=== PATIENT | male | born 1960 | race Caucasian/White ===

== ENCOUNTER 2023-02-07 11:31 | Observation (INO) | payer OTHER, SELFPAY ==
[2023-02-07] VITALS (19 sets, daily range): BP systolic 107–146; BP diastolic 61–86; PULSE 57–94; RESP 10–18; TEMP 36.3–36.6; O2SAT 65–97; BMI 31.6
--- NOTE | ~2023-02-07 | CT_ITS ---
EXAMINATION: CTA BRAIN/CAROTID DATE: 02/07/2023 15:11 INDICATION: Dizziness. Headache. TECHNIQUE: Computed tomographic angiography (CTA) of the head and neck was performed with 100 mL Omni paque-350 intravenous contrast. Multiplanar reconstructions and maximum intensity projection 3D-recon structions of the carotid arteries and of the intracranial arteries were created by the technologist on a separate workstation. Precontrast CT of the head was also obtained. Automated exposure control and iterative reconstruction technique were employed.The dose-length product was 1779.88 mGy-cm. COMPARISON: None. FINDINGS: Carotid arteries: Aortic arch is normal in caliber with no dissection. There is no evident atherosclerotic plaque with 0% stenosis of the right and left carotid bulbs relative to normal distal artery lumen diameter (NASC ET criteria). Cervical soft tissues and visualized superior mediastinum are normal. Mild dependent at electasis in the visualized bilateral upper lung zones. Moderate cervical spondylosis. Head: No acute intracranial hemorrhage, acute infarction or abnormal extra axial fluid collection. Ventricl es are normal and symmetric. No mass/mass effect. Mucosal thickening the bilateral ethmoid and maxill glynn sinuses. The orbits and mastoid air cells are normal. Intracranial arteries There is no hemodynamically significant stenosis in the vertebral, basilar and internal carotid arter ies. Left vertebral artery is dominant. There are no aneurysms identified. Both A1 and P1 segments a re patent. Cerebral arterial arborization appears symmetric. No abnormally enhancing brain lesions. IMPRESSION: 1. No acute intracranial process. 2. No atherosclerotic plaque with 0% stenosis of the right and left carotid bulbs relative to normal distal artery lumen diameter (NASCET criteria). 3. No aneurysm or hemodynamically significant stenosis in the cerebral arteries. Reviewed, dictated and finalized at location L. IMPRESSION: 1. No acute intracranial process. 2. No atherosclerotic plaque with 0% stenosis of the right and left carotid bul bs relative to normal distal artery lumen diameter (NASCET criteria). 3. No aneurysm or hemodynamically significant stenosis in the cerebral arteries .
--- NOTE | 2023-02-07 11:49 | ECG_ITS ---
Measurements Intervals [place] Rate: 66 P: 39 [place]: 181 QRS: -50 QRSD: 115 T: -26 QT: 399 QTc: 420 Interpretive Statements SINUS RHYTHM LEFT ANTERIOR FASCICULAR BLOCK LEFT VENTRICULAR HYPERTROPHY AND ST-T CHANGE CANNOT RULE OUT SEPTAL INFARCT, AGE INDETERMINATE BASELINE ARTIFACT- I, II, AVR, V1 ABNORMAL ECG NO PREVIOUS ECG AVAILABLE FOR COMPARISON Electronically Signed On 02-07-2023 11:59:23 CDT by Guille Mathur D.O.
[2023-02-07 12:07] LABS: Basophils Percent Auto 0.4 % (0.2-1.2); Eosinophils Absolute Auto 0.1 K/mm3 (0-0.3); Eosinophils Percent Auto 1.6 % (0-4.4); Hematocrit 50.3 % (42.0-52.0); Hemoglobin 16.4 g/dL (14.0-18.0); Immature Granulocyte Absolute 0.01 K/mm3 (0.00-0.031); Immature Granulocyte Percent A 0.1 % (0-0.5); Lymphocytes Absolute Auto 1.64 K/mm3 (0.9-3.2); Lymphocytes Percent Auto 21.8 % (18.3-44.2); Mean Corpuscular HGB Conc 32.6 g/dl (32-36); Mean Corpuscular Hemoglobin 26.2 pg (26-34); Mean Corpuscular Volume 80.2 fl (80-100); Mean Platelet Volume 10.7 fl (7.4-10.4); Monocytes Absolute Auto 0.5 K/mm3 (0.1-0.6); Monocytes Percent Auto 7.1 % (2.6-8.5); Neutrophils Absolute Auto 5.2 K/mm3 (1.3-6.7); Platelet Count Result 227 k/mm3 (150-375); Red Blood Count 6.27 M/mm3 (4.6-6.20); Red Cell Distribution Width 14.2 % (11.5-14.5); White Blood Count 7.5 K/mm3 (4.5-10.0)
[2023-02-07 12:17] LABS: Alanine Aminotransferase 28 U/L (6-50); Albumin Level 4.4 g/dL (3.5-5.1); Alkaline Phosphatase 74 U/L (38-126); Anion Gap 5 mmol/L (8-16); Aspartate Amino Transferase 25 U/L (17-59); Bilirubin,Total 0.8 mg/dL (0.2-1.3); Blood Urea Nitrogen 23 mg/dL (9-20); Calcium 9.1 mg/dL (8.4-10.2); Carbon Dioxide 25 mmol/L (22-30); Chloride 104 mmol/L (98-107); Estimated CRCL calculation 87 ml/min; Estimated Glomerular Filt Rate > 60; Glucose 174 mg/dL (65-110); Potassium 4.2 mmol/L (3.4-5.0); Sodium 134 mmol/L (137-145)
[2023-02-07] MEDS: SODIUM CHLORIDE 0.9% IV 1,000 ML 999 ML IV CONT (12:35)
[2023-02-07] MEDS: KETOROLAC 30 MG/ML VIAL (*BKC) IV PUSH (12:35)
--- NOTE | 2023-02-07 13:55 | ED.HA ---
HPI - Headache General Chief Complaint: Headache Stated Complaint: headache Time Seen by Provider: 02/07/23 12:03 History of Present Illness HPI Narrative: Patient is a 62-year-old male who presents ER with headache. Throbbing and frontal. Ongoing since this morning. [place] lightheaded at work and dizzy. Reports 3 days ago he had some similar symptoms that also caused him to have right-sided weakness and tremors. He was admitted to the hospital and ultimately, [facility]. He underwent a CT scan and MRI and was told that he may have had a mini stroke. They would like him also to be evaluated for seizure and he is supposed to get an EEG. He had no shaking or weakness today. Reports he has had some balance issues for several years since having a TIA, but denies that it was diagnosed as a stroke. Has tried no pain medication for his headache. No trauma. Related Data Allergies Allergy/AdvReac Type Severity Reaction Status Date / Time No Known Allergies Allergy Verified 02/07/23 11:51 Review of Systems Review of Systems: All systems reviewed & are unremarkable except as noted in HPI and below Constitutional: Constitutional: Denies chills, Denies fatigue and Denies fever(s) Eyes: Eyes: Denies change in vision and Denies photophobia ENT: Denies nasal congestion and Denies sore throat Cardiovascular: Cardiovascular: Denies chest pain, Denies rapid heart rate and Denies radiating jaw, neck or arm pain Respiratory: Respiratory: Denies cough and Denies dyspnea Gastrointestinal: Gastrointestinal: Denies abdominal pain, Denies nausea and Denies vomiting Neurologic: Reports headache(s), Denies focal weakness and Denies numbness PMFSH Past Medical History Medical History (Updated 02/07/23 @ 15:37 by Andrew Tamayo MD) Diabetes Hyperlipidemia Hypertension TIA (transient ischemic attack) Exam Narrative: GENERAL: Well-appearing, well-nourished, and in no acute distress. HEAD: Normocephalic, atraumatic. ENT: Mucous membranes moist. CHEST: Clear to auscultation. No respiratory distress. HEART: Regular rate and rhythm. Normal peripheral pulses. ABDOMEN: Soft, nontender, nondistended. EXTREMITIES: Normal range of motion. No edema. SKIN: Warm, dry, no rash. NEURO: Alert and oriented x3. Clear speech. No facial droop. Normal extremity strength. PSYCH: Normal mood and affect. Course Course Emergency Course: Patient's previous symptoms could be related to seizure or migraine or other CVA. Similarly today patient to be having migraine or strokelike symptoms. Discussed case with neurology who recommended medical observation. Toradol did improve the headache but he still has dizziness. We will try some meclizine as well. No focal deficit on exam. We will also place order for EEG. Vital Signs Vital signs: Vital Signs Temperature 97.4 F L 02/07/23 11:39 Pulse Rate 62 02/07/23 11:39 Respiratory Rate 16 02/07/23 11:39 Blood Pressure 115/66 02/07/23 11:39 Pulse Oximetry 96 02/07/23 11:39 Oxygen Delivery Room Air 02/07/23 11:39 Temperature 97.4 F L 02/07/23 11:39 Pulse Rate 68 02/07/23 14:50 Respiratory Rate 16 02/07/23 14:50 Blood Pressure 110/84 02/07/23 14:50 Pulse Oximetry 96 02/07/23 14:50 Oxygen Delivery Room Air 02/07/23 11:39 MDM - Headache Lab Data 02/07/23 11:54 02/07/23 11:54 Labs: Lab Results 02/07/23 02/07/23 Range/Units 11:54 11:54 WBC 7.5 (4.5-10.0) K/mm3 RBC 6.27 H (4.6-6.20) M/mm3 Hgb 16.4 (14.0-18.0) g/dL Hct 50.3 (42.0-52.0) % MCV 80.2 (80-100) fl MCH 26.2 (26-34) pg MCHC 32.6 (32-36) g/dl RDW 14.2 (11.5-14.5) % Plt Count 227 (150-375) k/mm3 MPV 10.7 H (7.4-10.4) fl Immature Gran % (Auto) 0.1 (0-0.5) % Neut % (Auto) 69.0 (45.5-73.1) % Lymph % (Auto) 21.8 (18.3-44.2) % [place] % (Auto) 7.1 (2.6-8.5) % Eos % (Auto) 1.6 (0-4.4) % Baso % (Auto) 0.4
[2023-02-07] MEDS: MECLIZINE HCL 25 MG TABLET PO (14:50)
--- NOTE | 2023-02-07 15:42 | PM.IMHP ---
H&P: HPI History of Present Illness Date/Time: 02/07/23 15:42 Chief Complaint: Headache Narrative: This is a 62-year-old male patient who came to ER with a headache. The patient felt lightheaded and dizzy he also felt like he was having some right-sided weakness and tremors. The patient was recently admitted to [facility]. The patient stated he underwent a CT scan and MRI and was told that he had a mini-stroke. The patient would like to be evaluated for seizures and stated he supposed to have an EEG and the near future. The patient has some balance issues for several days since having a TIA. The patient felt lightheaded at work and dizzy today. When I evaluated the patient he was awake and talking without difficulty and had no focal weakness. Consent was obtained for us to obtain records from [facility]. Sodium 134. Blood glucose 174. Head neck CTA was read as the followingNo acute intracranial process. 2. No atherosclerotic plaque with 0% stenosis of the right and left carotid bulbs relative to normal distal artery lumen diameter (NASCET criteria). 3. No aneurysm or hemodynamically significant stenosis in the cerebral arteries. The patient was given Toradol, IV fluids and Antivert in the emergency room. Neurology has been consulted. The patient is being admitted to observation status on the date of service of 02/07/2023. Review of Systems Review of Systems: All systems reviewed & are unremarkable except as noted in HPI and below Constitutional: Constitutional: Reports as per HPI and Reports no additional constitutional complaints Eyes: Eyes: Reports as per HPI and Reports no additional eye complaints ENT: Reports system reviewed and no additional complaints, except as documented and Reports Normal hearing present Cardiovascular: Cardiovascular: Reports no additional cardiovascular complaints Respiratory: Respiratory: Reports no additional respiratory complaints and Reports no additional respiratory complaints Gastrointestinal: Gastrointestinal: Reports as per HPI and Reports no additional gastrointestinal complaints Musculoskeletal: Musculoskeletal: Reports no additional musculoskeletal complaints Integumentary/Breasts: Skin/Breast: Reports system reviewed and no additional complaints, except as docu and Reports as per HPI Neurologic: Reports system reviewed and no additional complaints, except as documented, Reports as per HPI and Reports Normal hearing present Psychiatric: Psychiatric: Reports no additional psychiatric complaints and Reports as per HPI Endocrine: Endocrine: Reports no additional endocrine complaints Hematologic/Lymphatic: Hematologic/Lymphatic: Reports no additional hematologic/lymphatic complaints Allergic/Immunologic: Allergic/Immunologic: Reports no additional allergic/immunologic complaints [facility] Past Medical History Medical History (Updated 02/07/23 @ 19:50 by Shikha Rodriguez NP) Diabetes Hyperlipidemia Hypertension TIA (transient ischemic attack) Surgical History Surgical History (Updated 02/07/23 @ 15:44 by Shikha Rodriguez NP) H/O arthroscopic knee surgery History of tonsillectomy and adenoidectomy S/P ORIF (open reduction internal fixation) fracture right ankle Family History Family History (Updated 02/07/23 @ 15:45 by Shikha Rodriguez NP) Father Diabetes mellitus Cancer Social History Social History (Updated 02/07/23 @ 19:47 by Shikha Rodriguez NP) Social History: He is and lives with his . They have 2 children. He works for [employer]. Code status full code Smoking status: Never smoker Alcohol intake: never Substance use: never Lack of Transportation: No Lack of Food: Never True Current Housing: I Do Not Have Housing Concerned About Future Housing: Decline to Answer Difficulty Paying Gas/Electric Bills: Decline to Answer Difficulty Paying for Meds: Decline to Answer Currently Unemployed:
--- NOTE | 2023-02-07 18:17 | ADMGEN ---
This patient, Juwan Appiah, was admitted to Medical Room 341-01. Patient/family oriented to hospital policies and general routines including ID bracelet, bed and alarms, visiting hours, pain management, procedures, bathroom and other care routines, personal items, smoking policy, room service/diet, and visiting hours. Information on how to activate the Rapid Response Team has been discussed. Patient/Family are encouraged to report perceived risks to care and to ask questions if they do not understand what they are told or what they should do.
[2023-02-07 20:43] LABS: Glucose Point of Care 217 mg/dl (65-105)
[2023-02-07] MEDS: PANTOPRAZOLE 40 MG TABLET PO (21:46)
[2023-02-07] MEDS: SIMVASTATIN 20 MG TABLET 40 MG PO (21:46)
[2023-02-08] VITALS (12 sets, daily range): BP systolic 104–129; BP diastolic 54–85; PULSE 55–78; RESP 18; TEMP 36.1–36.7; O2SAT 95–96
[2023-02-08 05:47] LABS: Basophils Absolute Auto 0.1 K/mm3 (0.0-0.1); Basophils Percent Auto 0.8 % (0.2-1.2); Eosinophils Absolute Auto 0.3 K/mm3 (0-0.3); Eosinophils Percent Auto 4.3 % (0-4.4); Hematocrit 47.9 % (42.0-52.0); Hemoglobin 15.3 g/dL (14.0-18.0); Immature Granulocyte Absolute 0.01 K/mm3 (0.00-0.031); Immature Granulocyte Percent A 0.2 % (0-0.5); Lymphocytes Absolute Auto 1.92 K/mm3 (0.9-3.2); Lymphocytes Percent Auto 32.1 % (18.3-44.2); Mean Corpuscular HGB Conc 31.9 g/dl (32-36); Mean Corpuscular Volume 81.5 fl (80-100); Mean Platelet Volume 10.8 fl (7.4-10.4); Monocytes Absolute Auto 0.5 K/mm3 (0.1-0.6); Neutrophils Absolute Auto 3.2 K/mm3 (1.3-6.7); Neutrophils Percent Auto 53.6 % (45.5-73.1); Platelet Count Result 191 k/mm3 (150-375); Red Blood Count 5.88 M/mm3 (4.6-6.20); Red Cell Distribution Width 14.3 % (11.5-14.5)
--- NOTE | 2023-02-08 06:03 | PC.NURSE ---
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
[2023-02-08 06:11] LABS: Alanine Aminotransferase 24 U/L (6-50); Albumin Level 3.7 g/dL (3.5-5.1); Alkaline Phosphatase 66 U/L (38-126); Anion Gap 3 mmol/L (8-16); Aspartate Amino Transferase 26 U/L (17-59); Bilirubin,Total 0.8 mg/dL (0.2-1.3); Blood Urea Nitrogen 24 mg/dL (9-20); Calcium 8.3 mg/dL (8.4-10.2); Carbon Dioxide 27 mmol/L (22-30); Chloride 108 mmol/L (98-107); Estimated CRCL calculation 97 ml/min; Estimated Glomerular Filt Rate > 60; Glucose 127 mg/dL (65-110); Magnesium 2.1 mg/dL (1.6-2.3); Potassium 3.9 mmol/L (3.4-5.0); Sodium 138 mmol/L (137-145)
[2023-02-08] MEDS: EMPAGLIFLOZIN 25 MG TABLET PO (08:30)
[2023-02-08] MEDS: PANTOPRAZOLE 40 MG TABLET PO ×2 (08:30→21:14)
[2023-02-08] MEDS: ASPIRIN 81 MG CHEWABLE TABLET PO (08:30)
[2023-02-08] MEDS: lisinopriL 5 MG TABLET PO (08:30)
[2023-02-08 08:35] LABS: Glucose Point of Care 108 mg/dl (65-105)
--- NOTE | 2023-02-08 09:19 | PM.IMPN ---
Progress Note: A&P Assessment and Plan (1) Stroke-like symptom: Code(s): R29.90 - Unspecified symptoms and signs involving the nervous system Status: Acute Assessment and Plan: Complaints of dizziness and weakness. Patient recently seen at [facility]. Consent form obtained to get records from [facility]. The patient stated that he had TIAs. CT head and neck no acute intracranial process, 0% stenosis b/l internal carotids, no aneurysm. neurology has been consulted and appreciate recommendations orthostatic blood pressures continue with aspirin. the patient has no focal weakness. the patient stated that he already had an echo on an MRI at [facility] we are awaiting records from [facility]. EEG results no electrographic seizures identified nor are there any epileptiform discharges (2) Hypertension: Code(s): I10 - Essential (primary) hypertension Status: Acute Assessment and Plan: Continue with lisinopril (3) Hyperlipidemia: Code(s): E78.5 - Hyperlipidemia, unspecified Status: Acute Assessment and Plan: Continue simvastatin (4) Diabetes: Code(s): E11.9 - Type 2 diabetes mellitus without complications Status: Acute Assessment and Plan: Accu-Cheks AC and HS with sliding scale insulin. Check A1c. Hypoglycemic protocol continue with Jardiance Trulicity is non formulary. Subjective Date/time seen: 02/08/23 09:19 Interval history: Patient presented to ED with dizziness and weakness. Patient recently presented with TIA to [facility]. Patient stated that upon arrival he had a headache that is now gotten better. He describes the dizziness as feeling off and disequilibrium on his feet. Patient stated that after he was discharged from [facility] that he developed shaking, weakness and numbness to the right side and he was worried for seizure. EEG being performed today. Review of Systems Review of Systems: All systems reviewed & are unremarkable except as noted in HPI and below Exam Narrative: GENERAL: Comfortable, no acute distress HENMT: moist mucous membranes EYES: EOM intact b/l NECK: no lymphadenopathy RESPIRATORY: clear to auscultation CARDIO: RRR GI: soft, nontender, bowel sounds present SKIN: no rashes EXTREMITIES: no edema, redness or tenderness NEURO: Strength 5/5 throughout, no facial droop Objective Data Vital Signs Vital Signs: Vital Signs - 24 hr 02/07/23 11:39 02/07/23 12:38 02/07/23 13:35 Temperature 97.4 F L Pulse Rate 62 94 60 Respiratory Rate 16 14 15 Blood Pressure 115/66 108/80 118/78 Pulse Oximetry 96 65 L 95 Oxygen Delivery Room Air 02/07/23 14:50 02/07/23 15:40 02/07/23 12:00 Temperature Pulse Rate 68 60 72 Respiratory Rate 16 14 10 L Blood Pressure 110/84 130/80 107/78 Pulse Oximetry 96 95 Oxygen Delivery 02/07/23 12:30 02/07/23 13:00 02/07/23 13:30 Temperature Pulse Rate 68 70 61 Respiratory Rate 10 L 15 15 Blood Pressure 107/79 125/79 118/77 Pulse Oximetry 94 92 Oxygen Delivery 02/07/23 14:01 02/07/23 14:31 02/07/23 15:41 Temperature Pulse Rate 61 57 L 59 L Respiratory Rate 16 14 17 Blood Pressure 115/77 109/83 129/80 Pulse Oximetry 92 92 95 Oxygen Delivery 02/07/23 15:45 02/07/23 16:00 02/07/23 16:30 Temperature Pulse Rate 60 59 L 59 L Respiratory Rate 11 L 15 14 Blood Pressure 135/82 126/83 Pulse Oximetry 95 96 96 Oxygen Delivery 02/07/23 18:02 02/07/23 19:00 02/07/23 20:00 Temperature 97.9 F Pulse Rate 60 67 66 Respiratory Rate 16 16 Blood Pressure 146/86 H 144/71 H Pulse Oximetry 96 97 Oxygen Delivery 02/07/23 22:27 02/07/23 20:00 02/08/23 00:00 Temperature 97.3 F L Pulse Rate 63 55 L Respiratory Rate 18 Blood Pressure 123/61 Pulse Oximetry 96 Oxygen Delivery Room Air 02/08/23 04:00 02/08/23 06:00 02/08/23
[2023-02-08 09:43] LABS: Cholesterol 129 mg/dL (0-200); HDL Direct 39 mg/dL; Triglycerides 113 mg/dL (<150)
[2023-02-08 09:54] LABS: LDL Cholesterol Direct 68 mg/dL
--- NOTE | 2023-02-08 10:48 | WPDNEURCNPN ---
Assessment and Plan Assessment and plan (1) Headache: Code(s): R51.9 - Headache, unspecified Status: Acute (2) Dizziness: Code(s): R42 - Dizziness and giddiness Status: Acute (3) Stroke-like symptom: Code(s): R29.90 - Unspecified symptoms and signs involving the nervous system Status: Acute (4) Hypertension: Code(s): I10 - Essential (primary) hypertension Status: Acute (5) Hyperlipidemia: Code(s): E78.5 - Hyperlipidemia, unspecified Status: Acute (6) Diabetes: Code(s): E11.9 - Type 2 diabetes mellitus without complications Status: Acute Plan Juwan Appiah is a 62 year old male with a history of diabetes melitis, hyperlipidemia, hypertension, and TIA presenting due to concerns for headache, lightheadedness, dizziness. His headache is gone and he feels back to baseline. CTA brain/carotid is normal. He had an episode not long ago for shaking/weakness/numbness in the right side that prompted stroke work-up which was reportedly unrevealing. Patient was supposed to have a routine EEG which was not done yet. - Routine EEG Consult date: 02/08/23 Reason for consult: Dizziness HPI: Juwan Appiah is a 62 year old male with a history of diabetes melitis, hyperlipidemia, hypertension, and TIA presenting due to concerns for headache, lightheadedness, dizziness. Patient was recently admitted to [facility] for right upper extremity, numbness, weakness, and shaking. He had a CT head and MRI at that time, but results are not available for review. He was supposed to get an EEG as outpatient due to concerns for seizures but has not been done yet. He was told that he had a TIA. Since then, he has continued to have balance issues and headache. On the day of presentation he felt lightheaded as well. In the ED his blood pressure was in the 110s-120s. His CT head and CTA brain/carotid were normal. Labs were unrevealing as well. He was given a dose of Toradol, meclizine, and IV fluids while in the ED. He was subsequently admitted. His current medications include aspirin 81mg daily and simvastatin 40mg daily. Patient feels that his headache is gone. He had a four hour episode of right sided tremulousness, which is what prompted his admission at [facility] and need for EEG. During the episode patient was fully aware and able to communicate. He felt some numbness and weakness on the right side. During the shaking, he was watching TV. became concerned and had him taken for evaluation at [facility], which is what prompted the stroke work-up. Patient reports that all his testing that was done at the hospital came back clear . He has not had any additional similar episodes of right sided shaking/weakness/numbness since then. He is currently on light duty at his job. Review of Systems Constitutional: Constitutional: Reports no additional constitutional complaints Eyes: Eyes: Reports no additional eye complaints ENT: Reports system reviewed and no additional complaints, except as documented Cardiovascular: Cardiovascular: Reports no additional cardiovascular complaints Respiratory: Respiratory: Reports no additional respiratory complaints Gastrointestinal: Gastrointestinal: Reports no additional gastrointestinal complaints Genitourinary: Genitourinary: Reports no additional male genitourinary complaints Musculoskeletal: Musculoskeletal: Reports no additional musculoskeletal complaints Integumentary/Breasts: Skin/Breast: Reports system reviewed and no additional complaints, except as docu Neurologic: Reports as per HPI Psychiatric: Psychiatric: Reports no additional psychiatric complaints PMFSH Past Medical History Medical History Diabetes Hyperlipidemia Hypertension TIA (transient ischemic attack) Surgical History Surgical History H/O arthrosco
[2023-02-08 10:50] LABS: Folic Acid 10.4 ng/mL (2.76->20)
[2023-02-08 11:29] LABS: Lactic Acid Reflex 0.8 mmol/L (0.7-2.0)
[2023-02-08 12:32] LABS: Glucose Point of Care 218 mg/dl (65-105)
[2023-02-08] MEDS: INSULIN ASPART (*BKC) 100 UNITS/ML SUB-Q (12:38)
--- NOTE | 2023-02-08 13:49 | WPDNEUROLOGY ---
Neurology EEG Report General Information Date of Study: 02/08/23 TEST Routine EEG DIAGNOSIS Right sided tremor CONDITION OF RECORDING Awake, drowsy, asleep EEG NUMBER [id number] CLINICAL HISTORY Patient had an episode of uncontrollable shaking of his right side that lasted around four hours. He had no loss of consciousness at the time. He did have associated right sided weakness and numbness. He has not had any additional episodes since then. EEG DESCRIPTION During the awake state with eyes closed the background consists of 8-9 Hz posterior dominant rhythm which attenuates appropriately with eye opening. The recording is continuous. There is a well developed anterior-posterior gradient. No significant asymmetries of background activities are noted. With drowsiness there is waxing and waning of the dominant rhythm with eventual replacement by a mixture of beta, alpha, and theta activity. As the patient enters stage II sleep, symmetrical spindles. There are no epileptiform discharges or seizures during this recording. Hyperventilation and photic stimulation were not performed. IMPRESSION This is a normal routine EEG recorded in awake and asleep states. There are no electrographic seizures identified, nor are there any epileptiform discharges. Please note that a normal EEG cannot exclude a seizure disorder. Clinical correlation is recommended.
[2023-02-08 17:15] LABS: Glucose Point of Care 169 mg/dl (65-105)
[2023-02-08 21:07] LABS: Hemoglobin A1C 7.8 % (<5.7)
[2023-02-08] MEDS: SIMVASTATIN 20 MG TABLET 40 MG PO (21:15)
[2023-02-09] VITALS (10 sets, daily range): BP systolic 98–117; BP diastolic 55–73; PULSE 61–70; RESP 18–20; TEMP 35.6–36.5; O2SAT 95–98
[2023-02-09 00:37] LABS: Glucose Point of Care 173 mg/dl (65-105)
[2023-02-09 06:06] LABS: Basophils Percent Auto 0.4 % (0.2-1.2); Eosinophils Absolute Auto 0.2 K/mm3 (0-0.3); Eosinophils Percent Auto 2.5 % (0-4.4); Hematocrit 49.1 % (42.0-52.0); Hemoglobin 15.7 g/dL (14.0-18.0); Immature Granulocyte Absolute 0.02 K/mm3 (0.00-0.031); Immature Granulocyte Percent A 0.3 % (0-0.5); Lymphocytes Absolute Auto 1.71 K/mm3 (0.9-3.2); Lymphocytes Percent Auto 24.2 % (18.3-44.2); Mean Corpuscular Hemoglobin 26.5 pg (26-34); Mean Corpuscular Volume 82.8 fl (80-100); Monocytes Absolute Auto 0.7 K/mm3 (0.1-0.6); Monocytes Percent Auto 9.5 % (2.6-8.5); Neutrophils Absolute Auto 4.5 K/mm3 (1.3-6.7); Neutrophils Percent Auto 63.1 % (45.5-73.1); Platelet Count Result 216 k/mm3 (150-375); Red Blood Count 5.93 M/mm3 (4.6-6.20); Red Cell Distribution Width 14.2 % (11.5-14.5); White Blood Count 7.1 K/mm3 (4.5-10.0)
[2023-02-09 06:20] LABS: Alanine Aminotransferase 22 U/L (6-50); Albumin Level 3.9 g/dL (3.5-5.1); Alkaline Phosphatase 67 U/L (38-126); Anion Gap 3 mmol/L (8-16); Aspartate Amino Transferase 19 U/L (17-59); Blood Urea Nitrogen 16 mg/dL (9-20); Calcium 8.5 mg/dL (8.4-10.2); Carbon Dioxide 26 mmol/L (22-30); Chloride 111 mmol/L (98-107); Estimated CRCL calculation 87 ml/min; Estimated Glomerular Filt Rate > 60; Glucose 129 mg/dL (65-110); Magnesium 2.1 mg/dL (1.6-2.3); Sodium 140 mmol/L (137-145)
[2023-02-09 08:47] LABS: Glucose Point of Care 145 mg/dl (65-105)
[2023-02-09] MEDS: PANTOPRAZOLE 40 MG TABLET PO (09:13)
[2023-02-09] MEDS: ASPIRIN 81 MG CHEWABLE TABLET PO (09:13)
[2023-02-09] MEDS: EMPAGLIFLOZIN 25 MG TABLET PO (09:13)
[2023-02-09] MEDS: lisinopriL 5 MG TABLET PO (09:13)
[2023-02-09 12:21] LABS: Glucose Point of Care 199 mg/dl (65-105)
--- NOTE | 2023-02-09 13:48 | PM.DS ---
DS: Admitting Diagnosis Discharge Date 02/09/23 Admitting Diagnosis shaking, numbness, weakness in the right arm DS: Discharge Diagnosis Discharge Diagnosis (1) Stroke-like symptom: Code(s): R29.90 - Unspecified symptoms and signs involving the nervous system Status: Acute Assessment and Plan: Complaints of dizziness and weakness. Patient recently seen at [facility]. Consent form obtained to get records from [facility]. The patient stated that he had TIAs. CT head and neck no acute intracranial process, 0% stenosis b/l internal carotids, no aneurysm. neurology has been consulted and appreciate recommendations orthostatic blood pressures continue with aspirin. the patient has no focal weakness. the patient stated that he already had an echo on an MRI at [facility] we are awaiting records from [facility]. EEG results no electrographic seizures identified nor are there any epileptiform discharges (2) Hypertension: Code(s): I10 - Essential (primary) hypertension Status: Acute Assessment and Plan: Continue with lisinopril (3) Hyperlipidemia: Code(s): E78.5 - Hyperlipidemia, unspecified Status: Acute Assessment and Plan: Continue simvastatin (4) Diabetes: Code(s): E11.9 - Type 2 diabetes mellitus without complications Status: Acute Assessment and Plan: Accu-Cheks AC and HS with sliding scale insulin. Check A1c. Hypoglycemic protocol continue with Jardiance Trulicity is non formulary. DS: Summary Hospital Course Reason for hospitalization: 02/09/23 Hospital Course: This is a 62-year-old male who presented to the ED on 02/07/2023 with chief complaint right-sided weakness and tremor. Patient recently admitted to [facility] where he received CT and MRI and was told he had a TIA. Patient presented to [place] because he wished to be evaluated for seizures and that he was supposed to have an EEG soon. Patient had reported balance issues since having TIA. Patient reported right upper extremity numbness, weakness and shaking. During this episode patient was fully aware unable to communicate. Reportedly during the shaking patient's had noticed it and she became concerned patient was watching TV during this time and went to the hospital due to 's concerns. Patient shaking, weakness and numbness have not reoccurred since hospital admission. Neurology consulted. Orthostatics were negative, patient did not have any focal weakness or facial droop. CT of the head and neck with no acute intracranial process, 0% stenosis in bilateral internal carotids and no aneurysm. EEG performed and did not identify any electrographic seizures nor any epileptiform discharges. I discussed this case with Neurology and they have cleared patient for discharge. Continue home medications at discharge. Time Spent with Patient Time attestation: Total time spent providing and/or coordinating discharge services: Exam Narrative: GENERAL: Comfortable, no acute distress HENMT: moist mucous membranes EYES: EOM intact b/l NECK: no lymphadenopathy RESPIRATORY: clear to auscultation CARDIO: RRR GI: soft, nontender, bowel sounds present SKIN: no rashes EXTREMITIES: no edema, redness or tenderness NEURO: strength 5/5, no facial droop DS: Data Data Completed and Pending Labs on day of discharge: Labs from last 24 hours 02/09/23 02/09/23 02/09/23 11:53 07:59 05:19 WBC RBC Hgb Hct MCV MCH MCHC RDW Plt Count MPV Immature Gran % (Auto) Neut % (Auto) Lymph % (Auto) [place] % (Auto) Eos % (Auto) Baso % (Auto) Lymph # (Auto) [place] # (Auto) Eos # (Auto) Baso # (Auto) Abs Immat Gran (auto) Absolute Neuts (auto) Absolute Nucleated RBC Nucleated RBC % Sodium 140 Potassium 4.0 Chloride 111 H
== END 2023-02-09 14:28 | disposition home or self-care (01) ==
LOC: ANHED 15:37 → ANH3MED 02-08 09:38
PROVIDERS: Emergency Medicine; Internal Medicine Critical Care Medicine; Nurse Practitioner; Admitting Provider Internal Medicine; Emergency Provider Emergency Medicine; Visit Provider Internal Medicine
DX: R29.90 Unspecified symptoms and signs involving the nervous system (principal); I10 Essential (primary) hypertension; E78.5 Hyperlipidemia, unspecified; E11.9 Type 2 diabetes mellitus without complications; R51.9 Headache, unspecified; R42 Dizziness and giddiness; R94.31 Abnormal electrocardiogram [ECG] [EKG]; Z86.73 Personal history of transient ischemic attack (TIA), and cerebral infarction without residual deficits; Z79.82 Long term (current) use of aspirin; Z79.85 Long-term (current) use of injectable non-insulin antidiabetic drugs; Z79.84 Long term (current) use of oral hypoglycemic drugs; Z79.899 Other long term (current) drug therapy
CPT/HCPCS: 36415; 70496; 70498; 80053; 80061; 82607; 82746; 82948; 83036; 83605; 83735; 84443; 85025; 93005; 95816; 96361; 96374; 99285; A9270; G0378; G0379; J1815; J1885; J7030; Q9967

== ENCOUNTER 2023-07-31 12:01 | Emergency (ER) | payer OTHER, SELFPAY ==
[2023-07-31 12:08] VITALS: BP 95/58; PULSE 72; RESP 20; TEMP 36.3; O2SAT 93
--- NOTE | 2023-07-31 12:29 | ED.DENTAL ---
HPI - Dental/Oral General Chief complaint: Dental/Oral Stated complaint: jaw swollen Time Seen by Provider: 07/31/23 12:10 Source: patient Mode of arrival: ambulatory Limitations: no limitations History of Present Illness HPI Narrative: Juwan is a 63-year-old male patient presenting to the clinic today with complaints of possible dental infection. He reports that he is having pain to the left upper and lower jaw that is radiating to his head. States he has an appointment with the dentist and has discontinued taking his Plavix. However when I asked him how long he has been office Plavix he says x1 week. States that he ran out of his prescription. He was taking Plavix for TIAs. Related Data Home Medications Medication Instructions Recorded Confirmed aspirin 81 mg chewable tablet 81 mg PO DAILY 02/07/23 07/31/23 dulaglutide 0.75 mg/0.5 mL 0.75 mg subcut WEEKLY 02/07/23 07/31/23 subcutaneous pen injector (Trulicity) empagliflozin 25 mg tablet 25 mg PO DAILY 02/07/23 07/31/23 (Jardiance) lisinopril 5 mg tablet 5 mg PO DAILY 02/07/23 02/07/23 pantoprazole 40 mg tablet,delayed 40 mg PO BID 02/07/23 02/07/23 release simvastatin 40 mg tablet 40 mg PO HS 02/07/23 07/31/23 Allergies Allergy/AdvReac Type Severity Reaction Status Date / Time No Known Allergies Allergy Verified 02/07/23 11:51 Review of Systems Review of Systems: Pertinent positives per HPI. Patient denies any fever, chills, rash, visual changes, dizziness, cough, runny nose, sore throat, shortness of breath, chest pain, palpitations, nausea, vomiting, diarrhea, constipation, abdominal pain, or any urinary issues. [facility] Past Medical History Medical History Diabetes Hyperlipidemia Hypertension TIA (transient ischemic attack) Surgical History Surgical History H/O arthroscopic knee surgery History of tonsillectomy and adenoidectomy S/P ORIF (open reduction internal fixation) fracture right ankle Family History Family History Father Diabetes mellitus Cancer Social History Social History Social History: He is and lives with his . They have 2 children. He works for [employer]. Code status full code Smoking status: Never smoker Alcohol intake: never Substance use: never Lack of Transportation: No Lack of Food: Never True Current Housing: I Do Not Have Housing Concerned About Future Housing: Decline to Answer Difficulty Paying Gas/Electric Bills: Decline to Answer Difficulty Paying for Meds: Decline to Answer Currently Unemployed: Decline to Answer Education: Decline to Answer Difficulty w/ Childcare or Family Care: Decline to Answer Spiritual care concerns: No Comments At the time of my signature, I reviewed and agree with the nursing past medical, surgical, social, and family history. There is no relevant family history pertinent to the patient complaint. Exam Narrative: General: Well-developed, well nourished, in no apparent distress Head: Normocephalic, atraumatic Eyes: Pupils equally round and reactive to light bilaterally, EOM intact, sclera and conjunctive clear, no discharge, lids normal Ears: TMs intact and clear, ear canals clear, no drainage, grossly hearing normal. Nose: Nares patent, no discharge, no inflammation, no sinus tenderness. Mouth: Oropharynx without lesions or masses, poor dentition, MMM. Multiple tooth infection to the left upper and lower posterior teeth Neck: Supple, trachea midline, no enlargement of anterior or posterior cervical nodes, no thyroid masses or goiter palpable. Cardio: Regular rate and rhythm, s1 and s2 normal, no murmur appreciated. Resp: Clear to auscultation bilaterally anteriorly and posteriorly, no r
== END 2023-07-31 12:36 | disposition home or self-care (01) ==
PROVIDERS: Emergency Provider Nurse Practitioner Family; PCP Internal Medicine
DX: K04.7 Periapical abscess without sinus (principal); Z79.82 Long term (current) use of aspirin; I10 Essential (primary) hypertension; E78.5 Hyperlipidemia, unspecified; E11.8 Type 2 diabetes mellitus with unspecified complications; Z86.73 Personal history of transient ischemic attack (TIA), and cerebral infarction without residual deficits; Z79.02 Long term (current) use of antithrombotics/antiplatelets
CPT/HCPCS: 99213; G0463

== ENCOUNTER 2023-10-07 17:24 | Emergency (ER) | payer OTHER, SELFPAY ==
[2023-10-07 17:37] VITALS: BP 145/80; PULSE 103; RESP 16; TEMP 36.8; O2SAT 96
--- NOTE | 2023-10-07 17:47 | ED.URI ---
HPI - URI/Sore Throat General Chief Complaint: Upper Respiratory Infection Stated Complaint: Sore Throat/Cough Time Seen by Provider: 10/07/23 18:02 Source: patient and RN notes reviewed Mode of arrival: ambulatory Limitations: no limitations History of Present Illness HPI Narrative: 63-year-old male presents with concern for cough and sore throat for 2 weeks. He reports his has strep throat currently. He denies fever, body aches, chills, sweats. MD elicited complaint: cough and sore throat Related Data Home Medications Medication Instructions Recorded Confirmed aspirin 81 mg chewable tablet 81 mg PO DAILY 02/07/23 07/31/23 dulaglutide 0.75 mg/0.5 mL 0.75 mg subcut WEEKLY 02/07/23 07/31/23 subcutaneous pen injector (Trulicity) empagliflozin 25 mg tablet 25 mg PO DAILY 02/07/23 07/31/23 (Jardiance) simvastatin 40 mg tablet 40 mg PO HS 02/07/23 07/31/23 clopidogrel 75 mg tablet 75 mg PO DAILY 07/31/23 07/31/23 gabapentin 300 mg capsule 300 mg PO BID 07/31/23 07/31/23 omeprazole 20 mg capsule,delayed 200 mg PO DAILY 07/31/23 07/31/23 release tizanidine 4 mg tablet mg 10/07/23 Allergies Allergy/AdvReac Type Severity Reaction Status Date / Time No Known Allergies Allergy Verified 02/07/23 11:51 Review of Systems Review of Systems: CONSTITUTIONAL: Denies malaise, chills, sweats, or fever. EYES: Denies visual changes, redness, or discharge. ENT: Denies rhinorrhea, congestion, sinus pain, otalgia. Reports sore throat. CARDIOVASCULAR: Denies chest pain, palpitations, or edema. RESPIRATORY: Reports cough. Denies dyspnea. GASTROINTESTINAL: Denies abdominal pain, nausea, vomiting, diarrhea SKIN: Denies rash or itching. MUSCULOSKELETAL: Denies myalgia. NEUROLOGIC: Reports headache. All systems reviewed & are unremarkable except as noted in HPI and below PMFSH Past Medical History Medical History Diabetes Hyperlipidemia Hypertension TIA (transient ischemic attack) Surgical History Surgical History H/O arthroscopic knee surgery History of tonsillectomy and adenoidectomy S/P ORIF (open reduction internal fixation) fracture right ankle Family History Family History Father Diabetes mellitus Cancer Social History Social History Social History: He is and lives with his . They have 2 children. He works for [employer]. Code status full code Smoking status: Never smoker Alcohol intake: never Substance use: never Lack of Transportation: No Lack of Food: Never True Current Housing: I Do Not Have Housing Concerned About Future Housing: Decline to Answer Difficulty Paying Gas/Electric Bills: Decline to Answer Difficulty Paying for Meds: Decline to Answer Currently Unemployed: Decline to Answer Education: Decline to Answer Difficulty w/ Childcare or Family Care: Decline to Answer Spiritual care concerns: No Comments At time of signature, agree with nursing past medical, surgical, social and family history. There is no relevant family history pertinent to the presenting complaint Exam Narrative: GENERAL: Well-appearing, well-nourished, and in no acute distress. HEAD: Normocephalic EYES: PERRLA, conjunctivae clear ENT: Nares clear. Mucous membranes moist. TM pearly cruz with sharp light reflex bilaterally; no tragal tenderness. Oropharynx not erythematous without lesions. Tonsils not enlarged and without exudate, no drooling, no hoarseness, no trismus, uvula midline. NECK: Supple. No lymphadenopathy CHEST: Clear to auscultation, breath sounds equal. No wheezing, rhonchi, rales, or stridor. No respiratory distress, speaks in full sentences. HEART: Regular rate and rhythm. No murmur heard. SKIN: Warm, dry, no rash. NEUR
== END 2023-10-07 18:27 | disposition home or self-care (01) ==
PROVIDERS: Emergency Provider Nurse Practitioner; PCP Internal Medicine
DX: J02.0 Streptococcal pharyngitis (principal); R05.9 Cough, unspecified; E11.9 Type 2 diabetes mellitus without complications; E78.5 Hyperlipidemia, unspecified; I10 Essential (primary) hypertension; Z86.73 Personal history of transient ischemic attack (TIA), and cerebral infarction without residual deficits; Z79.82 Long term (current) use of aspirin
CPT/HCPCS: 87880; 99213; G0463

== ENCOUNTER 2023-11-22 11:10 | Emergency (ER) | payer OTHER, SELFPAY ==
[2023-11-22 11:18] VITALS: BP 141/91; PULSE 73; RESP 16; TEMP 36.9; O2SAT 97
--- NOTE | 2023-11-22 12:00 | ED.DENTAL ---
HPI - Dental/Oral General Chief complaint: Dental/Oral Stated complaint: tooth pain Time Seen by Provider: 11/22/23 12:00 Mode of arrival: ambulatory Limitations: no limitations History of Present Illness HPI Narrative: 63-year-old male presents with concern for right lower toothache. He reports he has had a toothache for 3 weeks, denies any injury or trauma to the tooth. Reports he had similar problems in other teeth that he since had pulled. Reports he is trying to get a dentist appointment. Reports he has tried Tylenol and ibuprofen without relief. MD Complaint: tooth pain Related Data Home Medications Medication Instructions Recorded Confirmed aspirin 81 mg chewable tablet 81 mg PO DAILY 02/07/23 11/22/23 dulaglutide 0.75 mg/0.5 mL 0.75 mg subcut WEEKLY 02/07/23 11/22/23 subcutaneous pen injector (Trulicity) empagliflozin 25 mg tablet 25 mg PO DAILY 02/07/23 11/22/23 (Jardiance) simvastatin 40 mg tablet 40 mg PO HS 02/07/23 11/22/23 clopidogrel 75 mg tablet 75 mg PO DAILY 07/31/23 11/22/23 gabapentin 300 mg capsule 300 mg PO BID 07/31/23 11/22/23 omeprazole 20 mg capsule,delayed 200 mg PO DAILY 07/31/23 11/22/23 release tizanidine 4 mg tablet 4 mg PO BID 10/07/23 11/22/23 Allergies Allergy/AdvReac Type Severity Reaction Status Date / Time No Known Allergies Allergy Verified 11/22/23 11:24 Review of Systems Review of Systems: CONSTITUTIONAL: Denies malaise, chills, sweats, or fever. EYES: Denies visual changes ENT: Denies rhinorrhea, congestion, sinus pain, otalgia or sore throat. Reports right lower dental pain CARDIOVASCULAR: Denies chest pain, palpitations RESPIRATORY: Denies cough or dyspnea. SKIN: Denies rash or itching. MUSCULOSKELETAL: Denies myalgia. NEUROLOGIC: Denies numbness, weakness, or headache. All systems reviewed & are unremarkable except as noted in HPI and below PMFSH Past Medical History Medical History Diabetes Hyperlipidemia Hypertension TIA (transient ischemic attack) Surgical History Surgical History H/O arthroscopic knee surgery History of tonsillectomy and adenoidectomy S/P ORIF (open reduction internal fixation) fracture right ankle Family History Family History Father Diabetes mellitus Cancer Social History Social History Social History: He is and lives with his . They have 2 children. He works for [employer]. Code status full code Smoking status: Never smoker Alcohol intake: never Substance use: never Lack of Transportation: No Lack of Food: Never True Current Housing: I Do Not Have Housing Concerned About Future Housing: Decline to Answer Difficulty Paying Gas/Electric Bills: Decline to Answer Difficulty Paying for Meds: Decline to Answer Currently Unemployed: Decline to Answer Education: Decline to Answer Difficulty w/ Childcare or Family Care: Decline to Answer Spiritual care concerns: No Comments At time of signature, agree with nursing past medical, surgical, social and family history. There is no relevant family history pertinent to the presenting complaint Exam Narrative: GENERAL: Well-appearing, well-nourished, and in no acute distress. HEAD: Normocephalic, atraumatic. EYES: PERRLA, sclera clear ENT: Nares clear, turbinates pink, no rhinorrhea or epistaxis. Mucous membranes moist. TM pearly cruz with sharp light reflex bilaterally; no tragal tenderness. Oropharynx without erythema or lesions. Tonsils not enlarged and without exudate. Missing teeth, broken teeth, caries noted, no jaw swelling noted, no visible abscess noted NECK: Supple. No lymphadenopathy. CHEST: No respiratory distress. Speaks in full sentences. HEART: Regular rate and rhythm. SKIN:
== END 2023-11-22 12:10 | disposition home or self-care (01) ==
PROVIDERS: Emergency Provider Nurse Practitioner; PCP Internal Medicine
DX: K08.89 Other specified disorders of teeth and supporting structures (principal); E11.9 Type 2 diabetes mellitus without complications; E78.5 Hyperlipidemia, unspecified; I10 Essential (primary) hypertension; Z86.73 Personal history of transient ischemic attack (TIA), and cerebral infarction without residual deficits; Z79.82 Long term (current) use of aspirin
CPT/HCPCS: 99213; G0463

== ENCOUNTER 2025-03-31 12:18 | Emergency (ER) | payer OTHER, SELFPAY ==
--- NOTE | ~2025-03-31 | XR_ITS ---
PA, oblique, and lateral views of the left index finger CLINICAL HISTORY: Laceration FINDINGS: Probable transverse nondisplaced fracture the distal phalanx of the index finger. There is focal overlying soft tissue laceration. Remaining osseous structures and joint spaces are intact. IMPRESSION: Suspected transverse nondisplaced fracture of the distal phalanx of the index finger. Reviewed, dictated and finalized at location . IMPRESSION: Suspected transverse nondisplaced fracture of the distal phalanx of the index f angela.
--- NOTE | 2025-03-31 12:22 | ED.WOUNDLAC ---
HPI - Wound/Laceration General Chief Complaint: Extremity Injury, Upper Stated Complaint: left finger cut Time Seen by Provider: 03/31/25 12:25 Source: patient and RN notes reviewed Mode of arrival: ambulatory Limitations: no limitations History of Present Illness HPI narrative: 65-year-old male presents [facility] complaining of left index finger injury. Patient was using a hedgetrimmer when he reached his finger near the blade while it was running and lacerated his distal and of his left index finger. Patient reports having multiple lacerations to the end of his left index finger. Patient denies any numbness or tingling reports he is able to move his finger without issue. Patient reports having a history of diabetes and neuropathy. Bleeding is controlled prior to arrival. Patient is unsure of his tetanus status. The injury occurred approximately 1 hour ago. Related Data Home Medications ?Medication ?Instructions ?Recorded ?Confirmed ?Last Taken ?Type aspirin 81 mg chewable tablet 81 mg PO DAILY 02/07/23 03/31/25 Unknown History dulaglutide 0.75 mg/0.5 mL 0.75 mg subcut WEEKLY 02/07/23 03/31/25 02/03/23 History subcutaneous pen injector (Trulicity) empagliflozin 25 mg tablet 25 mg PO DAILY 02/07/23 03/31/25 Unknown History (Jardiance) simvastatin 40 mg tablet 40 mg PO HS 02/07/23 03/31/25 Unknown History gabapentin 300 mg capsule 300 mg PO BID 07/31/23 03/31/25 Unknown History omeprazole 20 mg capsule,delayed 200 mg PO DAILY 07/31/23 03/31/25 Unknown History release tizanidine 4 mg tablet 4 mg PO BID 10/07/23 03/31/25 Unknown History Allergies Allergy/AdvReac Type Severity Reaction Status Date / Time No Known Allergies Allergy Verified 03/31/25 12:31 Review of Systems Review of Systems: CONSTITUTIONAL: Denies fever, chills, or sweats. EYES: Denies visual changes, redness, or discharge. ENT: Denies rhinorrhea, congestion, sore throat, or otalgia. CARDIOVASCULAR: Denies chest pain, palpitations, or edema. RESPIRATORY: Denies cough or dyspnea. GASTROINTESTINAL: Denies abdominal pain, nausea, vomiting, or diarrhea. GENITOURINARY: Denies dysuria or hematuria. SKIN: Denies rash or itching. MUSCULOSKELETAL: Denies back pain, joint pain, or myalgia. Positive for laceration. NEUROLOGIC: Denies headache, numbness, or weakness. PSYCHIATRIC: Denies anxiety or depression. All other systems reviewed are negative, except as documented in HPI. [facility] Past Medical History Medical History TIA (transient ischemic attack) Hyperlipidemia Hypertension Diabetes Surgical History Surgical History History of tonsillectomy and adenoidectomy H/O arthroscopic knee surgery S/P ORIF (open reduction internal fixation) fracture right ankle Family History Family History Father Diabetes mellitus Cancer Social History Social History Social History: He is and lives with his . They have 2 children. He works for [employer]. Code status full code Smoking status: Never smoker Alcohol intake: never Substance use: never Lack of Transportation: No Lack of Food: Never True Current Housing: I Do Not Have Housing Concerned About Future Housing: Decline to Answer Difficulty Paying Gas/Electric Bills: Decline to Answer Difficulty Paying for Meds: Decline to Answer Currently Unemployed: Decline to Answer Education: Decline to Answer Difficulty w/ Childcare or Family Care: Decline to Answer Spiritual care concerns: No Comments At the time of my signature, I reviewed and agree with the nursing past medical, surgical, social, and family history. There is no relevant family history pertinent to the patient complaint. Exam Narrative: GENERAL: This is a well-nourished, well-developed adult, in no apparent distress. They are non ill-appearing, nontoxic appearing. HEAD: normocephalic, atraumatic. EYES: Sclera clear/white. Conjunctiva normal. Vision is grossly intact. Extraocular movements intact EARS: External ears normal, Hearing grossly intact. NOSE: External nose alberto THROAT: Mucous membranes moist NECK: Normal range of motion CARDIOVASCULAR: Regular rate and rhythm RESPIRATORY: Respiratory rate normal, respiratory effort nonlabored, no respiratory distress SKIN: warm, Dry, intact with no suspicious lesions or rash, good texture and turgor. See extremities for laceration description. NEURO: awake, alert, and oriented to person, place and time. There were no obvious focal neurologic abnormalities. EXTREMITIES: Left index finger: There are 3 lacerations present to the distal palmar surface of the index finger. Lacerations are distal to the DIP. Lacerations 1 measures approximately 1 cm, laceration to linear and angled measuring approximately 2 cm, laceration 3 measuring approximately 1 cm. Each laceration is proximal to each other. No swelling or discharge. Hemostasis achieved with direct pressure. Patient is able to fully flex and extend his left index finger against resistance at the PIP, PIP, MCP. Patient can make a fist, stop sign, thumbs up, okay sign. Normals pronation and supination. Normal flexion extension of the wrist. Neurovascular status intact distal to the injury. Normal sensation. Capillary refill less than 2 seconds. Ulnar and radial nerve distribution is intact. BACK: Nontender without deformity. No CVA tenderness. Course Course Emergency Course: Portions of this record may have been created with voice recognition software Level of Care: Express Care Visit Vital Signs Vital signs: Vital Signs Temperature 98 F 03/31/25 12:25 Pulse Rate 88 03/31/25 12:25 Respiratory Rate 20 03/31/25 12:25 Blood Pressure 112/82 03/31/25 12:25 Pulse Oximetry 96 03/31/25 12:25 Oxygen Delivery Room Air 03/31/25 12:25 Temperature 98 F 03/31/25 12:25 Pulse Rate 88 03/31/25 12:25 Respiratory Rate 20 03/31/25 12:25 Blood Pressure 112/82 03/31/25 12:25 Pulse Oximetry 96 03/31/25 12:25 Oxygen Delivery Room Air 03/31/25 12:25 Reviewed Procedures Laceration Laceration 1: Date: 03/31/25 Time: 13:30 Site: hand Side (If applicable): left (Distal Index finger) Size (cm): 1 Description: linear Local Anesthetic: lidocaine 1% (Digital block) Amount of anesthesia used (mL): 6 Pre-repair: wound explored, irrigated and irrigated extensively ====== Skin Level ====== Skin layer closed with: nylon Size (cm): 4-0 Number of sutures: 3 Technique: simple, interrupted ====== Subcutaneous Layer ====== ====== Muscle Layer ====== ====== Tendon Layer ====== Dressing: Antibiotic ointment, nonadherent Telfa, gauze and Coban, model finger splint Laceration 2: Date: 03/31/25 Time: 13:30 Site: hand Side (If applicable): left (distal index finger) Size (cm): 2 Description: linear and irregular Depth: simple, single layer Local Anesthetic: lidocaine 1% (digital block) Amount of anesthesia used (mL): 6 Pre-repair: wound explored and irrigated extensively ====== Skin Level ====== Skin layer closed with: nylon Size (cm): 5-0 Number of sutures: 7 Technique: simple, interrupted ====== Subcutaneous Layer ====== ====== Muscle Layer ====== ====== Tendon Layer ====== Dressing: Antibiotic ointment, nonadherent Telfa, gauze and Coban, metal finger splint Laceration 3: Date: 03/31/25 Time: 13:30 Site: hand Side (If applicable): left (Distal index finger) Size (cm): 1 Description: linear Depth: simple, single layer Local Anesthetic: lidocaine 1% (Digital block) Amount of anesthesia used (mL): 6 Pre-repair: wound explored and irrigated extensively ====== Skin Level ====== Skin layer closed with: nylon Size (cm): 5-0 Number of sutures: 2 Technique: simple, interrupted ====== Subcutaneous Layer ====== ====== Muscle Layer ====== ====== Tendon Layer ====== Dressing: Antibiotic ointment, nonadherent Telfa, gauze and Coban, metal finger splint Orthopedic Splinting/Casting Injury #1: Splinting/Casting Date: 03/31/25 Splinting/Casting Time: 14:10 Side: left Upper Extremity Injury Location: finger (Left index finger) Splint: prefabricated Pre-Formed: metal foam finger splint Pre-Procedure Neuro Vascular Exam: normal Post-Procedure Neuro Vascular Exam: normal Additional Comments: Patient tolerated procedure well MDM - Wound/Laceration MDM Narrative Medical decision making narrative: X-ray showed possible transverse nondisplaced fracture distal phalanx of the left index finger. Fracture is not appear to be an open fracture. Tetanus was updated. Patient was prescribed cephalexin prophylactically for infection prevention. A follow-up appointment has been scheduled with Dr. Rios on Saturday April 05, 2025 at 1:45 p.m for further evaluation and management of his injury. 12 sutures were placed to the patient's distal left index finger laceration. Three separate lacerations were present with 1 being in angled and linear. Laceration was complex due to them being in close proximity of each other. Patient tolerated procedure well. Neurovascular status is intact distal to injury. Ulnar and radial nerve distribution intact to the left hand. Antibiotic ointment applied wounds and covered with a dressing by nursing staff. Mental finger splint applied to patient's left index finger by nursing staff. Discussed physical exam findings. Advised supportive measures and signs/symptoms to go to the ER. Pt is appropriate for outpt treatment and f/u. Differential Diagnosis Differential diagnosis: Likely laceration, abrasion and avulsion of skin Imaging Data Radiologist's impression: ITS Impressions Finger X-Ray 03/31/25 12:56 IMPRESSION: Suspected transverse nondisplaced fracture of the distal phalanx of the index finger. Critical Care Time Critical Care Time Critical Care Time: No Discharge Plan Discharge Clinical Impression: Laceration of finger of left hand Qualifiers: Encounter type: initial encounter Finger: index finger Damage to nail status: without damage Foreign body presence: without foreign body Qualified Code(s): S61.211A - Laceration without foreign body of left index finger without damage to nail, initial encounter Fracture of distal phalanx of index finger Qualifiers: Encounter type: initial encounter Fracture type: closed Fracture alignment: nondisplaced Laterality: left Qualified Code(s): S62.661A - Nondisplaced fracture of distal phalanx of left index finger, initial encounter for closed fracture Laceration of finger, index Qualifiers: Encounter type: initial encounter Damage to nail status: without damage Foreign body presence: without foreign body Laterality: left Qualified Code(s): S61.211A - Laceration without foreign body of left index finger without damage to nail, initial encounter Patient Disposition: Home Condition: Stable Instructions: Antibiotic Form, Finger Fracture (ED), Finger Laceration (ED) Additional Instructions: The take the antibiotics as directed. Please keep the wound covered and change the dressing daily and apply antibiotic ointment to the the wounds with each dressing change. You have an appointment with Dr. Rios on Saturday April 05, 2025 at 1:45 p.m. Your sutures will remain in place until you follow up with the hand specialist. If this appointment does not work please call and reschedule. Your tetanus shot was updated today. Your x-ray did show a transverse nondisplaced fracture the distal index finger. Please wear the metal splint at all times, you may take it off to shower. Please wash the wound daily with mild soap and water, do not soak or scrub the wound, do not put any peroxide on it. Avoid dirty water such as lakes, [place], washing dishes, swimming pools, hot tubs, tub soaks until you have been cleared by the hand specialist. If you develops any numbness or tingling, uncontrolled bleeding, increased redness or swelling to the wound, abnormal discharge, fevers or any other concerns please go to the ER immediately. Patient Language: Ukrainian Prescriptions: New cephalexin 500 mg capsule 500 mg PO Q6H 7 Days Qty: 28 0RF No Action gabapentin 300 mg capsule 300 mg PO BID omeprazole 20 mg capsule,delayed release(DR/EC) 200 mg PO DAILY tizanidine 4 mg tablet 4 mg PO BID amoxicillin-pot clavulanate 875-125 mg tablet 1 tablet PO Q12H 10 Days Qty: 20 0RF simvastatin 40 mg tablet 40 mg PO HS aspirin 81 mg tablet,chewable 81 mg PO DAILY Jardiance 25 mg tablet 25 mg PO DAILY Trulicity 0.75 mg/0.5 mL pen injector 0.75 mg SUBCUT WEEKLY Rx Instructions: pt takes this on sundays Follow-up/Referrals: Héctor Rios MD [Physician] - (Finger lacerations from hedgetrimmers, nondisplaced transverse fracture of distal phalanx) Time of Disposition: 14:19
[2025-03-31 12:25] VITALS: BP 112/82; PULSE 88; RESP 20; TEMP 36.6; O2SAT 96
--- OUTSIDE RECORDS SUMMARY | 2025-03-31 12:30 | XMS_ITS | Clinical Summary ---
Author Organization [facility] Address [address] [place] [address] Phone Care Team Providers Care Slaughterer Religious Ritual Name Role Phone Carmen Lowry MD Primary Care Provider [phone] Silvia Richardson DPM Unavailable [phone] Kaushal Bermudez MD Unavailable Fermin Zabala MD Unavailable [phone] Dayron Sharp MD Unavailable [phone] Roby Verdugo HONEY LIQUEFIER, NO EXPERIENCE Unavailable [phone] Allergies No known active allergies Medications simvastatin (ZOCOR) 40 MG Tablet Take 40 mg by mouth daily. 6 Active aspirin 81 MG Chewable Tablet Take 81 mg by mouth. 1 Active gabapentin (NEURONTIN) 300 MG CapsuleIndicati ons:Neuropathic Pain Take 300 mg by mouth every morning. Indications: Neuropathic Pain Active lisinopril (PRINIVIL, ZESTRIL) 5 MG Tablet Take 1 Tablet by mouth daily. 30 Tablet 2 Active pantoprazole (PROTONIX) 40 MG Tablet Delayed Response Take 1 Tablet by mouth 2 times daily. 60 Tablet 2 Active omeprazole (PriLOSEC) 20 MG CAPSULE DELAYED RELEASE Take 20 mg by mouth daily. 3 Active cyclobenzaprine (FLEXERIL) 5 MG Tablet Take 5 mg by mouth once. Active meclizine (ANTIVERT) 25 MG Tablet Take 1 Tablet by mouth 3 times daily as needed for Dizziness. 15 Tablet 3 Active albuterol 108 (90 Base) MCG/ACT Aerosol Solution INHALE 2 PUFFS BY MOUTH THREE TIMES DAILY NEEDED 3 Active clopidogrel (PLAVIX) 75 MG Tablet Take 75 mg by mouth daily. 3 Active empagliflozin (JARDIANCE) 25 MG Tablet Take 1 Tablet by mouth every evening. 90 Tablet 1 4 Active glimepiride (AMARYL) 4 MG Tablet TAKE 1 TABLET BY MOUTH ONCE DAILY IN THE MORNING 90 Tablet 1 4 Active Insulin Pen Needle (Pen Granger) 32G X 4 MM MiscIndications :Type 2 diabetes mellitus with diabetic polyneuropathy, with long-term current use of insulin ([facility]) One a day 100 Each 3 4 Active Lantus SoloStar 100 UNIT/ML Solution Pen-injectorInd ications:Type 2 diabetes mellitus with diabetic polyneuropathy, with long-term current use of insulin ([facility]) 48 Units by Subcutaneous route every morning. 45 mL 1 5 Active Dulaglutide (Trulicity) 3 MG/0.5ML Solution Auto-injector 3 mg by Subcutaneous route once a week. 2 mL 3 5 Active Glucose Blood (OneTouch Verio) Strip Test blood glucose 1x daily. 100 Each 5 Active Lancets (OneTouch Delica Plus [id number]) Misc 1 Lancet by Does not apply route daily. 100 Each 3 5 Active Active Problems Problem Noted Date Diagnosed Date Class 1 obesity due to exces s calories with serious comorbidity and body mass index (BMI) of 33.0 to 33.9 in adult 10/31/2023 Medication dose changed 10/31/2023 Neuropathy 02/05/2023 Primary hypertension 02/26/2022 Overview (02/05/2023): Last Assessment & Plan: Controlled with medication - low salt diet - continue Lisinopril per PCP Type 2 diabetes mellitus wit h diabetic polyneuropathy, with long-term current use of insulin 07/25/2021 Overview (02/05/2023): Last Assessment & Plan: Diagnosed around 2017 Was on insulin from 2017- 2021 Control : above target since he was off diet and Glimepiride. A1c 7.8% on 11/30/22 A1c 5.8% on 08/31/22 A1c 6.0% on 05/29/22 A1c 6.7% on 02/26/22 A1c 8.5% on 12/05/21 Kidney: normal GFR 98 on 11/30/22 Plan: Patient to get back on diet plan. Continue Trulicity 1.5 mg /week. Continue same dose jardiance Ophthalmology exam on regular basis. Hypercholesterolemia 02/02/2021 Resolved Problems Problem Noted Date Diagnosed Date Resolved Date Acute focal neurological deficit 02/05/2023 02/06/2023 Encounters Date Type Department Care Team Description 03/29/2025 2:00 PM CDT Office Visit [facility] [address] [place] [address] Roby Verdugo APRN, NO EXPERIENCE Urinary frequency (Primary Dx); Encounter for prostate cancer screening Discharge Disposition: Discharged to home or Selfcare 03/29/2025 Travel 02/18/2025 Refill [facility] [place] [address] [place] [address] Kaushal Bermudez MD Medication Refill 02/09/2025 Telephone [facility] [place] [address] [place] [address] Kaushal Bermudez MD 02/05/2025 Refill [facility] [place] [address] [place] [address] Kaushal Bermudez MD Medication Refill 01/04/2025 3:08 PM MAINTENANCE GROUNDMAN - 01/04/2025 10:42 PM MAINTENANCE GROUNDMAN Emergency [facility] [address] [place] [address] Geneva Owens APRN, NO EXPERIENCE Acute cholecystitis Discharge Disposition: Short Term Hospital for [facility]pt [facility] 01/04/2025 Travel from Last 3 Months Immunizations Immunization Administration Dates Next Due Influenza Vaccine, Quadrivalent, PF 08/26/2020,0 07/30/2016 Influenza, Injectable, Quadrivalent 03/2023,11/05/2022,09/15/2021,08/31,11/22/2015 Influenza, Seasonal, Injecta ble, Undefined 09/11/2024 Pneumococcal PCV, Unspecifie d Formulation 07/30/2016 Pneumococcal Vaccine Adult - 23 Valent 6,11/22/2015 Pneumococcal conjugate PCV20 , polysaccharide [id number] conjugate, adjuvant, PF 02/06/2023 TDAP Vaccine 11/25/2014 Td (Adult) 11/25/2014 Family History Medical History Relation Name Comments Cancer Father Hypertension Father Cancer Maternal Grandmother Relation Name Status Comments Father Alive Maternal Grandmother Mother Alive Social History Tobacco Use Types Packs/Day Years Used Date Smoking Tobacco: Former Cigarettes Smokeless Tobacco: Never Tobacco Cessation:Counseling Given: Not Answered Comments:Quit at age 18 - 1 month Alcohol Use Standard Drinks/Week Comments No 0 (1 standard drink = 0.6 oz pur e alcohol) PHQ-2 Answer Date Recorded Total Score - Questions 1-9 0 06/2022 Sexually Active Control Partners Comments Yes Sex and Gender Information Value Date Recorded Sex Assigned at Not on file Legal Sex Male 12:05 AM CDT Gender Identity Not on file Sexual Orientation Not on file Last Filed Vital Signs Vital Sign Reading Time Taken Comments Blood Pressure 111/73 03/29/2025 1:47 PM CDT Pulse 96 03/29/2025 1:47 PM CDT Temperature 36.9 C (98.5 F) 01/04/2025 1:22 PM MAINTENANCE GROUNDMAN Respiratory Rate 16 03/29/2025 1:47 PM CDT Oxygen Saturation 96% 03/29/2025 1:47 PM CDT Inhaled Oxygen Concentration - - Weight 108.9 kg (240 lb) 03/29/2025 1:47 PM CDT Height 177.8 cm (5' 10 ) 03/29/2025 1:47 PM CDT Body Mass Index 34.44 03/29/2025 1:47 PM CDT Plan of Treatment Upcoming Encounters Date Type Department Care Team (Late st Contact Info) Description 07/13/2025 11:00 AM CDT Office Visit [facility] [address] [place] [address] Roby Verdugo APRN, NO EXPERIENCE [address] [place] [address] Health Maintenance Due Date Last Done Comments Diabetes: Eye Exam 1961 Diabetes: Foot Exam 1960 Hepatitis C Virus (HCV) Screening 1961 Cologuard 2011 Zoster Immunization (1 of 2) 2011 PSA Discussion 2016 Respiratory Syncytial Virus (RSV) Immunization (Adult) (1 - Risk 60-74 years 1-dose series) 2021 Immunochemical Fecal Occult Blood 02/19/2023 02/19/2022 SARS-COV-2 Immunization ( season) 2024 05/02/2021 Td Immunization Every 10 Years (Adults With 1 Tdap) 11/25/2024 11/25/2014, 11/25/2014 Diabetes: Hemoglobin A1c 07/08/2025 025, 10/07/2024, 06/12/2024, Additional history exists Diabetes: Nephropathy Screening 01/04/2026 01/04/2025, 09/09/2023, 05/14/2023, Additional history exists Colonoscopy 04/30/2029 04/30/2022, 02/04/2018 Colorectal Cancer Screening 04/30/2029 04/30/2022, 02/04/2018 DTaP/Tdap/Td Immunization Discontinued 11/25/2014, 11/2014 Pneumococcal Immunization (50+ years) Completed 02/06/2023, 07/30/2016, 07/30/2016, Additional history exists Pneumococcal Immunization Combined Discontinued 02/06/2023, 07/30/2016, 07/30/2016, Additional history exists Influenza Immunization Completed , 08/29/2023, 11/05/2022, Additional history exists Hepatitis B Immunization Aged Out No longer eligible based on patient's age to complete this topic Human Papillomavirus (HPV) Immunization Aged Out No longer eligible based on patient's age to complete this topic Meningococcal Immunization (ACWY) Aged Out No longer eligible based on patient's age to complete this topic Rotavirus Immunization Aged Out No lo nger eligible based on patient's age to complete this topic Procedures Procedure Name Priority Date/Time Associated Diagnosis Comments POCT UA AUTOMATED W/O MICRO Routine 03/29/2025 1:52 PM CDT Urinary frequency CT ABDOMEN PELVIS W/ CONTRAST Stat with Interpretation 01/04/2025 5:52 PM MAINTENANCE GROUNDMAN RSV,SARS-COV-2,INF LUENZA A&B BY PCR STAT 01/04/2025 3:54 PM MAINTENANCE GROUNDMAN GOLD TOP TUBE STAT 01/04/2025 1:31 PM MAINTENANCE GROUNDMAN BLUE TOP TUBE STAT 01/04/2025 1:31 PM MAINTENANCE GROUNDMAN EXTRA TUBES STAT 01/04/2025 1:31 PM MAINTENANCE GROUNDMAN URINALYSIS REFLEX IF INDICATED BY ABNORMAL RESULTS STAT 01/04/2025 1:31 PM MAINTENANCE GROUNDMAN CBC WITH AUTO DIFFERENTIAL STAT 01/04/2025 1:25 PM MAINTENANCE GROUNDMAN LIPASE STAT 01/04/2025 1:25 PM MAINTENANCE GROUNDMAN CMP (COMPREHENSIVE METABOLIC PANEL) STAT 01/04/2025 1:25 PM MAINTENANCE GROUNDMAN COMPLETE BLOOD COUNT (CBC) WITH DIFF STAT 01/04/2025 1:25 PM MAINTENANCE GROUNDMAN POCT GLYCOSYLATED HEMOGLOBIN Routine 10/07/2024 10:42 AM MAINTENANCE GROUNDMAN Type 2 diabetes mellitus with diabetic polyneuropathy, with long-term current use of insulin (HCC) STOOL, OCCULT BLOOD, DIAGNOSTIC, VIA GUAIAC STAT 02/19/2022 12:07 AM CDT from Last 3 Months or Most Recently Relevant to Health Maintenance Results * (ABNORMAL) POCT UA AUTOMATED W/O MICRO (03/29/2025 1:52 PM CDT) POC UA SPECIFIC GRAVITY 1.015 URINE PH 5.0 5.0 - 9.0 POC URINE LEUKOCYTES Negative Negative Chanelle/uL POC URINE NITRITE Negative Negative POC URINE PROTEIN Negative Negative mg/dL POC URINE GLUCOSE >1000 mg/dL(A) Negative, Norm mg/dL POC URINE KETONE Negative Negative mg/dL POC URINE UROBILINOGEN Norm Norm, 0.2 E.U./dL (mg/dL), 1 E.U./dL (mg/dL) POC URINE BILIRUBIN Negative Negative mg/dL POC URINE BLOOD INSTRUMENT Negative Negative Jimbo/uL POC URINE COLOR Dark Yellow POC URINE CLARITY Clear 03/29/2025 1:52 PM CDT us Roby Verdugo HONEY LIQUEFIER, NO EXPERIENCE POINT OF CARE TESTING (MANUAL) Final Result * CT ABDOMEN PELVIS W/ CONTRAST (01/04/2025 5:52 PM MAINTENANCE GROUNDMAN) Anatomical Region Laterality Modality Abdomen N/A Computed Tomogra phy 01/04/2025 6:09 PM MAINTENANCE GROUNDMAN Impressions 01/04/2025 6:12 PM MAINTENANCE GROUNDMAN IMPRESSION: No definite evidence of bowel obstruction. Distended gallbladder with gallbladder wall thickening, pericholecystic fluid, and fat stranding, which is concerning for acute cholecystitis. The necessity of further evaluation with gallbladder ultrasound or HIDA scan can be determined clinically. Mild mucosal thickening of the descending colon and sigmoid colon, which may be related to underdistention versus mild colitis of infectious or inflammatory etiology. Mild mucosal thickening of the urinary bladder, which may be related to underdistention, chronic urinary bladder outlet obstruction secondary to enlarged prostate gland, or cystitis. Clinical correlation with urinary analysis is recommended as clinically indicated. Enlarged prostate gland. Clinical correlation with physical exam findings and PSA values is recommended as clinically indicated. Scattered colonic diverticula without definite evidence of diverticulitis. Normal appendix. Narrative 01/04/2025 6:12 PM MAINTENANCE GROUNDMAN EXAM DESCRIPTION: CT ABDOMEN PELVIS W/ CONTRAST REASON FOR STUDY: Medial abdominal pain and vomiting x today. Hx of HTN, DM, and TIA TECHNIQUE: CT scan of the abdomen and pelvis performed with intravenous and without oral contrast using helical scanning technique with dynamic intravenous contrast injection. Reconstructed coronal and sagittal MPR images reviewed. All images stored on PACS. Automated exposure control was used as a dose optimization technique for this examination. CONTRAST TYPE/DOSE: 119mL of IOPAMIDOL 76 % IV SOLN injected via Intravenous COMPARISON: None FINDINGS: LOWER CHEST: The heart size is upper limits of normal. There is no definite evidence of a pericardial effusion. There is mild bibasilar subsegmental atelectasis and scarring. There is a small hiatal hernia. LIVER: The liver is grossly normal in size and contour without definite evidence of a focal hepatic lesion. The hepatic and portal veins are grossly patent. GALLBLADDER: There is a distended gallbladder with gallbladder wall thickening, pericholecystic fluid, and fat stranding, which is concerning for acute cholecystitis. BILE DUCTS: No intrahepatic or extrahepatic ductal dilatation. SPLEEN: The spleen is grossly normal in size and unremarkable. PANCREAS: There is fatty atrophy of the pancreas without definite evidence of peripancreatic inflammatory changes or peripancreatic fluid collection. ADRENALS: The bilateral adrenal glands are grossly symmetrical and unremarkable. KIDNEYS/URINARY TRACT: The bilateral kidneys enhance symmetrically. There is a 1.9 cm cyst in the upper pole of the right kidney, which does not require follow-up imaging. There are multiple additional too small to characterize hypoattenuating lesions in the bilateral kidneys, which do not require follow-up imaging. There is no definite evidence of hydronephrosis or hydroureter. There is mild mucosal thickening of the urinary bladder. The prostate gland measures 5.6 cm. GI: There is no definite evidence of a bowel obstruction. The appendix is visualized without definite evidence of pericecal or periappendiceal inflammatory changes to suggest appendicitis. There are scattered colonic diverticula without definite evidence of diverticulitis. There is mild mucosal thickening of the descending colon and sigmoid colon. There is a fat containing periumbilical hernia. There is no definite evidence of free air in the abdomen and pelvis. There is a small amount of free fluid in the right upper quadrant of the abdomen extending into the right pericolic gutter, which is likely reactive. There is no definite evidence of lymphadenopathy in the abdomen and pelvis. MUSCULOSKELETAL: There is mild osteopenia. There is a mild levoscoliotic curvature of the spine with degenerative changes. OTHER: No other abnormality. THIS IS AN ELECTRONICALLY VERIFIED FINAL REPORT 01/04/2025 6:09 PM - Electronically signed by Nakia Saunders D.O. PS: PS Report ID: [id number] Reading Location: [id number] Procedure Note Nakia Saunders DO - 01/04/2025 EXAM DESCRIPTION: CT ABDOMEN PELVIS W/ CONTRAST REASON FOR STUDY: Medial abdominal pain and vomiting x today. Hx of HTN, DM, and TIA TECHNIQUE: CT scan of the abdomen and pelvis performed with intravenous and without oral contrast using helical scanning technique with dynamic intravenous contrast injection. Reconstructed coronal and sagittal MPR images reviewed. All images stored on PACS. Automated exposure control was used as a dose optimization technique for this examination. CONTRAST TYPE/DOSE: 119mL of IOPAMIDOL 76 % IV SOLN injected via Intravenous COMPARISON: None FINDINGS: LOWER CHEST: The heart size is upper limits of normal. There is no definite evidence of a pericardial effusion. There is mild bibasilar subsegmental atelectasis and scarring. There is a small hiatal hernia. LIVER: The liver is grossly normal in size and contour without definite evidence of a focal hepatic lesion. The hepatic and portal veins are grossly patent. GALLBLADDER: There is a distended gallbladder with gallbladder wall thickening, pericholecystic fluid, and fat stranding, which is concerning for acute cholecystitis. BILE DUCTS: No intrahepatic or extrahepatic ductal dilatation. SPLEEN: The spleen is grossly normal in size and unremarkable. PANCREAS: There is fatty atrophy of the pancreas without definite evidence of peripancreatic inflammatory changes or peripancreatic fluid collection. ADRENALS: The bilateral adrenal glands are grossly symmetrical and unremarkable. KIDNEYS/URINARY TRACT: The bilateral kidneys enhance symmetrically. There is a 1.9 cm cyst in the upper pole of the right kidney, which does not require follow-up imaging. There are multiple additional too small to characterize hypoattenuating lesions in the bilateral kidneys, which do not require follow-up imaging. There is no definite evidence of hydronephrosis or hydroureter. There is mild mucosal thickening of the urinary bladder. The prostate gland measures 5.6 cm. GI: There is no definite evidence of a bowel obstruction. The appendix is visualized without definite evidence of pericecal or periappendiceal inflammatory changes to suggest appendicitis. There are scattered colonic diverticula without definite evidence of diverticulitis. There is mild mucosal thickening of the descending colon and sigmoid colon. There is a fat containing periumbilical hernia. There is no definite evidence of free air in the abdomen and pelvis. There is a small amount of free fluid in the right upper quadrant of the abdomen extending into the right pericolic gutter, which is likely reactive. There is no definite evidence of lymphadenopathy in the abdomen and pelvis. MUSCULOSKELETAL: There is mild osteopenia. There is a mild levoscoliotic curvature of the spine with degenerative changes. OTHER: No other abnormality. THIS IS AN ELECTRONICALLY VERIFIED FINAL REPORT 01/04/2025 6:09 PM - Electronically signed by Nakia Saunders D.O. PS: PS Report ID: [id number] Reading Location: [id number] IMPRESSION: No definite evidence of bowel obstruction. Distended gallbladder with gallbladder wall thickening, pericholecystic fluid, and fat stranding, which is concerning for acute cholecystitis. The necessity of further evaluation with gallbladder ultrasound or HIDA scan can be determined clinically. Mild mucosal thickening of the descending colon and sigmoid colon, which may be related to underdistention versus mild colitis of infectious or inflammatory etiology. Mild mucosal thickening of the urinary bladder, which may be related to underdistention, chronic urinary bladder outlet obstruction secondary to enlarged prostate gland, or cystitis. Clinical correlation with urinary analysis is recommended as clinically indicated. Enlarged prostate gland. Clinical correlation with physical exam findings and PSA values is recommended as clinically indicated. Scattered colonic diverticula without definite evidence of diverticulitis. Normal appendix. Geneva Owens HONEY LIQUEFIER, NO EXPERIENCE IMG CT ORDERABLES Final Result * SANDRITA-COV-2 Flu RSV - (Quad PCR) (01/04/2025 3:54 PM MAINTENANCE GROUNDMAN) FLU A Negative Negative, Error 01/04/2025 5:03 PM MAINTENANCE GROUNDMAN [facility] FLU B Negative Negative 01/04/2025 5:03 PM MAINTENANCE GROUNDMAN [facility] RESP SYNC VIRUS Negative Negative 5:03 PM MAINTENANCE GROUNDMAN [facility] SARSCOV2 NOT DETECTED (Reference Range for this test is Not Detected) 01/04/2025 5:03 PM MAINTENANCE GROUNDMAN [facility] Comment:This test was perfor med by a Reverse Capping Machine Operator PCR Method. Swab NASOPHARYNGEAL SWAB / Unknown Non-Phlebotomy Collection / Unknown 01/04/2025 3:54 PM MAINTENANCE GROUNDMAN 01/04/2025 4:21 PM MAINTENANCE GROUNDMAN us Geneva Owens APRN, NO EXPERIENCE MICROBIOLOGY - GEN ERAL ORDERABLES Final Result [facility] [address] [place] [address] * (ABNORMAL) Urinalysis w/ Reflex (01/04/2025 1:31 PM MAINTENANCE GROUNDMAN) SPECIFIC GRAVITY 1.020 1.003 - 1.030 01/04/2025 1:55 PM MAINTENANCE GROUNDMAN [facility] URINE PH 5.0 5.0 - 9.0 01/04/2025 1:55 PM MAINTENANCE GROUNDMAN [facility] WBC ESTERASE Negative Negative 01/04/2025 1:55 PM MAINTENANCE GROUNDMAN [facility] NITRITE Negative Negative 01/04/2025 1:55 PM MAINTENANCE GROUNDMAN [facility] PROTEIN, RANDOM URINE 15 mg/dL(A) Negative 01/04/2025 1:55 PM MAINTENANCE GROUNDMAN [facility] URINE GLUCOSE, QUAL 1000 mg/dL(A) Negative 01/04/2025 1:55 PM MAINTENANCE GROUNDMAN [facility] URINE KETONES Negative Negative 01/04/2025 1:55 PM MAINTENANCE GROUNDMAN [facility] UROBILINOGEN Normal Normal mg/dL 01/04/2025 1:55 PM MAINTENANCE GROUNDMAN [facility] URINE BLOOD Negative Negative jimbo/ul 01/04/2025 1:55 PM MAINTENANCE GROUNDMAN [facility] URINALYSIS COLOR Yellow 01/04/20 25 1:55 PM MAINTENANCE GROUNDMAN [facility] URINALYSIS CLARITY Clear 01/04/2025 1:55 PM MAINTENANCE GROUNDMAN [facility] Urine URINE SPECIMEN / Unknown Non-Phlebotomy Collection / Unknown 01/04/2025 1:31 PM MAINTENANCE GROUNDMAN 01/04/2025 1:50 PM MAINTENANCE GROUNDMAN us Wilver Rodrigues MD URINE ORDERABLES Final Res ult Performing Organization Address [facility] Co de Phone Number [facility] [address] [place] [address] * Gold Top Tube (01/04/2025 1:31 PM MAINTENANCE GROUNDMAN) Blood No Phlebotomy Charged / Unknown 01/04/2025 1:31 PM MAINTENANCE GROUNDMAN 01/04/2025 1:57 PM MAINTENANCE GROUNDMAN us Carmen Lowry MD CHEMISTRY ORDERABLES Final Re sult Performing Organization Address [facility] Co de Phone Number [facility] [address] [place] [address] * Blue Top Tube (01/04/2025 1:31 PM MAINTENANCE GROUNDMAN) Blood No Phlebotomy Charged / Unknown 01/04/2025 1:31 PM MAINTENANCE GROUNDMAN 01/04/2025 1:57 PM MAINTENANCE GROUNDMAN us Carmen Lowry MD HEMATOLOGY ORDERABLES Final R esult Performing Organization Address [facility] Co de Phone Number [facility] [address] [place] [address] * (ABNORMAL) CBC with Auto Differential (01/04/2025 1:25 PM MAINTENANCE GROUNDMAN) WBC 12.33(H) 4.00 - 12.00 10(3)/mcL 01/04/2025 1:48 PM MAINTENANCE GROUNDMAN [facility] RBC 6.38(H) 4.40 - 5.80 10(6)/mcL 01/04/2025 1:48 PM MAINTENANCE GROUNDMAN [facility] HEMOGLOBIN (HGB) 17.3(H) 13.0 - 16.5 g/dL 01/04/2025 1:48 PM MAINTENANCE GROUNDMAN [facility] HEMATOCRIT (HCT) 53.3(H) 38.0 - 50.0 % 01/04/2025 1:48 PM [facility] MCV 83.5 82.0 - 96.0 fL 01/04/2025 1:48 PM [facility] MCH 27.1 26.0 - 32.0 pg 01/04/2025 1:48 PM [facility] MCHC 32.5 31.0 - 36.0 g/dL 01/04/2025 1:48 PM [facility] PLATELET COUNT 214 140 - 440 10(3)/mcL 01/04/2025 1:48 PM [facility] RDW 13.9 11.8 - 15.5 % 01/04/2025 1:48 PM [facility] MPV 10.8 8.0 - 12.6 fL 01/04/2025 1:48 PM [facility] NEUTROPHILS 84.5(H) 40.0 - 68.0 % 01/04/2025 1:48 PM [facility] LYMPHOCYTES 8.9(L) 19.0 - 49.0 % 01/04/2025 1:48 PM [facility] MONOCYTES 5.8 3.0 - 13.0 % 01/04/2025 1:48 PM [facility] EOSINOPHILS 0.5 0.0 - 8.0 % 01/04/2025 1:48 PM [facility] BASOPHILS 0.3 0.0 - 1.0 % 01/04/2025 1:48 PM [facility] ABSOLUTE NEUTROPHILS 10.41(H) 1.40 - 5.30 10(3)/mcL 01/04/2025 1:48 PM [facility] ABSOLUTE LYMPHOCYTES 1.10 0.90 - 3.30 10(3)/mcL 01/04/2025 1:48 PM [facility] ABSOLUTE MONOCYTES 0.72 0.10 - 0.90 10(3)/mcL 01/04/2025 1:48 PM [facility] ABSOLUTE EOSINOPHIL 0.06 0.00 - 0.50 10(3)/mcL 01/04/2025 1:48 PM MAINTENANCE GROUNDMAN [facility] ABSOLUTE BASOPHILS 0.04 0.00 - 0.10 10(3)/mcL 01/04/2025 1:48 PM MAINTENANCE GROUNDMAN [facility] NRBC PER 100 WBC 0 01/04/20 1:48 PM MAINTENANCE GROUNDMAN [facility] Blood Venipuncture / Unknown 01/04/2025 1:25 PM MAINTENANCE GROUNDMAN 01/04/2025 1:43 PM MAINTENANCE GROUNDMAN Wilver Rodrigues MD HEMATOLOGY ORDERABLES Dania l Result [facility] [address] [place] [address] * Lipase (01/04/2025 1:25 PM MAINTENANCE GROUNDMAN) LIPASE 15 8 - 78 U/L 01/04/2025 2:11 PM MAINTENANCE GROUNDMAN [facility] Blood Venipuncture / Unknown 01/04/2025 1:25 PM MAINTENANCE GROUNDMAN 01/04/2025 1:43 PM MAINTENANCE GROUNDMAN Wilver Rodrigues MD CHEMISTRY ORDERABLES Final Result [facility] [address] [place] [address] * (ABNORMAL) CMP (01/04/2025 1:25 PM MAINTENANCE GROUNDMAN) SODIUM 141 136 - 145 mmol/L 01/04/2025 2:11 PM MAINTENANCE GROUNDMAN [facility] POTASSIUM 4.4 3.5 - 5.1 mmol/L 01/04/2025 2:11 PM MAINTENANCE GROUNDMAN [facility] CHLORIDE 110(H) 98 - 107 mmol/L 01/04/2025 2:11 PM MAINTENANCE GROUNDMAN [facility] CO2, VENOUS 23 22 - 30 mmol/L 01/04/2025 2:11 PM [facility] ANION GAP 12.4 <18.0 mmol/L 01/04/2025 2:11 PM [facility] GLUCOSE 104(H) 70 - 99 mg/dL 01/04/2025 2:11 PM [facility] BUN 21 8 - 26 mg/dL 01/04/2025 2:11 PM [facility] CREATININE, BLOOD 0.97 0.70 - 1.30 mg/dL 01/04/2025 2:11 PM [facility] BUN/CREATININE RATIO 22(H) 12 - 20 ratio 01/04/2025 2:11 PM [facility] TOTAL PROTEIN 8.1(H) 6.0 - 8.0 g/dL 01/04/2025 2:11 PM [facility] ALBUMIN 4.4 3.5 - 5.0 g/dL 01/04/2025 2:11 PM [facility] A/G RATIO 1.2 1.0 - 2.2 01/04/2025 2:11 PM [facility] CALCIUM 9.3 8.7 - 10.5 mg/dL 01/04/2025 2:11 PM [facility] T BILI 0.9 0.2 - 1.2 mg/dL 01/04/2025 2:11 PM [facility] SGOT (AST) 21 6 - 42 U/L 01/04/2025 2:11 PM [facility] SGPT (ALT) 25 6 - 55 U/L 01/04/2025 2:11 PM [facility] ALKALINE PHOSPHATASE 74 40 - 150 U/L 01/04/2025 2:11 PM [facility] GFR, ESTIMATED >60 >=60 01/04/2025 2:11 PM [facility] Comment: Creatinine Clearance is the preferred criteria for selecting drug dose adjustments in renally impaired patients. The GFR is provided as additional pertinent clinical information. GFR is reported in mL/min/1.73 sq m. Calculation based on the Chronic Kidney Disease Epidemiology Collaboration (CKD- EPI) equation refit without adjustment for race. GFR, EST. >60 >=60 025 2:11 PM MAINTENANCE GROUNDMAN [facility] GFR, EST. NONAFRICAN >60 >=60 01/04/2025 2:11 PM MAINTENANCE GROUNDMAN [facility] Blood Venipuncture / Unknown 01/04/2025 1:25 PM MAINTENANCE GROUNDMAN 01/04/2025 1:43 PM MAINTENANCE GROUNDMAN us Wilver Rodrigues MD CHEMISTRY ORDERABLES Final Result [facility] [address] [place] [address] * (ABNORMAL) POCT GLYCOSYLATED HEMOGLOBIN (10/07/2024 10:42 AM MAINTENANCE GROUNDMAN) HGB-A1C 8.7(A) 4 - 6 % Blood 10/07/2024 10:4 2 AM MAINTENANCE GROUNDMAN us Kaushal Bermudez MD POINT OF CARE TESTING (MANUAL) F inal Result * Stool, Occult Blood, Diagnostic (02/19/2022 12:07 AM CDT) OCCULT BLOOD DIAG, GI BLEED Negative Negative 02/19/2022 12:35 AM CDT [facility] Stool STOOL SPECIMEN / Unknown Non-Phlebotomy Collection / Unknown 02/19/2022 12:07 AM CDT 02/19/2022 12:31 AM CDT Ernst Chavarria MD BODY FLUIDS & STOOLS ORDERABLES Final Result [facility] [address] [place] [address] from Last 3 Months or Most Recently Relevant to Health Maintenance Insurance [id number] [place] [id number] MEDICAID [employer] Advance Directives * Full Code (Latest Code Status on File) Date Activated Date Inactivated Comments 02/05/2023 12:55 AM 02/06/2023 3:51 PM CPR-Full Tr eatment: FULL ARREST: Attempt Resuscitation/CPR wit intubation and mechanical ventilation. PRE-ARREST: Use entire range of life support measures to stabilize the patient. * Full Code Date Activated Date Inactivated Comments 07/30/2016 10:12 AM 07/31/2016 5:24 PM CPR-Full Joy tment: FULL ARREST: Attempt Resuscitation/CPR wit intubation and mechanical ventilation. PRE-ARREST: Use entire range of life support measures to stabilize the patient. Care Teams Slaughterer Religious Ritual Relationship Specialty Start Date End Date Carmen Lowry MD [address] [place] [address] PCP - General Internal Medicine 03/28/16 Silvia Richardson, DPM [address] [place] [address] Consulting Physician Podiatry 12/04/22 Kaushal Bermudez MD [address] [phone] Consulting Physician Endocrinology 10/21/23 Fermin Zabala MD [address] [place] [address] Consulting Physician Neurology 02/22/23 Dayron Sharp MD [address] [place] [address] Consulting Physician Gastroenterology 08/23/22 Roby Verdugo APRN, NO EXPERIENCE [address] [place] [address] Nurse Practitioner Advanced Practice Nurse 03/25/25
--- OUTSIDE RECORDS SUMMARY | 2025-03-31 12:30 | XMS_ITS | Encounter Summary ---
Author Organization [facility] Address [address] [place] [address] Phone Care Team Providers Care Milling General Superintendent Name Role Phone Carmen Lowry MD Primary Care Provider [phone] Silvia Richardson DPM Unavailable [phone] Kaushal Bermudez MD Unavailable Fermin Zabala MD Unavailable [phone] Dayron Sharp MD Unavailable [phone] Roby Verdugo FLIGHT DECK OFFICER, STEAMBLASTER Unavailable [phone] Encounter Details Date Type Department Care Team (Late st Contact Info) Description 09/14/2020 Transcribe Orders [facility] [address] [place] [address] Carmen Lowry MD [address] [place] [address] Social History Tobacco Use Types Packs/Day Years Used Date Smoking Tobacco: Former Alcohol Use Standard Drinks/Week Comments No 0 (1 standard drink = 0.6 oz pur e alcohol) Sex and Gender Information Value Date Recorded Sex Assigned at Not on file Legal Sex Male 12:05 AM CDT Gender Identity Not on file Sexual Orientation Not on file COVID-19 Exposure Response Date Recorded In the last month, have you been in contact with someone who was confirmed or suspected to have Coronavirus / COVID-19? No / Unsure 09/14/2020 3:38 PM CDT documented as of this encounter Plan of Treatment Upcoming Encounters Date Type Department Care Team (Late st Contact Info) Description 07/13/2025 11:00 AM CDT Office Visit [facility] [address] [place] [phone] Roby Verdugo APRN, STEAMBLASTER [address] [place] [address] documented as of this encounter Visit Diagnoses Not on filedocumented in this encounter Additional Health Concerns Infection Onset Date Last Indicated Resolved Time COVID - 19 12/05/2021 12/05/2021 12/07/2021 3:55 PM FAMILY DEVELOPMENT EXTENSION SPECIALIST COVID - 19 Confirmed 12/05/2021 12/05/2021 022 12:16 AM FAMILY DEVELOPMENT EXTENSION SPECIALIST COVID - 19 01/04/2025 01/04/2025 01/04/2025 5:03 PM FAMILY DEVELOPMENT EXTENSION SPECIALIST documented as of this encounter Care Teams Milling General Superintendent Relationship Specialty Start Date End Date Carmen Lowry MD [address] [place] [address] PCP - General Internal Medicine 03/28/16 Silvia Richardson, DPM [address] [place] [address] Consulting Physician Podiatry 12/04/22 Kaushal Bermudez MD [address] [phone] Consulting Physician Endocrinology 10/21/23 Fermin Zabala MD [address] [place] [phone] Consulting Physician Neurology 02/22/23 Dayron Sharp MD [address] [place] [address] Consulting Physician Gastroenterology 08/23/22 Roby Verdugo APRN, STEAMBLASTER [address] [place] [address] Nurse Practitioner Advanced Practice Nurse 03/25/25 documented as of this encounter
--- OUTSIDE RECORDS SUMMARY | 2025-03-31 12:31 | XMS_ITS | Clinical Summary ---
Author Organization [facility] Address [facility] [place] [address] Care Team Providers Care Rubber Press Tender Name Role Phone Unavailable Primary Care Provider Unavailabl e Social History Tobacco Use Types Packs/Day Years Used Date Smoking Tobacco: Never Assessed Sex and Gender Information Value Date Recorded Sex Assigned at Not on file Legal Sex Male 8:14 PM CDT Gender Identity Not on file Sexual Orientation Not on file Plan of Treatment Health Maintenance Due Date Last Done Comments Colorectal Cancer Screening Colonoscopy (10 Years) 1961 Annual Physical 1964 Hepatitis C 1979 DTaP, Tdap and Td Vaccines ( 1 - Tdap) 1980 Pneumococcal Vaccine: 50+ Ye ars (1 of 1 - PCV) 2011 Zoster Vaccines (1 of 2) 2011 COVID-19 Vaccine ( - 2023-2 5 season) 2024 RSV Immunization or 60+ Years (1 - 1-dose 75+ series) 2036 Meningococcal B Vaccine Aged Out No l onger eligible based on patient's age to complete this topic Meningococcal Vaccine Aged Out No rosa juliana eligible based on patient's age to complete this topic RSV Immunizations Under 20 Months Aged Out No longer eligible based on patient's age to complete this topic
--- OUTSIDE RECORDS SUMMARY | 2025-03-31 12:31 | XMS_ITS | Clinical Summary ---
Author Organization [facility] Address [address] [place] [address] Care Team Providers Care Reservoir Engineer Name Role Phone Yuly Burgess Primary Care Provider [phone] Source Comments [facility],non-owned Affiliates and Associated Physician Practices is amultiple site organization consisting of ambulatory clinics and hospital sitesin [place], [place], [place] and [place]. This disclosure is being madepursuant to the Care Everywhere program and may not contain all information available regarding this patient. Last updated 18.[facility] Allergies No known active allergies Medications * Be aware that medications may not be up to date on this document. Alwaysverify current medications with the patient. aspirin (Aspirin) 81 MG chew tablet Take 1 (one) tablet by mouth once daily Active tiZANidine (Zanaflex) 4 MG tablet Take 1 (one) tablet by mouth every 8 hours as needed for Muscle Spasms Active acetaminophen (Tylenol) 500 MG tablet Take 1 (one) tablet by mouth every 6 hours as needed for Fever or Pain Maximum allowable Acetaminophen amount = 4 Grams (4000 mg) / 24 hours. 01/14/20 25 Active HYDROcodone-acetam inophen ([place]) 5-325 MG tabletIndications: S/P cholecystectomy Take 1 (one) tablet by mouth every 6 hours as needed for Pain (severe pain) 10 tablet 01/14/20 25 Active Additional Information Patient not taking.Reported on 01/20/2025 polyethylene glycol 3350 (Miralax) 17 GM/SCOOP powder Take 17 (seventeen) g by mouth once daily as needed for Constipation 238 g 12:28 PM SPORTS EQUIPMENT SUPERVISOR 01/14/20 25 Active guaiFENesin ER 12hr (Mucinex) 600 MG tablet Take 1 (one) tablet by mouth every 12 hours as needed for Cough 20 tablet 01/14/20 25 Active neomycin-bacitraci n-polymyxin (Neosporin) 3.5-400-5000 topical ointment Apply to affected area once daily Affected area: surgical wound 28 g 01/15/20 25 Active senna-docusate (Senokot-S) 8.6-50 MG tablet Take 1 (one) tablet by mouth 2 times daily 60 tablet 01/14/20 25 Active insulin glargine (Lantus/Semglee) 100 units/ml injection Inject 48 (forty eight) Units subcutaneously at bedtime Active dulaglutide (Trulicity) 3 MG/0.5ML injection Inject 3 (three) mg subcutaneously every 7 days Active glimepiride (Amaryl) 1 MG tablet Take 1 (one) tablet by mouth daily with breakfast Active gabapentin (Neurontin) 300 MG capsule Take 1 (one) capsule by mouth 3 times daily Active empagliflozin (Jardiance) 10 MG tablet Take 1 (one) tablet by mouth once daily Active acetaminophen-code ine (Tylenol #3) 300-30 MG tablet Take 1 (one) tablet by mouth every 6 hours as needed 01/19/20 25 Active Active Problems Problem Noted Date Diagnosed Date Laparoscopic surgical procedure converted to ope n procedure 01/11/2025 Acute on chronic cholecystitis 01/11/2025 Acute cholecystitis 01/04/2025 Encounters Date Type Department Care Team Description 03/03/[address], [address] [phone] Gael Ghotra MD Question 02/11/2025 9:50 AM CDT Office Visit [address], [address] [phone] Cheyenne Martin APRN-AUGIE Postop check (Primary Dx) 02/11/2025 Orders Only [address], [address] [phone] Cheyenne Martin APRN-AUGIE 02/11/2025 Travel 02/09/[address], [address] [place] [address] Gael Ghotra MD Med Question 02/03/2025 9:00 AM CDT Office Visit [address], [address] [phone] Gael Ghotra MD Postop check (Primary Dx) 02/03/2025 Travel 01/29/2025 9:00 AM SPORTS EQUIPMENT SUPERVISOR Office Visit [address], [address] [phone] Gael Ghotra MD Postop check (Primary Dx) 01/29/2025 Travel 01/28/[address], [address] [phone] Gael Ghotra MD Question 01/20/2025 10:00 AM SPORTS EQUIPMENT SUPERVISOR Office Visit [address], [address] [phone] Gael Ghotra MD Postop check (Primary Dx) 01/20/2025 Travel 01/18/[address], [address] [phone] Gael Ghotra MD Med Question 01/11/2025 7:40 AM SPORTS EQUIPMENT SUPERVISOR Anesthesia Event [facility] - Perioperative Surgery [address] [place] [phone] Enid Garnica DO 01/11/2025 7:20 AM SPORTS EQUIPMENT SUPERVISOR - 01/11/2025 9:04 AM SPORTS EQUIPMENT SUPERVISOR Surgery [facility] - Perioperative Surgery [address] [place] [id number] Gael Ghotra MD ATTEMPTED ROBOTIC ASSISTED CHOLECYSTECTOMY, CONVERTED TO OPEN CHOLECYSTECTOMY 01/05/2025 Travel 01/04/2025 11:52 PM SPORTS EQUIPMENT SUPERVISOR - 01/14/2025 12:37 PM SPORTS EQUIPMENT SUPERVISOR Hospital Encounter [facility] 2N TELE/ONCOLOGY [address] [place] [phone] DianeGloria macario MD Nallapaneni, MD Myron Palacios Ahmed S, MD Morales, DO Carissa Harris II, Yang, MD Hospitalist Discharge Disposition: Home or Self Care from Last 3 Months Family History Medical History Relation Name Comments Cancer - Other Father BLOOD Diabetes; unknown type Father High Blood Pressure Father Relation Name Status Comments Father Social History Tobacco Use Types Packs/Day Years Used Date Smoking Tobacco: Never Smokeless Tobacco: Never Tobacco Cessation:Counseling Given: No Alcohol Use Standard Drinks/Week Comments Never 0 (1 standard drink = 0.6 oz pur e alcohol) AUDIT-C Answer Date Recorded Q1: How often do you have a drink containing alcohol? Never 01/05/2025 Q2: How many drinks containi ng alcohol do you have on a typical day when you are drinking? Patient does not drink Q3: How often do you have si x or more drinks on one occasion? Never 01/05/2025 Overall Financial Resource Strain (CARDIA) Answe r Date Recorded How hard is it for you to pa y for the very basics like food, housing, medical care, and heating? Not hard at all 01/05/2025 [facility] [place] [facility] Occup[facility] ional [facility] - Occupational Stress Questionnaire Answer Date Recorded Do you feel stress - tense, restless, nervous, or anxious, or unable to sleep at night because your mind is troubled all the time - these days? Only a little 01/05/2025 Hunger Vital Sign Answer Date Recorded Within the past 12 months, y ou worried that your food would run out before you got the money to buy more. Never true 01/05/20 25 Within the past 12 months, t he food you bought just didn't last and you didn't have money to get more. Never true 01/05/2025 PRAPARE - Transportation Answer Date Re corded In the past 12 months, has l ack of transportation kept you from medical appointments or from getting medications? No 12/26 In the past 12 months, has l ack of transportation kept you from meetings, work, or from getting things needed for daily living? No 01/05/2025 Housing Stability Vital Sign Answer Carrington e Recorded In the last 12 months, was t here a time when you were not able to pay the mortgage or rent on time? No 01/05/2025 In the past 12 months, how m any times have you moved where you were living? 1 01/05/2025 At any time in the past 12 m [facility], were you homeless or living in a long term (including now)? No 01/05/2025 Sex and Gender Information Value Date Recorded Sex Assigned at Not on file Legal Sex Male 4:48 AM SPORTS EQUIPMENT SUPERVISOR Gender Identity Not on file Sexual Orientation Not on file Last Filed Vital Signs Vital Sign Reading Time Taken Comments Blood Pressure 132/80 01/14/2025 9:54 AM SPORTS EQUIPMENT SUPERVISOR Pulse 64 01/14/2025 9:54 AM SPORTS EQUIPMENT SUPERVISOR Temperature 36.7 C (98 F) 01/14/2025 7:34 AM SPORTS EQUIPMENT SUPERVISOR Respiratory Rate 16 01/14/2025 7:34 AM SPORTS EQUIPMENT SUPERVISOR Oxygen Saturation 98% 01/14/2025 9:54 AM SPORTS EQUIPMENT SUPERVISOR Inhaled Oxygen Concentration - - Weight 96.6 kg (213 lb) 02/11/2025 9:03 AM CDT Height 177.8 cm (5' 10 ) 02/11/2025 9:03 AM CDT Body Mass Index 30.56 02/11/2025 9:03 AM CDT Plan of Treatment Health Maintenance Due Date Last Done Comments COLOGUARD (AGES 45-75) - COLON CA SCREENING 1961 COLON MONITORING 1961 COLONOSCOPY - COLON CA SCREENING 1961 CT COLONOGRAPHY - COLON CA SCREENING 1961 Colorectal Cancer Screening 1961 FIT - COLON CA SCREENING 1961 FLEX SIG - COLON CA SCREENING 1961 HIV SCREENING 1976 HEPATITIS C SCREENING 03/24/1979 DTAP/TDAP/TD VACCINES (1 - Tdap) 1980 PNEUMOCOCCAL VACCINE 50+ (1 of 2 - PCV) 1980 ZOSTER VACCINE (1 of 2) 2011 Respiratory Syncytial Virus (RSV) Vaccine Pt: or over 60 yrs (1 - Risk 60-74 years 1-dose series) 2021 COVID-19 VACCINE (2 - season) 2024 05/02/2021 DEPRESSION SCREENING 11/25/2024 SCREENING FOR DIABETES 01/14/2028 , 01/14/2025, 01/14/2025, Additional history exists LIPID TESTING 02/06/2028 02/05/2023 INFLUENZA VACCINE Completed 09/11/2024, , 11/05/2022, Additional history exists HEPATITIS B VACCINE Aged Out No longe r eligible based on patient's age to complete this topic HIB VACCINE Aged Out No longer eligi ble based on patient's age to complete this topic HPV VACCINE Aged Out No longer eligi ble based on patient's age to complete this topic MENINGOCOCCAL (Group B) VACCINE SHARED DECISION-MAKING Aged Out No longer eligible based on patient's age to complete this topic MENINGOCOCCAL GROUPS A/C/Y/W VACCINE Aged Out No longer eligible based on patient's age to complete this topic Procedures Procedure Name Priority Date/Time Associated Diagnosis Comments BASIC METABOLIC PANEL (CALCIUM TOTAL) JESUS 01/14/2025 9:12 AM SPORTS EQUIPMENT SUPERVISOR CBC W/O DIFFERENTIAL JESUS 01/14/2025 9:12 AM SPORTS EQUIPMENT SUPERVISOR GLUCOSE - POINT OF CARE Routine 01/14/2025 7:37 AM SPORTS EQUIPMENT SUPERVISOR GLUCOSE - POINT OF CARE Routine 01/14/2025 4:32 AM SPORTS EQUIPMENT SUPERVISOR GLUCOSE - POINT OF CARE Routine 01/13/2025 11:58 PM SPORTS EQUIPMENT SUPERVISOR GLUCOSE - POINT OF CARE Routine 01/13/2025 8:25 PM SPORTS EQUIPMENT SUPERVISOR GLUCOSE - POINT OF CARE Routine 01/13/2025 6:23 PM SPORTS EQUIPMENT SUPERVISOR GLUCOSE - POINT OF CARE Routine 01/13/2025 4:17 PM SPORTS EQUIPMENT SUPERVISOR GLUCOSE - POINT OF CARE Routine 01/13/2025 12:16 PM SPORTS EQUIPMENT SUPERVISOR GLUCOSE - POINT OF CARE Routine 01/13/2025 7:55 AM SPORTS EQUIPMENT SUPERVISOR HEPATIC FUNCTION PANEL Add on 01/13/2025 5:13 AM SPORTS EQUIPMENT SUPERVISOR BASIC METABOLIC PANEL (CALCIUM TOTAL) AM Draw 01/13/2025 5:13 AM SPORTS EQUIPMENT SUPERVISOR CBC W/O DIFFERENTIAL AM Draw 01/13/2025 5:13 AM SPORTS EQUIPMENT SUPERVISOR GLUCOSE - POINT OF CARE Routine 01/13/2025 5:06 AM SPORTS EQUIPMENT SUPERVISOR GLUCOSE - POINT OF CARE Routine 01/12/2025 11:11 PM SPORTS EQUIPMENT SUPERVISOR GLUCOSE - POINT OF CARE Routine 01/12/2025 8:04 PM SPORTS EQUIPMENT SUPERVISOR GLUCOSE - POINT OF CARE Routine 01/12/2025 3:33 PM SPORTS EQUIPMENT SUPERVISOR GLUCOSE - POINT OF CARE Routine 01/12/2025 11:34 AM SPORTS EQUIPMENT SUPERVISOR COMPREHENSIVE METABOLIC PANEL Routine 01/12/2025 10:22 AM SPORTS EQUIPMENT SUPERVISOR CBC W AUTO DIFFERENTIAL Routine 01/12/2025 10:22 AM SPORTS EQUIPMENT SUPERVISOR PT EVAL AND TREAT Routine 01/12/2025 8:3 7 AM SPORTS EQUIPMENT SUPERVISOR GLUCOSE - POINT OF CARE Routine 01/12/2025 7:38 AM SPORTS EQUIPMENT SUPERVISOR GLUCOSE - POINT OF CARE Routine 01/12/2025 3:20 AM SPORTS EQUIPMENT SUPERVISOR GLUCOSE - POINT OF CARE Routine 01/11/2025 11:55 PM SPORTS EQUIPMENT SUPERVISOR GLUCOSE - POINT OF CARE Routine 01/11/2025 8:14 PM SPORTS EQUIPMENT SUPERVISOR GLUCOSE - POINT OF CARE Routine 01/11/2025 4:00 PM SPORTS EQUIPMENT SUPERVISOR GLUCOSE - POINT OF CARE Routine 01/11/2025 11:32 AM SPORTS EQUIPMENT SUPERVISOR CBC W AUTO DIFFERENTIAL STAT 01/11/2025 10:18 AM SPORTS EQUIPMENT SUPERVISOR Acute cholecystitis COMPREHENSIVE METABOLIC PANEL STAT 01/11/2025 10:18 AM SPORTS EQUIPMENT SUPERVISOR PATHOLOGY TISSUE EXAM (STL) Routine 01/11/2025 9:36 AM SPORTS EQUIPMENT SUPERVISOR Diagnosis unknown TYPE + SCREEN PANEL STAT 01/11/2025 9 :23 AM SPORTS EQUIPMENT SUPERVISOR CBC W AUTO DIFFERENTIAL STAT 01/11/2025 9:23 AM SPORTS EQUIPMENT SUPERVISOR PERIPHERAL IV NOTE Routine 01/11/2025 9: 15 AM SPORTS EQUIPMENT SUPERVISOR ENDOTRACHEAL TUBE NOTE Routine 01/11/2025 8:02 AM SPORTS EQUIPMENT SUPERVISOR NM LAP,CHOLECYSTECTOMY 01/11/2025 7:34 AM SPORTS EQUIPMENT SUPERVISOR Special Needs INTUITIVE NOTIFIED (DM) GLUCOSE - POINT OF CARE Routine 01/11/2025 3:58 AM SPORTS EQUIPMENT SUPERVISOR GLUCOSE - POINT OF CARE Routine 01/10/2025 11:55 PM SPORTS EQUIPMENT SUPERVISOR GLUCOSE - POINT OF CARE Routine 01/10/2025 7:58 PM SPORTS EQUIPMENT SUPERVISOR GLUCOSE - POINT OF CARE Routine 01/10/2025 5:52 PM SPORTS EQUIPMENT SUPERVISOR GLUCOSE - POINT OF CARE Routine 01/10/2025 11:41 AM SPORTS EQUIPMENT SUPERVISOR GLUCOSE - POINT OF CARE Routine 01/10/2025 7:49 AM SPORTS EQUIPMENT SUPERVISOR GLUCOSE - POINT OF CARE Routine 01/10/2025 3:16 AM SPORTS EQUIPMENT SUPERVISOR GLUCOSE - POINT OF CARE Routine 01/09/2025 11:04 PM SPORTS EQUIPMENT SUPERVISOR GLUCOSE - POINT OF CARE Routine 01/09/2025 8:04 PM SPORTS EQUIPMENT SUPERVISOR GLUCOSE - POINT OF CARE Routine 01/09/2025 5:27 PM SPORTS EQUIPMENT SUPERVISOR GLUCOSE - POINT OF CARE Routine 01/09/2025 4:30 PM SPORTS EQUIPMENT SUPERVISOR GLUCOSE - POINT OF CARE Routine 01/09/2025 11:49 AM SPORTS EQUIPMENT SUPERVISOR GLUCOSE - POINT OF CARE Routine 01/09/2025 7:42 AM SPORTS EQUIPMENT SUPERVISOR BLOOD TYPE VERIFICATION Routine 01/09/2025 4:21 AM SPORTS EQUIPMENT SUPERVISOR COMPREHENSIVE METABOLIC PANEL AM Draw 01/09/2025 4:21 AM SPORTS EQUIPMENT SUPERVISOR CBC W/O DIFFERENTIAL AM Draw 01/09/2025 4:21 AM SPORTS EQUIPMENT SUPERVISOR GLUCOSE - POINT OF CARE Routine 01/09/2025 4:14 AM SPORTS EQUIPMENT SUPERVISOR GLUCOSE - POINT OF CARE Routine 01/08/2025 11:58 PM SPORTS EQUIPMENT SUPERVISOR GLUCOSE - POINT OF CARE Routine 01/08/2025 8:13 PM SPORTS EQUIPMENT SUPERVISOR GLUCOSE - POINT OF CARE Routine 01/08/2025 5:39 PM SPORTS EQUIPMENT SUPERVISOR GLUCOSE - POINT OF CARE Routine 01/08/2025 12:01 PM SPORTS EQUIPMENT SUPERVISOR GLUCOSE - POINT OF CARE Routine 01/08/2025 7:33 AM SPORTS EQUIPMENT SUPERVISOR COMPREHENSIVE METABOLIC PANEL AM Draw 01/08/2025 3:58 AM SPORTS EQUIPMENT SUPERVISOR CBC W/O DIFFERENTIAL AM Draw 01/08/2025 3:58 AM SPORTS EQUIPMENT SUPERVISOR HEMOGLOBIN A1C Routine 01/08/2025 3:58 AM SPORTS EQUIPMENT SUPERVISOR GLUCOSE - POINT OF CARE Routine 01/08/2025 3:53 AM SPORTS EQUIPMENT SUPERVISOR GLUCOSE - POINT OF CARE Routine 01/07/2025 11:04 PM SPORTS EQUIPMENT SUPERVISOR GLUCOSE - POINT OF CARE Routine 01/07/2025 7:37 PM SPORTS EQUIPMENT SUPERVISOR GLUCOSE - POINT OF CARE Routine 01/07/2025 4:39 PM SPORTS EQUIPMENT SUPERVISOR GLUCOSE - POINT OF CARE Routine 01/07/2025 3:56 PM SPORTS EQUIPMENT SUPERVISOR GLUCOSE - POINT OF CARE Routine 01/07/2025 11:28 AM SPORTS EQUIPMENT SUPERVISOR ECHO COMPLETE W CONTRAST Routine 01/07/2025 11:04 AM SPORTS EQUIPMENT SUPERVISOR CAD in [place] artery GLUCOSE - POINT OF CARE Routine 01/07/2025 7:37 AM SPORTS EQUIPMENT SUPERVISOR COMPREHENSIVE METABOLIC PANEL AM Draw 01/07/2025 5:36 AM SPORTS EQUIPMENT SUPERVISOR CBC W/O DIFFERENTIAL AM Draw 01/07/2025 5:36 AM SPORTS EQUIPMENT SUPERVISOR GLUCOSE - POINT OF CARE Routine 01/06/2025 11:38 PM SPORTS EQUIPMENT SUPERVISOR GLUCOSE - POINT OF CARE Routine 01/06/2025 7:57 PM SPORTS EQUIPMENT SUPERVISOR GLUCOSE - POINT OF CARE Routine 01/06/2025 5:48 PM SPORTS EQUIPMENT SUPERVISOR GLUCOSE - POINT OF CARE Routine 01/06/2025 1:27 PM SPORTS EQUIPMENT SUPERVISOR CULTURE BLOOD Timed 01/06/2025 12:01 PM SPORTS EQUIPMENT SUPERVISOR SARS-COV-2 (COVID-19) FLU A/B RSV PCR RAPID Routine 01/06/2025 12:00 PM SPORTS EQUIPMENT SUPERVISOR GLUCOSE - POINT OF CARE Routine 01/06/2025 11:32 AM SPORTS EQUIPMENT SUPERVISOR CBC W/O DIFFERENTIAL STAT 01/06/2025 10:45 AM SPORTS EQUIPMENT SUPERVISOR CULTURE BLOOD Timed 01/06/2025 10:45 AM SPORTS EQUIPMENT SUPERVISOR GLUCOSE - POINT OF CARE Routine 01/06/2025 7:54 AM SPORTS EQUIPMENT SUPERVISOR COMPREHENSIVE METABOLIC PANEL AM Draw 01/06/2025 3:44 AM SPORTS EQUIPMENT SUPERVISOR GLUCOSE - POINT OF CARE Routine 01/06/2025 12:30 AM SPORTS EQUIPMENT SUPERVISOR GLUCOSE - POINT OF CARE Routine 01/05/2025 8:22 PM SPORTS EQUIPMENT SUPERVISOR MRI ABDOMEN WO CONTRAST Routine 01/05/2025 5:57 PM SPORTS EQUIPMENT SUPERVISOR Transaminitis GLUCOSE - POINT OF CARE Routine 01/05/2025 4:38 PM SPORTS EQUIPMENT SUPERVISOR GLUCOSE - POINT OF CARE Routine 01/05/2025 12:44 PM SPORTS EQUIPMENT SUPERVISOR GLUCOSE - POINT OF CARE Routine 01/05/2025 8:31 AM SPORTS EQUIPMENT SUPERVISOR GLUCOSE - POINT OF CARE Routine 01/05/2025 6:40 AM SPORTS EQUIPMENT SUPERVISOR CBC W/O DIFFERENTIAL STAT 01/05/2025 3:21 AM SPORTS EQUIPMENT SUPERVISOR COMPREHENSIVE METABOLIC PANEL STAT 01/05/2025 3:21 AM SPORTS EQUIPMENT SUPERVISOR from Last 3 Months Results * (ABNORMAL) CBC W/O DIFFERENTIAL (01/14/2025 9:12 AM SPORTS EQUIPMENT SUPERVISOR) Only the most recent of7 resultswithin the time period is included. WBC 7.3 4.0 - 10.7 x10E9/L 01/14/2025 9:37 AM SPORTS EQUIPMENT SUPERVISOR [facility] RBC Count 5.02 4.30 - 5.80 x10E12/L 01/14/2025 9:37 AM SPORTS EQUIPMENT SUPERVISOR [facility] Hemoglobin 13.0(L) 13.3 - 17.5 g/dL 01/14/2025 9:37 AM SPORTS EQUIPMENT SUPERVISOR [facility] Hematocrit 40.8 38.7 - 51.1 % 01/14/2025 9:37 AM SPORTS EQUIPMENT SUPERVISOR [facility] MCV 81.3 80.0 - 98.0 fL 01/14/2025 9:37 AM SPORTS EQUIPMENT SUPERVISOR [facility] MCH 25.9(L) 26.7 - 33.6 pg 01/14/2025 9:37 AM SPORTS EQUIPMENT SUPERVISOR [facility] MCHC 31.9 31.7 - 36.3 g/dL 01/14/2025 9:37 AM [facility] RDW-CV 14.4 11.3 - 14.8 % 01/14/2025 9:37 AM [facility] Platelet Count 384 150 - 420 x10E9/L 01/14/2025 9:37 AM [facility] MPV 10.2 7.8 - 11.4 fL 01/14/2025 9:37 AM [facility] Blood BLOOD SPECIMEN / Unknown Venipuncture / Unknown 01/14/2025 9:12 AM SPORTS EQUIPMENT SUPERVISOR 01/14/2025 9:18 AM [facility] Mikael Ferrer MD LAB - HEMATOLOGY ORDERABLES Dania maldonado Result [facility] [address] [place] [address] * (ABNORMAL) BASIC METABOLIC PANEL (CALCIUM TOTAL) (01/14/2025 9:12 AM [facility]) Only the most recent of2 resultswithin the time period is included. Glucose 174(H) 70 - 99 mg/dL 01/14/2025 9:44 AM [facility] Sodium 140 136 - 145 mmol/L 01/14/2025 9:44 AM [facility] Potassium 4.1 3.5 - 5.1 mmol/L 01/14/2025 9:44 AM [facility] Chloride 108(H) 98 - 107 mmol/L 01/14/2025 9:44 AM [facility] CO2 25 22 - 29 mmol/L 01/14/2025 9:44 AM [facility] Calcium 8.4 8.4 - 10.4 mg/dL 01/14/2025 9:44 AM [facility] Anion Gap 7 6 - 16 mmol/L 01/14/2025 9:44 AM [facility] BUN 12 7 - 26 mg/dL 01/14/2025 9:44 AM [facility] Creatinine 0.66(L) 0.72 - 1.25 mg/dL 01/14/2025 9:44 AM [facility] eGFR by CKD-EPI >90 >=90 mL/min/1.7 3 m2 01/14/2025 9:44 AM SPORTS EQUIPMENT SUPERVISOR [facility] Blood BLOOD SPECIMEN / Unknown Venipuncture / Unknown 01/14/2025 9:12 AM SPORTS EQUIPMENT SUPERVISOR 01/14/2025 9:18 AM SPORTS EQUIPMENT SUPERVISOR Mikael Ferrer MD LAB - CHEMISTRY ORDERABLES Final Result Performing Organization Address [facility] Co de Phone Number [facility] [address] [place] [phone] * (ABNORMAL) GLUCOSE - POINT OF CARE (01/14/2025 7:37 AM SPORTS EQUIPMENT SUPERVISOR) Only the most recent of57 resultswithin the time period is included. Pathologist [facility] Glucose WB/POC 164(H) 70 - 99 mg/dL 01/14/2025 7:42 AM SPORTS EQUIPMENT SUPERVISOR [facility] Specimen Type Arterial 01/14/2025 7:42 AM SPORTS EQUIPMENT SUPERVISOR [facility] Blood BLOOD SPECIMEN / Unknown 01/14/2025 7:37 AM SPORTS EQUIPMENT SUPERVISOR 01/14/2025 7:42 AM SPORTS EQUIPMENT SUPERVISOR Mikael Ferrer MD LAB - POINT OF CARE ORDERABLES F inal Result Performing Organization Address [facility] de Phone Number [facility] [address] [place] [phone] * (ABNORMAL) HEPATIC FUNCTION PANEL (01/13/2025 5:13 AM SPORTS EQUIPMENT SUPERVISOR) Alkaline Phosphatase 176(H) 40 - 150 U/L 01/13/2025 7:14 AM SPORTS EQUIPMENT SUPERVISOR [facility] ALT 75(H) 0 - 55 U/L 01/13/2025 7:14 AM SPORTS EQUIPMENT SUPERVISOR [facility] AST 50(H) 5 - 34 U/L 01/13/2025 7:14 AM [facility] Protein Total 5.5(L) 6.4 - 8.3 gm/dL 01/13/2025 7:14 AM SPORTS EQUIPMENT SUPERVISOR [facility] Albumin 2.1(L) 3.4 - 5.0 gm/dL 01/13/2025 7:14 AM SPORTS EQUIPMENT SUPERVISOR [facility] Bilirubin Total 0.4 0.2 - 1.2 mg/dL 01/13/2025 7:14 AM [facility] Bilirubin Direct 0.246 0.10 - 0.50 mg/dL 01/13/2025 7:14 AM [facility] Blood BLOOD SPECIMEN / Unknown Venipuncture / Unknown 01/13/2025 5:13 AM SPORTS EQUIPMENT SUPERVISOR 01/13/2025 5:35 AM SPORTS EQUIPMENT SUPERVISOR Mikael Ferrer MD LAB - CHEMISTRY ORDERABLES Final Result [facility] [address] [place] [address] * (ABNORMAL) CBC W AUTO DIFFERENTIAL (01/12/2025 10:22 AM [facility]) Only the most recent of3 resultswithin the time period is included. WBC 7.2 4.0 - 10.7 x10E9/L 01/12/2025 10:34 AM [facility] RBC Count 4.94 4.30 - 5.80 x10E12/L 01/12/2025 10:34 AM [facility] Hemoglobin 12.8(L) 13.3 - 17.5 g/dL 01/12/2025 10:34 AM [facility] Hematocrit 39.5 38.7 - 51.1 % 01/12/2025 10:34 AM [facility] MCV 80.0 80.0 - 98.0 fL 01/12/2025 10:34 AM [facility] MCH 25.9(L) 26.7 - 33.6 pg 01/12/2025 10:34 AM [facility] MCHC 32.4 31.7 - 36.3 g/dL 01/12/2025 10:34 AM [facility] RDW-CV 14.1 11.3 - 14.8 % 01/12/2025 10:34 AM [facility] Platelet Count 222 150 - 420 x10E9/L 01/12/2025 10:34 AM [facility] MPV 10.6 7.8 - 11.4 fL 01/12/2025 10:34 AM [facility] Neutrophil % 81.5(H) 41.0 - 74.0 % 01/12/2025 10:34 AM [facility] Lymphocyte % 11.7(L) 17.0 - 47.0 % 01/12/2025 10:34 AM [facility] Monocyte % 6.1 3.0 - 11.0 % 01/12/2025 10:34 AM [facility] Eosinophil % 0.0 0.0 - 7.0 % 01/12/2025 10:34 AM [facility] Basophil % 0.1 0.0 - 1.6 % 01/12/2025 10:34 AM [facility] Immature Granulocytes % 0.6 0.0 - 1.0 % 01/12/2025 10:34 AM [facility] Neutrophil Absolute 5.84 1.60 - 7.50 x10E9/L 01/12/2025 10:34 AM [facility] Lymphocyte Absolute 0.84(L) 1.00 - 4.40 x10E9/L 01/12/2025 10:34 AM [facility] Monocyte Absolute 0.44 0.15 - 1.00 x10E9/L 01/12/2025 10:34 AM [facility] Eosinophil Absolute 0.00 0.00 - 0.60 x10E9/L 01/12/2025 10:34 AM [facility] Basophil Absolute 0.01 0.00 - 0.13 x10E9/L 01/12/2025 10:34 AM [facility] Blood BLOOD SPECIMEN / Unknown Venipuncture / Unknown 01/12/2025 10:22 AM [facility] 01/12/2025 10:27 AM [facility] Lorri Foley LANDSCAPE DESIGNER-BLANKET WEAVER LAB - HEMATOLOGY ORDERABL ES Final Result [facility] [address] [place] [address] * (ABNORMAL) COMPREHENSIVE METABOLIC PANEL (01/12/2025 10:22 AM [facility]) Only the most recent of7 resultswithin the time period is included. Glucose 281(H) 70 - 99 mg/dL 01/12/2025 10:50 AM [facility] Sodium 138 136 - 145 mmol/L 01/12/2025 10:50 AM [facility] Potassium 4.2 3.5 - 5.1 mmol/L 01/12/2025 10:50 AM [facility] Chloride 107 98 - 107 mmol/L 01/12/2025 10:50 AM [facility] CO2 23 22 - 29 mmol/L 01/12/2025 10:50 AM [facility] Calcium 8.3(L) 8.4 - 10.4 mg/dL 01/12/2025 10:50 AM [facility] Anion Gap 8 6 - 16 mmol/L 01/12/2025 10:50 AM [facility] BUN 16 7 - 26 mg/dL 01/12/2025 10:50 AM [facility] Creatinine 0.70(L) 0.72 - 1.25 mg/dL 01/12/2025 10:50 AM [facility] Alkaline Phosphatase 216(H) 40 - 150 U/L 01/12/2025 10:50 AM [facility] ALT 93(H) 0 - 55 U/L 01/12/2025 10:50 AM [facility] AST 87(H) 5 - 34 U/L 01/12/2025 10:50 AM [facility] Protein Total 5.8(L) 6.4 - 8.3 gm/dL 01/12/2025 10:50 AM [facility] Albumin 2.1(L) 3.4 - 5.0 gm/dL 01/12/2025 10:50 AM [facility] Bilirubin Total 0.5 0.2 - 1.2 mg/dL 01/12/2025 10:50 AM [facility] eGFR by CKD-EPI >90 >=90 mL/min/1.7 3 m2 01/12/2025 10:50 AM [facility] Blood BLOOD SPECIMEN / Unknown Venipuncture / Unknown 01/12/2025 10:22 AM [facility] 01/12/2025 10:27 AM [facility] us Lorri Foley LANDSCAPE DESIGNER-BLANKET WEAVER LAB - CHEMISTRY ORDERABLE S Final Result [facility] [address] [place] [address] * PATHOLOGY TISSUE EXAM (STL) (01/11/2025 9:36 AM SPORTS EQUIPMENT SUPERVISOR) Case Report Surgical Pathology Report Case: [id number] Authorizing Provider: Gael Ghotra MD Collected: 01/11/2025 09:36 AM Ordering Location: [address] TELE/ONCOLOGY Received: 01/11/2025 10:30 AM Pathologist: Stephani Ryder MD Specimen: Gallbladder, gallbladder 01/13/2025 1:51 PM SPORTS EQUIPMENT SUPERVISOR [facility] Final Diagnosis Gallbladder, cholecystectomy: -- Cholelithiasis with necrotizing cholecystitis 01/13/2025 1:51 PM [facility] Clinical History Acute on chronic cholecystitis. 01/13/2025 1:51 PM SPORTS EQUIPMENT SUPERVISOR [facility] Gross Description Received in formalin in a sterile container labeled Juwan Appiah, gallbladder, is an 11.8 x 7.8 cm distended, dilated gallbladder. The serosa is necrotic black-brown. Sections show a necrotic brown-green velvety mucosa. The gallbladder wall measures 0.4 cm in thickness. Within the gallbladder is brown bile and three black irregular gallstones ranging from 0.1 cm to 0.5 cm. Talent Acquisition Consultant sections are submitted in cassette A1. CH/eh 01/13/2025 1:51 PM [facility] Microscopic Description Microscopic examination substantiates the above cited diagnosis. 01/13/2025 1:51 PM [facility] Disclaimer All histochemical and/or immunohistochemical results are interpreted with controls that demonstrate appropriate staining reactions before reporting results. Note on use of immunocytochemistry reagents: This test was developed and its performance characteristic determined by [facility], Department of Laboratory Medicine. It has not been cleared or approved by the U.S. Food and Drug Administration (FDA). The FDA has determined that such clearance or approval is not necessary. The test is used for clinical purpose. It should not be regarded as investigational or for research. This laboratory is certified to perform high complexity testing. The performance characteristics of the IHC/VIJAY assays have been validated on formalin-fixed paraffin embedded tissues only. The assays have not been validated on decalcified tissues. Results should be interpreted with caution. 01/13/2025 1:51 PM [facility] Embedded Images 01/13/2025 1:51 PM SPORTS EQUIPMENT SUPERVISOR [facility] Pathology/Cytolo gy ENTIRE GALLBLADDER / Unknown 01/11/2025 9:36 AM SPORTS EQUIPMENT SUPERVISOR 01/11/2025 10:30 AM SPORTS EQUIPMENT SUPERVISOR Gael Ghotra MD LAB - PATHOLOGY/CYTOLOGY ORDERAB LES Final Result Performing Organization Address [facility] Co de Phone Number [facility] [id number] [place] [address] * TYPE + SCREEN PANEL (01/11/2025 9:23 AM SPORTS EQUIPMENT SUPERVISOR) ABO Rh A POS 01/11/2025 10:00 AM SPORTS EQUIPMENT SUPERVISOR [facility] Comment:No history; collect retype. Antibody Screen NEG 10:00 AM SPORTS EQUIPMENT SUPERVISOR [facility] Blood Bank BLOOD SPECIMEN / Unknown Venipuncture / Unknown 01/11/2025 9:23 AM SPORTS EQUIPMENT SUPERVISOR 01/11/2025 9:23 AM SPORTS EQUIPMENT SUPERVISOR Gael Ghotra MD LAB - BLOOD BANK ORDERABLES Dania l Result Performing Organization Address [facility] Co de Phone Number [facility] [address] [place] [address], [facility] [phone] * IV PLACEMENT PERFORMABLE (01/11/2025 9:15 AM SPORTS EQUIPMENT SUPERVISOR) Narrative Kathia Daily APRN-CRNA - 01/11/2025 9:15 AM SPORTS EQUIPMENT SUPERVISOR Kathia Daily APRN-CRNA 01/11/2025 9:16 AM Peripheral IV Line Placement: Patient Location: OR Insertion Time: 01/11/2025 9:05 AM Procedure: IV start ([id number]) Procedure Section: Skin Prep: alcohol. Orientation: left Location: hand Catheter Gauge: 18 Number of Attempts: 1. Procedure Tolerance: performed while patient under general anesthesia. Staff Section Anesthesia Provider: Kathia Daily APRN-CRNA, Performed the procedure Enid Garnica DO GENERAL ANESTHESIA ORDERABLES F inal Result * ETT LINE PERFORMABLE (01/11/2025 8:02 AM SPORTS EQUIPMENT SUPERVISOR) Narrative Kathia Daily APRN-CRNA - 01/11/2025 8:02 AM SPORTS EQUIPMENT SUPERVISOR Kathia Daily APRN-CRNA 01/11/2025 8:02 AM Endotracheal Tube Placement: Patient Location: OR. Intubation Event Date/Time: 01/11/2025 7:51 AM Procedure: intubation ([id number]) Procedure Section: Sedation: under general anesthesia. Indications for Airway Management: anesthesia Induction: standard IV Patient Position: supine Mask Ventilation: easy. Blade Type: Video Blade Size: 4 Laryngoscopy View: grade 1 (full cords) Intubation Adjuncts: stylet, cricoid pressure and video laryngoscope Tube: endotracheal tube Placement: oral Tube type: cuff - inflated Tube Size (MM): 8 Depth of Insertion (CM): 21 Measured From: gums Cuff Inflated With: air Number of Attempts: 1. Placement Verified By: direct visualization, bilateral breath sounds and CO2 monitor Tube secured with: adhesive tape. Dentition unchanged? Yes Difficult Airway? No. Procedure Start Time: 01/11/2025 7:51 AM. Staff Section Anesthesia Provider: Kathia Daily APRN-CRNA, Performed the procedure Enid Garnica DO GENERAL ANESTHESIA ORDERABLES F inal Result * BLOOD TYPE VERIFICATION (01/09/2025 4:21 AM SPORTS EQUIPMENT SUPERVISOR) ABO Rh A POS 01/11/2025 10:00 AM SPORTS EQUIPMENT SUPERVISOR [facility] Blood Bank BLOOD SPECIMEN / Unknown Venipuncture / Unknown 01/09/2025 4:21 AM SPORTS EQUIPMENT SUPERVISOR 01/11/2025 9:25 AM SPORTS EQUIPMENT SUPERVISOR Gael Ghotra MD LAB - BLOOD BANK ORDERABLES Dania l Result [facility] [address] [phone] * (ABNORMAL) HEMOGLOBIN A1C (01/08/2025 3:58 AM SPORTS EQUIPMENT SUPERVISOR) Hemoglobin A1c 6.9(H) <5.7 % 01/08/2025 4:35 AM SPORTS EQUIPMENT SUPERVISOR [facility] Estimated Average Glucose 151 mg/dL 01/08/2025 4:35 AM SPORTS EQUIPMENT SUPERVISOR [facility] Blood BLOOD SPECIMEN / Unknown Venipuncture / Unknown 01/08/2025 3:58 AM SPORTS EQUIPMENT SUPERVISOR 01/08/2025 4:17 AM SPORTS EQUIPMENT SUPERVISOR Narrative [facility] - 01/08/2025 4:35 AM SPORTS EQUIPMENT SUPERVISOR HbA1c Interpretation: Normal: < 5.7% Pre-diabetes: 5.7-6.4% Diabetes: Equal to or greater than 6.5% Test results diagnostic of diabetes should be repeated for confirmation. Treatment target values recommended by ADA and other clinical organizations should be used to evaluate metabolic control in patients. This test should not replace glucose testing for patients with Type 1 diabetes, pediatric patients, or women. Falsely low HbA1c results may be observed in patients with clinical conditions that shorten erythrocyte life span or decrease mean erythrocyte age such as the presence of unstable hemoglobin variants, elevated hemoglobin F level or other causes of hemolytic anemia. HbA1c may not accurately reflect glycemic control when clinical conditions that affect erythrocyte survival are present. Severe Iron deficiency anemia may yield falsely high results. Hemoglobin A1c assay should not be used to diagnose or monitor diabetes in patients with malignancy, recent blood transfusion, chronic kidney or liver disease. This method may yield falsely low results when hemoglobin (HbF) exceeds 5% in the specimen. The Patel Alinity assay for the measurement of HbA1c is a National Glycohemoglobin Standardization Program (NGSP) certified method. Willie Seaman MD LAB - CHEMISTRY HAYDEN ARREDONDO Final Result [facility] [address] [place] [address] * ECHO COMPLETE W CONTRAST (01/07/2025 11:04 AM SPORTS EQUIPMENT SUPERVISOR) LVOT diam 2.327 cm SSM CV FUJ I PACS LV biplane EF 39.506 % SSM CV FUJI PACS LV A2C EF 50.459 % SSM CV FUJ I PACS LV A4C EF 49.396 % SSM CV FUJ I PACS LV EDV A2C 154.955 ml SSM CV FU JI PACS LV EDV A4C 177.987 ml SSM CV FU JI PACS LV ESV A2C 76.766 ml SSM CV FU JI PACS LV ESV A4C 90.068 ml SSM CV FU JI PACS LVOT pk blaze 117.596 cm/s SSM CV F UJI PACS LVOT VTI 21.633 cm SSM CV FUJ I PACS AV mn grad 4.603 mmHg SSM CV FU JI PACS AV pk blaze 135.921 cm/s SSM CV FUJ I PACS AV VTI 25.036 cm SSM CV FUJ I PACS MV A pk blaze 88.09 cm/s SSM CV F UJI PACS MV E pk blaze 68.902 cm/s SSM CV F UJI PACS MV E' lateral blaze 11.299 cm/s SS M CV FUJI PACS PV pk blaze 116.652 cm/s SSM CV FUJ I PACS TAPSE 1.694 cm SSM CV FUJ I PACS Dimensionless Index 0.864 unitless SSM CV FUJI PACS Myocardial strain charge 2 unitless SSM CV FUJI PACS Anatomical Region Laterality Modality Ultrasound 01/07/2025 10:2 1 AM SPORTS EQUIPMENT SUPERVISOR Narrative 01/07/2025 2:01 PM SPORTS EQUIPMENT SUPERVISOR Summary * Left ventricular systolic function is low normal with an estimated ejection fraction of 45-50% by visual estimate. * Septal bounce consistent with underlying bundle branch block . * The left ventricular diastolic function is consistent with grade I diastolic dysfunction and normal left atrial filling pressure. * Right ventricle is normal in size with normal systolic function. * No significant valvular abnormalities. * Unable to assess pulmonary pressures due to a lack of tricuspid and pulmonic regurgitation. Patient Info Name: Juwan Appiah Age: 64 years : 1960 Gender: Male Ht: 70 in Wt: 226 lb BSA: 2.28 m2 HR: 77 bpm Exam Date: 01/07/2025 10:21 AM Patient Status: I/P Study Site: [facility] Primary Location: [facility] EStudy Info Exam Type: ECHO COMPLETE W CONTRAST Indications I25.10 - CAD in [place] artery Procedure(s) * A complete 2D, color Doppler, spectral Doppler, and M-Mode transthoracic echocardiogram with Definity was performed. Staff Referring Physician: Alli Villar Ordering Provider: Alli Villar Attending Physician: Alli Villar Industrial Radiographer: Karie Virgen Left Ventricle The left ventricle is normal in size. Left ventricular systolic function is low normal with an estimated ejection fraction of 45-50% by visual estimate. The left ventricular mass is normal. Left ventricular segmental wall motion is normal. The left ventricular diastolic function is consistent with grade I diastolic dysfunction and normal left atrial filling pressure. Septal bounce consistent with underlying bundle branch block . Right Ventricle The right ventricle is normal in size. Right ventricular systolic function is normal. Left Atrium The left atrium is normal in size. Right Atrium The right atrium is normal in size. Atrial Septum Intact interatrial septum visualized by 2D and color Doppler imaging. Aortic Valve The aortic valve is trileaflet. There is no aortic valve stenosis. There is no aortic valve regurgitation. Pulmonic Valve The pulmonic valve is normal. There is no pulmonic valve stenosis. There is no pulmonic regurgitation. Mitral Valve The mitral valve is normal. There is no mitral valve stenosis. There is no mitral valve regurgitation. Tricuspid Valve The tricuspid valve is normal. There is no tricuspid valve regurgitation. Unable to assess pulmonary pressures due to a lack of tricuspid and pulmonic regurgitation. Inferior Vena Cava The inferior vena cava is normal in size (< 2.1 cm). Pericardium/Pleural There is no pericardial effusion. Aorta The aortic root at the sinus of Valsalva is normal in size. The ascending aorta is normal in size. Measurements Left Ventricular Outflow Tract Name Value Normal LVOT 2D LVOT Diameter 2.3 cm LVOT Area 4.3 cm2 LVOT Doppler LVOT Peak Velocity 1.2 m/s LVOT Peak Gradient 6 mmHg LVOT Mean Velocity 76.81 cm/s LVOT Mean Gradient 3 mmHg LVOT VTI 21.6 cm LVOT VTI/AV VTI Ratio 0.9 LVOT Stroke Volume 92 ml LVOT Stroke Volume Index 40 ml/m2 35-58 LVOT CO 7.1 l/min LVOT CI 3.1 l/min/m2 Pulmonic Valve Name Value Normal PV Doppler PV Peak Velocity 1.2 m/s PV Peak Gradient 4 mmHg Mitral Valve Name Value Normal MV Diastolic Function MV E Peak Velocity 0.7 m/sec MV A Peak Velocity 0.9 m/sec MV E/A 0.8 MV Decel Time (PW) 291 ms MV Annular TDI MV Lateral e' Velocity 11 cm/s >=10 MV E/e' (Lateral) 6 <=8 Aorta Name Value Normal Ascending Aorta Ao Root Diameter (MM) 3.4 cm Ao Root Diam Index (MM) 1.5 cm/m2 Aortic Valve Name Value Normal AV 2D/MM AV Cusp Sep (MM) 2.3 cm AV Doppler AV Peak Velocity 1.36 m/s AV Peak Gradient 7 mmHg AV Mean Gradient 5 mmHg AV VTI 25 cm AV Area (Cont Eq VTI) 3.67 cm2 >=2.00 AV Area (Cont Eq Blaze) 3.68 cm2 AV DI (VTI) 0.86 AV DI (Blaze) 0.87 AV Regurgitation 2D LVOT Area 4.25 cm2 Ventricles Name Value Normal LV Fractional Shortening/Ejection Fraction 2D/MM LV Diastolic Volume (4C MOD) 178 ml LV EF (4C MOD) 49 % LV Diastolic Volume (2C MOD) 155 ml LV EF (2C MOD) 50 % LV Diastolic Volume (BP MOD) 162 ml 62-150 LV Diastolic Volume Index (BP MOD) 71 ml/m2 34-74 LV Systolic Volume (BP MOD) 98 ml 21-61 LV Systolic Volume Index (BP MOD) 43 ml/m2 11-31 LV EF (BP MOD) 40 % 52-72 LV Diastolic Length (4C) 8.9 cm LV Systolic Length (4C) 8.0 cm LV Stroke Volume (4C MOD) 88 ml RV Dimensions 2D/MM TAPSE 1.7 cm >=1.7 Atria Name Value Normal LA Dimensions LA Dimension (MM) 4.3 cm 3.0-4.1 Report Signatures Finalized by Nasrin Magallanes on 01/07/2025 02:01 PM Procedure Note Nasrin Magallanes MD - 01/07/2025 Summary * Left ventricular systolic function is low normal with an estimated ejection fraction of 45-50% by visual estimate. * Septal bounce consistent with underlying bundle branch block . * The left ventricular diastolic function is consistent with grade I diastolic dysfunction and normal left atrial filling pressure. * Right ventricle is normal in size with normal systolic function. * No significant valvular abnormalities. * Unable to assess pulmonary pressures due to a lack of tricuspid and pulmonic regurgitation. Patient Info Name: Juwan Appiah Age: 64 years : 1960 Gender: Male Ht: 70 in Wt: 226 lb BSA: 2.28 m2 HR: 77 bpm Exam Date: 01/07/2025 10:21 AM Patient Status: I/P Study Site: [facility] Primary Location: [facility] EStudy Info Exam Type: ECHO COMPLETE W CONTRAST Indications I25.10 - CAD in [place] artery Procedure(s) * A complete 2D, color Doppler, spectral Doppler, and M-Modetransthoracic echocardiogram with Definity was performed. Staff Referring Physician: Alli Villar Ordering Provider: Alli Villar Attending Physician: Alli Villar Industrial Radiographer: Karie Virgen Left Ventricle The left ventricle is normal in size. Left ventricular systolic functionis low normal with an estimated ejection fraction of 45-50% by visualestimate. The left ventricular mass is normal. Left ventricular segmental wallmotion is normal. The left ventricular diastolic function is consistent with gradeI diastolic dysfunction and normal left atrial filling pressure. Septalbounce consistent with underlying bundle branch block . Right Ventricle The right ventricle is normal in size. Right ventricular systolicfunction is normal. Left Atrium The left atrium is normal in size. Right Atrium The right atrium is normal in size. Atrial Septum Intact interatrial septum visualized by 2D and color Doppler imaging. Aortic Valve The aortic valve is trileaflet. There is no aortic valve stenosis. Thereis no aortic valve regurgitation. Pulmonic Valve The pulmonic valve is normal. There is no pulmonic valve stenosis. Thereis no pulmonic regurgitation. Mitral Valve The mitral valve is normal. There is no mitral valve stenosis. There isno mitral valve regurgitation. Tricuspid Valve The tricuspid valve is normal. There is no tricuspid valveregurgitation. Unable to assess pulmonary pressures due to a lack of tricuspid andpulmonic regurgitation. Inferior Vena Cava The inferior vena cava is normal in size (< 2.1 cm). Pericardium/Pleural There is no pericardial effusion. Aorta The aortic root at the sinus of Valsalva is normal in size. Theascending aorta is normal in size. Measurements Left Ventricular Outflow Tract Name Value Normal LVOT 2D LVOT Diameter 2.3 cm LVOT Area 4.3 cm2 LVOT Doppler LVOT Peak Velocity 1.2 m/s LVOT Peak Gradient 6 mmHg LVOT Mean Velocity 76.81 cm/s LVOT Mean Gradient 3 mmHg LVOT VTI 21.6 cm LVOT VTI/AV VTI Ratio 0.9 LVOT Stroke Volume 92 ml LVOT Stroke Volume Index 40 ml/m2 35-58 LVOT CO 7.1 l/min LVOT CI 3.1 l/min/m2 Pulmonic Valve Name Value Normal PV Doppler PV Peak Velocity 1.2 m/s PV Peak Gradient 4 mmHg Mitral Valve Name Value Normal MV Diastolic Function MV E Peak Velocity 0.7 m/sec MV A Peak Velocity 0.9 m/sec MV E/A 0.8 MV Decel Time (PW) 291 ms MV Annular TDI MV Lateral e' Velocity 11 cm/s >=10 MV E/e' (Lateral) 6 <=8 Aorta Name Value Normal Ascending Aorta Ao Root Diameter (MM) 3.4 cm Ao Root Diam Index (MM) 1.5 cm/m2 Aortic Valve Name Value Normal AV 2D/MM AV Cusp Sep (MM) 2.3 cm AV Doppler AV Peak Velocity 1.36 m/s AV Peak Gradient 7 mmHg AV Mean Gradient 5 mmHg AV VTI 25 cm AV Area (Cont Eq VTI) 3.67 cm2 >=2.00 AV Area (Cont Eq Blaze) 3.68 cm2 AV DI (VTI) 0.86 AV DI (Blaze) 0.87 AV Regurgitation 2D LVOT Area 4.25 cm2 Ventricles Name Value Normal LV Fractional Shortening/Ejection Fraction 2D/MM LV Diastolic Volume (4C MOD) 178 ml LV EF (4C MOD) 49 % LV Diastolic Volume (2C MOD) 155 ml LV EF (2C MOD) 50 % LV Diastolic Volume (BP MOD) 162 ml 62-150 LV Diastolic Volume Index (BP MOD) 71 ml/m2 34-74 LV Systolic Volume (BP MOD) 98 ml 21-61 LV Systolic Volume Index (BP MOD) 43 ml/m2 11-31 LV EF (BP MOD) 40 % 52-72 LV Diastolic Length (4C) 8.9 cm LV Systolic Length (4C) 8.0 cm LV Stroke Volume (4C MOD) 88 ml RV Dimensions 2D/MM TAPSE 1.7 cm >=1.7 Atria Name Value Normal LA Dimensions LA Dimension (MM) 4.3 cm 3.0-4.1 Report Signatures Finalized by Nasrin Magallanes on 01/07/2025 02:01 PM Alli Villar MD ECHO CUPID Final Result * CULTURE BLOOD (01/06/2025 12:01 PM SPORTS EQUIPMENT SUPERVISOR) Only the most recent of2 resultswithin the time period is included. [facility] Culture No growth day 5 GLORIA 01/11/2025 2:00 PM SPORTS EQUIPMENT SUPERVISOR [facility] Blood PERIPHERAL BLOOD / Unknown Venipuncture / Unknown 01/06/2025 12:01 PM SPORTS EQUIPMENT SUPERVISOR 01/06/2025 12:12 PM SPORTS EQUIPMENT SUPERVISOR Willie Seaman MD LAB - MICROBIOLOGY O RDERABLES Final Result [facility] [address] [place], [place] [address], [facility] [phone] * SARS-COV-2 (COVID-19) FLU A/B RSV PCR RAPID (01/06/2025 12:00 PM SPORTS EQUIPMENT SUPERVISOR) [facility] COVID-19 PCR Not detected Not detected 01/06/20 25 12:52 PM SPORTS EQUIPMENT SUPERVISOR [facility] Influenza A PCR Not detected Not detected 01/06/2025 12:52 PM [facility] Influenza B PCR Not detected Not detected 01/06/2025 12:52 PM [facility] RSV PCR Not detected Not detected 01/06/2025 12:52 PM [facility] Microbiology SPECIMEN FROM NASOPHARYNGEAL STRUCTURE / Unknown Collection / Unknown 01/06/2025 12:00 PM SPORTS EQUIPMENT SUPERVISOR 01/06/2025 12:12 PM SPORTS EQUIPMENT SUPERVISOR Narrative [facility] - 01/06/2025 12:52 PM SPORTS EQUIPMENT SUPERVISOR This nucleic acid amplification assay has been authorized by the Food and Drug administration (FDA) under an Emergency Use Authorization (EUA). This test is only authorized for the duration of time the declaration that circumstances exist justifying the authorization of emergency use of in vitro diagnostic tests for detection of SARS-CoV-2 virus and/or diagnosis of COVID-19 infection under section 564(b)(1) of the Act, 21 U.S.C 360bbb-3 (b)(1), unless the authorization is terminated or revoked sooner. Fact Sheets for this EUA assay are available upon request. Willie Seaman MD LAB - MICROBIOLOGY O RDERABLES Final Result [facility] [address] [place] [address] * MRI MRCP (01/05/2025 5:57 PM SPORTS EQUIPMENT SUPERVISOR) Anatomical Region Laterality Modality Abdomen Magnetic Resonan ce 01/06/2025 12:4 3 PM SPORTS EQUIPMENT SUPERVISOR Impressions 01/06/2025 12:46 PM SPORTS EQUIPMENT SUPERVISOR IMPRESSION: 1. Cholelithiasis, gallbladder wall thickening, and inflammation/stranding around the gallbladder. Correlate clinically for acute cholecystitis. 2. No choledocholithiasis or biliary ductal dilatation. 3. Fatty atrophy of the pancreas. Pancreatic duct within normal limits. > Interpreting Provider: Jaylen Hahn MD on 01/06/2025 12:46 PM Narrative 01/06/2025 12:46 PM SPORTS EQUIPMENT SUPERVISOR MRI/MRCP Abdomen without Contrast INDICATION: Abdominal pain. TECHNIQUE: Multisequence, multiplanar MRI and MRCP sequences of the abdomen were obtained without contrast. 3D reconstructions were performed on an independent workstation. FINDINGS: Examination is degraded by motion. The liver and spleen are within normal limits. The stomach and duodenum are unremarkable. The gallbladder is distended with wall thickening. Stones seen in the fundus of the gallbladder. There is inflammation and fluid inferior to the gallbladder and trace perihepatic free fluid. No biliary ductal dilatation or choledocholithiasis. Fatty atrophy of the pancreas. No pancreatic ductal dilatation. The adrenal glands and imaged kidneys are unremarkable with the exception of a few small cysts in the right kidney. No acute osseous abnormality. No osseous lesion. Procedure Note Jaylen Hahn MD - 01/06/2025 MRI/MRCP Abdomen without Contrast INDICATION: Abdominal pain. TECHNIQUE: Multisequence, multiplanar MRI and MRCP sequences of theabdomen were obtained without contrast. 3D reconstructions were performed on an independent workstation. FINDINGS: Examination is degraded by motion. The liver and spleen are withinnormal limits. The stomach and duodenum are unremarkable. The gallbladder is distended with wall thickening. Stones seen in the fundus of the gallbladder. There is inflammation and fluid inferior tothe gallbladder and trace perihepatic free fluid. No biliary ductaldilatation or choledocholithiasis. Fatty atrophy of the pancreas. No pancreatic ductal dilatation. Theadrenal glands and imaged kidneys are unremarkable with the exception of a few small cysts in the right kidney. No acute osseous abnormality. No osseous lesion. IMPRESSION: 1. Cholelithiasis, gallbladder wall thickening, andinflammation/stranding around the gallbladder. Correlate clinically for acute cholecystitis. 2. No choledocholithiasis or biliary ductal dilatation. 3. Fatty atrophy of the pancreas. Pancreatic duct within normal limits. > Interpreting Provider: Jaylen Hahn MD on 01/06/2025 12:46 PM Willie Bijal Seaman MD MR ORDERABLES Dania l Result from Last 3 Months Insurance [facility] Advance Directives * Full Code (Latest Code Status on File) Date Activated Date Inactivated Comments 01/05/2025 1:29 AM 01/14/2025 1:43 PM Care Teams Reservoir Engineer Relationship Specialty Start Date End Date Yuly Burgess [address] [facility] [address] [id number] PCP - General 01/29/25
--- OUTSIDE RECORDS SUMMARY | 2025-03-31 12:31 | XMS_ITS | Encounter Summary ---
Author Organization [facility] Address [address] [place] [address] Phone Care Team Providers Care Leasing Property Manager Name Role Phone Carmen Lowry MD Primary Care Provider Silvia Richardson DPM Unavailable [phone] Kaushal Bermudez MD Unavailable Fermin Zabala MD Unavailable [phone] Dayron Sharp MD Unavailable [phone] Roby Verdugo PRODUCTION CLOTH CUTTER, VENDOR QUALITY SUPERVISOR Unavailable [phone] Encounter Details Date Type Department Care Team (Late Contact Info) Description 04/23/2024 Telephone [facility] [address] [place] [address] Carmen Lowry MD [address] [place] [address] Social History Tobacco Use Types Packs/Day Years Used Date Smoking Tobacco: Former Cigarettes Smokeless Tobacco: Never Comments:Quit at age 18 - 1 month [...] on file Sexual Orientation Not on file documented as of this encounter Plan of Treatment Upcoming Encounters Date Type Department Care Team (Late Contact Info) Description 07/13/2025 11:00 AM CDT Office Visit [facility] [address] [place] [phone] Roby Verdugo APRN, VENDOR QUALITY SUPERVISOR [address] [place] [address] documented as of this encounter Visit Diagnoses Not on filedocumented in this encounter Additional Health Concerns Infection Onset Date Last Indicated Resolved Time COVID - 19 01/04/2025 01/04/2025 01/04/2025 5:03 PM LANDMAN documented as of this encounter Care Teams Leasing Property Manager Relationship Specialty Start Date End Date Carmen Lowry MD [address] [place] [address] PCP - General Internal Medicine 03/28/16 Silvia Richardson DPM [address] [place] [address] Consulting Physician Podiatry 12/04/22 Kaushal Bermudez MD [address] [phone] Consulting Physician Endocrinology 10/21/23 Fermin Zabala MD [address] [place] [phone] Consulting Physician Neurology 02/22/23 Dayron Sharp MD [address] [place] [address] Consulting Physician Gastroenterology 08/23/22 Roby Verdugo APRN, VENDOR QUALITY SUPERVISOR [address] [place] [address] Nurse Practitioner Advanced Practice Nurse 03/25/25 documented as of this encounter
--- OUTSIDE RECORDS SUMMARY | 2025-03-31 12:31 | XMS_ITS | Encounter Summary ---
Author Organization [facility] Address [address] [place] [address] Phone Care Team Providers Care Clerk Carrier Name Role Phone Carmen Lowry MD Primary Care Provider [phone] Silvia Richardson DPM Unavailable [phone] Kaushal Bermudez MD Unavailable Fermin Zabala MD Unavailable [phone] Dayron Sharp MD Unavailable [phone] Roby Verdugo COUNSELOR AID, HAT AND CAP OPENER Unavailable [phone] Encounter Details Date Type Department Care Team (Latest Contact Info) Description 12/05/2021 Transcribe Orders [facility] Patient Access Admitting [address] [place] [address] Carmen Lowry MD [address] [place] [address] Diabetic polyneuropathy associated with type 2 diabetes mellitus (HCC) (Primary Dx) Social History Tobacco Use Types Packs/Day Years Used Date Smoking Tobacco: Former Smokeless Tobacco: Never Alcohol Use Standard Drinks/Week Comments No 0 [...] have Coronavirus / COVID-19? No / Unsure 12/05/2021 3:02 PM LEGAL BILLING COORDINATOR documented as of this encounter Plan of Treatment Upcoming Encounters Date Type Department Care Team (Late st Contact Info) Description 07/13/2025 11:00 AM CDT Office Visit [facility] [address] [place] [address] Roby Verdugo, COUNSELOR AID, HAT AND CAP OPENER [address] [place] [address] documented as of this encounter Results * LIPID PANEL (12/05/2021 3:14 PM LEGAL BILLING COORDINATOR) CHOLESTEROL 156 <=200 mg/dL 12/05/2021 4:46 PM LEGAL BILLING COORDINATOR [facility] TRIGLYCERIDES 120 <150 mg/dL 12/05/2021 4:46 PM LEGAL BILLING COORDINATOR [facility] HDL CHOLESTEROL 43.2 >40 mg/dL 4:46 PM LEGAL BILLING COORDINATOR [facility] LDL 89 5 - 130 mg/dL 12/05/2021 4:46 PM LEGAL BILLING COORDINATOR [facility] VLDL 24 5 - 55 mg/dL 12/05/2021 4:46 PM LEGAL BILLING COORDINATOR [facility] CHOL/HDL RATIO 3.6 0.0 - 4.4 12/05/2021 4:46 PM LEGAL BILLING COORDINATOR [facility] NON-HDL CHOLESTEROL 112.8 <130 mg/dL 12/05/2021 4:46 PM LEGAL BILLING COORDINATOR [facility] IS THE PATIENT REQUIRED TO BE FASTING? No 12/05/2021 4:46 PM LEGAL BILLING COORDINATOR [facility] Blood Venipuncture / Unknown 12/05/2021 3:14 PM LEGAL BILLING COORDINATOR 12/05/2021 4:10 PM LEGAL BILLING COORDINATOR us Carmen Lowry MD CHEMISTRY ORDERABLES Final Re sult [facility] [address] [place] [address] documented in this encounter Visit Diagnoses Diagnosis Diabetic polyneuropathy associated with type 2 diabetes mellitus (HCC)- Primary documented in this encounter Additional Health Concerns Infection Onset Date Last Indicated Resolved Time COVID - 19 12/05/2021 12/05/2021 12/07/2021 3:55 PM LEGAL BILLING COORDINATOR COVID - 19 Confirmed 12/05/2021 12/05/2021 022 12:16 AM LEGAL BILLING COORDINATOR COVID - 19 01/04/2025 01/04/2025 01/04/2025 5:03 PM LEGAL BILLING COORDINATOR documented as of this encounter Care Teams Clerk Carrier Relationship Specialty Start Date End Date Carmen Lowry MD [address] [place], [place] [id number] PCP - General Internal Medicine 03/28/16 Silvia Richardson DPM [address] [place] [address] Consulting Physician Podiatry 12/04/22 Kaushal Bermudez MD [address] [phone] Consulting Physician Endocrinology 10/21/23 Fermin Zabala MD [address] [place] [phone] Consulting Physician Neurology 02/22/23 Dayron Sharp MD [address] [place] [address] Consulting Physician Gastroenterology 08/23/22 Roby Verdugo APRN, HAT AND CAP OPENER [address] [place] [address] Nurse Practitioner Advanced Practice Nurse 03/25/25 documented as of this encounter
--- OUTSIDE RECORDS SUMMARY | 2025-03-31 12:31 | XMS_ITS | Data Portability ---
Author Organization [facility] José Ford Address [address] [place] [place] [address] Care Team Providers Care Shorthand Reporter Name Role Phone RAYMONDKAYODEMARQUITAJAILENE Primary Care Provider [phone] Assessment No assessment recorded. Plan of Treatment Reminders Order Date Submit Date Provider Last Modified By Organization Details Last Modified Time Details Appointments ANY 30 2024 10:30A M LEELA ZHENG-BC Not available Not available Not available Lab TSH + free T4, serum 2024 025 [facility], [address] [facility], [facility], [place], [address], 01/30/2025 09:14:48 CBC w/ auto diff 2024 025 [facility], [address] [facility], [facility], [place], [address], 01/30/2025 03:08:32 CMP, serum or plasma 2024 025 [facility], [address] [place] [address], [facility], [place], [address], 01/30/2025 08:24:13 hepatic function panel, serum 2024 025 [facility], [address] [facility], [facility], [place], [address], 01/30/2025 08:24:14 PSA, total, serum or plasma 2024 025 [facility], [address] [facility], [facility], [place], [address], 01/30/2025 09:14:49 lipid panel, serum 2024 025 [facility], [address] [place] [address], [facility], [place], [address], 12/24/2024 03:08:20 CBC w/ auto diff 2024 025 [facility], [address] [place] [address], [facility], [place], [address], 12/24/2024 03:08:23 CMP, serum or plasma 2024 025 [facility], [address] [place] [address], [facility], [place], [address], 12/24/2024 03:08:22 lipid panel, serum 2023 024 [facility], [address] [place] [address], [facility], [place], [address], 02/26/2024 03:09:07 TSH, ultra-se nsitive, serum 2023 024 [facility], [address] [place] [address], [facility], [place], [address], 02/26/2024 08:23:40 albumin/ creatini ne, mass ratio, urine 2023 024 [facility], [address] [place] [address], [facility], [place], [address], 02/26/2024 08:23:39 CMP, serum or plasma 2023 024 [facility], [address] [place] [address], [facility], [place], [address], 02/26/2024 03:09:07 CBC w/ auto diff 2023 024 [facility], [facility], [facility], [place], [address], 02/26/2024 03:09:[address] referral - elevated LFTs and inflamed pancreas 2024 025 nikita Bundy, [address] [facility], [facility] [address] [address], [place], [address], 02/08/2025 15:17:33 urologis t referral - Pt prefers to be see in [place], [place] . Thank you. 2024 025 drew Verdugo, [address] [place], [address], 03/22/2025 09:38:12 Procedures None recorded . Surgeries None recorded . Imaging None recorded . Medication Orders acetamin ophen 300 mg-codei ne 30 mg tablet 2024 025 [email or web address] [facility], [address] [place], [address], 02/09/2025 06:05:49 lisinopr il 10 mg tablet 2023 024 [facility], [address] [place], [address], 02/25/2024 12:07:14 Patient TargetsNo targets recorded. Patient Instructions Encounter Date Encounter Id Patient Instructions Last Modified By Organization Details Last Modified Time 02/25/2024 [id number] A healthy lifestyle: care instructions nsuthan Not available 02/25/2024 12:07:08 insomnia: care instructions nsuthan Not available 02/27/2024 09:38:17 f/u in 2month nsuthan Not available 12:07:26 05/08/2024 [id number] A healthy lifestyle: care instructions nsuthan Not available 05/08/2024 11:55:25 f/u in 4 month nsuthan Not available 0 05/08/2024 11:55:33 09/11/2024 [id number] f/u in 4 monht nsuthan Not available 09/11/2024 10:48:52 12/11/2024 [id number] f/u in 4month nsuthan Not available 0 12/11/2024 11:48:33 01/19/2025 [id number] A healthy lifestyle: care instructions [email or web address] Not available 02/09/2025 06:11:16 A healthy lifestyle: care instructions [email or web address] Not available 01/19/2025 14:40:19 Plan of care has been discussed with patient including expected therapeutic benefits and potential side effects of prescribed medication and treatments. Patient verbalizes understanding and is in agreement with the plan of care. Patient was instructed to keep all scheduled appointments and contact the clinic for any additional problems. [email or web address] Not available 01/19/2025 14:59:12 Reason for Referral Urologist Referral for Benig n prostatic hyperplasia Pt prefers to be see in [place], [place]. Thank you. 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 elevated LFTs and inflamed pancreas Referring Physician: Yuly Bugress [facility], Encounter Date: 01/19/2025 Results Created Date Observation Date Name Description Value Unit Range Abnormal Flag Note LastModifiedBy Organization Detail LastModifiedTime 02/25/20 24 02/25/2024 LIPID PANEL cholesterol, total 190 mg/dL 100-19 9 Not Available [facility] [address] [place], [address], 02/26/2024 03:09:06 02/25/20 24 02/25/2024 LIPID PANEL triglyceride s 78 mg/dL 0-149 Not Available [facility] [address] [place], [address], 02/26/2024 03:09:06 02/25/20 24 02/25/2024 LIPID PANEL HDL cholesterol 60 mg/dL 40-[address] [facility] [address] [place], [address], 02/26/2024 03:09:06 02/25/20 24 02/25/2024 LIPID PANEL VLDL cholesterol anthony 16 mg/dL 5-40 Not Available [facility] [address] [place], [address], 02/26/2024 03:09:06 02/25/20 24 02/25/2024 LIPID PANEL LDL chol calc (nih) 126 mg/dL 0-99 above high normal Not Available [facility] [address] [place], [address], 02/26/2024 03:09:06 02/25/20 24 02/25/2024 COMP. METAB OLIC PANEL (14) glucose 123 mg/dL 70-99 above high normal Not Available [facility] [address] [place], [address], 02/26/2024 03:09:07 02/25/20 24 02/25/2024 COMP. METAB OLIC PANEL (14) BUN 17 mg/dL 8-27 Not Available [facility] [address] [place], [address], 02/26/2024 03:09:07 02/25/20 24 02/25/2024 COMP. METAB OLIC PANEL (14) creatinine 0.77 mg/dL 0.76-1 .27 Not Available [facility] [address] [place], [address], 02/26/2024 03:09:07 02/25/20 24 02/25/2024 COMP. METAB OLIC PANEL (14) eGFR 101 >=60 Units for eGFR value s are mL/mi n/1.7 3 The eGFR Calcu latio n has not been valid ated for patie nts under the age of 18. If test resul ts are displ ayed for a patie nt under the age of 18, disre anabel that value . Not Available [facility] [address] [place], [address], 02/26/2024 03:09:07 02/25/20 24 02/25/2024 COMP. METAB OLIC PANEL (14) BUN/creatini ne ratio 22 10-24 Not Available [facility] [address] [place], [address], 02/26/2024 03:09:07 02/25/20 24 02/25/2024 COMP. METAB OLIC PANEL (14) sodium 141 mmol/ L 134-14 4 Not Available [facility] [address] [place], [address], 02/26/2024 03:09:07 02/25/20 24 02/25/2024 COMP. METAB OLIC PANEL (14) potassium 4.4 mmol/ L 3.5-5. 2 Not Available [facility] [address] [place], [address], 02/26/2024 03:09:07 02/25/20 24 02/25/2024 COMP. METAB OLIC PANEL (14) chloride 105 mmol/ L 96-106 Not Available [facility] Department [address] [place] [address], [address], 02/26/2024 03:09:07 02/25/20 24 02/25/2024 COMP. METAB OLIC PANEL (14) carbon dioxide, total 23 mmol/ L 20-29 Not Available [facility] [address] [place], [address], 02/26/2024 03:09:07 02/25/20 24 02/25/2024 COMP. METAB OLIC PANEL (14) calcium 9.7 mg/dL 8.6-10 .2 Not Available [facility] [address] [place] [address], [address], 02/26/2024 03:09:07 02/25/20 24 02/25/2024 COMP. METAB OLIC PANEL (14) protein, total 7.3 g/dL 6.0-8. 5 Not Available [facility] [address] [place] [address], [address], 02/26/2024 03:09:07 02/25/20 24 02/25/2024 COMP. METAB OLIC PANEL (14) albumin 4.5 g/dL 3.9-4. 9 Not Available [facility] [address] [place], [address], 02/26/2024 03:09:07 02/25/20 24 02/25/2024 COMP. METAB OLIC PANEL (14) globulin, total 2.8 g/dL 1.5-4. 5 Not Available [facility] [address] [place], [address], 02/26/2024 03:09:07 02/25/20 24 02/25/2024 COMP. METAB OLIC PANEL (14) A/G ratio 2.0 1.2-2. 2 Not Available [facility] [address] [place] [address], [address], 02/26/2024 03:09:07 02/25/20 24 02/25/2024 COMP. METAB OLIC PANEL (14) bilirubin, total 0.8 mg/dL 0.0-1. 2 Not Available [facility] [address] [place] [address], [address], 02/26/2024 03:09:07 02/25/20 24 02/25/2024 COMP. METAB OLIC PANEL (14) alkaline phosphatase 84 IU/L 44-[address] [facility] Department [address] [place] [address], [address], 02/26/2024 03:09:07 02/25/20 24 02/25/2024 COMP. METAB OLIC PANEL (14) AST (SGOT) 18 IU/L 0-40 Not Available [facility] Department [address] [place] [address], [address], 02/26/2024 03:09:07 02/25/20 24 02/25/2024 COMP. METAB OLIC PANEL (14) ALT (SGPT) 25 IU/L 0-44 Not Available [facility] Department [address] [place] [address], [address], 02/26/2024 03:09:07 02/25/20 24 02/25/2024 CBC WITH DIFFE RENTI AL/PL ATELE T WBC 6.3 x10e3 /uL 3.4-10 .8 Not Available [facility] [address] [place], [address], 02/26/2024 03:09:08 02/25/20 24 02/25/2024 CBC WITH DIFFE RENTI AL/PL ATELE T RBC 6.50 x10e6 /uL 4.14-5 .80 above high normal Not Available [facility] [address] [place], [address], 02/26/2024 03:09:08 02/25/20 24 02/25/2024 CBC WITH DIFFE RENTI AL/PL ATELE T hemoglobin 17.2 g/dL 13.0-1 7.7 Not Available [facility] [address] [place], [address], 02/26/2024 03:09:08 02/25/20 24 02/25/2024 CBC WITH DIFFE RENTI AL/PL ATELE T hematocrit 54.9 % 37.5-5 1.0 above high normal Not Available [facility] [address] [place], [address], 02/26/2024 03:09:08 02/25/20 24 02/25/2024 CBC WITH DIFFE RENTI AL/PL ATELE T MCV 85 fL 79-97 Not Available [facility] [address] [place], [address], 02/26/2024 03:09:08 02/25/20 24 02/25/2024 CBC WITH DIFFE RENTI AL/PL ATELE T MCH 26.5 pg 26.6-3 3.0 below low normal Not Available [facility] [address] [place], [address], 02/26/2024 03:09:08 02/25/20 24 02/25/2024 CBC WITH DIFFE RENTI AL/PL ATELE T MCHC 31.3 g/dL 31.5-3 5.7 below low normal Not Available [facility] [address] [place], [address], 02/26/2024 03:09:08 02/25/20 24 02/25/2024 CBC WITH DIFFE RENTI AL/PL ATELE T RDW 14.1 % 11.5-1 4.5 Not Available [facility] [address] [place], [address], 02/26/2024 03:09:08 02/25/20 24 02/25/2024 CBC WITH DIFFE RENTI AL/PL ATELE T platelets 239 x10e3 /uL 150-45 0 Not Available [facility] [address] [place], [address], 02/26/2024 03:09:08 02/25/20 24 02/25/2024 CBC WITH DIFFE RENTI AL/PL ATELE T neutrophils 58 % notest b. Not Available [facility] [address] [place], [address], 02/26/2024 03:09:08 02/25/20 24 02/25/2024 CBC WITH DIFFE RENTI AL/PL ATELE T lymphs 29 % notest b. Not Available [facility] [address] [place], [address], 02/26/2024 03:09:08 02/25/20 24 02/25/2024 CBC WITH DIFFE RENTI AL/PL ATELE T monocytes 8 % notest b. Not Available [facility] [address] [place], [address], 02/26/2024 03:09:08 02/25/20 24 02/25/2024 CBC WITH DIFFE RENTI AL/PL ATELE T eos 4 % notest b. Not Available [facility] [address] [place], [address], 02/26/2024 03:09:08 02/25/20 24 02/25/2024 CBC WITH DIFFE RENTI AL/PL ATELE T basos 1 % notest b. Not Available [facility] [address] [place], [address], 02/26/2024 03:09:08 02/25/20 24 02/25/2024 CBC WITH DIFFE RENTI AL/PL ATELE T neutrophils (absolute) 3.7 x10e3 /uL 1.4-7. 0 Not Available [facility] [address] [place], [address], 02/26/2024 03:09:08 02/25/20 24 02/25/2024 CBC WITH DIFFE RENTI AL/PL ATELE T lymphs (absolute) 1.8 x10e3 /uL 0.7-3. 1 Not Available [facility] [address] [place], [address], 02/26/2024 03:09:08 02/25/20 24 02/25/2024 CBC WITH DIFFE RENTI AL/PL ATELE T monocytes(ab solute) 0.5 x10e3 /uL 0.1-0. 9 Not Available [facility] [address] [place], [address], 02/26/2024 03:09:08 02/25/20 24 02/25/2024 CBC WITH DIFFE RENTI AL/PL ATELE T eos (absolute) 0.3 x10e3 /uL 0.0-0. 4 Not Available [facility] [address] [place], [address], 02/26/2024 03:09:08 02/25/20 24 02/25/2024 CBC WITH DIFFE RENTI AL/PL ATELE T baso (absolute) 0.0 x10e3 /uL 0.0-0. 2 Not Available [facility] [address] [place], [address], 02/26/2024 03:09:08 02/25/20 24 02/25/2024 CBC WITH DIFFE RENTI AL/PL ATELE T immature granulocytes 0.2 % notest b. Not Available [facility] [address] [place], [address], 02/26/2024 03:09:08 02/25/20 24 02/25/2024 CBC WITH DIFFE RENTI AL/PL ATELE T immature grans (abs) 0.0 x10e3 /uL 0.0-0. 1 Not Available [facility] [address] [place], [address], 02/26/2024 03:09:08 02/25/20 24 02/25/2024 CBC WITH DIFFE RENTI AL/PL ATELE T NRBC 0 % 0-0 Not Available [facility] [address] [place], [address], 02/26/2024 03:09:08 02/25/20 24 02/26/2024 ALBUM IN/CR EATIN INE RATIO ,URIN E creatinine, urine 81.8 mg/dL notest ab. Not Available [facility] ([facility]) [address] [place], [address], 02/26/2024 08:23:39 02/25/20 24 02/26/2024 ALBUM IN/CR EATIN INE RATIO ,URIN E albumin, urine 7.6 ug/mL notest ab. Not Available [facility] ([facility]) [address] [place], [address], 02/26/2024 08:23:39 02/25/20 24 02/26/2024 ALBUM IN/CR EATIN INE RATIO ,URIN E alb/creat ratio 9 mg/g_ creat 0-29 Shante l: 0 - 29 Moder ately incre ased: 30 - 300 Sever braden incre ased: >300 Not Available [facility] ([facility]) [address] [facility], [place], [address], 02/26/2024 08:23:39 02/25/20 24 02/26/2024 TSH TSH 2.480 uIU/m L 0.450- 4.500 Not Available [facility] ([facility]) [address] [facility], [place], [address], 02/26/2024 08:23:40 10/07/20 24 10/07/2024 Hemog lobin A1c/H emogl obin. total in Blood hemoglobin A1C/hemoglob in.total in blood 8.7 % low: 4%high : 6% abnormal HGB-A 1C 8.7 (A) 4 - 6 % Not Available Not Available 01/13/2025 11:05:07 10/07/20 24 10/07/2024 Hemog lobin A1c/H emogl obin. total in Blood interpretati on and review of laboratory results Abnorm al Not Available Not Available 11:05:07 12/23/19 25 12/23/2024 LIPID PANEL cholesterol, total 164 mg/dL 100-19 9 Not Available [facility] [address] [place], [address], 12/24/2024 03:08:20 12/23/19 25 12/23/2024 LIPID PANEL triglyceride s 97 mg/dL 0-149 Not Available [facility] [address] [place], [address], 12/24/2024 03:08:20 12/23/19 25 12/23/2024 LIPID PANEL HDL cholesterol 54 mg/dL 40-[address] [facility] [address] [place], [address], 12/24/2024 03:08:20 12/23/19 25 12/23/2024 LIPID PANEL VLDL cholesterol anthony 19 mg/dL 5-40 Not Available [facility] [address] [place] [address], [address], 12/24/2024 03:08:20 12/23/19 25 12/23/2024 LIPID PANEL LDL chol calc (nih) 104 mg/dL 0-99 above high normal Not Available [facility] [address] [place] [address], [address], 12/24/2024 03:08:20 12/23/19 25 12/23/2024 COMP. METAB OLIC PANEL (14) glucose 104 mg/dL 70-99 above high normal Not Available [facility] [address] [place] [address], [address], 12/24/2024 03:08:22 12/23/19 25 12/23/2024 COMP. METAB OLIC PANEL (14) BUN 23 mg/dL 8-27 Not Available [facility] [address] [place] [address], [address], 12/24/2024 03:08:22 12/23/19 25 12/23/2024 COMP. METAB OLIC PANEL (14) creatinine 1.04 mg/dL 0.76-1 .27 Not Available [facility] [address] [place] [address], [address], 12/24/2024 03:08:22 12/23/19 25 12/23/2024 COMP. METAB OLIC PANEL (14) eGFR 81 >=60 Units for eGFR value s are mL/mi n/1.7 3 The eGFR Calcu latio n has not been valid ated for patie nts under the age of 18. If test resul ts are displ ayed for a patie nt under the age of 18, disre anabel that value . Not Available [facility] [address] [place] [address], [address], 12/24/2024 03:08:22 12/23/19 25 12/23/2024 COMP. METAB OLIC PANEL (14) BUN/creatini ne ratio 22 10-24 Not Available [facility] [address] [place], [address], 12/24/2024 03:08:22 12/23/19 25 12/23/2024 COMP. METAB OLIC PANEL (14) sodium 143 mmol/ L 134-14 4 Not Available [facility] [address] [place], [address], 12/24/2024 03:08:22 12/23/19 25 12/23/2024 COMP. METAB OLIC PANEL (14) potassium 4.9 mmol/ L 3.5-5. 2 Not Available [facility] [address] [place], [address], 12/24/2024 03:08:22 12/23/19 25 12/23/2024 COMP. METAB OLIC PANEL (14) chloride 107 mmol/ L 96-106 above high normal Not Available [facility] [address] [place] [address], [address], 12/24/2024 03:08:22 12/23/19 25 12/23/2024 COMP. METAB OLIC PANEL (14) carbon dioxide, total 24 mmol/ L - Not Available [facility] [address] [place], [address], 12/24/2024 03:08:22 12/23/19 25 12/23/2024 COMP. METAB OLIC PANEL (14) calcium 9.8 mg/dL 8.6-10 .2 Not Available [facility] [address] [place], [address], 12/24/2024 03:08:22 12/23/19 25 12/23/2024 COMP. METAB OLIC PANEL (14) protein, total 6.9 g/dL 6.0-8. 5 Not Available [facility] [address] [place], [address], 12/24/2024 03:08:22 12/23/19 25 12/23/2024 COMP. METAB OLIC PANEL (14) albumin 4.3 g/dL 3.9-4. 9 Not Available [facility] [address] [place] [address], [address], 12/24/2024 03:08:22 12/23/19 25 12/23/2024 COMP. METAB OLIC PANEL (14) globulin, total 2.6 g/dL 1.5-4. 5 Not Available [facility] [address] [place] [address], [address], 12/24/2024 03:08:22 12/23/19 25 12/23/2024 COMP. METAB OLIC PANEL (14) A/G ratio 2.0 1.2-2. 2 Not Available [facility] [address] [place] [address], [address], 12/24/2024 03:08:22 12/23/19 25 12/23/2024 COMP. METAB OLIC PANEL (14) bilirubin, total 0.6 mg/dL 0.0-1. 2 Not Available [facility] [address] [place] [address], [address], 12/24/2024 03:08:22 12/23/19 25 12/23/2024 COMP. METAB OLIC PANEL (14) alkaline phosphatase 80 IU/L 44-[address] [facility] Department [address] [place] [address], [address], 12/24/2024 03:08:22 12/23/19 25 12/23/2024 COMP. METAB OLIC PANEL (14) AST (SGOT) 12 IU/L 0-40 Not Available [facility] Department [address] [place] [address], [address], 12/24/2024 03:08:22 12/23/19 25 12/23/2024 COMP. METAB OLIC PANEL (14) ALT (SGPT) 21 IU/L 0-44 Not Available [facility] Department [address] [place] [address], [place], [address], 12/24/2024 03:08:22 12/23/1912/23/2024 CBC WITH DIFFE RENTI AL/PL ATELE T WBC 5.4 x10e3 /uL 3.4-10 .8 Not Available [facility] [address] [place], [address], 12/24/2024 03:08:23 12/23/1912/23/2024 CBC WITH DIFFE RENTI AL/PL ATELE T RBC 6.15 x10e6 /uL 4.14-5 .80 above high normal Not Available [facility] [address] [place], [address], 12/24/2024 03:08:23 12/23/19 25 12/23/2024 CBC WITH DIFFE RENTI AL/PL ATELE T hemoglobin 16.2 g/dL 13.0-1 7.7 Not Available [facility] [address] [place], [address], 12/24/2024 03:08:23 12/23/1912/23/2024 CBC WITH DIFFE RENTI AL/PL ATELE T hematocrit 53.4 % 37.5-5 1.0 above high normal Not Available [facility] [address] [place], [address], 12/24/2024 03:08:23 12/23/1912/23/2024 CBC WITH DIFFE RENTI AL/PL ATELE T MCV 87 fL 79-97 Not Available [facility] [address] [place], [address], 12/24/2024 03:08:23 12/23/1912/23/2024 CBC WITH DIFFE RENTI AL/PL ATELE T MCH 26.3 pg 26.6-3 3.0 below low normal Not Available [facility] [address] [place], [address], 12/24/2024 03:08:23 12/23/19 25 12/23/2024 CBC WITH DIFFE RENTI AL/PL ATELE T MCHC 30.3 g/dL 31.5-3 5.7 below low normal Not Available [facility] [address] [place], [address], 12/24/2024 03:08:23 12/23/19 25 12/23/2024 CBC WITH DIFFE RENTI AL/PL ATELE T RDW 14.6 % 11.5-1 4.5 above high normal Not Available [facility] [address] [place], [address], 12/24/2024 03:08:23 12/23/19 25 12/23/2024 CBC WITH DIFFE RENTI AL/PL ATELE T platelets 234 x10e3 /uL 150-45 0 Not Available [facility] [address] [place], [address], 12/24/2024 03:08:23 12/23/19 25 12/23/2024 CBC WITH DIFFE RENTI AL/PL ATELE T neutrophils 59 % notest b. Not Available [facility] [address] [place], [address], 12/24/2024 03:08:23 12/23/19 25 12/23/2024 CBC WITH DIFFE RENTI AL/PL ATELE T lymphs 29 % notest b. Not Available [facility] [address] [place], [address], 12/24/2024 03:08:23 12/23/19 25 12/23/2024 CBC WITH DIFFE RENTI AL/PL ATELE T monocytes 8 % notest b. Not Available [facility] [address] [place], [address], 12/24/2024 03:08:23 12/23/19 25 12/23/2024 CBC WITH DIFFE RENTI AL/PL ATELE T eos 4 % notest b. Not Available [facility] [address] [place], [address], 12/24/2024 03:08:23 12/23/19 25 12/23/2024 CBC WITH DIFFE RENTI AL/PL ATELE T basos 1 % notest b. Not Available [facility] [address] [place], [address], 12/24/2024 03:08:23 12/23/1912/23/2024 CBC WITH DIFFE RENTI AL/PL ATELE T neutrophils (absolute) 3.2 x10e3 /uL 1.4-7. 0 Not Available [facility] [address] [place] [address], [address], 12/24/2024 03:08:23 12/23/19 25 12/23/2024 CBC WITH DIFFE RENTI AL/PL ATELE T lymphs (absolute) 1.6 x10e3 /uL 0.7-3. 1 Not Available [facility] [address] [place] [address], [address], 12/24/2024 03:08:23 12/23/19 25 12/23/2024 CBC WITH DIFFE RENTI AL/PL ATELE T monocytes(ab solute) 0.5 x10e3 /uL 0.1-0. 9 Not Available [facility] [address] [place] [address], [address], 12/24/2024 03:08:23 12/23/19 25 12/23/2024 CBC WITH DIFFE RENTI AL/PL ATELE T eos (absolute) 0.2 x10e3 /uL 0.0-0. 4 Not Available [facility] [address] [place] [address], [address], 12/24/2024 03:08:23 12/23/19 25 12/23/2024 CBC WITH DIFFE RENTI AL/PL ATELE T baso (absolute) 0.0 x10e3 /uL 0.0-0. 2 Not Available [facility] Department [address] [place], [id number], 12/24/2024 03:08:23 12/23/19 25 12/23/2024 CBC WITH DIFFE RENTI AL/PL ATELE T immature granulocytes 0.4 % notest b. Not Available [facility] Department [address] [place], [id number], 12/24/2024 03:08:23 12/23/19 25 12/23/2024 CBC WITH DIFFE RENTI AL/PL ATELE T immature grans (abs) 0.0 x10e3 /uL 0.0-0. 1 Not Available [facility] Department [address] [place], [id number], 12/24/2024 03:08:23 12/23/19 25 12/23/2024 CBC WITH DIFFE RENTI AL/PL ATELE T NRBC 0 % 0-0 Not Available [facility] [address] [place], [place], [id number], 12/24/2024 03:08:23 01/04/20 25 01/04/2025 Influ libertad virus A and B and SARS- CoV-2 (COVI D-19) and Respi rator y syncy tial virus RNA panel - Respi rator y syste m speci men by MADDIE with probe detec tion influenza virus A RNA [presence] in upper respiratory specimen by MADDIE with probe detection Negati ve text: negati ve, error FLU A Negat mackenzie Negat mackenzie, Error 01/04 5:03 PM COLOR PASTE M[employer]ER [email or web address] LAB Not Available Not Available 01/13/2025 11:05:07 01/04/20 25 01/04/2025 Influ libertad virus A and B and SARS- CoV-2 (COVI D-19) and Respi rator y syncy tial virus RNA panel - Respi rator y syste m speci men by MADDIE with probe detec tion influenza virus B RNA [presence] in upper respiratory specimen by MADDIE with probe detection Negati ve text: negati ve FLU B Negat mackenzie Negat mackenzie 01/04 5:03 PM COL[employer] PASTE M[employer] [facility] [employer] LAB Not Available Not Available 01/13/2025 11:05:07 01/04/20 25 01/04/2025 Influ libertad virus A and B and SARS- CoV-2 (COVI D-19) and Respi rator y syncy tial virus RNA panel - Respi rator y syste m speci men by MADDIE with probe detec tion respiratory syncytial virus RNA [presence] in respiratory system specimen by MADDIE with probe detection Negati ve text: negati ve RESP SYNC VIRUS Negat mackenzie Negat mackenzie 01/04 5:03 PM [employer] PA[employer] [facility] [employer] LAB Not Available Not Available 01/13/2025 11:05:07 01/04/20 25 01/04/2025 Influ libertad virus A and B and SARS- CoV-2 (COVI D-19) and Respi rator y syncy tial virus RNA panel - Respi rator y syste m speci men by MADDIE with probe detec tion sars-cov-2 (covid-19) N gene [presence] in specimen by MADDIE with probe detection NOT DETECT ED text: (refer ence range for this test IS not detect ed) SARSC OV2 NOT DETEC DAYNA (Refe rence Range for this test is Not Detec dayna) 01/04 5:03 PM [employer] PA[employer] [facility] [employer] LAB Not Available Not Available 01/13/2025 11:05:07 01/04/20 25 01/04/2025 Influ libertad virus A and B and SARS- CoV-2 (COVI D-19) and Respi rator y syncy tial virus RNA panel - Respi rator y syste m speci men by MADDIE with probe detec tion interpretati on and review of laboratory results Normal Not Available Not Available 12/26 11:05:07 01/04/20 25 01/04/2025 CBC W Auto Diffe renti al panel - Blood leukocytes [#/volume] in blood by automated count 12.33 text: 4.00 - 12.00 10(3)/ mcL high WBC 12.33 (H) 4.00 - 12.00 10(3) /mcL 01/04 1:48 PM [employer] PA[employer] [facility] Not Available Not Available 01/13/2025 11:05:07 01/04/20 25 01/04/2025 CBC W Auto Diffe renti al panel - Blood erythrocytes [#/volume] in blood by automated count 6.38 text: 4.40 - 5.80 10(6)/ mcL high RBC 6.38 (H) 4.40 - 5.80 10(6) /mcL 01/04 1:48 PM [employer] [facility] Not Available Not Available 01/13/2025 11:05:07 01/04/2001/04/2025 CBC W Auto Diffe renti al panel - Blood hemoglobin [mass/volume ] in blood 17.3 g/dL low: 13g/dL high: 16.5g/ dL high HEMOG LOBIN (HGB) 17.3 (H) 13.0 - 16.5 g/dL 01/04 1:48 PM [employer] [facility] Not Available Not Available 01/13/2025 11:05:07 01/04/2001/04/2025 CBC W Auto Diffe renti al panel - Blood hematocrit [volume fraction] of blood by automated count 53.3 % low: 38%hig h: 50% high HEMAT OCRIT (HCT) 53.3 (H) 38.0 - 50.0 % 01/04 1:48 PM [employer] [facility] Not Available Not Available 01/13/2025 11:05:07 01/04/2001/04/2025 CBC W Auto Diffe renti al panel - Blood MCV [entitic volume] by automated count 83.5 fL low: 82fLhi gh: 96fL MCV 83.5 82.0 - 96.0 fL 01/04 1:48 PM [facility] [facility] Not Available Not Available 01/13/2025 11:05:07 01/04/20 25 01/04/2025 CBC W Auto Diffe renti al panel - Blood MCH [entitic mass] by automated count 27.1 pg low: 26pghi gh: 32pg MCH 27.1 26.0 - 32.0 pg 01/04 1:48 PM [employer] Not Available Not Available 01/13/2025 11:05:07 01/04/20 25 01/04/2025 CBC W Auto Diffe renti al panel - Blood MCHC [mass/volume ] by automated count 32.5 g/dL low: 31g/dL high: 36g/dL MCHC 32.5 31.0 - 36.0 g/dL 01/04 1:48 PM [employer] [facility] Not Available Not Available 01/13/2025 11:05:07 01/04/2001/04/2025 CBC W Auto Diffe renti al panel - Blood platelets [#/volume] in blood 214 text: 140 - 440 10(3)/ mcL PLATE LET COUNT 214 140 - 440 10(3) /mcL 01/04 1:48 PM [employer] [facility] LAB Not Available Not Available 01/13/2025 11:05:07 01/04/2001/04/2025 CBC W Auto Diffe renti al panel - Blood erythrocyte distribution width [ratio] by automated count 13.9 % low: 11.8%h igh: 15.5% RDW 13.9 11.8 - 15.5 % 01/04 1:48 PM [employer] [facility] Not Available Not Available 01/13/2025 11:05:07 01/04/20 25 01/04/2025 CBC W Auto Diffe renti al panel - Blood platelet mean volume [entitic volume] in blood by automated count 10.8 fL low: 8fLhig h: 12.6fL MPV 10.8 8.0 - 12.6 fL 01/04 1:48 PM [employer] [facility] Not Available Not Available 01/13/2025 11:05:07 01/04/20 25 01/04/2025 CBC W Auto Diffe renti al panel - Blood neutrophils/ 100 leukocytes in blood by automated count 84.5 % low: 40%hig h: 68% high NEUTR OPHIL S 84.5 (H) 40.0 - 68.0 % 01/04 1:48 PM [employer] PASTE [employer] [facility] LAB Not Available Not Available 01/13/2025 11:05:07 01/04/2001/04/2025 CBC W Auto Diffe renti al panel - Blood lymphocytes/ 100 leukocytes in blood by automated count 8.9 % low: 19%hig h: 49% low LYMPH OCYTE S 8.9 (L) 19.0 - 49.0 % 01/04 1:48 PM [employer] PA[employer] [facility] [employer] R LAB Not Available Not Available 01/13/2025 11:05:07 01/04/2001/04/2025 CBC W Auto Diffe renti al panel - Blood monocytes/10 0 leukocytes in blood by automated count 5.8 % low: 3%high : 13% MONOC YTES 5.8 3.0 - 13.0 % 01/04 1:48 PM [employer] PA[employer] [facility] [employer] [facility] R LAB Not Available Not Available 01/13/2025 11:05:07 01/04/2001/04/2025 CBC W Auto Diffe renti al panel - Blood eosinophils/ 100 leukocytes in blood by automated count 0.5 % low: 0%high : 8% EOSIN OPHIL S 0.5 0.0 - 8.0 % 01/04 1:48 PM [employer] [facility] H [facility] R LAB Not Available Not Available 01/13/2025 11:05:07 01/04/20 25 01/04/2025 CBC W Auto Diffe renti al panel - Blood basophils/10 0 leukocytes in blood by automated count 0.3 % low: 0%high : 1% BASOP HILS 0.3 0.0 - 1.0 % 01/04 1:48 PM [employer] PA[employer] [facility] LAB Not Available Not Available 01/13/2025 11:05:07 01/04/20 25 01/04/2025 CBC W Auto Diffe renti al panel - Blood neutrophils [#/volume] in blood by automated count 10.41 text: 1.40 - 5.30 10(3)/ mcL high [place] NEUTR OPHIL S 10.41 (H) 1.40 - 5.30 10(3) /mcL 01/04 1:48 PM [employer] PASTE M[employer] [facility] LAB Not Available Not Available 01/13/2025 11:05:07 01/04/20 25 01/04/2025 CBC W Auto Diffe renti al panel - Blood lymphocytes [#/volume] in blood by automated count 1.1 text: 0.90 - 3.30 10(3)/ mcL [place]OL [place] LYMPH OCYTE S 1.10 0.90 - 3.30 10(3) /mcL 01/04 1:48 PM [employer] PA[employer] [facility] LAB Not Available Not Available 01/13/2025 11:05:07 01/04/20 25 01/04/2025 CBC W Auto Diffe renti al panel - Blood monocytes [#/volume] in blood by automated count 0.72 text: 0.10 - 0.90 10(3)/ mcL [place] MONOC YTES 0.72 0.10 - 0.90 10(3) /mcL 01/04 1:48 PM [employer] PA[employer] [facility] LAB Not Available Not Available 01/13/2025 11:05:07 01/04/20 25 01/04/2025 CBC W Auto Diffe renti al panel - Blood eosinophils [#/volume] in blood by automated count 0.06 text: 0.00 - 0.50 10(3)/ mcL [place] EOSIN OPHIL 0.06 0.00 - 0.50 10(3) /mcL 01/04 1:48 PM [employer] [facility] LAB Not Available Not Available 01/13/2025 11:05:07 01/04/20 25 01/04/2025 CBC W Auto Diffe renti al panel - Blood basophils [#/volume] in blood by automated count 0.04 text: 0.00 - 0.10 10(3)/ mcL ABSOL [place] BASOP HILS 0.04 0.00 - 0.10 10(3) /mcL 01/04 1:48 PM [facility] [employer] [facility] Not Available Not Available 01/13/2025 11:05:07 01/04/20 25 01/04/2025 CBC W Auto Diffe renti al panel - Blood nucleated erythrocytes /100 leukocytes [ratio] in blood 0 NRBC PER 100 WBC 0 01/04 1:48 PM [employer] [facility] Not Available Not Available 01/13/2025 11:05:07 01/04/20 25 01/04/2025 CBC W Auto Diffe renti al panel - Blood interpretati on and review of laboratory results Abnorm al Not Available Not Available 11:05:07 01/04/20 25 01/04/2025 Lipas e [Enzy matic activ ity/v olume ] in Serum or Plasm a lipase [enzymatic activity/vol ume] in serum or plasma 15 U/L low: 8U/Lhi gh: 78U/L LIPAS E 15 8 - 78 U/L 01/04 2:11 PM [employer] PA[employer] [facility] Not Available Not Available 01/13/2025 11:05:07 01/04/20 25 01/04/2025 Lipas e [Enzy matic activ ity/v olume ] in Serum or Plasm a interpretati on and review of laboratory results Normal Not Available Not Available 12/26 11:05:07 01/04/20 25 01/04/2025 Compr ehens mackenzie metab olic 2000 panel - Serum or Plasm a sodium [moles/volum e] in serum or plasma 141 mmol/ L low: 136mmo l/Lhig h: 145mmo l/L SODIU M 141 136 - 145 mmol/ L 01/04 2:11 PM [employer] [facility] Not Available Not Available 01/13/2025 11:05:06 01/04/20 25 01/04/2025 Compr ehens mackenzie metab olic 1999 panel - Serum or Plasm a potassium [moles/volum e] in serum or plasma 4.4 mmol/ L low: 3.5mmo l/Lhig h: 5.1mmo l/L POTAS SIUM 4.4 3.5 - 5.1 mmol/ L 01/04 2:11 PM [employer] PA[employer] [facility] Not Available Not Available 01/13/2025 11:05:06 01/04/20 25 01/04/2025 Compr ehens mackenzie metab olic 1999 panel - Serum or Plasm a chloride [moles/volum e] in serum or plasma 110 mmol/ L low: 98mmol /Lhigh : 107mmo l/L high [place] 110 (H) 98 - 107 mmol/ L 01/04 2:11 PM [employer] [facility] Not Available Not Available 01/13/2025 11:05:06 01/04/20 25 01/04/2025 Compr ehens mackenzie metab olic 1999 panel - Serum or Plasm a carbon dioxide, total [moles/volum e] in serum or plasma 23 mmol/ L low: 22mmol /Lhigh : 30mmol /L CO2, VENOU S 23 22 - 30 mmol/ L 01/04 2:11 PM [employer] [facility] Not Available Not Available 01/13/2025 11:05:06 01/04/20 25 01/04/2025 Compr ehens mackenzie metab olic 1999 panel - Serum or Plasm a anion gap in serum or plasma 12.4 mmol/ L high: 18mmol /L ANION GAP 12.4 <18.0 mmol/ L 01/04 2:11 PM [employer] [facility] Not Available Not Available 01/13/2025 11:05:06 01/04/20 25 01/04/2025 Compr ehens mackenzie metab olic 1999 panel - Serum or Plasm a glucose [mass/volume ] in serum or plasma 104 mg/dL low: 70mg/d Lhigh: 99mg/d L high GLUCO SE 104 (H) 70 - 99 mg/dL 01/04 2:11 PM [facility] ClaroE R LAB Not Available Not Available 01/13/2025 11:05:06 01/04/20 25 01/04/2025 Compr ehens mackenzie metab olic 1999 panel - Serum or Plasm a urea nitrogen [mass/volume ] in serum or plasma 21 mg/dL low: 8mg/dL high: 26mg/d L BUN 21 8 - 26 mg/dL 01/04 2:11 PM [facility] Claro[facility] R LAB Not Available Not Available 01/13/2025 11:05:06 01/04/20 25 01/04/2025 Compr ehens mackenzie metab olic 1999 panel - Serum or Plasm a creatinine [mass/volume ] in serum or plasma 0.97 mg/dL low: 0.7mg/ dLhigh : 1.3mg/ dL CREAT ININE , BLOOD 0.97 0.70 - 1.30 mg/dL 01/04 2:11 PM [facility] Claro[facility] R LAB Not Available Not Available 01/13/2025 11:05:06 01/04/20 25 01/04/2025 Compr ehens mackenzie metab olic 2000 panel - Serum or Plasm a urea nitrogen/cre atinine [mass ratio] in serum or plasma 22 text: 12 - 20 ratio high BUN/C REATI NINE RATIO 22 (H) 12 - 20 ratio 01/04 2:11 PM [facility] Claro[facility] R LAB Not Available Not Available 01/13/2025 11:05:06 01/04/20 25 01/04/2025 Compr ehens mackenzie metab olic 2000 panel - Serum or Plasm a protein [mass/volume ] in serum or plasma 8.1 g/dL low: 6g/dLh igh: 8g/dL high TOTAL PROTE IN 8.1 (H) 6.0 - 8.0 g/dL 01/04 2:11 PM [facility] Not Available Not Available 01/13/2025 11:05:06 01/04/20 25 01/04/2025 Compr ehens mackenzie metab olic 2000 panel - Serum or Plasm a albumin [mass/volume ] in serum or plasma 4.4 g/dL low: 3.5g/d Lhigh: 5g/dL ALBUM IN 4.4 3.5 - 5.0 g/dL 01/04 2:11 PM [employer] PA[employer] [facility] R LAB Not Available Not Available 01/13/2025 11:05:06 01/04/20 25 01/04/2025 Compr ehens mackenzie metab olic 2000 panel - Serum or Plasm a albumin/glob ulin [mass ratio] in serum or plasma 1.2 low: 1high: 2.2 A/G RATIO 1.2 1.0 - 2.2 01/04 2:11 PM [employer] PASTE M[employer] [facility] [employer] R LAB Not Available Not Available 01/13/2025 11:05:06 01/04/2001/04/2025 Compr [employer] mackenzie metab olic 2000 panel - Serum or Plasm a calcium [mass/volume ] in serum or plasma 9.3 mg/dL low: 8.7mg/ dLhigh : 10.5mg /dL CALCI UM 9.3 8.7 - 10.5 mg/dL 01/04 2:11 PM [facility] [employer] R LAB Not Available Not Available 01/13/2025 11:05:06 01/04/2001/04/2025 Compr [employer] mackenzie metab olic 2000 panel - Serum or Plasm a bilirubin.to margaret [mass/volume ] in serum or plasma 0.9 mg/dL low: 0.2mg/ dLhigh : 1.2mg/ dL T BILI 0.9 0.2 - 1.2 mg/dL 01/04 2:11 PM [employer] PA[employer] [facility] LAB Not Available Not Available 01/13/2025 11:05:06 01/04/2001/04/2025 Compr ehens mackenzie metab olic 2000 panel - Serum or Plasm a aspartate aminotransfe rase [enzymatic activity/vol ume] in serum or plasma 21 U/L low: 6U/Lhi gh: 42U/L SGOT (AST) 21 6 - 42 U/L 01/04 2:11 PM [facility] Not Available Not Available 01/13/2025 11:05:06 01/04/20 25 01/04/2025 Compr [employer] mackenzie metab olic 1999 panel - Serum or Plasm a alanine aminotransfe rase [enzymatic activity/vol ume] in serum or plasma 25 U/L low: 6U/Lhi gh: 55U/L SGPT (ALT) 25 6 - 55 U/L 01/04 2:[address] [facility] R LAB Not Available Not Available 01/13/2025 11:05:06 01/04/20 25 01/04/2025 Compr ehens mackenzie metab olic 1999 panel - Serum or Plasm a alkaline phosphatase [enzymatic activity/vol ume] in serum or plasma 74 U/L low: 40U/Lh igh: 150U/L ALKAL INE PHOSP HATAS E 74 40 - 150 U/L 01/04 2:[address] [facility] [employer] R LAB Not Available Not Available 01/13/2025 11:05:06 01/04/2001/04/2025 Compr ehens mackenzie metab olic 1999 panel - Serum or Plasm a glomerular filtration rate/1.73 sq M.predicted among non-blacks [volume rate/area] in serum, plasma or blood by creatinine-b ased formula (MDRD) low: 60 GFR, ESTIM ATED >60 >=60 01/04 2:11 PM [facility] Claro[facility] R LAB Not Available Not Available 01/13/2025 11:05:06 01/04/20 25 01/04/2025 Compr [employer] mackenzie metab olic 1999 panel - Serum or Plasm a glomerular filtration rate/1.73 sq M.predicted among blacks [volume rate/area] in serum, plasma or blood by creatinine-b ased formula (MDRD) low: 60 GFR, EST. AFRIC AN >60 >=60 01/04 2:11 PM [facility] LAB Not Available Not Available 01/13/2025 11:05:06 01/04/20 25 01/04/2025 Compr ehens mackenzie metab olic 1999 panel - Serum or Plasm a glomerular filtration rate/1.73 sq M.predicted among non-blacks [volume rate/area] in serum, plasma or blood by creatinine-b ased formula (MDRD) low: 60 GFR, EST. NONAF RICAN >60 >=60 01/04 2:11 PM COLOR PASTE MIXER [facility] Not Available Not Available 01/13/2025 11:05:06 01/04/2001/04/2025 Compr ehens mackenzie metab olic 1999 panel - Serum or Plasm a interpretati on and review of laboratory results Abnorm al Not Available Not Available 11:05:06 01/05/20 25 01/06/2025 Gluco se [Mass /volu me] in Arter ial blood glucose [mass/volume ] in capillary blood by glucometer 70 mg/dL low: 70mg/d Lhigh: 99mg/d L Gluco se WB/PO C 70 70 - 99 mg/dL 01/06 12:26 AM COLOR PASTE MIXER [facility] Not Available Not Available 01/13/2025 11:05:17 01/05/20 25 01/06/2025 Gluco se [Mass /volu me] in Arter ial blood specimen source identified Cap Finger stick Speci men Type Cap Finge rstic k 01/06 12:26 AM [employer] PASTE MIXER [facility] Not Available Not Available 01/13/2025 11:05:17 01/05/20 25 01/05/2025 Gluco se [Mass /volu me] in Arter ial blood glucose [mass/volume ] in capillary blood by glucometer 167 mg/dL low: 70mg/d Lhigh: 99mg/d L high Gluco se WB/PO C 167 (H) 70 - 99 mg/dL 01/05 4:39 PM [employer] PA[employer] M[employer] [facility] Not Available Not Available 01/13/2025 11:05:17 01/05/20 25 01/05/2025 Gluco se [Mass /volu me] in Arter ial blood specimen source identified Cap Finger stick Speci men Type Cap Finge rstic k 01/05 4:39 PM [employer] PA[employer] M[employer] [facility] Not Available Not Available 01/13/2025 11:05:17 01/05/20 25 01/05/2025 Gluco se [Mass /volu me] in Arter ial blood interpretati on and review of laboratory results Abnorm al Not Available Not Available 11:05:17 01/05/20 25 01/05/2025 Gluco se [Mass /volu me] in Arter ial blood glucose [mass/volume ] in capillary blood by glucometer 136 mg/dL low: 70mg/d Lhigh: 99mg/d L high Gluco se WB/PO C 136 (H) 70 - 99 mg/dL 01/05 12:53 PM [employer] PA[employer] M[employer] [facility] Not Available Not Available 01/13/2025 11:05:17 01/05/20 25 01/05/2025 Gluco se [Mass /volu me] in Arter ial blood specimen source identified Cap Finger stick Speci men Type Jeronimo Infante rstic k 01/05 12:53 PM [employer] PA[employer] M[employer] [facility] Not Available Not Available 01/13/2025 11:05:17 01/05/20 25 01/05/2025 Gluco se [Mass /volu me] in Arter ial blood interpretati on and review of laboratory results Abnorm al Not Available Not Available 11:05:17 01/05/20 25 01/05/2025 Gluco se [Mass /volu me] in Arter ial blood glucose [mass/volume ] in capillary blood by glucometer 76 mg/dL low: 70mg/d Lhigh: 99mg/d L Gluco se WB/PO C 76 70 - 99 mg/dL 01/05 8:44 AM [employer] PASTE M[employer]ER [facility] Not Available Not Available 01/13/2025 11:05:17 01/05/20 25 01/05/2025 Gluco se [Mass /volu me] in Arter ial blood specimen source identified Cap Finger stick Speci men Type Cap Arelis rstic k 01/05 8:44 AM [employer] PA[employer] [facility] Not Available Not Available 01/13/2025 11:05:17 01/05/20 25 01/05/2025 Gluco se [Mass /volu me] in Arter ial blood glucose [mass/volume ] in capillary blood by glucometer 77 mg/dL low: 70mg/d Lhigh: 99mg/d L Gluco se WB/PO C 77 70 - 99 mg/dL 01/05 6:41 AM COL[employer] PASTE MIXER [employer] AT[facility] Not Available Not Available 01/13/2025 11:05:17 01/05/2001/05/2025 Gluco se [Mass /volu me] in Arter ial blood specimen source identified Cap Finger stick Speci men Type Cap Finge rstic k 01/05 6:41 AM COL[employer] PASTE MIXER [employer] AT[facility] Not Available Not Available 01/13/2025 11:05:17 01/05/2001/05/2025 CBC panel - Blood by Autom ated count leukocytes [#/volume] in blood by automated count 10.6 text: 4.0 - 10.7 x10e9/ L WBC 10.6 4.0 - 10.7 x10E9 /L 01/05 3:29 AM COL[employer] PASTE M[employer] AT[facility] Not Available Not Available 01/13/2025 11:05:17 01/05/2001/05/2025 CBC panel - Blood by Autom ated count erythrocytes [#/volume] in blood by automated count 5.7 text: 4.30 - 5.80 x10e12 /L RBC Count 5.70 4.30 - 5.80 x10E1 2/L 01/05 3:29 AM [employer] PASTE M[employer] [facility] Not Available Not Available 01/13/2025 11:05:17 01/05/2001/05/2025 CBC panel - Blood by Autom ated count hemoglobin [mass/volume ] in blood 15.3 g/dL low: 13.3g/ dLhigh : 17.5g/ dL Hemog lobin 15.3 13.3 - 17.5 g/dL 01/05 3:29 AM [employer] PA[employer] M[employer] AT[facility] Not Available Not Available 01/13/2025 11:05:17 01/05/2001/05/2025 CBC panel - Blood by Autom ated count hematocrit [volume fraction] of blood by automated count 47.1 % low: 38.7%h igh: 51.1% Hemat ocrit 47.1 38.7 - 51.1 % 02/11 /2025 3:29 AM [employer] PA[employer] [facility] Not Available Not Available 01/13/2025 11:05:17 01/05/2001/05/2025 CBC panel - Blood by Autom ated count MCV [entitic volume] by automated count 82.6 fL low: 80fLhi gh: 98fL MCV 82.6 80.0 - 98.0 fL 01/05 3:29 AM [employer] [facility] Not Available Not Available 01/13/2025 11:05:17 01/05/2001/05/2025 CBC panel - Blood by Autom ated count MCH [entitic mass] by automated count 26.8 pg low: 26.7pg high: 33.6pg MCH 26.8 26.7 - 33.6 pg 01/05 3:29 AM [employer] Not Available Not Available 01/13/2025 11:05:17 01/05/2001/05/2025 CBC panel - Blood by Autom ated count MCHC [mass/volume ] by automated count 32.5 g/dL low: 31.7g/ dLhigh : 36.3g/ dL MCHC 32.5 31.7 - 36.3 g/dL 01/05 3:29 AM [employer] [facility] Not Available Not Available 01/13/2025 11:05:17 01/05/2001/05/2025 CBC panel - Blood by Autom ated count erythrocyte distribution width [ratio] by automated count 14.3 % low: 11.3%h igh: 14.8% RDW-C V 14.3 11.3 - 14.8 % 01/05 3:29 AM [employer] [facility] Not Available Not Available 01/13/2025 11:05:17 01/05/2001/05/2025 CBC panel - Blood by Autom ated count platelets [#/volume] in blood by automated count 165 text: 150 - 420 x10e9/ L Plate let Count 165 150 - 420 x10E9 /L 01/05 3:29 AM [employer] [facility] Not Available Not Available 01/13/2025 11:05:17 01/05/2001/05/2025 CBC panel - Blood by Autom ated count platelet mean volume [entitic volume] in blood by automated count 10.2 fL low: 7.8fLh igh: 11.4fL MPV 10.2 7.8 - 11.4 fL 01/05 3:29 AM [employer] [facility] Not Available Not Available 01/13/2025 11:05:17 01/05/2001/05/2025 CBC panel - Blood by Autom ated count interpretati on and review of laboratory results Normal Not Available Not Available 12/26 11:05:17 01/05/20 25 01/05/2025 Compr ehens mackenzie metab olic 2000 panel - Serum or Plasm a glucose [mass/volume ] in serum or plasma 84 mg/dL low: 70mg/d Lhigh: 99mg/d L Gluco se 84 70 - 99 mg/dL 01/05 3:45 AM [employer] [facility] Not Available Not Available 01/13/2025 11:05:17 01/05/2001/05/2025 Compr ehens mackenzie metab olic 1999 panel - Serum or Plasm a sodium [moles/volum e] in serum or plasma 137 mmol/ L low: 136mmo l/Lhig h: 145mmo l/L Sodiu m 137 136 - 145 mmol/ L 01/05 3:45 AM [employer] [facility] Not Available Not Available 01/13/2025 11:05:17 01/05/20 25 01/05/2025 Compr ehens mackenzie metab olic 1999 panel - Serum or Plasm a potassium [moles/volum e] in serum or plasma 3.9 mmol/ L low: 3.5mmo l/Lhig h: 5.1mmo l/L Potas sium 3.9 3.5 - 5.1 mmol/ L 01/05 3:45 AM [employer] [facility] Not Available Not Available 01/13/2025 11:05:17 01/05/20 25 01/05/2025 Compr ehens mackenzie metab olic 2000 panel - Serum or Plasm a chloride [moles/volum e] in serum or plasma 112 mmol/ L low: 98mmol /Lhigh : 107mmo l/L high Chlor [place] 112 (H) 98 - 107 mmol/ L 01/05 3:45 AM [employer] [facility] Not Available Not Available 01/13/2025 11:05:17 01/05/2001/05/2025 Compr ehens mackenzie metab olic 1999 panel - Serum or Plasm a carbon dioxide, total [moles/volum e] in serum or plasma 18 mmol/ L low: 22mmol /Lhigh : 29mmol /L low CO2 18 (L) 22 - 29 mmol/ L 01/05 3:45 AM [employer] [facility] Not Available Not Available 01/13/2025 11:05:17 01/05/20 25 01/05/2025 Compr ehens mackenzie metab olic 1999 panel - Serum or Plasm a calcium [mass/volume ] in serum or plasma 8 mg/dL low: 8.4mg/ dLhigh : 10.4mg /dL low Calci um 8.0 (L) 8.4 - 10.4 mg/dL 01/05 3:45 AM [employer] [facility] Not Available Not Available 01/13/2025 11:05:17 01/05/2001/05/2025 Compr [employer] mackenzie metab olic 1999 panel - Serum or Plasm a anion gap in blood 7 mmol/ L low: 6mmol/ Lhigh: 16mmol /L Anion Gap 7 6 - 16 mmol/ L 01/05 3:45 AM [employer] [facility] Not Available Not Available 01/13/2025 11:05:17 01/05/2001/05/2025 Compr ehens mackenzie [employer] olic 1999 panel - Serum or Plasm a urea nitrogen [mass/volume ] in serum or plasma 18 mg/dL low: 7mg/dL high: 26mg/d L BUN 18 7 - 26 mg/dL 01/05 3:45 AM [employer] [facility] Not Available Not Available 01/13/2025 11:05:17 01/05/20 25 01/05/2025 Compr ehens mackenzie [employer] olic 2000 panel - Serum or Plasm a creatinine [mass/volume ] in serum or plasma 0.99 mg/dL low: 0.72mg /dLhig h: 1.25mg /dL Creat inine 0.99 0.72 - 1.25 mg/dL 01/05 3:45 AM [employer] [facility] Not Available Not Available 01/13/2025 11:05:17 01/05/2001/05/2025 Compr ehens mackenzie metab olic 1999 panel - Serum or Plasm a alkaline phosphatase [enzymatic activity/vol ume] in serum or plasma 108 U/L low: 40U/Lh igh: 150U/L Alkal ine Phosp hatas e 108 40 - 150 U/L 01/05 3:45 AM [employer] [facility] Not Available Not Available 01/13/2025 11:05:17 01/05/20 25 01/05/2025 Compr [employer] mackenzie metab olic 1999 panel - Serum or Plasm a alanine aminotransfe rase [enzymatic activity/vol ume] in serum or plasma 162 U/L low: 0U/Lhi gh: 55U/L high ALT 162 (H) 0 - 55 U/L 01/05 3:45 AM [employer] [facility] Not Available Not Available 01/13/2025 11:05:17 01/05/20 25 01/05/2025 Compr [employer] mackenzie metab olic 1999 panel - Serum or Plasm a aspartate aminotransfe rase [enzymatic activity/vol ume] in serum or plasma 235 U/L low: 5U/Lhi gh: 34U/L high AST 235 (H) 5 - 34 U/L 01/05 3:45 AM [employer] [facility] Not Available Not Available 01/13/2025 11:05:17 01/05/20 25 01/05/2025 Compr [employer] mackenzie metab olic 1999 panel - Serum or Plasm a protein [mass/volume ] in serum or plasma 5.8 text: 6.4 - 8.3 gm/dL low Prote in Total 5.8 (L) 6.4 - 8.3 gm/dL 01/05 3:45 AM [employer] [facility] Not Available Not Available 01/13/2025 11:05:17 01/05/20 25 01/05/2025 Compr ehens mackenzie metab olic 1999 panel - Serum or Plasm a albumin [mass/volume ] in serum or plasma 2.9 text: 3.4 - 5.0 gm/dL low Album in 2.9 (L) 3.4 - 5.0 gm/dL 01/05 3:45 AM [employer] [facility] Not Available Not Available 01/13/2025 11:05:17 01/05/2001/05/2025 Compr ehens mackenzie metab olic 2000 panel - Serum or Plasm a bilirubin.to margaret [mass/volume ] in serum or plasma 2.1 mg/dL low: 0.2mg/ dLhigh : 1.2mg/ dL high Bilir ubin Total 2.1 (H) 0.2 - 1.2 mg/dL 01/05 3:45 AM [employer] [facility] Not Available Not Available 01/13/2025 11:05:17 01/05/2001/05/2025 Compr [employer] mackenzie [employer] olic 2000 panel - Serum or Plasm a glomerular filtration rate/1.73 sq M.predicted [volume rate/area] in serum, plasma or blood by creatinine-b ased formula (CKD-epi 2020) 86 text: >=90 mL/min /1.73 m2 low eGFR by CKD-E PI 86 (L) >=90 mL/mi n/1.7 3 m2 01/05 3:45 AM [employer] [facility] AT[facility] Not Available Not Available 01/13/2025 11:05:17 01/05/2001/05/2025 Compr [employer] mackenzie [employer] 2000 panel - Serum or Plasm a interpretati on and review of laboratory results Abnorm al Not Available Not Available 11:05:17 01/06/2001/06/2025 Gluco se [Mass /volu me] in Arter ial blood glucose [mass/volume ] in capillary blood by glucometer 218 mg/dL low: 70mg/d Lhigh: 99mg/d L high Gluco se WB/PO C 218 (H) 70 - 99 mg/dL 01/06 8:36 PM [employer] [facility] Not Available Not Available 01/13/2025 11:05:18 01/06/2001/06/2025 Gluco se [Mass /volu me] in Arter ial blood specimen source identified Cap Finger stick Speci men Type Cap Finge rstic k 01/06 8:36 PM [employer] [facility] Not Available Not Available 01/13/2025 11:05:18 01/06/20 25 01/06/2025 Gluco se [Mass /volu me] in Arter ial blood interpretati on and review of laboratory results Abnorm al Not Available Not Available 11:05:18 01/06/20 25 01/06/2025 Gluco se [Mass /volu me] in Arter ial blood glucose [mass/volume ] in capillary blood by glucometer 195 mg/dL low: 70mg/d Lhigh: 99mg/d L high Gluco se WB/PO C 195 (H) 70 - 99 mg/dL 01/06 5:56 PM [employer] [facility] Not Available Not Available 01/13/2025 11:05:18 01/06/20 25 01/06/2025 Gluco se [Mass /volu me] in Arter ial blood specimen source identified Arteri al Speci men Type Arter ial 01/06 5:56 PM [employer] [facility] Not Available Not Available 01/13/2025 11:05:18 01/06/20 25 01/06/2025 Gluco se [Mass /volu me] in Arter ial blood interpretati on and review of laboratory results Abnorm al Not Available Not Available 11:05:18 01/06/20 25 01/06/2025 Gluco se [Mass /volu me] in Arter ial blood glucose [mass/volume ] in capillary blood by glucometer 233 mg/dL low: 70mg/d Lhigh: 99mg/d L high Gluco se WB/PO C 233 (H) 70 - 99 mg/dL 01/06 1:30 PM [employer] [facility] Not Available Not Available 01/13/2025 11:05:18 01/06/20 25 01/06/2025 Gluco se [Mass /volu me] in Arter ial blood specimen source identified Cap Finger stick Speci men Type Cap Finge rstic k 01/06 1:30 PM [employer] [facility] Not Available Not Available 01/13/2025 11:05:18 01/06/20 25 01/06/2025 Gluco se [Mass /volu me] in Arter ial blood interpretati on and review of laboratory results Abnorm al Not Available Not Available 11:05:18 01/06/20 25 01/11/2025 Bacte kin ident ified in Blood by Cultu re microorganis m identified in specimen by culture No growth day 5 Cultu re No growt h day 5 GLORIA 01/11 2:00 PM [employer] [facility] Not Available Not Available 01/13/2025 11:05:02 01/06/2001/11/2025 Bacte kin ident ified in Blood by Cultu re interpretati on and review of laboratory results Normal Not Available Not Available 12/26 11:05:02 01/06/2001/06/2025 Influ libertad virus A and B and SARS- CoV-2 (COVI D-19) and Respi rator y syncy tial virus RNA panel - Respi rator y syste m speci men by MADDIE with probe detec tion sars-cov-2 (covid-19) RNA [presence] in respiratory system specimen by MADDIE with probe detection Not detect ed text: not detect ed COVID -19 PCR Not detec dayna Not detec dayna 01/06 12:52 PM [employer] [facility] Not Available Not Available 01/13/2025 11:05:03 01/06/20 25 01/06/2025 Influ libertad virus A and B and SARS- CoV-2 (COVI D-19) and Respi rator y syncy tial virus RNA panel - Respi rator y syste m speci men by MADDIE with probe detec tion influenza virus A RNA [presence] in specimen by MADDIE with probe detection Not detect ed text: not detect ed Influ libertad A PCR Not detec dayna Not detec dayna 01/06 12:52 PM [employer] [facility] Not Available Not Available 01/13/2025 11:05:03 01/06/20 25 01/06/2025 Influ libertad virus A and B and SARS- CoV-2 (COVI D-19) and Respi rator y syncy tial virus RNA panel - Respi rator y syste m speci men by MADDIE with probe detec tion influenza virus B RNA [presence] in specimen by MADDIE with probe detection Not detect ed text: not detect ed Influ libertad B PCR Not detec dayna Not detec dayna 01/06 12:52 PM [employer] [facility] Not Available Not Available 01/13/2025 11:05:03 01/06/20 25 01/06/2025 Influ libertad virus A and B and SARS- CoV-2 (COVI D-19) and Respi rator y syncy tial virus RNA panel - Respi rator y syste m speci men by MADDIE with probe detec tion respiratory syncytial virus RNA [identifier] in specimen by MADDIE with probe detection Not detect ed text: not detect ed RSV PCR Not detec dayna Not detec dayna 01/06 12:52 PM [employer] [facility] Not Available Not Available 01/13/2025 11:05:03 01/06/2001/06/2025 Influ libertad virus A and B and SARS- CoV-2 (COVI D-19) and Respi rator y syncy tial virus RNA panel - Respi rator y syste m speci men by MADDIE with probe detec tion Unknown Analyte This nuclei c acid amplif icatio n assay has been author ized by the Food and Drug admini strati on (FDA) under an Emerge ncy Use Author teddy hoff (EUA). This test is only author ized [facility] time the declar ation that circum stance s exist justif greg the author teddy hoff of emerge ncy use of in vitro diagno stic tests for detect ion of SARS-C oV-2 virus and/or diagno sis of COVID- 19 infect ion under sectio n 564(b) (1) of the Act, 21 U.S.C 360bbb -3 (b)(1) , unless the author teddy hoff is termin ated or revoke d sooner . Fact Sheets for this EUA assay are availa ble upon reques t. This nucle ic acid ampli ficat ion assay has been autho rized by the Food and Drug admin istra tion (FDA) under an Emerg ency Use Autho rizat ion (EUA) . This test is only autho rized for the durat ion of time the decla ratio n that circu mstan linus exist justi fying the autho rizat ion of emerg ency use of in vitro diagn ostic tests for detec tion of SARS- CoV-2 virus and/o r diagn osis of COVID -19 infec tion under secti on 564(b )(1) of the Act, 21 U.S.C 360bb b-3 (b)(1 ), unles s the autho rizat ion is termi nated or revok ed soone r. Fact Sheet s for this EUA assay are avail able upon reque st. Not Available Not Available 01/13/2025 11:05:03 01/06/2001/06/2025 Influ libertad virus A and B and SARS- CoV-2 (COVI D-19) and Respi rator y syncy tial virus RNA panel - Respi rator y syste m speci men by MADDIE with probe detec tion interpretati on and review of laboratory results Normal Not Available Not Available 12/26 11:05:03 01/06/2001/06/2025 Gluco se [Mass /volu me] in Arter ial blood glucose [mass/volume ] in capillary blood by glucometer 241 mg/dL low: 70mg/d Lhigh: 99mg/d L high Gluco se WB/PO C 241 (H) 70 - 99 mg/dL 01/06 12:12 PM [employer] [facility] Not Available Not Available 01/13/2025 11:05:18 01/06/2001/06/2025 Gluco se [Mass /volu me] in Arter ial blood specimen source identified Arteri al Speci men Type Arter ial 01/06 12:12 PM [employer] [facility] Not Available Not Available 01/13/2025 11:05:18 01/06/20 25 01/06/2025 Gluco se [Mass /volu me] in Arter ial blood interpretati on and review of laboratory results Abnorm al Not Available Not Available 11:05:18 02/12/01/06/2025 CBC panel - Blood by Autom ated count leukocytes [#/volume] in blood by automated count 12.9 text: 4.0 - 10.7 x10e9/ L high WBC 12.9 (H) 4.0 - 10.7 x10E9 /L 01/06 11:00 AM [employer] [facility] Not Available Not Available 01/13/2025 11:05:18 01/06/2001/06/2025 CBC panel - Blood by Autom ated count erythrocytes [#/volume] in blood by automated count 5.63 text: 4.30 - 5.80 x10e12 /L RBC Count 5.63 4.30 - 5.80 x10E1 2/L 01/06 11:00 AM [employer] [facility] Not Available Not Available 01/13/2025 11:05:18 01/06/2001/06/2025 CBC panel - Blood by Autom ated count hemoglobin [mass/volume ] in blood 15.1 g/dL low: 13.3g/ dLhigh : 17.5g/ dL Hemog lobin 15.1 13.3 - 17.5 g/dL 01/06 11:00 AM [employer] [facility] Not Available Not Available 01/13/2025 11:05:18 01/06/2001/06/2025 CBC panel - Blood by Autom ated count hematocrit [volume fraction] of blood by automated count 46 % low: 38.7%h igh: 51.1% Hemat ocrit 46.0 38.7 - 51.1 % 01/06 11:00 AM [employer] [facility] Not Available Not Available 01/13/2025 11:05:18 01/06/2001/06/2025 CBC panel - Blood by Autom ated count MCV [entitic volume] by automated count 81.7 fL low: 80fLhi gh: 98fL MCV 81.7 80.0 - 98.0 fL 01/06 11:00 AM [employer] [facility] Not Available Not Available 01/13/2025 11:05:18 01/06/20 25 01/06/2025 CBC panel - Blood by Autom ated count MCH [entitic mass] by automated count 26.8 pg low: 26.7pg high: 33.6pg MCH 26.8 26.7 - 33.6 pg 01/06 11:00 AM [facility] Not Available Not Available 01/13/2025 11:05:18 01/06/2001/06/2025 CBC panel - Blood by Autom ated count MCHC [mass/volume ] by automated count 32.8 g/dL low: 31.7g/ dLhigh : 36.3g/ dL MCHC 32.8 31.7 - 36.3 g/dL 01/06 11:00 AM [employer] [facility] Not Available Not Available 01/13/2025 11:05:18 01/06/2001/06/2025 CBC panel - Blood by Autom ated count erythrocyte distribution width [ratio] by automated count 14.3 % low: 11.3%h igh: 14.8% RDW-C V 14.3 11.3 - 14.8 % 01/06 11:00 AM [facility] Not Available Not Available 01/13/2025 11:05:18 01/06/2001/06/2025 CBC panel - Blood by Autom ated count platelets [#/volume] in blood by automated count 178 text: 150 - 420 x10e9/ L Plate let Count 178 150 - 420 x10E9 /L 01/06 11:00 AM [facility] Not Available Not Available 01/13/2025 11:05:18 01/06/2001/06/2025 CBC panel - Blood by Autom ated count platelet mean volume [entitic volume] in blood by automated count 10.6 fL low: 7.8fLh igh: 11.4fL MPV 10.6 7.8 - 11.4 fL 01/06 11:00 AM [facility] Not Available Not Available 01/13/2025 11:05:18 01/06/2001/06/2025 CBC panel - Blood by Autom ated count interpretati on and review of laboratory results Abnorm al Not Available Not Available 11:05:18 01/06/20 25 01/11/2025 Bacte kin ident ified in Blood by Cultu re microorganis m identified in specimen by culture No growth day 5 Cultu re No growt h day 5 GLORIA 01/11 2:00 PM [employer] [facility] Not Available Not Available 01/13/2025 11:05:18 01/06/20 25 01/11/2025 Bacte kin ident ified in Blood by Cultu re interpretati on and review of laboratory results Normal Not Available Not Available 12/26 11:05:18 01/06/20 25 01/06/2025 Gluco se [Mass /volu me] in Arter ial blood glucose [mass/volume ] in capillary blood by glucometer 170 mg/dL low: 70mg/d Lhigh: 99mg/d L high Gluco se WB/PO C 170 (H) 70 - 99 mg/dL 01/06 7:59 AM [employer] [facility] Not Available Not Available 01/13/2025 11:05:18 01/06/2001/06/2025 Gluco se [Mass /volu me] in Arter ial blood specimen source identified Arteri al Speci men Type Arter ial 01/06 7:59 AM [employer] [facility] Not Available Not Available 01/13/2025 11:05:18 01/06/2001/06/2025 Gluco se [Mass /volu me] in Arter ial blood interpretati on and review of laboratory results Abnorm al Not Available Not Available 11:05:18 01/06/20 25 01/06/2025 Compr ehens mackenzie metab olic 1999 panel - Serum or Plasm a glucose [mass/volume ] in serum or plasma 142 mg/dL low: 70mg/d Lhigh: 99mg/d L high Gluco se 142 (H) 70 - 99 mg/dL 01/06 4:40 AM [employer] [facility] Not Available Not Available 01/13/2025 11:05:17 01/06/20 25 01/06/2025 Compr ehens mackenzie metab olic 1999 panel - Serum or Plasm a sodium [moles/volum e] in serum or plasma 136 mmol/ L low: 136mmo l/Lhig h: 145mmo l/L Sodiu m 136 136 - 145 mmol/ L 01/06 4:40 AM [facility] Not Available Not Available 01/13/2025 11:05:17 01/06/2001/06/2025 Compr ehens mackenzie metab olic 1999 panel - Serum or Plasm a potassium [moles/volum e] in serum or plasma 4.1 mmol/ L low: 3.5mmo l/Lhig h: 5.1mmo l/L Potas sium 4.1 3.5 - 5.1 mmol/ L 01/06 4:40 AM [facility] AT[facility] Not Available Not Available 01/13/2025 11:05:17 01/06/2001/06/2025 Compr ehens mackenzie metab olic 1999 panel - Serum or Plasm a chloride [moles/volum e] in serum or plasma 110 mmol/ L low: 98mmol /Lhigh : 107mmo l/L high Chlor [place] 110 (H) 98 - 107 mmol/ L 01/06 4:40 AM [facility] Not Available Not Available 01/13/2025 11:05:17 01/06/20 25 01/06/2025 Compr ehens mackenzie metab olic 1999 panel - Serum or Plasm a carbon dioxide, total [moles/volum e] in serum or plasma 19 mmol/ L low: 22mmol /Lhigh : 29mmol /L low CO2 19 (L) 22 - 29 mmol/ L 01/06 4:40 AM [facility] Not Available Not Available 01/13/2025 11:05:17 01/06/2001/06/2025 Compr ehens mackenzie metab olic 1999 panel - Serum or Plasm a calcium [mass/volume ] in serum or plasma 8.4 mg/dL low: 8.4mg/ dLhigh : 10.4mg /dL Calci um 8.4 8.4 - 10.4 mg/dL 01/06 4:40 AM [facility] Not Available Not Available 01/13/2025 11:05:17 01/06/20 25 01/06/2025 Compr ehens mackenzie metab olic 2000 panel - Serum or Plasm a anion gap in blood 7 mmol/ L low: 6mmol/ Lhigh: 16mmol /L Anion Gap 7 6 - 16 mmol/ L 01/06 4:40 AM [employer] [facility] Not Available Not Available 01/13/2025 11:05:17 01/06/20 25 01/06/2025 Compr [employer] mackenzie metab olic 1999 panel - Serum or Plasm a urea nitrogen [mass/volume ] in serum or plasma 18 mg/dL low: 7mg/dL high: 26mg/d L BUN 18 7 - 26 mg/dL 01/06 4:40 AM [employer] [facility] Not Available Not Available 01/13/2025 11:05:17 01/06/20 25 01/06/2025 Compr [employer] mackenzie metab olic 1999 panel - Serum or Plasm a creatinine [mass/volume ] in serum or plasma 0.99 mg/dL low: 0.72mg /dLhig h: 1.25mg /dL Creat inine 0.99 0.72 - 1.25 mg/dL 01/06 4:40 AM [employer] [facility] Not Available Not Available 01/13/2025 11:05:17 01/06/20 25 01/06/2025 Compr [employer] mackenzie metab olic 1999 panel - Serum or Plasm a alkaline phosphatase [enzymatic activity/vol ume] in serum or plasma 152 U/L low: 40U/Lh igh: 150U/L high Alkal ine Phosp hatas e 152 (H) 40 - 150 U/L 01/06 4:40 AM [employer] [facility] Not Available Not Available 01/13/2025 11:05:17 01/06/20 25 01/06/2025 Compr [employer] mackenzie metab olic 1999 panel - Serum or Plasm a alanine aminotransfe rase [enzymatic activity/vol ume] in serum or plasma 219 U/L low: 0U/Lhi gh: 55U/L high ALT 219 (H) 0 - 55 U/L 01/06 4:40 AM [employer] [facility] Not Available Not Available 01/13/2025 11:05:17 01/06/20 25 01/06/2025 Compr [employer] mackenzie metab olic 2000 panel - Serum or Plasm a aspartate aminotransfe rase [enzymatic activity/vol ume] in serum or plasma 128 U/L low: 5U/Lhi gh: 34U/L high AST 128 (H) 5 - 34 U/L 01/06 4:40 AM [facility] Not Available Not Available 01/13/2025 11:05:17 01/06/20 25 01/06/2025 Compr [employer] 2000 panel - Serum or Plasm a protein [mass/volume ] in serum or plasma 5.9 text: 6.4 - 8.3 gm/dL low Prote in Total 5.9 (L) 6.4 - 8.3 gm/dL 01/06 4:40 AM [facility] Not Available Not Available 01/13/2025 11:05:17 01/06/2001/06/2025 Compr [employer] panel - Serum or Plasm a albumin [mass/volume ] in serum or plasma 2.6 text: 3.4 - 5.0 gm/dL low Album in 2.6 (L) 3.4 - 5.0 gm/dL 01/06 4:40 AM [facility] Not Available Not Available 01/13/2025 11:05:17 01/06/2001/06/2025 Compr [employer] panel - Serum or Plasm a bilirubin.to margaret [mass/volume ] in serum or plasma 2.7 mg/dL low: 0.2mg/ dLhigh : 1.2mg/ dL high Bilir ubin Total 2.7 (H) 0.2 - 1.2 mg/dL 01/06 4:40 AM [facility] Not Available Not Available 01/13/2025 11:05:17 01/06/2001/06/2025 Compr [employer] panel - Serum or Plasm a glomerular filtration rate/1.73 sq M.predicted [volume rate/area] in serum, plasma or blood by creatinine-b ased formula (CKD-epi 2020) 86 text: >=90 mL/min /1.73 m2 low eGFR by CKD-E PI 86 (L) >=90 mL/mi n/1.7 3 m2 01/06 4:40 AM [employer] [facility] Not Available Not Available 01/13/2025 11:05:17 01/06/20 25 01/06/2025 Compr ehens mackenzie metab olic 2000 panel - Serum or Plasm a interpretati on and review of laboratory results Abnorm al Not Available Not Available 11:05:17 01/06/20 25 01/06/2025 Gluco se [Mass /volu me] in Arter ial blood glucose [mass/volume ] in capillary blood by glucometer 150 mg/dL low: 70mg/d Lhigh: 99mg/d L high Gluco se WB/PO C 150 (H) 70 - 99 mg/dL 01/06 12:32 AM [employer] [facility] Not Available Not Available 01/13/2025 11:05:17 01/06/20 25 01/06/2025 Gluco se [Mass /volu me] in Arter ial blood specimen source identified Cap Finger stick Speci men Type Cap Arelis rstic k 01/06 12:32 AM [employer] [facility] Not Available Not Available 01/13/2025 11:05:17 01/06/20 25 01/06/2025 Gluco se [Mass /volu me] in Arter ial blood interpretati on and review of laboratory results Abnorm al Not Available Not Available 11:05:17 01/07/20 25 01/07/2025 Gluco se [Mass /volu me] in Arter ial blood glucose [mass/volume ] in capillary blood by glucometer 207 mg/dL low: 70mg/d Lhigh: 99mg/d L high Gluco se WB/PO C 207 (H) 70 - 99 mg/dL 01/07 9:56 PM [employer] [facility] Not Available Not Available 01/13/2025 11:05:19 01/07/20 25 01/07/2025 Gluco se [Mass /volu me] in Arter ial blood specimen source identified Cap Finger stick Speci men Type Cap Jine rstic k 01/07 9:56 PM [employer] [facility] Not Available Not Available 01/13/2025 11:05:19 01/07/20 25 01/07/2025 Gluco se [Mass /volu me] in Arter ial blood interpretati on and review of laboratory results Abnorm al Not Available Not Available 11:05:19 01/07/20 25 01/09/2025 Gluco se [Mass /volu me] in Arter ial blood glucose [mass/volume ] in capillary blood by glucometer 129 mg/dL low: 70mg/d Lhigh: 99mg/d L high Gluco se WB/PO C 129 (H) 70 - 99 mg/dL 01/09 11:43 AM [employer] [facility] Not Available Not Available 01/13/2025 11:05:19 01/07/20 25 01/09/2025 Gluco se [Mass /volu me] in Arter ial blood specimen source identified Cap Finger stick Speci men Type Cap Jine rstic k 01/09 11:43 AM [employer] [facility] Not Available Not Available 01/13/2025 11:05:19 01/07/20 25 01/09/2025 Gluco se [Mass /volu me] in Arter ial blood interpretati on and review of laboratory results Abnorm al Not Available Not Available 11:05:19 01/07/20 25 01/07/2025 Gluco se [Mass /volu me] in Arter ial blood glucose [mass/volume ] in capillary blood by glucometer 137 mg/dL low: 70mg/d Lhigh: 99mg/d L high Gluco se WB/PO C 137 (H) 70 - 99 mg/dL 01/07 5:09 PM [employer] [facility] Not Available Not Available 01/13/2025 11:05:19 01/07/20 25 01/07/2025 Gluco se [Mass /volu me] in Arter ial blood specimen source identified Cap Finger stick Speci men Type Cap Finge rstic k 01/07 5:09 PM [employer] [facility] Not Available Not Available 01/13/2025 11:05:19 01/07/20 25 01/07/2025 Gluco se [Mass /volu me] in Arter ial blood interpretati on and review of laboratory results Abnorm al Not Available Not Available 11:05:19 01/07/20 25 01/07/2025 Gluco se [Mass /volu me] in Arter ial blood glucose [mass/volume ] in capillary blood by glucometer 145 mg/dL low: 70mg/d Lhigh: 99mg/d L high Gluco se WB/PO C 145 (H) 70 - 99 mg/dL 01/07 11:32 AM [employer] [facility] Not Available Not Available 01/13/2025 11:05:19 01/07/20 25 01/07/2025 Gluco se [Mass /volu me] in Arter ial blood specimen source identified Cap Finger stick Speci men Type Cap Finge rstic k 01/07 11:32 AM [employer] [facility] [facility] Not Available Not Available 01/13/2025 11:05:19 01/07/20 25 01/07/2025 Gluco se [Mass /volu me] in Arter ial blood interpretati on and review of laboratory results Abnorm al Not Available Not Available 11:05:19 01/07/20 25 01/07/2025 Gluco se [Mass /volu me] in Arter ial blood glucose [mass/volume ] in capillary blood by glucometer 121 mg/dL low: 70mg/d Lhigh: 99mg/d L high Gluco se WB/PO C 121 (H) 70 - 99 mg/dL 01/07 11:02 AM [employer] [facility] Not Available Not Available 01/13/2025 11:05:19 01/07/20 25 01/07/2025 Gluco se [Mass /volu me] in Arter ial blood specimen source identified Cap Finger stick Speci men Type Cap Jine rstic k 01/07 11:02 AM [employer] [facility] Not Available Not Available 01/13/2025 11:05:19 01/07/20 25 01/07/2025 Gluco se [Mass /volu me] in Arter ial blood interpretati on and review of laboratory results Abnorm al Not Available Not Available 11:05:19 01/07/20 25 01/07/2025 Compr ehens mackenzie metab olic 2000 panel - Serum or Plasm a glucose [mass/volume ] in serum or plasma 134 mg/dL low: 70mg/d Lhigh: 99mg/d L high Gluco se 134 (H) 70 - 99 mg/dL 01/07 6:26 AM [employer] [facility] Not Available Not Available 01/13/2025 11:05:19 01/07/20 25 01/07/2025 Compr ehens mackenzie metab olic 1999 panel - Serum or Plasm a sodium [moles/volum e] in serum or plasma 138 mmol/ L low: 136mmo l/Lhig h: 145mmo l/L Sodiu m 138 136 - 145 mmol/ L 01/07 6:26 AM [employer] [facility] Not Available Not Available 01/13/2025 11:05:19 01/07/2001/07/2025 Compr ehens mackenzie metab olic 1999 panel - Serum or Plasm a potassium [moles/volum e] in serum or plasma 3.9 mmol/ L low: 3.5mmo l/Lhig h: 5.1mmo l/L Potas sium 3.9 3.5 - 5.1 mmol/ L 01/07 6:26 AM [employer] [facility] Not Available Not Available 01/13/2025 11:05:19 01/07/2001/07/2025 Compr ehens mackenzie metab olic 1999 panel - Serum or Plasm a chloride [moles/volum e] in serum or plasma 109 mmol/ L low: 98mmol /Lhigh : 107mmo l/L high Chlor dallas 109 (H) 98 - 107 mmol/ L 01/07 6:26 AM [employer] [facility] Not Available Not Available 01/13/2025 11:05:19 01/07/20 25 01/07/2025 Compr ehens mackenzie metab olic 1999 panel - Serum or Plasm a carbon dioxide, total [moles/volum e] in serum or plasma 21 mmol/ L low: 22mmol /Lhigh : 29mmol /L low CO2 21 (L) 22 - 29 mmol/ L 01/07 6:26 AM [employer] [facility] Not Available Not Available 01/13/2025 11:05:19 01/07/20 25 01/07/2025 Compr ehens mackenzie metab olic 1999 panel - Serum or Plasm a calcium [mass/volume ] in serum or plasma 8.4 mg/dL low: 8.4mg/ dLhigh : 10.4mg /dL Calci um 8.4 8.4 - 10.4 mg/dL 01/07 6:26 AM [employer] [facility] Not Available Not Available 01/13/2025 11:05:19 01/07/20 25 01/07/2025 Compr ens mackenzie metab olic 1999 panel - Serum or Plasm a anion gap in blood 8 mmol/ L low: 6mmol/ Lhigh: 16mmol /L Anion Gap 8 6 - 16 mmol/ L 01/07 6:26 AM [employer] [facility] Not Available Not Available 01/13/2025 11:05:19 01/07/20 25 01/07/2025 Compr [employer]ens mackenzie [employer] olic 1999 panel - Serum or Plasm a urea nitrogen [mass/volume ] in serum or plasma 16 mg/dL low: 7mg/dL high: 26mg/d L BUN 16 7 - 26 mg/dL 01/07 6:26 AM [employer] [facility] Not Available Not Available 01/13/2025 11:05:19 01/07/20 25 01/07/2025 Compr [employer] mackenzie [employer] olic 1999 panel - Serum or Plasm a creatinine [mass/volume ] in serum or plasma 0.99 mg/dL low: 0.72mg /dLhig h: 1.25mg /dL Creat inine 0.99 0.72 - 1.25 mg/dL 01/07 6:26 AM [employer] [facility] Not Available Not Available 01/13/2025 11:05:19 01/07/20 25 01/07/2025 Compr [employer] mackenzie [employer] olic 1999 panel - Serum or Plasm a alkaline phosphatase [enzymatic activity/vol ume] in serum or plasma 142 U/L low: 40U/Lh igh: 150U/L Alkal ine Phosp hatas e 142 40 - 150 U/L 01/07 6:26 AM [employer] [facility] [facility] Not Available Not Available 01/13/2025 11:05:19 01/07/20 25 01/07/2025 [facility] [employer] 1999 panel - Serum or Plasm a alanine aminotransfe rase [enzymatic activity/vol ume] in serum or plasma 131 U/L low: 0U/Lhi gh: 55U/L high ALT 131 (H) 0 - 55 U/L 01/07 6:26 AM [employer] [facility] Not Available Not Available 01/13/2025 11:05:19 01/07/2001/07/2025 [facility] [employer] 1999 panel - Serum or Plasm a aspartate aminotransfe rase [enzymatic activity/vol ume] in serum or plasma 45 U/L low: 5U/Lhi gh: 34U/L high AST 45 (H) 5 - 34 U/L 01/07 6:26 AM [employer] [facility] Not Available Not Available 01/13/2025 11:05:19 01/07/2001/07/2025 [facility] [employer] 1999 panel - Serum or Plasm a protein [mass/volume ] in serum or plasma 6 text: 6.4 - 8.3 gm/dL low Prote in Total 6.0 (L) 6.4 - 8.3 gm/dL 01/07 6:26 AM [employer] [facility] Not Available Not Available 01/13/2025 11:05:19 01/07/2001/07/2025 [facility] [employer] 2000 panel - Serum or Plasm a albumin [mass/volume ] in serum or plasma 2.5 text: 3.4 - 5.0 gm/dL low Album in 2.5 (L) 3.4 - 5.0 gm/dL 01/07 6:26 AM [employer] [facility] Not Available Not Available 01/13/2025 11:05:19 01/07/20 25 01/07/2025 [facility] [employer] 2000 panel - Serum or Plasm a bilirubin.to margaret [mass/volume ] in serum or plasma 1.6 mg/dL low: 0.2mg/ dLhigh : 1.2mg/ dL high Bilir ubin Total 1.6 (H) 0.2 - 1.2 mg/dL 01/07 6:26 AM [employer] [facility] Not Available Not Available 01/13/2025 11:05:19 01/07/2001/07/2025 Compr ehens mackenzie metab olic 2000 panel - Serum or Plasm a glomerular filtration rate/1.73 sq M.predicted [volume rate/area] in serum, plasma or blood by creatinine-b ased formula (CKD-epi 2020) 86 text: >=90 mL/min /1.73 m2 low eGFR by CKD-E PI 86 (L) >=90 mL/mi n/1.7 3 m2 01/07 6:26 AM [employer] [facility] Not Available Not Available 01/13/2025 11:05:01/07/2001/07/2025 Compr ehens mackenzie metab olic 2000 panel - Serum or Plasm a interpretati on and review of laboratory results Abnorm al Not Available Not Available 11:05:19 01/07/2001/07/2025 CBC panel - Blood by Autom ated count leukocytes [#/volume] in blood by automated count 9.6 text: 4.0 - 10.7 x10e9/ L WBC 9.6 4.0 - 10.7 x10E9 /L 01/07 6:06 AM [employer] [facility] Not Available Not Available 01/13/2025 11:05:01/07/2001/07/2025 CBC panel - Blood by Autom ated count erythrocytes [#/volume] in blood by automated count 5.15 text: 4.30 - 5.80 x10e12 /L RBC Count 5.15 4.30 - 5.80 x10E1 2/L 01/07 6:06 AM [employer] [facility] Not Available Not Available 01/13/2025 11:05:19 01/07/2001/07/2025 CBC panel - Blood by Autom ated count hemoglobin [mass/volume ] in blood 13.7 g/dL low: 13.3g/ dLhigh : 17.5g/ dL Hemog lobin 13.7 13.3 - 17.5 g/dL 01/07 6:06 AM [employer] [facility] Not Available Not Available 01/13/2025 11:05:19 01/07/2001/07/2025 CBC panel - Blood by Autom ated count hematocrit [volume fraction] of blood by automated count 42.5 % low: 38.7%h igh: 51.1% Hemat ocrit 42.5 38.7 - 51.1 % 01/07 6:06 AM [employer] [facility] Not Available Not Available 01/13/2025 11:05:01/07/2001/07/2025 CBC panel - Blood by Autom ated count MCV [entitic volume] by automated count 82.5 fL low: 80fLhi gh: 98fL MCV 82.5 80.0 - 98.0 fL 01/07 6:06 AM [employer] [facility] Not Available Not Available 01/13/2025 11:05:01/07/2001/07/2025 CBC panel - Blood by Autom ated count MCH [entitic mass] by automated count 26.6 pg low: 26.7pg high: 33.6pg low MCH 26.6 (L) 26.7 - 33.6 pg 01/07 6:06 AM [employer] [facility] Not Available Not Available 01/13/2025 11:05:01/07/2001/07/2025 CBC panel - Blood by Autom ated count MCHC [mass/volume ] by automated count 32.2 g/dL low: 31.7g/ dLhigh : 36.3g/ dL MCHC 32.2 31.7 - 36.3 g/dL 01/07 6:06 AM [facility] Not Available Not Available 01/13/2025 11:05:01/07/2001/07/2025 CBC panel - Blood by Autom ated count erythrocyte distribution width [ratio] by automated count 14.1 % low: 11.3%h igh: 14.8% RDW-C V 14.1 11.3 - 14.8 % 01/07 6:06 AM [employer] [facility] Not Available Not Available 01/13/2025 11:05:19 01/07/2001/07/2025 CBC panel - Blood by Autom ated count platelets [#/volume] in blood by automated count 161 text: 150 - 420 x10e9/ L Plate let Count 161 150 - 420 x10E9 /L 01/07 6:06 AM [employer] [facility] Not Available Not Available 01/13/2025 11:05:19 01/07/2001/07/2025 CBC panel - Blood by Autom ated count platelet mean volume [entitic volume] in blood by automated count 10.8 fL low: 7.8fLh igh: 11.4fL MPV 10.8 7.8 - 11.4 fL 01/07 6:06 AM [employer] [facility] Not Available Not Available 01/13/2025 11:05:19 01/07/20 25 01/07/2025 CBC panel - Blood by Autom ated count interpretati on and review of laboratory results Abnorm al Not Available Not Available 11:05:19 01/07/20 25 01/07/2025 Gluco se [Mass /volu me] in Arter ial blood glucose [mass/volume ] in capillary blood by glucometer 157 mg/dL low: 70mg/d Lhigh: 99mg/d L high Gluco se WB/PO C 157 (H) 70 - 99 mg/dL 01/06 11:47 PM [employer] [facility] Not Available Not Available 01/13/2025 11:05:18 01/07/2001/07/2025 Gluco se [Mass /volu me] in Arter ial blood specimen source identified Cap Finger stick Speci men Type Cap Finge rstic k 01/06 11:47 PM [employer] [facility] Not Available Not Available 01/13/2025 11:05:18 01/07/20 25 01/07/2025 Gluco se [Mass /volu me] in Arter ial blood interpretati on and review of laboratory results Abnorm al Not Available Not Available 11:05:18 01/08/20 25 01/09/2025 Gluco se [Mass /volu me] in Arter ial blood glucose [mass/volume ] in capillary blood by glucometer 116 mg/dL low: 70mg/d Lhigh: 99mg/d L high Gluco se WB/PO C 116 (H) 70 - 99 mg/dL 01/09 11:43 AM [employer] [facility] Not Available Not Available 01/13/2025 11:05:20 01/08/20 25 01/09/2025 Gluco se [Mass /volu me] in Arter ial blood specimen source identified Cap Finger stick Speci men Type Jeronimo montero k 01/09 11:43 AM [employer] [facility] Not Available Not Available 01/13/2025 11:05:20 01/08/20 25 01/09/2025 Gluco se [Mass /volu me] in Arter ial blood interpretati on and review of laboratory results Abnorm al Not Available Not Available 11:05:20 01/08/20 25 01/08/2025 Gluco se [Mass /volu me] in Arter ial blood glucose [mass/volume ] in capillary blood by glucometer 129 mg/dL low: 70mg/d Lhigh: 99mg/d L high Gluco se WB/PO C 129 (H) 70 - 99 mg/dL 01/08 5:39 PM [employer] [facility] Not Available Not Available 01/13/2025 11:05:20 01/08/20 25 01/08/2025 Gluco se [Mass /volu me] in Arter ial blood specimen source identified Cap Finger stick Speci men Type Jeronimo montero k 01/08 5:39 PM [employer] [facility] Not Available Not Available 01/13/2025 11:05:20 01/08/20 25 01/08/2025 Gluco se [Mass /volu me] in Arter ial blood interpretati on and review of laboratory results Abnorm al Not Available Not Available 11:05:20 01/08/20 25 01/08/2025 Gluco se [Mass /volu me] in Arter ial blood glucose [mass/volume ] in capillary blood by glucometer 139 mg/dL low: 70mg/d Lhigh: 99mg/d L high Gluco se WB/PO C 139 (H) 70 - 99 mg/dL 01/08 12:05 PM [employer] [facility] Not Available Not Available 01/13/2025 11:05:20 01/08/20 25 01/08/2025 Gluco se [Mass /volu me] in Arter ial blood specimen source identified Cap Finger stick Speci men Type Cap Jine rstic k 01/08 12:05 PM [employer] [facility] Not Available Not Available 01/13/2025 11:05:20 01/08/20 25 01/08/2025 Gluco se [Mass /volu me] in Arter ial blood interpretati on and review of laboratory results Abnorm al Not Available Not Available 11:05:20 01/08/20 25 01/08/2025 Gluco se [Mass /volu me] in Arter ial blood glucose [mass/volume ] in capillary blood by glucometer 128 mg/dL low: 70mg/d Lhigh: 99mg/d L high Gluco se WB/PO C 128 (H) 70 - 99 mg/dL 01/08 12:05 PM [employer] [facility] Not Available Not Available 01/13/2025 11:05:20 01/08/20 25 01/08/2025 Gluco se [Mass /volu me] in Arter ial blood specimen source identified Cap Finger stick Speci men Type Cap Jine rstic k 01/08 12:05 PM [employer] [facility] Not Available Not Available 01/13/2025 11:05:20 01/08/20 25 01/08/2025 Gluco se [Mass /volu me] in Arter ial blood interpretati on and review of laboratory results Abnorm al Not Available Not Available 11:05:20 01/08/20 25 01/08/2025 Compr ehens mackenzie metab olic 1999 panel - Serum or Plasm a glucose [mass/volume ] in serum or plasma 132 mg/dL low: 70mg/d Lhigh: 99mg/d L high Gluco se 132 (H) 70 - 99 mg/dL 01/08 4:36 AM [employer] [facility] Not Available Not Available 01/13/2025 11:05:20 01/08/20 25 01/08/2025 Compr ehens mackenzie metab olic 2000 panel - Serum or Plasm a sodium [moles/volum e] in serum or plasma 137 mmol/ L low: 136mmo l/Lhig h: 145mmo l/L Sodiu m 137 136 - 145 mmol/ L 01/08 4:36 AM [employer] [facility] Not Available Not Available 01/13/2025 11:05:20 01/08/2001/08/2025 Compr ehens mackenzie metab olic 1999 panel - Serum or Plasm a potassium [moles/volum e] in serum or plasma 3.8 mmol/ L low: 3.5mmo l/Lhig h: 5.1mmo l/L Potas sium 3.8 3.5 - 5.1 mmol/ L 01/08 4:36 AM [facility] Not Available Not Available 01/13/2025 11:05:20 01/08/2001/08/2025 Compr ehens mackenzie metab olic 2000 panel - Serum or Plasm a chloride [moles/volum e] in serum or plasma 109 mmol/ L low: 98mmol /Lhigh : 107mmo l/L high Chlor dallas 109 (H) 98 - 107 mmol/ L 01/08 4:36 AM [facility] Not Available Not Available 01/13/2025 11:05:20 01/08/20 25 01/08/2025 Compr ehens mackenzie metab olic 1999 panel - Serum or Plasm a carbon dioxide, total [moles/volum e] in serum or plasma 21 mmol/ L low: 22mmol /Lhigh : 29mmol /L low CO2 21 (L) 22 - 29 mmol/ L 01/08 4:36 AM [facility] Not Available Not Available 01/13/2025 11:05:20 01/08/2001/08/2025 Compr ehens mackenzie metab olic 1999 panel - Serum or Plasm a calcium [mass/volume ] in serum or plasma 8.2 mg/dL low: 8.4mg/ dLhigh : 10.4mg /dL low Calci um 8.2 (L) 8.4 - 10.4 mg/dL 01/08 4:36 AM [facility] Not Available Not Available 01/13/2025 11:05:20 01/08/20 25 01/08/2025 Compr ehens mackenzie metab olic 2000 panel - Serum or Plasm a anion gap in blood 7 mmol/ L low: 6mmol/ Lhigh: 16mmol /L Anion Gap 7 6 - 16 mmol/ L 01/08 4:36 AM [employer] [facility] Not Available Not Available 01/13/2025 11:05:20 01/08/20 25 01/08/2025 Compr [employer] mackenzie metab olic 1999 panel - Serum or Plasm a urea nitrogen [mass/volume ] in serum or plasma 15 mg/dL low: 7mg/dL high: 26mg/d L BUN 15 7 - 26 mg/dL 01/08 4:36 AM [employer] [facility] Not Available Not Available 01/13/2025 11:05:20 01/08/2001/08/2025 Compr [employer] mackenzie metab olic 1999 panel - Serum or Plasm a creatinine [mass/volume ] in serum or plasma 1.02 mg/dL low: 0.72mg /dLhig h: 1.25mg /dL Creat inine 1.02 0.72 - 1.25 mg/dL 01/08 4:36 AM [employer] [facility] Not Available Not Available 01/13/2025 11:05:20 01/08/20 25 01/08/2025 Compr [employer] mackenzie metab olic 1999 panel - Serum or Plasm a alkaline phosphatase [enzymatic activity/vol ume] in serum or plasma 235 U/L low: 40U/Lh igh: 150U/L high Alkal ine Phosp hatas e 235 (H) 40 - 150 U/L 01/08 4:36 AM [employer] [facility] Not Available Not Available 01/13/2025 11:05:20 01/08/20 25 01/08/2025 Compr [employer] mackenzie metab olic 1999 panel - Serum or Plasm a alanine aminotransfe rase [enzymatic activity/vol ume] in serum or plasma 109 U/L low: 0U/Lhi gh: 55U/L high ALT 109 (H) 0 - 55 U/L 01/08 4:36 AM [employer] [facility] Not Available Not Available 01/13/2025 11:05:20 01/08/20 25 01/08/2025 Compr [employer] mackenzie metab olic 1999 panel - Serum or Plasm a aspartate aminotransfe rase [enzymatic activity/vol ume] in serum or plasma 63 U/L low: 5U/Lhi gh: 34U/L high AST 63 (H) 5 - 34 U/L 01/08 4:36 AM [employer] [facility] Not Available Not Available 01/13/2025 11:05:20 01/08/20 25 01/08/2025 Compr [employer] panel - Serum or Plasm a protein [mass/volume ] in serum or plasma 6.3 text: 6.4 - 8.3 gm/dL low Prote in Total 6.3 (L) 6.4 - 8.3 gm/dL 01/08 4:36 AM [employer] [facility] Not Available Not Available 01/13/2025 11:05:20 01/08/2001/08/2025 [employer] panel - Serum or Plasm a albumin [mass/volume ] in serum or plasma 2.6 text: 3.4 - 5.0 gm/dL low Album in 2.6 (L) 3.4 - 5.0 gm/dL 01/08 4:36 AM [employer] [facility] Not Available Not Available 01/13/2025 11:05:20 01/08/2001/08/2025 Compr [employer] panel - Serum or Plasm a bilirubin.to margaret [mass/volume ] in serum or plasma 0.8 mg/dL low: 0.2mg/ dLhigh : 1.2mg/ dL Bilir ubin Total 0.8 0.2 - 1.2 mg/dL 01/08 4:36 AM [facility] Not Available Not Available 01/13/2025 11:05:20 01/08/20 25 01/08/2025 Compr [employer] panel - Serum or Plasm a glomerular filtration rate/1.73 sq M.predicted [volume rate/area] in serum, plasma or blood by creatinine-b ased formula (CKD-epi 2020) 83 text: >=90 mL/min /1.73 m2 low eGFR by CKD-E PI 83 (L) >=90 mL/mi n/1.7 3 m2 01/08 4:36 AM [employer] [facility] Not Available Not Available 01/13/2025 11:05:20 01/08/2001/08/2025 Compr ehens mackenzie metab olic 2000 panel - Serum or Plasm a interpretati on and review of laboratory results Abnorm al Not Available Not Available 11:05:20 01/08/20 25 01/08/2025 CBC panel - Blood by Autom ated count leukocytes [#/volume] in blood by automated count 5.4 text: 4.0 - 10.7 x10e9/ L WBC 5.4 4.0 - 10.7 x10E9 /L 01/08 4:29 AM [employer] [facility] Not Available Not Available 01/13/2025 11:05:20 01/08/2001/08/2025 CBC panel - Blood by Autom ated count erythrocytes [#/volume] in blood by automated count 5.18 text: 4.30 - 5.80 x10e12 /L RBC Count 5.18 4.30 - 5.80 x10E1 2/L 01/08 4:29 AM [employer] [facility] Not Available Not Available 01/13/2025 11:05:20 01/08/2001/08/2025 CBC panel - Blood by Autom ated count hemoglobin [mass/volume ] in blood 13.8 g/dL low: 13.3g/ dLhigh : 17.5g/ dL Hemog lobin 13.8 13.3 - 17.5 g/dL 01/08 4:29 AM [employer] [facility] Not Available Not Available 01/13/2025 11:05:20 01/08/2001/08/2025 CBC panel - Blood by Autom ated count hematocrit [volume fraction] of blood by automated count 42.5 % low: 38.7%h igh: 51.1% Hemat ocrit 42.5 38.7 - 51.1 % 01/08 4:29 AM [employer] [facility] Not Available Not Available 01/13/2025 11:05:20 01/08/20 25 01/08/2025 CBC panel - Blood by Autom ated count MCV [entitic volume] by automated count 82 fL low: 80fLhi gh: 98fL MCV 82.0 80.0 - 98.0 fL 01/08 4:29 AM [facility] Not Available Not Available 01/13/2025 11:05:20 01/08/2001/08/2025 CBC panel - Blood by Autom ated count MCH [entitic mass] by automated count 26.6 pg low: 26.7pg high: 33.6pg low MCH 26.6 (L) 26.7 - 33.6 pg 01/08 4:29 AM [employer] [facility] Not Available Not Available 01/13/2025 11:05:20 01/08/2001/08/2025 CBC panel - Blood by Autom ated count MCHC [mass/volume ] by automated count 32.5 g/dL low: 31.7g/ dLhigh : 36.3g/ dL MCHC 32.5 31.7 - 36.3 g/dL 01/08 4:29 AM [facility] Not Available Not Available 01/13/2025 11:05:20 01/08/2001/08/2025 CBC panel - Blood by Autom ated count erythrocyte distribution width [ratio] by automated count 14.1 % low: 11.3%h igh: 14.8% RDW-C V 14.1 11.3 - 14.8 % 01/08 4:29 AM [facility] Not Available Not Available 01/13/2025 11:05:20 01/08/2001/08/2025 CBC panel - Blood by Autom ated count platelets [#/volume] in blood by automated count 170 text: 150 - 420 x10e9/ L Plate let Count 170 150 - 420 x10E9 /L 01/08 4:29 AM [facility] Not Available Not Available 01/13/2025 11:05:20 01/08/2001/08/2025 CBC panel - Blood by Autom ated count platelet mean volume [entitic volume] in blood by automated count 11 fL low: 7.8fLh igh: 11.4fL MPV 11.0 7.8 - 11.4 fL 02/14 /2025 4:29 AM [employer] [facility] Not Available Not Available 01/13/2025 11:05:20 01/08/2001/08/2025 CBC panel - Blood by Autom ated count interpretati on and review of laboratory results Abnorm al Not Available Not Available 11:05:20 01/08/2001/08/2025 Hemog lobin A1c/H emogl obin. total in Blood hemoglobin A1C/hemoglob in.total in blood 6.9 % high: 5.7% high Hemog lobin A1c 6.9 (H) <5.7 % 01/08 4:35 AM [employer] [facility] Not Available Not Available 01/13/2025 11:05:02 01/08/2001/08/2025 Hemog lobin A1c/H emogl obin. total in Blood glucose mean value [mass/volume ] in blood estimated from glycated hemoglobin 151 mg/dL Estim ated [place] [facility] Gluco se 151 mg/dL 01/08 4:35 AM [employer] [facility] Not Available Not Available 01/13/2025 11:05:02 01/08/2001/08/2025 Hemog lobin A1c/H emogl obin. total in Blood Unknown Analyte HbA1c Interp retati on: Normal : < 5.7% Pre-di abetes : 5.7-6. 4% Diabet es: Equal to or greate r than 6.5% Test result s diagno stic of diabet es should be repeat ed for confir mation . Treatm ent target values recomm ended by ADA and other clinic al organi zation s should be used to evalua te metabo lic contro l in patien ts. This test should not replac e glucos e testin g for patien ts with Type 1 diabet es, pediat phong patien ts, or pregna nt women. Falsel y low HbA1c result s may be observ ed in patien ts with clinic al condit ions that shorte n erythr ocyte life span or decrea se mean erythr ocyte age such as the presen ce of unstab le hemogl obin varian ts, elevat ed hemogl obin F level or other causes of hemoly tic anemia . HbA1c may not accura tely reflec t glycem ic contro l when clinic al condit ions that affect erythr ocyte surviv al are presen t. Severe Iron defici ency anemia may yield falsel y high result s. Hemogl obin A1c assay should not be used to diagno se or monito r diabet es in patien ts with malign bautista, recent blood transf usion, chroni c kidney or liver diseas e. This method may yield falsel y low result s when hemogl obin (HbF) exceed s 5% in the specim en. The [employer] Alinit y assay for the measur ement of HbA1c is a Nation al Glycoh emoglo bin Standa rdizat ion Progra m (NGSP) certif ied method . HbA1c Inter preta tion: Shante l: < 5.7% Pre-d iabet es: 5.7-6 .4% Diabe sonja: Equal to or great er than 6.5% Test resul ts diagn ostic of diabe sonja shoul d be repea dayna for confi rmati on. Treat ment targe t value s recom gabi d by ADA and other clini anthony organ izati ons shoul d be used to evalu ate metab olic contr ol in patie nts. This test shoul d not repla ce gluco se testi ng for patie nts with Type 1 diabe sonja, pedia tric patie nts, or pregn ant women . False ly low HbA1c resul ts may be obser mariel in patie nts with clini anthony condi tions that short en eryth rocyt e life span or decre ase mean eryth rocyt e age such as the prese nce of unsta ble hemog lobin varia nts, eleva dayna hemog lobin F level or other cause s of hemol ytic anemi a. HbA1c may not accur ately refle ct glyce gloria contr ol when clini anthony condi tions that affec t eryth rocyt e survi huyen are prese nt. Sever e Iron defic iency anemi a may yield false ly high resul ts. Hemog lobin A1c assay shoul d not be used to diagn ose or monit or diabe sonja in patie nts with malig adilene , recen t blood trans fusio n, chron ic kidne y or liver disea se. This metho d may yield false ly low resul ts when hemog lobin (HbF) excee ds 5% in the speci men. The Justyn[employer] jake Harper ty assay for the measu remen t of HbA1c is a Jazmin castillo Glyco hemog lobin Stand vianey ation Progr am (NGSP ) certi fied metho d. Not Available Not Available 01/13/2025 11:05:02 01/08/20 25 01/08/2025 Hemog lobin A1c/H emogl obin. total in Blood interpretati on and review of laboratory results Abnorm al Not Available Not Available 11:05:02 01/08/20 25 01/08/2025 Gluco se [Mass /volu me] in Arter ial blood glucose [mass/volume ] in capillary blood by glucometer 135 mg/dL low: 70mg/d Lhigh: 99mg/d L high Gluco se WB/PO C 135 (H) 70 - 99 mg/dL 01/08 3:53 AM [employer] [facility] Not Available Not Available 01/13/2025 11:05:19 01/08/20 25 01/08/2025 Gluco se [Mass /volu me] in Arter ial blood specimen source identified Cap Finger stick Speci men Type Cap Finge rstic k 01/08 3:53 AM [employer] [facility] [facility] Not Available Not Available 01/13/2025 11:05:19 01/08/20 25 01/08/2025 Gluco se [Mass /volu me] in Arter ial blood interpretati on and review of laboratory results Abnorm al Not Available Not Available 11:05:19 01/08/20 25 01/08/2025 Gluco se [Mass /volu me] in Arter ial blood glucose [mass/volume ] in capillary blood by glucometer 143 mg/dL low: 70mg/d Lhigh: 99mg/d L high Gluco se WB/PO C 143 (H) 70 - 99 mg/dL 01/07 11:06 PM [facility] Not Available Not Available 01/13/2025 11:05:19 01/08/20 25 01/08/2025 Gluco se [Mass /volu me] in Arter ial blood specimen source identified Cap Finger stick Speci men Type Cap Arelis rstic k 01/07 11:06 PM [facility] [facility] Not Available Not Available 01/13/2025 11:05:19 01/08/20 25 01/08/2025 Gluco se [Mass /volu me] in Arter ial blood interpretati on and review of laboratory results Abnorm al Not Available Not Available 11:05:19 01/09/20 25 01/09/2025 Gluco se [Mass /volu me] in Arter ial blood glucose [mass/volume ] in capillary blood by glucometer 146 mg/dL low: 70mg/d Lhigh: 99mg/d L high Gluco se WB/PO C 146 (H) 70 - 99 mg/dL 01/09 8:07 PM [facility] [facility] Not Available Not Available 01/13/2025 11:05:21 01/09/20 25 01/09/2025 Gluco se [Mass /volu me] in Arter ial blood specimen source identified Cap Finger stick Speci men Type Cap Arelis rstic k 01/09 8:07 PM [facility] [facility] [facility] Not Available Not Available 01/13/2025 11:05:21 01/09/20 25 01/09/2025 Gluco se [Mass /volu me] in Arter ial blood interpretati on and review of laboratory results Abnorm al Not Available Not Available 11:05:21 01/09/20 25 01/09/2025 Gluco se [Mass /volu me] in Arter ial blood glucose [mass/volume ] in capillary blood by glucometer 160 mg/dL low: 70mg/d Lhigh: 99mg/d L high Gluco se WB/PO C 160 (H) 70 - 99 mg/dL 01/09 5:28 PM [facility] [facility] [facility] Not Available Not Available 01/13/2025 11:05:21 01/09/20 25 01/09/2025 Gluco se [Mass /volu me] in Arter ial blood specimen source identified Cap Finger stick Speci men Type Cap Jine rstic k 01/09 5:28 PM [facility] [facility] Not Available Not Available 01/13/2025 11:05:21 01/09/20 25 01/09/2025 Gluco se [Mass /volu me] in Arter ial blood interpretati on and review of laboratory results Abnorm al Not Available Not Available 11:05:21 01/09/20 25 01/09/2025 Gluco se [Mass /volu me] in Arter ial blood glucose [mass/volume ] in capillary blood by glucometer 187 mg/dL low: 70mg/d Lhigh: 99mg/d L high Gluco se WB/PO C 187 (H) 70 - 99 mg/dL 01/09 5:27 PM [facility] [facility] Not Available Not Available 01/13/2025 11:05:21 01/09/20 25 01/09/2025 Gluco se [Mass /volu me] in Arter ial blood specimen source identified Cap Finger stick Speci men Type Cap Arelis rstic k 01/09 5:27 PM [facility] [facility] [facility] Not Available Not Available 01/13/2025 11:05:21 01/09/20 25 01/09/2025 Gluco se [Mass /volu me] in Arter ial blood interpretati on and review of laboratory results Abnorm al Not Available Not Available 11:05:21 01/09/20 25 01/09/2025 Gluco se [Mass /volu me] in Arter ial blood glucose [mass/volume ] in capillary blood by glucometer 158 mg/dL low: 70mg/d Lhigh: 99mg/d L high Gluco se WB/PO C 158 (H) 70 - 99 mg/dL 01/09 12:00 PM [facility] [facility] Not Available Not Available 01/13/2025 11:05:21 01/09/20 25 01/09/2025 Gluco se [Mass /volu me] in Arter ial blood specimen source identified Cap Finger stick Speci men Type Cap Jine rstic k 01/09 12:00 PM [facility] [facility] Not Available Not Available 01/13/2025 11:05:21 01/09/20 25 01/09/2025 Gluco se [Mass /volu me] in Arter ial blood interpretati on and review of laboratory results Abnorm al Not Available Not Available 11:05:21 01/09/20 25 01/09/2025 Gluco se [Mass /volu me] in Arter ial blood glucose [mass/volume ] in capillary blood by glucometer 131 mg/dL low: 70mg/d Lhigh: 99mg/d L high Gluco se WB/PO C 131 (H) 70 - 99 mg/dL 01/09 9:10 AM [employer] [facility] [facility] Not Available Not Available 01/13/2025 11:05:21 01/09/20 25 01/09/2025 Gluco se [Mass /volu me] in Arter ial blood specimen source identified Cap Finger stick Speci men Type Cap Finge rstic k 01/09 9:10 AM [employer] [facility] Not Available Not Available 01/13/2025 11:05:21 01/09/2001/09/2025 Gluco se [Mass /volu me] in Arter ial blood interpretati on and review of laboratory results Abnorm al Not Available Not Available 11:05:21 01/09/20 25 01/09/2025 Compr ehens mackenzie metab olic 2000 panel - Serum or Plasm a glucose [mass/volume ] in serum or plasma 116 mg/dL low: 70mg/d Lhigh: 99mg/d L high Gluco se 116 (H) 70 - 99 mg/dL 01/09 5:16 AM [facility] [facility] Not Available Not Available 01/13/2025 11:05:21 01/09/20 25 01/09/2025 Compr ehens mackenzie metab olic 2000 panel - Serum or Plasm a sodium [moles/volum e] in serum or plasma 139 mmol/ L low: 136mmo l/Lhig h: 145mmo l/L Sodiu m 139 136 - 145 mmol/ L 01/09 5:16 AM [facility] [facility] [facility] Not Available Not Available 01/13/2025 11:05:21 01/09/20 25 01/09/2025 Compr ehens mackenzie metab olic 2000 panel - Serum or Plasm a potassium [moles/volum e] in serum or plasma 3.9 mmol/ L low: 3.5mmo l/Lhig h: 5.1mmo l/L Potas sium 3.9 3.5 - 5.1 mmol/ L 01/09 5:16 AM [facility] [facility] [facility] Not Available Not Available 01/13/2025 11:05:21 01/09/20 25 01/09/2025 Compr ehens mackenzie metab olic 1999 panel - Serum or Plasm a chloride [moles/volum e] in serum or plasma 109 mmol/ L low: 98mmol /Lhigh : 107mmo l/L high Chlor [place] 109 (H) 98 - 107 mmol/ L 01/09 5:16 AM [facility] [facility] [facility] Not Available Not Available 01/13/2025 11:05:21 01/09/20 25 01/09/2025 Compr ehens mackenzie metab olic 2000 panel - Serum or Plasm a carbon dioxide, total [moles/volum e] in serum or plasma 22 mmol/ L low: 22mmol /Lhigh : 29mmol /L CO2 22 22 - 29 mmol/ L 01/09 5:16 AM [facility] [facility] Not Available Not Available 01/13/2025 11:05:21 01/09/2001/09/2025 Compr ehens mackenzie metab olic 2000 panel - Serum or Plasm a calcium [mass/volume ] in serum or plasma 8.5 mg/dL low: 8.4mg/ dLhigh : 10.4mg /dL Calci um 8.5 8.4 - 10.4 mg/dL 01/09 5:16 AM [employer] [facility] Not Available Not Available 01/13/2025 11:05:21 01/09/20 25 01/09/2025 Compr ehens mackenzie metab olic 2000 panel - Serum or Plasm a anion gap in blood 8 mmol/ L low: 6mmol/ Lhigh: 16mmol /L Anion Gap 8 6 - 16 mmol/ L 01/09 5:16 AM [facility] [facility] Not Available Not Available 01/13/2025 11:05:21 01/09/20 25 01/09/2025 Compr ehens mackenzie metab olic 2000 panel - Serum or Plasm a urea nitrogen [mass/volume ] in serum or plasma 14 mg/dL low: 7mg/dL high: 26mg/d L BUN 14 7 - 26 mg/dL 01/09 5:16 AM [employer] [facility] Not Available Not Available 01/13/2025 11:05:21 01/09/20 25 01/09/2025 Compr [employer] mackenzie metab olic 1999 panel - Serum or Plasm a creatinine [mass/volume ] in serum or plasma 0.82 mg/dL low: 0.72mg /dLhig h: 1.25mg /dL Creat inine 0.82 0.72 - 1.25 mg/dL 01/09 5:16 AM [facility] [facility] Not Available Not Available 01/13/2025 11:05:21 01/09/2001/09/2025 Compr ehens mackenzie metab olic 1999 panel - Serum or Plasm a alkaline phosphatase [enzymatic activity/vol ume] in serum or plasma 238 U/L low: 40U/Lh igh: 150U/L high Alkal ine Phosp hatas e 238 (H) 40 - 150 U/L 01/09 5:16 AM [employer] [facility] Not Available Not Available 01/13/2025 11:05:21 01/09/2001/09/2025 Compr [employer] mackenzie metab olic 1999 panel - Serum or Plasm a alanine aminotransfe rase [enzymatic activity/vol ume] in serum or plasma 86 U/L low: 0U/Lhi gh: 55U/L high ALT 86 (H) 0 - 55 U/L 01/09 5:16 AM [employer] [facility] Not Available Not Available 01/13/2025 11:05:21 01/09/20 25 01/09/2025 Compr ehens mackenzie metab olic 1999 panel - Serum or Plasm a aspartate aminotransfe rase [enzymatic activity/vol ume] in serum or plasma 45 U/L low: 5U/Lhi gh: 34U/L high AST 45 (H) 5 - 34 U/L 01/09 5:16 AM [employer] [facility] Not Available Not Available 01/13/2025 11:05:21 0201/09/2025 Compr [employer] 1999 panel - Serum or Plasm a protein [mass/volume ] in serum or plasma 6.4 text: 6.4 - 8.3 gm/dL Prote in Total 6.4 6.4 - 8.3 gm/dL 01/09 5:16 AM [employer] [facility] Not Available Not Available 01/13/2025 11:05:21 01/09/2001/09/2025 Compr [employer] 2000 panel - Serum or Plasm a albumin [mass/volume ] in serum or plasma 2.5 text: 3.4 - 5.0 gm/dL low Album in 2.5 (L) 3.4 - 5.0 gm/dL 01/09 5:16 AM [employer] [facility] Not Available Not Available 01/13/2025 11:05:21 01/09/2001/09/2025 Compr [employer] 2000 panel - Serum or Plasm a bilirubin.to margaret [mass/volume ] in serum or plasma 0.6 mg/dL low: 0.2mg/ dLhigh : 1.2mg/ dL Bilir ubin Total 0.6 0.2 - 1.2 mg/dL 01/09 5:16 AM [employer] [facility] Not Available Not Available 01/13/2025 11:05:21 01/09/2001/09/2025 Compr [employer] 2000 panel - Serum or Plasm a glomerular filtration rate/1.73 sq M.predicted [volume rate/area] in serum, plasma or blood by creatinine-b ased formula (CKD-epi 2020) text: >=90 mL/min /1.73 m2 eGFR by CKD-E PI >90 >=90 mL/mi n/1.7 3 m2 01/09 5:16 AM [employer] [facility] Not Available Not Available 01/13/2025 11:05:21 01/09/2001/09/2025 Compr [employer] 2000 panel - Serum or Plasm a interpretati on and review of laboratory results Abnorm al Not Available Not Available 11:05:21 01/09/2001/09/2025 CBC panel - Blood by Autom ated count leukocytes [#/volume] in blood by automated count 5 text: 4.0 - 10.7 x10e9/ L WBC 5.0 4.0 - 10.7 x10E9 /L 01/09 4:57 AM [employer] [facility] Not Available Not Available 01/13/2025 11:05:20 01/09/2001/09/2025 CBC panel - Blood by Autom ated count erythrocytes [#/volume] in blood by automated count 5.72 text: 4.30 - 5.80 x10e12 /L RBC Count 5.72 4.30 - 5.80 x10E1 2/L 01/09 4:57 AM [employer] [facility] Not Available Not Available 01/13/2025 11:05:01/09/2001/09/2025 CBC panel - Blood by Autom ated count hemoglobin [mass/volume ] in blood 14.8 g/dL low: 13.3g/ dLhigh : 17.5g/ dL Hemog lobin 14.8 13.3 - 17.5 g/dL 01/09 4:57 AM [employer] Not Available Not Available 01/13/2025 11:05:20 01/09/2001/09/2025 CBC panel - Blood by Autom ated count hematocrit [volume fraction] of blood by automated count 47.1 % low: 38.7%h igh: 51.1% Hemat ocrit 47.1 38.7 - 51.1 % 01/09 4:57 AM [facility] Not Available Not Available 01/13/2025 11:05:20 01/09/2001/09/2025 CBC panel - Blood by Autom ated count MCV [entitic volume] by automated count 82.3 fL low: 80fLhi gh: 98fL MCV 82.3 80.0 - 98.0 fL 01/09 4:57 AM [employer] [facility] Not Available Not Available 01/13/2025 11:05:20 01/09/2001/09/2025 CBC panel - Blood by Autom ated count MCH [entitic mass] by automated count 25.9 pg low: 26.7pg high: 33.6pg low MCH 25.9 (L) 26.7 - 33.6 pg 01/09 4:57 AM [employer] [facility] Not Available Not Available 01/13/2025 11:05:20 01/09/2001/09/2025 CBC panel - Blood by Autom ated count MCHC [mass/volume ] by automated count 31.4 g/dL low: 31.7g/ dLhigh : 36.3g/ dL low MCHC 31.4 (L) 31.7 - 36.3 g/dL 01/09 4:57 AM [employer] [facility] Not Available Not Available 01/13/2025 11:05:20 01/09/2001/09/2025 CBC panel - Blood by Autom ated count erythrocyte distribution width [ratio] by automated count 14.6 % low: 11.3%h igh: 14.8% RDW-C V 14.6 11.3 - 14.8 % 01/09 4:57 AM [employer] [facility] Not Available Not Available 01/13/2025 11:05:20 01/09/2001/09/2025 CBC panel - Blood by Autom ated count platelets [#/volume] in blood by automated count 155 text: 150 - 420 x10e9/ L Plate let Count 155 150 - 420 x10E9 /L 01/09 4:57 AM [employer] [facility] Not Available Not Available 01/13/2025 11:05:20 01/09/2001/09/2025 CBC panel - Blood by Autom ated count platelet mean volume [entitic volume] in blood by automated count 10.9 fL low: 7.8fLh igh: 11.4fL MPV 10.9 7.8 - 11.4 fL 01/09 4:57 AM [employer] [facility] Not Available Not Available 01/13/2025 11:05:20 01/09/2001/09/2025 CBC panel - Blood by Autom ated count interpretati on and review of laboratory results Abnorm al Not Available Not Available 11:05:20 01/09/20 25 01/11/2025 ABO and Rh group [Type ] in Blood ABO and Rh group [type] in blood A POS ABO Rh A POS 01/11 10:00 AM [facility] [facility] Not Available Not Available 01/13/2025 11:05:03 01/09/20 25 01/09/2025 Gluco se [Mass /volu me] in Arter ial blood glucose [mass/volume ] in capillary blood by glucometer 124 mg/dL low: 70mg/d Lhigh: 99mg/d L high Gluco se WB/PO C 124 (H) 70 - 99 mg/dL 01/09 11:43 AM [employer] [facility] Not Available Not Available 01/13/2025 11:05:20 01/09/20 25 01/09/2025 Gluco se [Mass /volu me] in Arter ial blood specimen source identified Cap Finger stick Speci men Type Jeronimo denisetic k 01/09 11:43 AM [facility] [facility] Not Available Not Available 01/13/2025 11:05:20 01/09/20 25 01/09/2025 Gluco se [Mass /volu me] in Arter ial blood interpretati on and review of laboratory results Abnorm al Not Available Not Available 11:05:20 01/09/20 25 01/09/2025 Gluco se [Mass /volu me] in Arter ial blood glucose [mass/volume ] in capillary blood by glucometer 177 mg/dL low: 70mg/d Lhigh: 99mg/d L high Gluco se WB/PO C 177 (H) 70 - 99 mg/dL 01/09 11:43 AM [facility] [facility] [facility] Not Available Not Available 01/13/2025 11:05:20 01/09/20 25 01/09/2025 Gluco se [Mass /volu me] in Arter ial blood specimen source identified Cap Finger stick Speci men Type Jeronimo Infante rstic k 01/09 11:43 AM [facility] [facility] Not Available Not Available 01/13/2025 11:05:20 01/09/20 25 01/09/2025 Gluco se [Mass /volu me] in Arter ial blood interpretati on and review of laboratory results Abnorm al Not Available Not Available 11:05:20 01/10/20 25 01/11/2025 Gluco se [Mass /volu me] in Arter ial blood glucose [mass/volume ] in capillary blood by glucometer 164 mg/dL low: 70mg/d Lhigh: 99mg/d L high Gluco se WB/PO C 164 (H) 70 - 99 mg/dL 01/11 4:03 AM [facility] [facility] [facility] Not Available Not Available 01/13/2025 11:05:22 01/10/20 25 01/11/2025 Gluco se [Mass /volu me] in Arter ial blood specimen source identified Cap Finger stick Speci men Type Cap Finge rstic k 01/11 4:03 AM [facility] [facility] Not Available Not Available 01/13/2025 11:05:22 01/10/20 25 01/11/2025 Gluco se [Mass /volu me] in Arter ial blood interpretati on and review of laboratory results Abnorm al Not Available Not Available 11:05:22 01/10/20 25 01/10/2025 Gluco se [Mass /volu me] in Arter ial blood glucose [mass/volume ] in capillary blood by glucometer 172 mg/dL low: 70mg/d Lhigh: 99mg/d L high Gluco se WB/PO C 172 (H) 70 - 99 mg/dL 01/10 10:42 PM [employer] [facility] Not Available Not Available 01/13/2025 11:05:22 01/10/20 25 01/10/2025 Gluco se [Mass /volu me] in Arter ial blood specimen source identified Cap Finger stick Speci men Type Cap Finge rstic k 01/10 10:42 PM [facility] [facility] [facility] Not Available Not Available 01/13/2025 11:05:22 01/10/20 25 01/10/2025 Gluco se [Mass /volu me] in Arter ial blood interpretati on and review of laboratory results Abnorm al Not Available Not Available 11:05:22 01/10/20 25 01/10/2025 Gluco se [Mass /volu me] in Arter ial blood glucose [mass/volume ] in capillary blood by glucometer 188 mg/dL low: 70mg/d Lhigh: 99mg/d L high Gluco se WB/PO C 188 (H) 70 - 99 mg/dL 01/10 1:49 PM [employer] [facility] Not Available Not Available 01/13/2025 11:05:21 01/10/20 25 01/10/2025 Gluco se [Mass /volu me] in Arter ial blood specimen source identified Cap Finger stick Speci men Type Jeronimo Infante rstic k 01/10 1:49 PM [employer] [facility] Not Available Not Available 01/13/2025 11:05:21 01/10/2001/10/2025 Gluco se [Mass /volu me] in Arter ial blood interpretati on and review of laboratory results Abnorm al Not Available Not Available 11:05:21 01/10/20 25 01/10/2025 Gluco se [Mass /volu me] in Arter ial blood glucose [mass/volume ] in capillary blood by glucometer 125 mg/dL low: 70mg/d Lhigh: 99mg/d L high Gluco se WB/PO C 125 (H) 70 - 99 mg/dL 01/10 8:07 AM [employer] [facility] [facility] Not Available Not Available 01/13/2025 11:05:21 01/10/20 25 01/10/2025 Gluco se [Mass /volu me] in Arter ial blood specimen source identified Cap Finger stick Speci men Type Jeronimo Infante rstic k 01/10 8:07 AM [facility] [facility] Not Available Not Available 01/13/2025 11:05:21 01/10/20 25 01/10/2025 Gluco se [Mass /volu me] in Arter ial blood interpretati on and review of laboratory results Abnorm al Not Available Not Available 11:05:21 01/10/20 25 01/10/2025 Gluco se [Mass /volu me] in Arter ial blood glucose [mass/volume ] in capillary blood by glucometer 123 mg/dL low: 70mg/d Lhigh: 99mg/d L high Gluco se WB/PO C 123 (H) 70 - 99 mg/dL 01/10 10:49 AM [facility] [facility] [facility] Not Available Not Available 01/13/2025 11:05:21 01/10/20 25 01/10/2025 Gluco se [Mass /volu me] in Arter ial blood specimen source identified Cap Finger stick Speci men Type Jeronimo denisetic k 01/10 10:49 AM [facility] [facility] [facility] Not Available Not Available 01/13/2025 11:05:21 01/10/20 25 01/10/2025 Gluco se [Mass /volu me] in Arter ial blood interpretati on and review of laboratory results Abnorm al Not Available Not Available 11:05:21 01/10/20 25 01/10/2025 Gluco se [Mass /volu me] in Arter ial blood glucose [mass/volume ] in capillary blood by glucometer 155 mg/dL low: 70mg/d Lhigh: 99mg/d L high Gluco se WB/PO C 155 (H) 70 - 99 mg/dL 01/10 10:49 AM [facility] [facility] [facility] Not Available Not Available 01/13/2025 11:05:21 01/10/20 25 01/10/2025 Gluco se [Mass /volu me] in Arter ial blood specimen source identified Cap Finger stick Speci men Type Jeronimo denisetic k 01/10 10:49 AM [facility] [facility] [facility] Not Available Not Available 01/13/2025 11:05:21 01/10/20 25 01/10/2025 Gluco se [Mass /volu me] in Arter ial blood interpretati on and review of laboratory results Abnorm al Not Available Not Available 11:05:21 01/11/20 25 01/11/2025 Gluco se [Mass /volu me] in Arter ial blood glucose [mass/volume ] in capillary blood by glucometer 307 mg/dL low: 70mg/d Lhigh: 99mg/d L high Gluco se WB/PO C 307 (H) 70 - 99 mg/dL 01/11 8:36 PM [facility] [facility] Not Available Not Available 01/13/2025 11:05:23 02/17/20 25 01/11/2025 Gluco se [Mass /volu me] in Arter ial blood specimen source identified Cap Finger stick Speci men Type Cap Arelis denisetic k 01/11 8:36 PM [facility] [facility] [facility] Not Available Not Available 01/13/2025 11:05:23 01/11/20 25 01/11/2025 Gluco se [Mass /volu me] in Arter ial blood interpretati on and review of laboratory results Abnorm al Not Available Not Available 11:05:23 01/11/20 25 01/11/2025 Gluco se [Mass /volu me] in Arter ial blood glucose [mass/volume ] in capillary blood by glucometer 370 mg/dL low: 70mg/d Lhigh: 99mg/d L high Gluco se WB/PO C 370 (H) 70 - 99 mg/dL 01/11 5:39 PM [employer] [facility] Not Available Not Available 01/13/2025 11:05:22 01/11/20 25 01/11/2025 Gluco se [Mass /volu me] in Arter ial blood specimen source identified Cap Finger stick Speci men Type Cap Arelis rstic k 01/11 5:39 PM [employer] [facility] Not Available Not Available 01/13/2025 11:05:22 01/11/20 25 01/11/2025 Gluco se [Mass /volu me] in Arter ial blood interpretati on and review of laboratory results Abnorm al Not Available Not Available 11:05:22 01/11/20 25 01/11/2025 Gluco se [Mass /volu me] in Arter ial blood glucose [mass/volume ] in capillary blood by glucometer 227 mg/dL low: 70mg/d Lhigh: 99mg/d L high Gluco se WB/PO C 227 (H) 70 - 99 mg/dL 01/11 5:39 PM [facility] [facility] Not Available Not Available 01/13/2025 11:05:22 01/11/20 25 01/11/2025 Gluco se [Mass /volu me] in Arter ial blood specimen source identified Cap Finger stick Speci men Type Cap Jine rstic k 01/11 5:39 PM [facility] [facility] Not Available Not Available 01/13/2025 11:05:22 01/11/2001/11/2025 Gluco se [Mass /volu me] in Arter ial blood interpretati on and review of laboratory results Abnorm al Not Available Not Available 11:05:22 01/11/2001/11/2025 CBC W Auto Diffe renti al panel - Blood leukocytes [#/volume] in blood by automated count 7.2 text: 4.0 - 10.7 x10e9/ L WBC 7.2 4.0 - 10.7 x10E9 /L 01/11 10:42 AM [employer] [facility] Not Available Not Available 01/13/2025 11:05:22 01/11/2001/11/2025 CBC W Auto Diffe renti al panel - Blood erythrocytes [#/volume] in blood by automated count 5.49 text: 4.30 - 5.80 x10e12 /L RBC Count 5.49 4.30 - 5.80 x10E1 2/L 01/11 10:42 AM [employer] [facility] Not Available Not Available 01/13/2025 11:05:22 01/11/20 25 01/11/2025 CBC W Auto Diffe renti al panel - Blood hemoglobin [mass/volume ] in blood 14.4 g/dL low: 13.3g/ dLhigh : 17.5g/ dL Hemog lobin 14.4 13.3 - 17.5 g/dL 01/11 10:42 AM [employer] [facility] Not Available Not Available 01/13/2025 11:05:22 01/11/20 25 01/11/2025 CBC W Auto Diffe renti al panel - Blood hematocrit [volume fraction] of blood by automated count 44.4 % low: 38.7%h igh: 51.1% Hemat ocrit 44.4 38.7 - 51.1 % 01/11 10:42 AM [employer] [facility] Not Available Not Available 01/13/2025 11:05:22 01/11/20 25 01/11/2025 CBC W Auto Diffe renti al panel - Blood MCV [entitic volume] by automated count 80.9 fL low: 80fLhi gh: 98fL MCV 80.9 80.0 - 98.0 fL 01/11 10:42 AM [facility] [facility] [facility] Not Available Not Available 01/13/2025 11:05:22 01/11/20 25 01/11/2025 CBC W Auto Diffe renti al panel - Blood MCH [entitic mass] by automated count 26.2 pg low: 26.7pg high: 33.6pg low MCH 26.2 (L) 26.7 - 33.6 pg 01/11 10:42 AM [facility] [facility] Not Available Not Available 01/13/2025 11:05:22 01/11/2001/11/2025 CBC W Auto Diffe renti al panel - Blood MCHC [mass/volume ] by automated count 32.4 g/dL low: 31.7g/ dLhigh : 36.3g/ dL MCHC 32.4 31.7 - 36.3 g/dL 01/11 10:42 AM [employer] [facility] Not Available Not Available 01/13/2025 11:05:22 01/11/2001/11/2025 CBC W Auto Diffe renti al panel - Blood erythrocyte distribution width [ratio] by automated count 14.1 % low: 11.3%h igh: 14.8% RDW-C V 14.1 11.3 - 14.8 % 01/11 10:42 AM [employer] [facility] Not Available Not Available 01/13/2025 11:05:22 01/11/2001/11/2025 CBC W Auto Diffe renti al panel - Blood platelets [#/volume] in blood by automated count 166 text: 150 - 420 x10e9/ L Plate let Count 166 150 - 420 x10E9 /L 01/11 10:42 AM [employer] [facility] Not Available Not Available 01/13/2025 11:05:22 01/11/20 25 01/11/2025 CBC W Auto Diffe renti al panel - Blood platelet mean volume [entitic volume] in blood by automated count 10.6 fL low: 7.8fLh igh: 11.4fL MPV 10.6 7.8 - 11.4 fL 01/11 10:42 AM [employer] [facility] Not Available Not Available 01/13/2025 11:05:22 01/11/2001/11/2025 CBC W Auto Diffe renti al panel - Blood neutrophils/ 100 leukocytes in blood by automated count 83.7 % low: 41%hig h: 74% high Neutr ophil % 83.7 (H) 41.0 - 74.0 % 01/11 10:42 AM [employer] [facility] Not Available Not Available 01/13/2025 11:05:22 01/11/2001/11/2025 CBC W Auto Diffe renti al panel - Blood lymphocytes/ 100 leukocytes in blood by automated count 8.5 % low: 17%hig h: 47% low Lymph ocyte % 8.5 (L) 17.0 - 47.0 % 01/11 10:42 AM [employer] [facility] Not Available Not Available 01/13/2025 11:05:22 01/11/2001/11/2025 CBC W Auto Diffe renti al panel - Blood monocytes/10 0 leukocytes in blood by automated count 5.7 % low: 3%high : 11% Monoc yte % 5.7 3.0 - 11.0 % 01/11 10:42 AM [employer] [facility] Not Available Not Available 01/13/2025 11:05:22 01/11/2001/11/2025 CBC W Auto Diffe renti al panel - Blood eosinophils/ 100 leukocytes in blood by automated count 0.4 % low: 0%high : 7% Eosin ophil % 0.4 0.0 - 7.0 % 01/11 10:42 AM [employer] [facility] Not Available Not Available 01/13/2025 11:05:22 01/11/2001/11/2025 CBC W Auto Diffe renti al panel - Blood basophils/10 0 leukocytes in blood by automated count 0.3 % low: 0%high : 1.6% Basop hil % 0.3 0.0 - 1.6 % 01/11 10:42 AM [employer] [facility] Not Available Not Available 01/13/2025 11:05:22 01/11/20 25 01/11/2025 CBC W Auto Diffe renti al panel - Blood immature granulocytes /100 leukocytes in blood by automated count 1.4 % low: 0%high : 1% high Immat ure Granu locyt es % 1.4 (H) 0.0 - 1.0 % 01/11 10:42 AM [employer] [facility] Not Available Not Available 01/13/2025 11:05:22 01/11/20 25 01/11/2025 CBC W Auto Diffe renti al panel - Blood neutrophils [#/volume] in blood by automated count 5.98 text: 1.60 - 7.50 x10e9/ L Neutr ophil Absol apache 5.98 1.60 - 7.50 x10E9 /L 01/11 10:42 AM [employer] [facility] Not Available Not Available 01/13/2025 11:05:22 01/11/2001/11/2025 CBC W Auto Diffe renti al panel - Blood lymphocytes [#/volume] in blood by automated count 0.61 text: 1.00 - 4.40 x10e9/ L low Lymph ocyte Absol apache 0.61 (L) 1.00 - 4.40 x10E9 /L 01/11 10:42 AM [employer] [facility] Not Available Not Available 01/13/2025 11:05:22 01/11/2001/11/2025 CBC W Auto Diffe renti al panel - Blood monocytes [#/volume] in blood by automated count 0.41 text: 0.15 - 1.00 x10e9/ L Monoc yte Absol apache 0.41 0.15 - 1.00 x10E9 /L 01/11 10:42 AM [employer] [facility] Not Available Not Available 01/13/2025 11:05:22 01/11/20 25 01/11/2025 CBC W Auto Diffe renti al panel - Blood eosinophils [#/volume] in blood 0.03 text: 0.00 - 0.60 x10e9/ L Eosin ophil Absol apache 0.03 0.00 - 0.60 x10E9 /L 01/11 10:42 AM [employer] [facility] Not Available Not Available 01/13/2025 11:05:22 01/11/2001/11/2025 CBC W Auto Diffe renaquilino al panel - Blood basophils [#/volume] in blood by automated count 0.02 text: 0.00 - 0.13 x10e9/ L Basop hil Absol apache 0.02 0.00 - 0.13 x10E9 /L 01/11 10:42 AM [employer] [facility] Not Available Not Available 01/13/2025 11:05:22 01/11/20 25 01/11/2025 CBC W Auto Diffe renti al panel - Blood interpretati on and review of laboratory results Abnorm al Not Available Not Available 11:05:22 01/11/20 25 01/11/2025 Compr ehens mackenzie metab olic 1999 panel - Serum or Plasm a glucose [mass/volume ] in serum or plasma 218 mg/dL low: 70mg/d Lhigh: 99mg/d L high Gluco se 218 (H) 70 - 99 mg/dL 01/11 10:56 AM [employer] [facility] Not Available Not Available 01/13/2025 11:05:22 01/11/20 25 01/11/2025 Compr ehens mackenzie metab olic 1999 panel - Serum or Plasm a sodium [moles/volum e] in serum or plasma 139 mmol/ L low: 136mmo l/Lhig h: 145mmo l/L Sodiu m 139 136 - 145 mmol/ L 01/11 10:56 AM [employer] [facility] Not Available Not Available 01/13/2025 11:05:22 01/11/20 25 01/11/2025 Compr ehens mackenzie metab olic 2000 panel - Serum or Plasm a potassium [moles/volum e] in serum or plasma 4.5 mmol/ L low: 3.5mmo l/Lhig h: 5.1mmo l/L Potas sium 4.5 3.5 - 5.1 mmol/ L 01/11 10:56 AM [employer] [facility] Not Available Not Available 01/13/2025 11:05:22 01/11/20 25 01/11/2025 Compr ehens mackenzie metab olic 1999 panel - Serum or Plasm a chloride [moles/volum e] in serum or plasma 108 mmol/ L low: 98mmol /Lhigh : 107mmo l/L high Chlor [place] 108 (H) 98 - 107 mmol/ L 01/11 10:56 AM [employer] [facility] Not Available Not Available 01/13/2025 11:05:22 01/11/20 25 01/11/2025 Compr ehens mackenzie metab olic 1999 panel - Serum or Plasm a carbon dioxide, total [moles/volum e] in serum or plasma 22 mmol/ L low: 22mmol /Lhigh : 29mmol /L CO2 22 22 - 29 mmol/ L 01/11 10:56 AM [employer] [facility] Not Available Not Available 01/13/2025 11:05:22 01/11/20 25 01/11/2025 Compr [employer] mackenzie metab olic 1999 panel - Serum or Plasm a calcium [mass/volume ] in serum or plasma 8.5 mg/dL low: 8.4mg/ dLhigh : 10.4mg /dL Calci um 8.5 8.4 - 10.4 mg/dL 01/11 10:56 AM [employer] [facility] Not Available Not Available 01/13/2025 11:05:22 01/11/20 25 01/11/2025 Compr [employer] mackenzie metab olic 1999 panel - Serum or Plasm a anion gap in blood 9 mmol/ L low: 6mmol/ Lhigh: 16mmol /L Anion Gap 9 6 - 16 mmol/ L 01/11 10:56 AM [employer] [facility] Not Available Not Available 01/13/2025 11:05:22 01/11/20 25 01/11/2025 Compr [employer] mackenzie metab olic 2000 panel - Serum or Plasm a urea nitrogen [mass/volume ] in serum or plasma 14 mg/dL low: 7mg/dL high: 26mg/d L BUN 14 7 - 26 mg/dL 01/11 10:56 AM [employer] [facility] Not Available Not Available 01/13/2025 11:05:22 01/11/20 25 01/11/2025 Compr ehens mackenzie metab olic 1999 panel - Serum or Plasm a creatinine [mass/volume ] in serum or plasma 0.85 mg/dL low: 0.72mg /dLhig h: 1.25mg /dL Creat inine 0.85 0.72 - 1.25 mg/dL 01/11 10:56 AM [employer] [facility] Not Available Not Available 01/13/2025 11:05:22 01/11/20 25 01/11/2025 Compr ehens mackenzie metab olic 1999 panel - Serum or Plasm a alkaline phosphatase [enzymatic activity/vol ume] in serum or plasma 246 U/L low: 40U/Lh igh: 150U/L high Alkal ine Phosp hatas e 246 (H) 40 - 150 U/L 01/11 10:56 AM [employer] [facility] Not Available Not Available 01/13/2025 11:05:22 01/11/20 25 01/11/2025 Compr [employer] mackenzie metab olic 1999 panel - Serum or Plasm a alanine aminotransfe rase [enzymatic activity/vol ume] in serum or plasma 86 U/L low: 0U/Lhi gh: 55U/L high ALT 86 (H) 0 - 55 U/L 01/11 10:56 AM [employer] [facility] Not Available Not Available 01/13/2025 11:05:22 01/11/20 25 01/11/2025 Compr [employer] mackenzie metab olic 1999 panel - Serum or Plasm a aspartate aminotransfe rase [enzymatic activity/vol ume] in serum or plasma 85 U/L low: 5U/Lhi gh: 34U/L high AST 85 (H) 5 - 34 U/L 01/11 10:56 AM [employer] [facility] Not Available Not Available 01/13/2025 11:05:22 01/11/20 25 01/11/2025 Compr ehens mackenzie metab olic 1999 panel - Serum or Plasm a protein [mass/volume ] in serum or plasma 6 text: 6.4 - 8.3 gm/dL low Prote in Total 6.0 (L) 6.4 - 8.3 gm/dL 01/11 10:56 AM [employer] [facility] Not Available Not Available 01/13/2025 11:05:22 01/11/20 25 01/11/2025 Compr ehens mackenzie metab olic 2000 panel - Serum or Plasm a albumin [mass/volume ] in serum or plasma 2.3 text: 3.4 - 5.0 gm/dL low Album in 2.3 (L) 3.4 - 5.0 gm/dL 01/11 10:56 AM [employer] [facility] Not Available Not Available 01/13/2025 11:05:22 01/11/2001/11/2025 Compr ehens mackenzie metab olic 2000 panel - Serum or Plasm a bilirubin.to margaret [mass/volume ] in serum or plasma 0.6 mg/dL low: 0.2mg/ dLhigh : 1.2mg/ dL Bilir ubin Total 0.6 0.2 - 1.2 mg/dL 01/11 10:56 AM [employer] [facility] Not Available Not Available 01/13/2025 11:05:22 01/11/2001/11/2025 Compr ehens mackenzie metab olic 2000 panel - Serum or Plasm a glomerular filtration rate/1.73 sq M.predicted [volume rate/area] in serum, plasma or blood by creatinine-b ased formula (CKD-epi 2020) text: >=90 mL/min /1.73 m2 eGFR by CKD-E PI >90 >=90 mL/mi n/1.7 3 m2 01/11 10:56 AM [employer] [facility] Not Available Not Available 01/13/2025 11:05:22 01/11/2001/11/2025 Compr ehens mackenzie metab olic 2000 panel - Serum or Plasm a interpretati on and review of laboratory results Abnorm al Not Available Not Available 11:05:22 01/11/2001/13/2025 Patho logy study pathology report.secti on heading Surgic al Pathol ogy Report Case: [id number] Author irene Martini er: Gael Ghotra MD [facility] dayna: 2024 09:36 AM Orderi ng Locati on: [facility] 2N TELE/O NCOLOG Y Receiv ed: 2024 10:30 AM Pathol ogist: Stephani Ryder MD Specim en: Bulmaro cleaning, bulmaro addladarius Case Repor t Surgi anthony Patho logy Repor t Case: [id number] Autho rishahid g Provi ajith: Emmanuel Ghotra MD Colle cted: 01/11 09:36 AM Order ing Locat ion: [facility] 2N TELE/ ONCOL OGY Recei mariel: 01/11 10:30 AM Patho logis t: Gelacio Ryder MD Speci men: Gallb ladde r, gallb ladde r 01/13 1:51 PM [employer] Not Available Not Available 01/19/2025 03:40:42 01/11/20 25 01/13/2025 Patho logy study pathology report final diagnosis narrative Gallbl adder, cholec ystect slava: -- Cholel ithias is with necrot izing cholec ystiti s Final Diagn osis Gallb ladde r, luna cyste ctomy : -- Luna lithi asis with necro tizin g luna cysti tis 01/13 1:51 PM [employer] Elect miri joshi d by Gelacio Ryder MD on 2024 at 1:51 PM Not Available Not Available 01/19/2025 03:40:42 01/11/20 25 01/13/2025 Patho logy study pathology report relevant history narrative Acute on chroni c cholec ystiti s. Clini anthony Histo ry Acute on chron ic luna cysti tis. 01/13 1:51 PM [employer] [facility] Not Available Not Available 01/19/2025 03:40:42 01/11/20 25 01/13/2025 Patho logy study pathology report gross observation narrative Receiv ed in formal in in a steril e contai ner labele d Juwan Pappas on, bulmaro cleaning, is an 11.8 x 7.8 cm disten ded, dilate d gallbl adder. The serosa is necrot ic black- brown. Sectio ns show a necrot ic brown- green velvet y mucosa . The gallbl adder wall measur es 0.4 cm in thickn ess. Within the gallbl adder is brown bile and three black irregu lar gallst ones rangin g from 0.1 cm to 0.5 cm. Repres entati ve sectio ns are submit dayna in casset te A1. / Gross Descr iptio n Recei mariel in forma haile in a steri le conta iner label ed Juwan Brand son, gallb ladde r, is an 11.8 x 7.8 cm diste nded, dilat ed gallb ladde r. The seros a is necro tic black -brow n. Secti ons show a necro tic brown -gree n velve ty mucos a. The gallb ladde r wall measu res 0.4 cm in thick ness. Withi n the gallb ladde r is brown bile and three black irreg ular galls tones rangi ng from 0.1 cm to 0.5 cm. Repre senta tive secti ons are submi tted in casse tte A1. / 01/13 1:51 PM [employer] Not Available Not Available 01/19/2025 03:40:42 01/11/2001/13/2025 Patho logy study pathology report microscopic observation narrative other stain Micros copic examin ation substa ntiate s the above cited diagno sis. Micro scopi c Descr iptio n Micro scopi c exami natio n subst antia sonja the above cited diagn osis. 01/13 1:51 PM [employer] Not Available Not Available 01/19/2025 03:40:42 01/11/2001/13/2025 Patho logy study service comment All histoc hemica l and/or immuno histoc hemica l result s are interp reted with contro ls that demons trate approp riate staini ng reacti ons before report ing result s. Note on use of immuno cytoch emistr y reagen ts: This test was develo ped and its perfor franssico charac terist sharmila chamorro ined by [facility] , Depart ment of Labora tory Medici ne. It has not been cleare d or approv ed by the [place]. Food and Drug Admini strati on (FDA). The FDA has determ ined that such cleara nce or approv al is not necess glynn. The test is used for clinic al purpos e. It should not be regard ed as invest igatio nal or for resear ch. This labora tory is certif ied to perfor m high comple xity testin g. The perfor fransisco charac terist ics of the IHC/IS H assays have been valida dayna on formal in-fix ed paraff in embedd ed tissue s only. The assays have not been valida dayna on decalc ified tissue s. Result s should be interp reted with nabil n. Discl aimer All histo chemi anthony and/o r immun ohist ochem ical resul ts are inter prete d with contr ols that demon strat e appro priat e stain ing react ions befor e repor ting resul ts. Note on use of immun ocyto chemi stry reage nts: This test was devel oped and its perfo rmanc e alexander cteri stic deter mined by [facility] Dep[facility] tment of Labor atory Medic ine. It has not been clear ed or appro mariel by the U.[place]. Food and Drug Admin istra tion (FDA) . The FDA has deter mined that such clear ance or appro huyen is not neces robin. The test is used for clini anthony purpo se. It shoul d not be regar ded as inves tigat ional or for resea rch. This labor atory is certi fied to perfo rm high compl exity testi ng. The perfo rmanc e alexander cteri stics of the IHC/I SH assay s have been valid ated on forma haile-f ixed paraf fin embed ded tissu es only. The assay s have not been valid ated on decal cifie d tissu es. Resul ts shoul d be inter prete d with cauti on. 01/13 1:51 PM [employer] Not Available Not Available 01/19/2025 03:40:42 01/11/2001/13/2025 Patho logy study embedded images Embed ded Image s 01/13 1:51 PM [employer] [facility] Not Available Not Available 01/19/2025 03:40:42 01/11/2001/11/2025 CBC W Auto Diffe renti al panel - Blood leukocytes [#/volume] in blood by automated count 7.1 text: 4.0 - 10.7 x10e9/ L WBC 7.1 4.0 - 10.7 x10E9 /L 01/11 9:26 AM [employer] [facility] Not Available Not Available 01/13/2025 11:05:22 01/11/2001/11/2025 CBC W Auto Diffe renti al panel - Blood erythrocytes [#/volume] in blood by automated count 5.32 text: 4.30 - 5.80 x10e12 /L RBC Count 5.32 4.30 - 5.80 x10E1 2/L 01/11 9:26 AM [employer] [facility] Not Available Not Available 01/13/2025 11:05:22 01/11/2001/11/2025 CBC W Auto Diffe renti al panel - Blood hemoglobin [mass/volume ] in blood 13.8 g/dL low: 13.3g/ dLhigh : 17.5g/ dL Hemog lobin 13.8 13.3 - 17.5 g/dL 01/11 9:26 AM [employer] [facility] Not Available Not Available 01/13/2025 11:05:22 01/11/2001/11/2025 CBC W Auto Diffe renti al panel - Blood hematocrit [volume fraction] of blood by automated count 42.7 % low: 38.7%h igh: 51.1% Hemat ocrit 42.7 38.7 - 51.1 % 01/11 9:26 AM [employer] [facility] Not Available Not Available 01/13/2025 11:05:22 01/11/20 25 01/11/2025 CBC W Auto Diffe renti al panel - Blood MCV [entitic volume] by automated count 80.3 fL low: 80fLhi gh: 98fL MCV 80.3 80.0 - 98.0 fL 01/11 9:26 AM [employer] [facility] Not Available Not Available 01/13/2025 11:05:22 01/11/20 25 01/11/2025 CBC W Auto Diffe renti al panel - Blood MCH [entitic mass] by automated count 25.9 pg low: 26.7pg high: 33.6pg low MCH 25.9 (L) 26.7 - 33.6 pg 01/11 9:26 AM [employer] [facility] Not Available Not Available 01/13/2025 11:05:22 01/11/20 25 01/11/2025 CBC W Auto Diffe renti al panel - Blood MCHC [mass/volume ] by automated count 32.3 g/dL low: 31.7g/ dLhigh : 36.3g/ dL MCHC 32.3 31.7 - 36.3 g/dL 01/11 9:26 AM [employer] [facility] Not Available Not Available 01/13/2025 11:05:22 01/11/2001/11/2025 CBC W Auto Diffe jaysonti al panel - Blood erythrocyte distribution width [ratio] by automated count 14.2 % low: 11.3%h igh: 14.8% RDW-C V 14.2 11.3 - 14.8 % 01/11 9:26 AM [employer] [facility] Not Available Not Available 01/13/2025 11:05:22 01/11/20 25 01/11/2025 CBC W Auto Diffe jaysonti al panel - Blood platelets [#/volume] in blood by automated count 165 text: 150 - 420 x10e9/ L Plate let Count 165 150 - 420 x10E9 /L 01/11 9:26 AM [employer] [facility] Not Available Not Available 01/13/2025 11:05:22 01/11/20 25 01/11/2025 CBC W Auto Diffe renti al panel - Blood platelet mean volume [entitic volume] in blood by automated count 10.8 fL low: 7.8fLh igh: 11.4fL MPV 10.8 7.8 - 11.4 fL 01/11 9:26 AM [employer] [facility] Not Available Not Available 01/13/2025 11:05:22 01/11/20 25 01/11/2025 CBC W Auto Diffe renti al panel - Blood neutrophils/ 100 leukocytes in blood by automated count 77.7 % low: 41%hig h: 74% high Neutr ophil % 77.7 (H) 41.0 - 74.0 % 01/11 9:26 AM [employer] [facility] Not Available Not Available 01/13/2025 11:05:22 01/11/20 25 01/11/2025 CBC W Auto Diffe renti al panel - Blood lymphocytes/ 100 leukocytes in blood by automated count 13.3 % low: 17%hig h: 47% low Lymph ocyte % 13.3 (L) 17.0 - 47.0 % 01/11 9:26 AM [employer] [facility] Not Available Not Available 01/13/2025 11:05:22 01/11/20 25 01/11/2025 CBC W Auto Diffe renti al panel - Blood monocytes/10 0 leukocytes in blood by automated count 6.8 % low: 3%high : 11% Monoc yte % 6.8 3.0 - 11.0 % 01/11 9:26 AM [employer] [facility] Not Available Not Available 01/13/2025 11:05:22 01/11/20 25 01/11/2025 CBC W Auto Diffe renti al panel - Blood eosinophils/ 100 leukocytes in blood by automated count 0.8 % low: 0%high : 7% Eosin ophil % 0.8 0.0 - 7.0 % 01/11 9:26 AM [employer] [facility] Not Available Not Available 01/13/2025 11:05:22 01/11/20 25 01/11/2025 CBC W Auto Diffe renti al panel - Blood basophils/10 0 leukocytes in blood by automated count 0.3 % low: 0%high : 1.6% Basop hil % 0.3 0.0 - 1.6 % 01/11 9:26 AM [employer] [facility] Not Available Not Available 01/13/2025 11:05:22 01/11/20 25 01/11/2025 CBC W Auto Diffe renti al panel - Blood immature granulocytes /100 leukocytes in blood by automated count 1.1 % low: 0%high : 1% high Immat ure Granu locyt es % 1.1 (H) 0.0 - 1.0 % 01/11 9:26 AM [employer] [facility] Not Available Not Available 01/13/2025 11:05:22 01/11/20 25 01/11/2025 CBC W Auto Diffe renti al panel - Blood neutrophils [#/volume] in blood by automated count 5.5 text: 1.60 - 7.50 x10e9/ L Neutr ophil Absol apache 5.50 1.60 - 7.50 x10E9 /L 01/11 9:26 AM [employer] [facility] Not Available Not Available 01/13/2025 11:05:22 01/11/2001/11/2025 CBC W Auto Diffe renti al panel - Blood lymphocytes [#/volume] in blood by automated count 0.94 text: 1.00 - 4.40 x10e9/ L low Lymph ocyte Absol apache 0.94 (L) 1.00 - 4.40 x10E9 /L 01/11 9:26 AM [employer] [facility] Not Available Not Available 01/13/2025 11:05:22 01/11/2001/11/2025 CBC W Auto Diffe renti al panel - Blood monocytes [#/volume] in blood by automated count 0.48 text: 0.15 - 1.00 x10e9/ L Monoc yte Absol apache 0.48 0.15 - 1.00 x10E9 /L 01/11 9:26 AM [employer] [facility] Not Available Not Available 01/13/2025 11:05:22 01/11/20 25 01/11/2025 CBC W Auto Diffe renti al panel - Blood eosinophils [#/volume] in blood 0.06 text: 0.00 - 0.60 x10e9/ L Eosin ophil Absol apache 0.06 0.00 - 0.60 x10E9 /L 01/11 9:26 AM [employer] [facility] Not Available Not Available 01/13/2025 11:05:22 01/11/20 01/11/2025 CBC W Auto Diffe renti al panel - Blood basophils [#/volume] in blood by automated count 0.02 text: 0.00 - 0.13 x10e9/ L Basop hil Absol apache 0.02 0.00 - 0.13 x10E9 /L 01/11 9:26 AM [employer] [facility] Not Available Not Available 01/13/2025 11:05:22 01/11/2001/11/2025 CBC W Auto Diffe renti al panel - Blood interpretati on and review of laboratory results Abnorm al Not Available Not Available 11:05:22 01/11/20 25 01/11/2025 Blood type and Indir ect antib roni scree n panel - Blood ABO and Rh group [type] in blood A POS ABO Rh A POS 01/11 10:00 AM [facility] Not Available Not Available 01/13/2025 11:05:02 01/11/2001/11/2025 Blood type and Indir ect antib roni scree n panel - Blood blood group antibody screen [presence] in serum or plasma NEG Antib roni Scree n NEG 01/11 10:00 AM [employer] [facility] Not Available Not Available 01/13/2025 11:05:02 01/11/20 25 01/11/2025 Gluco se [Mass /volu me] in Arter ial blood glucose [mass/volume ] in capillary blood by glucometer 174 mg/dL low: 70mg/d Lhigh: 99mg/d L high Gluco se WB/PO C 174 (H) 70 - 99 mg/dL 01/11 4:03 AM [facility] [facility] Not Available Not Available 01/13/2025 11:05:22 01/11/20 25 01/11/2025 Gluco se [Mass /volu me] in Arter ial blood specimen source identified Cap Finger stick Speci men Type Cap Finge rstic k 01/11 4:03 AM [facility] [facility] [facility] Not Available Not Available 01/13/2025 11:05:22 01/11/20 25 01/11/2025 Gluco se [Mass /volu me] in Arter ial blood interpretati on and review of laboratory results Abnorm al Not Available Not Available 11:05:22 01/11/20 25 01/12/2025 Gluco se [Mass /volu me] in Arter ial blood glucose [mass/volume ] in capillary blood by glucometer 148 mg/dL low: 70mg/d Lhigh: 99mg/d L high Gluco se WB/PO C 148 (H) 70 - 99 mg/dL 01/12 7:47 AM [employer] [facility] Not Available Not Available 01/13/2025 11:05:22 01/11/20 25 01/12/2025 Gluco se [Mass /volu me] in Arter ial blood specimen source identified Cap Finger stick Speci men Type Cap Jine rstic k 01/12 7:47 AM [employer] Not Available Not Available 01/13/2025 11:05:22 01/11/20 25 01/12/2025 Gluco se [Mass /volu me] in Arter ial blood interpretati on and review of laboratory results Abnorm al Not Available Not Available 11:05:22 01/12/20 25 01/12/2025 Gluco se [Mass /volu me] in Arter ial blood glucose [mass/volume ] in capillary blood by glucometer 319 mg/dL low: 70mg/d Lhigh: 99mg/d L high Gluco se WB/PO C 319 (H) 70 - 99 mg/dL 01/12 8:17 PM [employer] Not Available Not Available 01/13/2025 11:05:23 01/12/20 25 01/12/2025 Gluco se [Mass /volu me] in Arter ial blood specimen source identified Cap Finger stick Speci men Type Cap Finge rstic k 01/12 8:17 PM [employer] Not Available Not Available 01/13/2025 11:05:23 01/12/20 25 01/12/2025 Gluco se [Mass /volu me] in Arter ial blood interpretati on and review of laboratory results Abnorm al Not Available Not Available 11:05:23 01/12/20 25 01/12/2025 Gluco se [Mass /volu me] in Arter ial blood glucose [mass/volume ] in capillary blood by glucometer 327 mg/dL low: 70mg/d Lhigh: 99mg/d L high Gluco se WB/PO C 327 (H) 70 - 99 mg/dL 01/12 8:31 PM [employer] Not Available Not Available 01/13/2025 11:05:23 01/12/20 25 01/12/2025 Gluco se [Mass /volu me] in Arter ial blood specimen source identified Arteri al Speci men Type Arter ial 01/12 8:31 PM [employer] [facility] Not Available Not Available 01/13/2025 11:05:23 01/12/20 25 01/12/2025 Gluco se [Mass /volu me] in Arter ial blood interpretati on and review of laboratory results Abnorm al Not Available Not Available 11:05:23 01/12/20 25 01/12/2025 Gluco se [Mass /volu me] in Arter ial blood glucose [mass/volume ] in capillary blood by glucometer 300 mg/dL low: 70mg/d Lhigh: 99mg/d L high Gluco se WB/PO C 300 (H) 70 - 99 mg/dL 01/12 12:00 PM [employer] Not Available Not Available 01/13/2025 11:05:23 01/12/20 25 01/12/2025 Gluco se [Mass /volu me] in Arter ial blood specimen source identified Arteri al Speci men Type Arter ial 01/12 12:00 PM [employer] [facility] Not Available Not Available 01/13/2025 11:05:23 01/12/20 25 01/12/2025 Gluco se [Mass /volu me] in Arter ial blood interpretati on and review of laboratory results Abnorm al Not Available Not Available 11:05:23 01/12/20 25 01/12/2025 CBC W Auto Diffe renti al panel - Blood leukocytes [#/volume] in blood by automated count 7.2 text: 4.0 - 10.7 x10e9/ L WBC 7.2 4.0 - 10.7 x10E9 /L 01/12 10:34 AM [employer] [facility] [facility] Not Available Not Available 01/13/2025 11:05:02 01/12/2001/12/2025 CBC W Auto Diffe renti al panel - Blood erythrocytes [#/volume] in blood by automated count 4.94 text: 4.30 - 5.80 x10e12 /L RBC Count 4.94 4.30 - 5.80 x10E1 2/L 01/12 10:34 AM [employer] [facility] Not Available Not Available 01/13/2025 11:05:02 01/12/2001/12/2025 CBC W Auto Diffe renti al panel - Blood hemoglobin [mass/volume ] in blood 12.8 g/dL low: 13.3g/ dLhigh : 17.5g/ dL low Hemog lobin 12.8 (L) 13.3 - 17.5 g/dL 01/12 10:34 AM [employer] [facility] Not Available Not Available 01/13/2025 11:05:02 01/12/2001/12/2025 CBC W Auto Diffe renti al panel - Blood hematocrit [volume fraction] of blood by automated count 39.5 % low: 38.7%h igh: 51.1% Hemat ocrit 39.5 38.7 - 51.1 % 01/12 10:34 AM [employer] [facility] Not Available Not Available 01/13/2025 11:05:02 01/12/2001/12/2025 CBC W Auto Diffe renti al panel - Blood MCV [entitic volume] by automated count 80 fL low: 80fLhi gh: 98fL MCV 80.0 80.0 - 98.0 fL 01/12 10:34 AM [employer] [facility] Not Available Not Available 01/13/2025 11:05:02 01/12/2001/12/2025 CBC W Auto Diffe renti al panel - Blood MCH [entitic mass] by automated count 25.9 pg low: 26.7pg high: 33.6pg low MCH 25.9 (L) 26.7 - 33.6 pg 01/12 10:34 AM [employer] [facility] Not Available Not Available 01/13/2025 11:05:02 01/12/2001/12/2025 CBC W Auto Diffe renti al panel - Blood MCHC [mass/volume ] by automated count 32.4 g/dL low: 31.7g/ dLhigh : 36.3g/ dL MCHC 32.4 31.7 - 36.3 g/dL 01/12 10:34 AM [employer] [facility] [facility] Not Available Not Available 01/13/2025 11:05:02 01/12/2001/12/2025 CBC W Auto Diffe renti al panel - Blood erythrocyte distribution width [ratio] by automated count 14.1 % low: 11.3%h igh: 14.8% RDW-C V 14.1 11.3 - 14.8 % 01/12 10:34 AM [employer] [facility] Not Available Not Available 01/13/2025 11:05:02 01/12/2001/12/2025 CBC W Auto Diffe renti al panel - Blood platelets [#/volume] in blood by automated count 222 text: 150 - 420 x10e9/ L Plate let Count 222 150 - 420 x10E9 /L 01/12 10:34 AM [employer] [facility] Not Available Not Available 01/13/2025 11:05:02 01/12/2001/12/2025 CBC W Auto Diffe renti al panel - Blood platelet mean volume [entitic volume] in blood by automated count 10.6 fL low: 7.8fLh igh: 11.4fL MPV 10.6 7.8 - 11.4 fL 01/12 10:34 AM [employer] [facility] Not Available Not Available 01/13/2025 11:05:02 01/12/2001/12/2025 CBC W Auto Diffe renti al panel - Blood neutrophils/ 100 leukocytes in blood by automated count 81.5 % low: 41%hig h: 74% high Neutr ophil % 81.5 (H) 41.0 - 74.0 % 01/12 10:34 AM [employer] [facility] Not Available Not Available 01/13/2025 11:05:02 01/12/20 25 01/12/2025 CBC W Auto Diffe renti al panel - Blood lymphocytes/ 100 leukocytes in blood by automated count 11.7 % low: 17%hig h: 47% low Lymph ocyte % 11.7 (L) 17.0 - 47.0 % 01/12 10:34 AM [employer] [facility] Not Available Not Available 01/13/2025 11:05:02 01/12/20 25 01/12/2025 CBC W Auto Diffe renti al panel - Blood monocytes/10 0 leukocytes in blood by automated count 6.1 % low: 3%high : 11% Monoc yte % 6.1 3.0 - 11.0 % 01/12 10:34 AM [employer] [facility] Not Available Not Available 01/13/2025 11:05:02 01/12/2001/12/2025 CBC W Auto Diffe renti al panel - Blood eosinophils/ 100 leukocytes in blood by automated count 0 % low: 0%high : 7% Eosin ophil % 0.0 0.0 - 7.0 % 01/12 10:34 AM [employer] [facility] Not Available Not Available 01/13/2025 11:05:02 01/12/2001/12/2025 CBC W Auto Diffe renti al panel - Blood basophils/10 0 leukocytes in blood by automated count 0.1 % low: 0%high : 1.6% Basop hil % 0.1 0.0 - 1.6 % 01/12 10:34 AM [employer] [facility] Not Available Not Available 01/13/2025 11:05:02 01/12/2001/12/2025 CBC W Auto Diffe renti al panel - Blood immature granulocytes /100 leukocytes in blood by automated count 0.6 % low: 0%high : 1% Immat ure Granu locyt es % 0.6 0.0 - 1.0 % 01/12 10:34 AM [employer] [facility] Not Available Not Available 01/13/2025 11:05:02 01/12/20 25 01/12/2025 CBC W Auto Diffe renti al panel - Blood neutrophils [#/volume] in blood by automated count 5.84 text: 1.60 - 7.50 x10e9/ L Neutr ophil Absol apache 5.84 1.60 - 7.50 x10E9 /L 01/12 10:34 AM [employer] [facility] Not Available Not Available 01/13/2025 11:05:02 01/12/20 25 01/12/2025 CBC W Auto Diffe renti al panel - Blood lymphocytes [#/volume] in blood by automated count 0.84 text: 1.00 - 4.40 x10e9/ L low Lymph ocyte Absol apache 0.84 (L) 1.00 - 4.40 x10E9 /L 01/12 10:34 AM [employer] [facility] Not Available Not Available 01/13/2025 11:05:02 01/12/2001/12/2025 CBC W Auto Diffe renti al panel - Blood monocytes [#/volume] in blood by automated count 0.44 text: 0.15 - 1.00 x10e9/ L Monoc yte Absol apache 0.44 0.15 - 1.00 x10E9 /L 01/12 10:34 AM [employer] [facility] Not Available Not Available 01/13/2025 11:05:02 01/12/2001/12/2025 CBC W Auto Diffe renti al panel - Blood eosinophils [#/volume] in blood 0 text: 0.00 - 0.60 x10e9/ L Eosin ophil Absol apache 0.00 0.00 - 0.60 x10E9 /L 01/12 10:34 AM [employer] [facility] Not Available Not Available 01/13/2025 11:05:02 01/12/20 25 01/12/2025 CBC W Auto Diffe renti al panel - Blood basophils [#/volume] in blood by automated count 0.01 text: 0.00 - 0.13 x10e9/ L Basop hil Absol apache 0.01 0.00 - 0.13 x10E9 /L 01/12 10:34 AM [facility] [facility] Not Available Not Available 01/13/2025 11:05:02 01/12/20 25 01/12/2025 CBC W Auto Diffe renti al panel - Blood interpretati on and review of laboratory results Abnorm al Not Available Not Available 11:05:02 01/12/2001/12/2025 Compr ehens mackenzie metab olic 1999 panel - Serum or Plasm a glucose [mass/volume ] in serum or plasma 281 mg/dL low: 70mg/d Lhigh: 99mg/d L high Gluco se 281 (H) 70 - 99 mg/dL 01/12 10:50 AM [employer] Not Available Not Available 01/13/2025 11:05:02 01/12/2001/12/2025 Compr ehens mackenzie metab olic 1999 panel - Serum or Plasm a sodium [moles/volum e] in serum or plasma 138 mmol/ L low: 136mmo l/Lhig h: 145mmo l/L Sodiu m 138 136 - 145 mmol/ L 01/12 10:50 AM [employer] [facility] Not Available Not Available 01/13/2025 11:05:02 01/12/2001/12/2025 Compr ehens mackenzie metab olic 1999 panel - Serum or Plasm a potassium [moles/volum e] in serum or plasma 4.2 mmol/ L low: 3.5mmo l/Lhig h: 5.1mmo l/L Potas sium 4.2 3.5 - 5.1 mmol/ L 01/12 10:50 AM [employer] [facility] Not Available Not Available 01/13/2025 11:05:02 01/12/2001/12/2025 Compr ehens mackenzie metab olic 1999 panel - Serum or Plasm a chloride [moles/volum e] in serum or plasma 107 mmol/ L low: 98mmol /Lhigh : 107mmo l/L Chlor [place] 107 98 - 107 mmol/ L 01/12 10:50 AM [employer] [facility] Not Available Not Available 01/13/2025 11:05:02 01/12/20 25 01/12/2025 Compr ehens mackenzie metab olic 1999 panel - Serum or Plasm a carbon dioxide, total [moles/volum e] in serum or plasma 23 mmol/ L low: 22mmol /Lhigh : 29mmol /L CO2 23 22 - 29 mmol/ L 01/12 10:50 AM [employer] [facility] Not Available Not Available 01/13/2025 11:05:02 01/12/2001/12/2025 Compr [employer] mackenzie metab olic 1999 panel - Serum or Plasm a calcium [mass/volume ] in serum or plasma 8.3 mg/dL low: 8.4mg/ dLhigh : 10.4mg /dL low Calci um 8.3 (L) 8.4 - 10.4 mg/dL 01/12 10:50 AM [employer] [facility] Not Available Not Available 01/13/2025 11:05:02 01/12/2001/12/2025 Compr [employer] mackenzie metab olic 1999 panel - Serum or Plasm a anion gap in blood 8 mmol/ L low: 6mmol/ Lhigh: 16mmol /L Anion Gap 8 6 - 16 mmol/ L 01/12 10:50 AM [employer] Not Available Not Available 01/13/2025 11:05:02 01/12/2001/12/2025 Compr [employer] mackenzie [employer] olic 1999 panel - Serum or Plasm a urea nitrogen [mass/volume ] in serum or plasma 16 mg/dL low: 7mg/dL high: 26mg/d L BUN 16 7 - 26 mg/dL 01/12 10:50 AM [employer] [facility] Not Available Not Available 01/13/2025 11:05:02 01/12/2001/12/2025 Compr [employer] mackenzie [employer] olic 1999 panel - Serum or Plasm a creatinine [mass/volume ] in serum or plasma 0.7 mg/dL low: 0.72mg /dLhig h: 1.25mg /dL low Creat inine 0.70 (L) 0.72 - 1.25 mg/dL 01/12 10:50 AM [employer] [facility] Not Available Not Available 01/13/2025 11:05:02 01/12/20 25 01/12/2025 Compr [employer] mackenzie metab olic 1999 panel - Serum or Plasm a alkaline phosphatase [enzymatic activity/vol ume] in serum or plasma 216 U/L low: 40U/Lh igh: 150U/L high Alkal ine Phosp hatas e 216 (H) 40 - 150 U/L 01/12 10:50 AM [employer] [facility] Not Available Not Available 01/13/2025 11:05:02 01/12/20 25 01/12/2025 Compr ehens mackenzie metab olic 2000 panel - Serum or Plasm a alanine aminotransfe rase [enzymatic activity/vol ume] in serum or plasma 93 U/L low: 0U/Lhi gh: 55U/L high ALT 93 (H) 0 - 55 U/L 01/12 10:50 AM [employer] [facility] Not Available Not Available 01/13/2025 11:05:02 01/12/2001/12/2025 Compr ehens mackenzie metab olic 2000 panel - Serum or Plasm a aspartate aminotransfe rase [enzymatic activity/vol ume] in serum or plasma 87 U/L low: 5U/Lhi gh: 34U/L high AST 87 (H) 5 - 34 U/L 01/12 10:50 AM [employer] Not Available Not Available 01/13/2025 11:05:02 01/12/20 25 01/12/2025 Compr ehens mackenzie metab olic 2000 panel - Serum or Plasm a protein [mass/volume ] in serum or plasma 5.8 text: 6.4 - 8.3 gm/dL low Prote in Total 5.8 (L) 6.4 - 8.3 gm/dL 01/12 10:50 AM [employer] Not Available Not Available 01/13/2025 11:05:02 01/12/2001/12/2025 Compr ehens mackenzie metab olic 2000 panel - Serum or Plasm a albumin [mass/volume ] in serum or plasma 2.1 text: 3.4 - 5.0 gm/dL low Album in 2.1 (L) 3.4 - 5.0 gm/dL 01/12 10:50 AM [employer] Not Available Not Available 01/13/2025 11:05:02 01/12/20 25 01/12/2025 Compr ehens mackenzie metab olic 2000 panel - Serum or Plasm a bilirubin.to margraet [mass/volume ] in serum or plasma 0.5 mg/dL low: 0.2mg/ dLhigh : 1.2mg/ dL Bilir ubin Total 0.5 0.2 - 1.2 mg/dL 01/12 10:50 AM [employer] [facility] Not Available Not Available 01/13/2025 11:05:02 01/12/20 25 01/12/2025 Compr ehens mackenzie metab olic 2000 panel - Serum or Plasm a glomerular filtration rate/1.73 sq M.predicted [volume rate/area] in serum, plasma or blood by creatinine-b ased formula (CKD-epi 2020) text: >=90 mL/min /1.73 m2 eGFR by CKD-E PI >90 >=90 mL/mi n/1.7 3 m2 01/12 10:50 AM [employer] [facility] Not Available Not Available 01/13/2025 11:05:02 01/12/2001/12/2025 Compr [employer] mackenzie [employer] olic 2000 panel - Serum or Plasm a interpretati on and review of laboratory results Abnorm al Not Available Not Available 11:05:02 01/12/20 25 01/12/2025 Gluco se [Mass /volu me] in Arter ial blood glucose [mass/volume ] in capillary blood by glucometer 211 mg/dL low: 70mg/d Lhigh: 99mg/d L high Gluco se WB/PO C 211 (H) 70 - 99 mg/dL 01/12 7:51 AM [facility] Not Available Not Available 01/13/2025 11:05:23 01/12/20 25 01/12/2025 Gluco se [Mass /volu me] in Arter ial blood specimen source identified Arteri al Speci men Type Arter ial 01/12 7:51 AM [employer] [facility] Not Available Not Available 01/13/2025 11:05:23 01/12/20 25 01/12/2025 Gluco se [Mass /volu me] in Arter ial blood interpretati on and review of laboratory results Abnorm al Not Available Not Available 11:05:23 01/12/20 25 01/12/2025 Gluco se [Mass /volu me] in Arter ial blood glucose [mass/volume ] in capillary blood by glucometer 192 mg/dL low: 70mg/d Lhigh: 99mg/d L high Gluco se WB/PO C 192 (H) 70 - 99 mg/dL 01/12 3:29 AM [employer] [facility] Not Available Not Available 01/13/2025 11:05:23 01/12/20 25 01/12/2025 Gluco se [Mass /volu me] in Arter ial blood specimen source identified Cap Finger stick Speci men Type Jeronimo Infante rstic k 01/12 3:29 AM [employer] [facility] Not Available Not Available 01/13/2025 11:05:23 01/12/20 25 01/12/2025 Gluco se [Mass /volu me] in Arter ial blood interpretati on and review of laboratory results Abnorm al Not Available Not Available 11:05:23 01/12/20 25 01/12/2025 Gluco se [Mass /volu me] in Arter ial blood glucose [mass/volume ] in capillary blood by glucometer 222 mg/dL low: 70mg/d Lhigh: 99mg/d L high Gluco se WB/PO C 222 (H) 70 - 99 mg/dL 01/11 11:59 PM [employer] [facility] Not Available Not Available 01/13/2025 11:05:23 01/12/20 25 01/12/2025 Gluco se [Mass /volu me] in Arter ial blood specimen source identified Cap Finger stick Speci men Type Jeronimo Infante rstic k 01/11 11:59 PM [facility] [facility] [facility] Not Available Not Available 01/13/2025 11:05:23 01/12/20 25 01/12/2025 Gluco se [Mass /volu me] in Arter ial blood interpretati on and review of laboratory results Abnorm al Not Available Not Available 11:05:23 01/13/20 25 01/13/2025 Gluco se [Mass /volu me] in Arter ial blood glucose [mass/volume ] in capillary blood by glucometer 237 mg/dL low: 70mg/d Lhigh: 99mg/d L high Gluco se WB/PO C 237 (H) 70 - 99 mg/dL 01/13 8:30 PM [employer] [facility] Not Available Not Available 01/19/2025 14:37:52 01/13/20 25 01/13/2025 Gluco se [Mass /volu me] in Arter ial blood specimen source identified Cap Finger stick Speci men Type Cap Jine rstic k 01/13 8:30 PM [employer] [facility] Not Available Not Available 01/19/2025 14:37:52 01/13/20 25 01/13/2025 Gluco se [Mass /volu me] in Arter ial blood interpretati on and review of laboratory results Abnorm al Not Available Not Available 14:37:52 01/13/20 25 01/14/2025 Gluco se [Mass /volu me] in Arter ial blood glucose [mass/volume ] in capillary blood by glucometer 218 mg/dL low: 70mg/d Lhigh: 99mg/d L high Gluco se WB/PO C 218 (H) 70 - 99 mg/dL 01/14 4:30 AM [employer] [facility] Not Available Not Available 01/19/2025 14:37:52 01/13/20 25 01/14/2025 Gluco se [Mass /volu me] in Arter ial blood specimen source identified Cap Finger stick Speci men Type Cap Jine rstic k 01/14 4:30 AM [employer] [facility] Not Available Not Available 01/19/2025 14:37:52 01/13/20 25 01/14/2025 Gluco se [Mass /volu me] in Arter ial blood interpretati on and review of laboratory results Abnorm al Not Available Not Available 14:37:52 01/13/20 25 01/14/2025 Gluco se [Mass /volu me] in Arter ial blood glucose [mass/volume ] in capillary blood by glucometer 269 mg/dL low: 70mg/d Lhigh: 99mg/d L high Gluco se WB/PO C 269 (H) 70 - 99 mg/dL 01/14 4:30 AM [employer] [facility] Not Available Not Available 01/19/2025 14:37:52 01/13/20 25 01/14/2025 Gluco se [Mass /volu me] in Arter ial blood specimen source identified Cap Finger stick Speci men Type Jeronimo Infante rstic k 01/14 4:30 AM [employer] [facility] Not Available Not Available 01/19/2025 14:37:52 01/13/20 25 01/14/2025 Gluco se [Mass /volu me] in Arter ial blood interpretati on and review of laboratory results Abnorm al Not Available Not Available 14:37:52 01/13/20 25 01/14/2025 Gluco se [Mass /volu me] in Arter ial blood glucose [mass/volume ] in capillary blood by glucometer 319 mg/dL low: 70mg/d Lhigh: 99mg/d L high Gluco se WB/PO C 319 (H) 70 - 99 mg/dL 01/14 4:30 AM [employer] [facility] Not Available Not Available 01/19/2025 14:37:52 01/13/20 25 01/14/2025 Gluco se [Mass /volu me] in Arter ial blood specimen source identified Cap Finger stick Speci men Type Jeronimo Infante rstic k 01/14 4:30 AM [employer] [facility] Not Available Not Available 01/19/2025 14:37:52 01/13/20 25 01/14/2025 Gluco se [Mass /volu me] in Arter ial blood interpretati on and review of laboratory results Abnorm al Not Available Not Available 14:37:52 01/13/20 25 01/14/2025 Gluco se [Mass /volu me] in Arter ial blood glucose [mass/volume ] in capillary blood by glucometer 156 mg/dL low: 70mg/d Lhigh: 99mg/d L high Gluco se WB/PO C 156 (H) 70 - 99 mg/dL 01/14 4:30 AM [facility] [facility] Not Available Not Available 01/19/2025 14:37:52 02/1901/14/2025 Gluco se [Mass /volu me] in Arter ial blood specimen source identified Cap Finger stick Speci men Type Cap Finge rstic k 01/14 4:30 AM [facility] [facility] [facility] Not Available Not Available 01/19/2025 14:37:52 01/13/20 25 01/14/2025 Gluco se [Mass /volu me] in Arter ial blood interpretati on and review of laboratory results Abnorm al Not Available Not Available 14:37:52 01/13/2001/13/2025 CBC panel - Blood by Autom ated count leukocytes [#/volume] in blood by automated count 6.5 text: 4.0 - 10.7 x10e9/ L WBC 6.5 4.0 - 10.7 x10E9 /L 01/13 5:48 AM [employer] [facility] Not Available Not Available 01/13/2025 11:05:02 01/13/2001/13/2025 CBC panel - Blood by Autom ated count erythrocytes [#/volume] in blood by automated count 4.48 text: 4.30 - 5.80 x10e12 /L RBC Count 4.48 4.30 - 5.80 x10E1 2/L 01/13 5:48 AM [employer] [facility] Not Available Not Available 01/13/2025 11:05:02 01/13/2001/13/2025 CBC panel - Blood by Autom ated count hemoglobin [mass/volume ] in blood 11.9 g/dL low: 13.3g/ dLhigh : 17.5g/ dL low Hemog lobin 11.9 (L) 13.3 - 17.5 g/dL 01/13 5:48 AM [employer] [facility] Not Available Not Available 01/13/2025 11:05:02 01/13/2001/13/2025 CBC panel - Blood by Autom ated count hematocrit [volume fraction] of blood by automated count 36.1 % low: 38.7%h igh: 51.1% low Hemat ocrit 36.1 (L) 38.7 - 51.1 % 01/13 5:48 AM [employer] [facility] Not Available Not Available 01/13/2025 11:05:02 01/13/2001/13/2025 CBC panel - Blood by Autom ated count MCV [entitic volume] by automated count 80.6 fL low: 80fLhi gh: 98fL MCV 80.6 80.0 - 98.0 fL 01/13 5:48 AM [employer] [facility] Not Available Not Available 01/13/2025 11:05:02 01/13/2001/13/2025 CBC panel - Blood by Autom ated count MCH [entitic mass] by automated count 26.6 pg low: 26.7pg high: 33.6pg low MCH 26.6 (L) 26.7 - 33.6 pg 01/13 5:48 AM [employer] [facility] Not Available Not Available 01/13/2025 11:05:02 01/13/2001/13/2025 CBC panel - Blood by Autom ated count MCHC [mass/volume ] by automated count 33 g/dL low: 31.7g/ dLhigh : 36.3g/ dL MCHC 33.0 31.7 - 36.3 g/dL 01/13 5:48 AM [employer] [facility] Not Available Not Available 01/13/2025 11:05:02 01/13/2001/13/2025 CBC panel - Blood by Autom ated count erythrocyte distribution width [ratio] by automated count 14.3 % low: 11.3%h igh: 14.8% RDW-C V 14.3 11.3 - 14.8 % 01/13 5:48 AM [employer] [facility] Not Available Not Available 01/13/2025 11:05:02 01/13/2001/13/2025 CBC panel - Blood by Autom ated count platelets [#/volume] in blood by automated count 248 text: 150 - 420 x10e9/ L Plate let Count 248 150 - 420 x10E9 /L 01/13 5:48 AM [employer] [facility] Not Available Not Available 01/13/2025 11:05:02 01/13/2001/13/2025 CBC panel - Blood by Autom ated count platelet mean volume [entitic volume] in blood by automated count 10.7 fL low: 7.8fLh igh: 11.4fL MPV 10.7 7.8 - 11.4 fL 01/13 5:48 AM [employer] [facility] Not Available Not Available 01/13/2025 11:05:02 01/13/20 25 01/13/2025 CBC panel - Blood by Autom ated count interpretati on and review of laboratory results Abnorm al Not Available Not Available 11:05:02 01/13/2001/13/2025 eMeter panel - Serum or Plasm a glucose [mass/volume ] in serum or plasma 162 mg/dL low: 70mg/d Lhigh: 99mg/d L high Gluco se 162 (H) 70 - 99 mg/dL 01/13 5:59 AM [employer] [facility] Not Available Not Available 01/13/2025 11:05:02 01/13/2001/13/2025 [employer] panel - Serum or Plasm a sodium [moles/volum e] in serum or plasma 139 mmol/ L low: 136mmo l/Lhig h: 145mmo l/L Sodiu m 139 136 - 145 mmol/ L 01/13 5:59 AM [employer] [facility] Not Available Not Available 01/13/2025 11:05:02 01/13/2001/13/2025 [employer] panel - Serum or Plasm a potassium [moles/volum e] in serum or plasma 3.8 mmol/ L low: 3.5mmo l/Lhig h: 5.1mmo l/L Potas sium 3.8 3.5 - 5.1 mmol/ L 01/13 5:59 AM [employer] Not Available Not Available 01/13/2025 11:05:02 01/13/2001/13/2025 [employer] panel - Serum or Plasm a chloride [moles/volum e] in serum or plasma 109 mmol/ L low: 98mmol /Lhigh : 107mmo l/L high Chlor [place] 109 (H) 98 - 107 mmol/ L 01/13 5:59 AM [employer] [facility] Not Available Not Available 01/13/2025 11:05:02 01/13/2001/13/2025 Basic [employer] olic 1999 panel - Serum or Plasm a carbon dioxide, total [moles/volum e] in serum or plasma 25 mmol/ L low: 22mmol /Lhigh : 29mmol /L CO2 25 22 - 29 mmol/ L 01/13 5:59 AM [employer] [facility] Not Available Not Available 01/13/2025 11:05:02 01/13/2001/13/2025 [employer] 1999 panel - Serum or Plasm a calcium [mass/volume ] in serum or plasma 8.1 mg/dL low: 8.4mg/ dLhigh : 10.4mg /dL low Calci um 8.1 (L) 8.4 - 10.4 mg/dL 01/13 5:59 AM [employer] [facility] Not Available Not Available 01/13/2025 11:05:02 01/13/2001/13/2025 [employer] panel - Serum or Plasm a anion gap in blood 5 mmol/ L low: 6mmol/ Lhigh: 16mmol /L low Anion Gap 5 (L) 6 - 16 mmol/ L 01/13 5:59 AM [employer] [facility] Not Available Not Available 01/13/2025 11:05:02 01/13/2001/13/2025 [employer] panel - Serum or Plasm a urea nitrogen [mass/volume ] in serum or plasma 17 mg/dL low: 7mg/dL high: 26mg/d L BUN 17 7 - 26 mg/dL 01/13 5:59 AM [employer] [facility] Not Available Not Available 01/13/2025 11:05:02 01/13/20 25 01/13/2025 [employer] panel - Serum or Plasm a creatinine [mass/volume ] in serum or plasma 0.69 mg/dL low: 0.72mg /dLhig h: 1.25mg /dL low Creat inine 0.69 (L) 0.72 - 1.25 mg/dL 01/13 5:59 AM [employer] [facility] Not Available Not Available 01/13/2025 11:05:02 01/13/2001/13/2025 Basic metab olic 2000 panel - Serum or Plasm a glomerular filtration rate/1.73 sq M.predicted [volume rate/area] in serum, plasma or blood by creatinine-b ased formula (CKD-epi 2020) text: >=90 mL/min /1.73 m2 eGFR by CKD-E PI >90 >=90 mL/mi n/1.7 3 m2 01/13 5:59 AM [employer] [facility] Not Available Not Available 01/13/2025 11:05:02 01/13/2001/13/2025 Basic metab olic 2000 panel - Serum or Plasm a interpretati on and review of laboratory results Abnorm al Not Available Not Available 11:05:02 01/13/2001/13/2025 Hepat ic funct ion 2000 panel - Serum or Plasm a alkaline phosphatase [enzymatic activity/vol ume] in serum or plasma 176 U/L low: 40U/Lh igh: 150U/L high Alkal ine Phosp hatas e 176 (H) 40 - 150 U/L 01/13 7:14 AM [employer] [facility] Not Available Not Available 01/13/2025 11:05:02 01/13/2001/13/2025 Hepat ic funct ion 1999 panel - Serum or Plasm a alanine aminotransfe rase [enzymatic activity/vol ume] in serum or plasma 75 U/L low: 0U/Lhi gh: 55U/L high ALT 75 (H) 0 - 55 U/L 01/13 7:14 AM [employer] [facility] Not Available Not Available 01/13/2025 11:05:02 01/13/2001/13/2025 Hepat ic funct ion 2000 panel - Serum or Plasm a aspartate aminotransfe rase [enzymatic activity/vol ume] in serum or plasma 50 U/L low: 5U/Lhi gh: 34U/L high AST 50 (H) 5 - 34 U/L 01/13 7:14 AM [employer] [facility] Not Available Not Available 01/13/2025 11:05:02 01/13/20 25 01/13/2025 Hepat ic funct ion 2000 panel - Serum or Plasm a protein [mass/volume ] in serum or plasma 5.5 text: 6.4 - 8.3 gm/dL low Prote in Total 5.5 (L) 6.4 - 8.3 gm/dL 01/13 7:14 AM [employer] [facility] Not Available Not Available 01/13/2025 11:05:02 01/13/20 25 01/13/2025 Hepat ic funct ion 2000 panel - Serum or Plasm a albumin [mass/volume ] in serum or plasma 2.1 text: 3.4 - 5.0 gm/dL low Album in 2.1 (L) 3.4 - 5.0 gm/dL 01/13 7:14 AM [employer] [facility] Not Available Not Available 01/13/2025 11:05:02 01/13/2001/13/2025 Hepat ic funct ion 2000 panel - Serum or Plasm a bilirubin.to margaret [mass/volume ] in serum or plasma 0.4 mg/dL low: 0.2mg/ dLhigh : 1.2mg/ dL Bilir ubin Total 0.4 0.2 - 1.2 mg/dL 01/13 7:14 AM [employer] [facility] Not Available Not Available 01/13/2025 11:05:02 01/13/2001/13/2025 Hepat ic funct ion 2000 panel - Serum or Plasm a bilirubin.di rect [mass/volume ] in serum or plasma 0.246 mg/dL low: 0.1mg/ dLhigh : 0.5mg/ dL Bilir ubin Direc t 0.246 0.10 - 0.50 mg/dL 01/13 7:14 AM [facility] Not Available Not Available 01/13/2025 11:05:02 01/13/20 25 01/13/2025 Hepat ic funct ion 2000 panel - Serum or Plasm a interpretati on and review of laboratory results Abnorm al Not Available Not Available 11:05:02 01/13/20 25 01/13/2025 Gluco se [Mass /volu me] in Arter ial blood glucose [mass/volume ] in capillary blood by glucometer 163 mg/dL low: 70mg/d Lhigh: 99mg/d L high Gluco se WB/PO C 163 (H) 70 - 99 mg/dL 01/13 6:33 AM [employer] [facility] Not Available Not Available 01/13/2025 11:05:03 01/13/20 25 01/13/2025 Gluco se [Mass /volu me] in Arter ial blood specimen source identified Cap Finger stick Speci men Type Cap Finge rstic k 01/13 6:33 AM [employer] [facility] [facility] Not Available Not Available 01/13/2025 11:05:03 01/13/20 25 01/13/2025 Gluco se [Mass /volu me] in Arter ial blood interpretati on and review of laboratory results Abnorm al Not Available Not Available 11:05:03 01/13/2001/13/2025 Gluco se [Mass /volu me] in Arter ial blood glucose [mass/volume ] in capillary blood by glucometer 228 mg/dL low: 70mg/d Lhigh: 99mg/d L high Gluco se WB/PO C 228 (H) 70 - 99 mg/dL 01/13 12:02 AM [facility] [facility] Not Available Not Available 01/13/2025 11:05:23 01/13/2001/13/2025 Gluco se [Mass /volu me] in Arter ial blood specimen source identified Cap Finger stick Speci men Type Cap Jine rstic k 01/13 12:02 AM [employer] [facility] [facility] Not Available Not Available 01/13/2025 11:05:23 01/13/20 25 01/13/2025 Gluco se [Mass /volu me] in Arter ial blood interpretati on and review of laboratory results Abnorm al Not Available Not Available 11:05:23 01/14/20 25 01/14/2025 CBC panel - Blood by Autom ated count leukocytes [#/volume] in blood by automated count 7.3 text: 4.0 - 10.7 x10e9/ L WBC 7.3 4.0 - 10.7 x10E9 /L 01/14 9:37 AM [employer] [facility] Not Available Not Available 01/19/2025 03:40:41 01/14/2001/14/2025 CBC panel - Blood by Autom ated count erythrocytes [#/volume] in blood by automated count 5.02 text: 4.30 - 5.80 x10e12 /L RBC Count 5.02 4.30 - 5.80 x10E1 2/L 01/14 9:37 AM [employer] [facility] Not Available Not Available 01/19/2025 03:40:41 01/14/2001/14/2025 CBC panel - Blood by Autom ated count hemoglobin [mass/volume ] in blood 13 g/dL low: 13.3g/ dLhigh : 17.5g/ dL low Hemog lobin 13.0 (L) 13.3 - 17.5 g/dL 01/14 9:37 AM [employer] [facility] Not Available Not Available 01/19/2025 03:40:41 01/14/2001/14/2025 CBC panel - Blood by Autom ated count hematocrit [volume fraction] of blood by automated count 40.8 % low: 38.7%h igh: 51.1% Hemat ocrit 40.8 38.7 - 51.1 % 01/14 9:37 AM [employer] [facility] Not Available Not Available 01/19/2025 03:40:41 01/14/20 25 01/14/2025 CBC panel - Blood by Autom ated count MCV [entitic volume] by automated count 81.3 fL low: 80fLhi gh: 98fL MCV 81.3 80.0 - 98.0 fL 01/14 9:37 AM [employer] [facility] Not Available Not Available 01/19/2025 03:40:41 01/14/2001/14/2025 CBC panel - Blood by Autom ated count MCH [entitic mass] by automated count 25.9 pg low: 26.7pg high: 33.6pg low MCH 25.9 (L) 26.7 - 33.6 pg 01/14 9:37 AM [employer] [facility] Not Available Not Available 01/19/2025 03:40:41 01/14/20 25 01/14/2025 CBC panel - Blood by Autom ated count MCHC [mass/volume ] by automated count 31.9 g/dL low: 31.7g/ dLhigh : 36.3g/ dL MCHC 31.9 31.7 - 36.3 g/dL 01/14 9:37 AM [employer] [facility] Not Available Not Available 01/19/2025 03:40:41 01/14/2001/14/2025 CBC panel - Blood by Autom ated count erythrocyte distribution width [ratio] by automated count 14.4 % low: 11.3%h igh: 14.8% RDW-C V 14.4 11.3 - 14.8 % 01/14 9:37 AM [employer] [facility] Not Available Not Available 01/19/2025 03:40:41 01/14/2001/14/2025 CBC panel - Blood by Autom ated count platelets [#/volume] in blood by automated count 384 text: 150 - 420 x10e9/ L Plate let Count 384 150 - 420 x10E9 /L 01/14 9:37 AM [employer] Not Available Not Available 01/19/2025 03:40:41 01/14/2001/14/2025 CBC panel - Blood by Autom ated count platelet mean volume [entitic volume] in blood by automated count 10.2 fL low: 7.8fLh igh: 11.4fL MPV 10.2 7.8 - 11.4 fL 01/14 9:37 AM [employer] [facility] Not Available Not Available 01/19/2025 03:40:41 01/14/2001/14/2025 CBC panel - Blood by Autom ated count interpretati on and review of laboratory results Abnorm al Not Available Not Available 03:40:41 01/14/2001/14/2025 Basic metab olic 2000 panel - Serum or Plasm a glucose [mass/volume ] in serum or plasma 174 mg/dL low: 70mg/d Lhigh: 99mg/d L high Gluco se 174 (H) 70 - 99 mg/dL 01/14 9:44 AM [employer] Not Available Not Available 01/19/2025 03:40:41 0201/14/2025 Basic metab olic 2000 panel - Serum or Plasm a sodium [moles/volum e] in serum or plasma 140 mmol/ L low: 136mmo l/Lhig h: 145mmo l/L Sodiu m 140 136 - 145 mmol/ L 01/14 9:44 AM [employer] [facility] Not Available Not Available 01/19/2025 03:40:41 01/14/2001/14/2025 Basic metab olic 2000 panel - Serum or Plasm a potassium [moles/volum e] in serum or plasma 4.1 mmol/ L low: 3.5mmo l/Lhig h: 5.1mmo l/L Potas sium 4.1 3.5 - 5.1 mmol/ L 01/14 9:44 AM [employer] [facility] Not Available Not Available 01/19/2025 03:40:41 01/14/2001/14/2025 Basic metab olic 2000 panel - Serum or Plasm a chloride [moles/volum e] in serum or plasma 108 mmol/ L low: 98mmol /Lhigh : 107mmo l/L high Chlor dallas 108 (H) 98 - 107 mmol/ L 01/14 9:44 AM [employer] [facility] Not Available Not Available 01/19/2025 03:40:41 01/14/2001/14/2025 Basic metab olic 2000 panel - Serum or Plasm a carbon dioxide, total [moles/volum e] in serum or plasma 25 mmol/ L low: 22mmol /Lhigh : 29mmol /L CO2 25 22 - 29 mmol/ L 01/14 9:44 AM [employer] [facility] Not Available Not Available 01/19/2025 03:40:41 01/14/20 25 01/14/2025 Basic metab olic 2000 panel - Serum or Plasm a calcium [mass/volume ] in serum or plasma 8.4 mg/dL low: 8.4mg/ dLhigh : 10.4mg /dL Calci um 8.4 8.4 - 10.4 mg/dL 01/14 9:44 AM [employer] [facility] Not Available Not Available 01/19/2025 03:40:41 01/14/2001/14/2025 eMeter panel - Serum or Plasm a anion gap in blood 7 mmol/ L low: 6mmol/ Lhigh: 16mmol /L Anion Gap 7 6 - 16 mmol/ L 01/14 9:44 AM [employer] [facility] Not Available Not Available 01/19/2025 03:40:41 01/14/20 25 01/14/2025 eMeter panel - Serum or Plasm a urea nitrogen [mass/volume ] in serum or plasma 12 mg/dL low: 7mg/dL high: 26mg/d L BUN 12 7 - 26 mg/dL 01/14 9:44 AM [employer] Not Available Not Available 01/19/2025 03:40:41 01/14/2001/14/2025 eMeter panel - Serum or Plasm a creatinine [mass/volume ] in serum or plasma 0.66 mg/dL low: 0.72mg /dLhig h: 1.25mg /dL low Creat inine 0.66 (L) 0.72 - 1.25 mg/dL 01/14 9:44 AM [facility] Not Available Not Available 01/19/2025 03:40:41 01/14/2001/14/2025 eMeter panel - Serum or Plasm a glomerular filtration rate/1.73 sq M.predicted [volume rate/area] in serum, plasma or blood by creatinine-b ased formula (CKD-epi 2020) text: >=90 mL/min /1.73 m2 eGFR by CKD-E PI >90 >=90 mL/mi n/1.7 3 m2 01/14 9:44 AM [facility] Not Available Not Available 01/19/2025 03:40:41 01/14/2001/14/2025 eMeter panel - Serum or Plasm a interpretati on and review of laboratory results Abnorm al Not Available Not Available 03:40:41 01/14/20 25 01/14/2025 Gluco se [Mass /volu me] in Arter ial blood glucose [mass/volume ] in capillary blood by glucometer 164 mg/dL low: 70mg/d Lhigh: 99mg/d L high Gluco se WB/PO C 164 (H) 70 - 99 mg/dL 01/14 7:42 AM [employer] [facility] Not Available Not Available 01/19/2025 03:40:41 01/14/2001/14/2025 Gluco se [Mass /volu me] in Arter ial blood specimen source identified Arteri al Speci men Type Arter ial 01/14 7:42 AM [employer] [facility] [facility] Not Available Not Available 01/19/2025 03:40:41 01/14/20 25 01/14/2025 Gluco se [Mass /volu me] in Arter ial blood interpretati on and review of laboratory results Abnorm al Not Available Not Available 03:40:41 01/14/2001/14/2025 Gluco se [Mass /volu me] in Arter ial blood glucose [mass/volume ] in capillary blood by glucometer 201 mg/dL low: 70mg/d Lhigh: 99mg/d L high Gluco se WB/PO C 201 (H) 70 - 99 mg/dL 01/14 4:32 AM [employer] [facility] Not Available Not Available 01/19/2025 14:37:53 01/14/2001/14/2025 Gluco se [Mass /volu me] in Arter ial blood specimen source identified Cap Finger stick Speci men Type Cap Finge rstic k 01/14 4:32 AM [employer] [facility] Not Available Not Available 01/19/2025 14:37:53 01/14/20 25 01/14/2025 Gluco se [Mass /volu me] in Arter ial blood interpretati on and review of laboratory results Abnorm al Not Available Not Available 14:37:53 01/14/20 25 01/14/2025 Gluco se [Mass /volu me] in Arter ial blood glucose [mass/volume ] in capillary blood by glucometer 214 mg/dL low: 70mg/d Lhigh: 99mg/d L high Gluco se WB/PO C 214 (H) 70 - 99 mg/dL 01/14 11:30 AM [employer] [facility] Not Available Not Available 01/19/2025 14:37:53 01/14/20 25 01/14/2025 Gluco se [Mass /volu me] in Arter ial blood specimen source identified Cap Finger stick Speci men Type Cap Arelis rstic k 01/14 11:30 AM [employer] [facility] Not Available Not Available 01/19/2025 14:37:53 01/14/20 25 01/14/2025 Gluco se [Mass /volu me] in Arter ial blood interpretati on and review of laboratory results Abnorm al Not Available Not Available 14:37:53 01/30/20 25 01/29/2025 CBC WITH DIFFE RENTI AL/PL ATELE T WBC 4.1 x10e3 /uL 3.4-10 .8 Not Available [facility] [address] [place], [address], 01/30/2025 03:08:32 01/30/20 25 01/29/2025 CBC WITH DIFFE RENTI AL/PL ATELE T RBC 5.27 x10e6 /uL 4.14-5 .80 Not Available [facility] [address] [place], [address], 01/30/2025 03:08:32 01/30/20 25 01/29/2025 CBC WITH DIFFE RENTI AL/PL ATELE T hemoglobin 13.8 g/dL 13.0-1 7.7 Not Available [facility] [address] [place], [address], 01/30/2025 03:08:32 01/30/20 25 01/29/2025 CBC WITH DIFFE RENTI AL/PL ATELE T hematocrit 45.2 % 37.5-5 1.0 Not Available [facility] [address] [place], [address], 01/30/2025 03:08:32 01/30/20 25 01/29/2025 CBC WITH DIFFE RENTI AL/PL ATELE T MCV 86 fL 79-97 Not Available [facility] [address] [place], [address], 01/30/2025 03:08:32 01/30/2001/29/2025 CBC WITH DIFFE RENTI AL/PL ATELE T MCH 26.2 pg 26.6-3 3.0 below low normal Not Available [facility] [address] [place], [address], 01/30/2025 03:08:32 01/30/2001/29/2025 CBC WITH DIFFE RENTI AL/PL ATELE T MCHC 30.5 g/dL 31.5-3 5.7 below low normal Not Available [facility] [address] [place], [address], 01/30/2025 03:08:32 01/30/2001/29/2025 CBC WITH DIFFE RENTI AL/PL ATELE T RDW 15.4 % 11.5-1 4.5 above high normal Not Available [facility] [address] [place], [address], 01/30/2025 03:08:32 01/30/2001/29/2025 CBC WITH DIFFE RENTI AL/PL ATELE T platelets 282 x10e3 /uL 150-45 0 Not Available [facility] [address] [place], [address], 01/30/2025 03:08:32 01/30/2001/29/2025 CBC WITH DIFFE RENTI AL/PL ATELE T neutrophils 51 % notest b. Not Available [facility] [address] [place], [address], 01/30/2025 03:08:32 01/30/20 25 01/29/2025 CBC WITH DIFFE RENTI AL/PL ATELE T lymphs 34 % notest b. Not Available [facility] [address] [place], [address], 01/30/2025 03:08:32 01/30/20 25 01/29/2025 CBC WITH DIFFE RENTI AL/PL ATELE T monocytes 10 % notest b. Not Available [facility] [address] [place], [address], 01/30/2025 03:08:32 01/30/20 25 01/29/2025 CBC WITH DIFFE RENTI AL/PL ATELE T eos 4 % notest b. Not Available [facility] [address] [place], [address], 01/30/2025 03:08:32 01/30/20 25 01/29/2025 CBC WITH DIFFE RENTI AL/PL ATELE T basos 1 % notest b. Not Available [facility] [address] [place], [address], 01/30/2025 03:08:32 01/30/20 25 01/29/2025 CBC WITH DIFFE RENTI AL/PL ATELE T neutrophils (absolute) 2.1 x10e3 /uL 1.4-7. 0 Not Available [facility] [address] [place], [address], 01/30/2025 03:08:32 01/30/20 25 01/29/2025 CBC WITH DIFFE RENTI AL/PL ATELE T lymphs (absolute) 1.4 x10e3 /uL 0.7-3. 1 Not Available [facility] [address] [place], [address], 01/30/2025 03:08:32 01/30/20 25 01/29/2025 CBC WITH DIFFE RENTI AL/PL ATELE T monocytes(ab solute) 0.4 x10e3 /uL 0.1-0. 9 Not Available [facility] [address] [place], [address], 01/30/2025 03:08:32 01/30/20 25 01/29/2025 CBC WITH DIFFE RENTI AL/PL ATELE T eos (absolute) 0.2 x10e3 /uL 0.0-0. 4 Not Available [facility] [address] [place], [address], 01/30/2025 03:08:32 01/30/20 25 01/29/2025 CBC WITH DIFFE RENTI AL/PL ATELE T baso (absolute) 0.0 x10e3 /uL 0.0-0. 2 Not Available [facility] [address] [place], [address], 01/30/2025 03:08:32 01/30/20 25 01/29/2025 CBC WITH DIFFE RENTI AL/PL ATELE T immature granulocytes 0.2 % notest b. Not Available [facility] [address] [place], [address], 01/30/2025 03:08:32 01/30/20 25 01/29/2025 CBC WITH DIFFE RENTI AL/PL ATELE T immature grans (abs) 0.0 x10e3 /uL 0.0-0. 1 Not Available [facility] [address] [place], [address], 01/30/2025 03:08:32 01/30/20 25 01/29/2025 CBC WITH DIFFE RENTI AL/PL ATELE T NRBC 0 % 0-0 Not Available [facility] [address] [place], [address], 01/30/2025 03:08:32 01/30/20 25 01/30/2025 COMP. METAB OLIC PANEL (14) glucose 138 mg/dL 70-99 above high normal Not Available [facility] ([facility]) [address] [facility], [place], [address], 01/30/2025 08:24:13 01/30/20 25 01/30/2025 COMP. METAB OLIC PANEL (14) BUN 12 mg/dL 8-27 Not Available [facility] ([facility]) [address] [facility] [place], [address], 01/30/2025 08:24:13 01/30/20 25 01/30/2025 COMP. METAB OLIC PANEL (14) creatinine 0.79 mg/dL 0.76-1 .27 Not Available [facility] ([facility]) [address] [facility] [place], [address], 01/30/2025 08:24:13 01/30/20 25 01/30/2025 COMP. METAB OLIC PANEL (14) eGFR 100 mL/mi n/1.7 3 >59 Not Available [facility] ([facility]) [address] [facility] [place], [address], 01/30/2025 08:24:13 01/30/20 25 01/30/2025 COMP. METAB OLIC PANEL (14) BUN/creatini ne ratio 15 10-24 Not Available [facility] ([facility]) [address] [facility] [place], [address], 01/30/2025 08:24:13 01/30/20 25 01/30/2025 COMP. METAB OLIC PANEL (14) sodium 142 mmol/ L 134-14 4 Not Available [facility] ([facility]) [address] [facility] [place], [address], 01/30/2025 08:24:13 01/30/20 25 01/30/2025 COMP. METAB OLIC PANEL (14) potassium 4.5 mmol/ L 3.5-5. 2 Not Available [facility] ([facility]) [address] [place], [address], 01/30/2025 08:24:13 01/30/20 25 01/30/2025 COMP. METAB OLIC PANEL (14) chloride 108 mmol/ L 96-106 above high normal Not Available [facility] ([facility]) [address] [place], [address], 01/30/2025 08:24:13 01/30/20 25 01/30/2025 COMP. METAB OLIC PANEL (14) carbon dioxide, total 21 mmol/ L Not Available [facility] ([facility]) [address] [place], [address], 01/30/2025 08:24:13 01/30/20 25 01/30/2025 COMP. METAB OLIC PANEL (14) calcium 9.0 mg/dL 8.6-10 .2 Not Available [facility] ([facility]) [address] [place], [address], 01/30/2025 08:24:13 01/30/20 25 01/30/2025 COMP. METAB OLIC PANEL (14) protein, total 6.1 g/dL 6.0-8. 5 Not Available [facility] ([facility]) [address] [place], [address], 01/30/2025 08:24:13 01/30/20 25 01/30/2025 COMP. METAB OLIC PANEL (14) albumin 3.8 g/dL 3.9-4. 9 below low normal Not Available [facility] ([facility]) [address] [place], [address], 01/30/2025 08:24:13 01/30/20 25 01/30/2025 COMP. METAB OLIC PANEL (14) globulin, total 2.3 g/dL 1.5-4. 5 Not Available [facility] ([facility]) [address] [place], [address], 01/30/2025 08:24:13 01/30/20 25 01/30/2025 COMP. METAB OLIC PANEL (14) bilirubin, total 0.4 mg/dL 0.0-1. 2 Not Available [facility] ([facility]) [address] [place], [address], 01/30/2025 08:24:13 01/30/20 25 01/30/2025 COMP. METAB OLIC PANEL (14) alkaline phosphatase 106 IU/L 44-121 Not Available [facility] [address] [place], [address], 01/30/2025 08:24:13 01/30/20 25 01/30/2025 COMP. METAB OLIC PANEL (14) AST (SGOT) 16 IU/L 0-40 Not Available [facility] ([facility]) [address] [place], [address], 01/30/2025 08:24:13 01/30/20 25 01/30/2025 COMP. METAB OLIC PANEL (14) ALT (SGPT) 22 IU/L 0-44 Not Available [facility] ([facility]) [address] [place], [address], 01/30/2025 08:24:13 01/30/20 25 01/30/2025 HEPAT IC FUNCT ION PANEL (7) bilirubin, direct 0.16 mg/dL 0.00-0 .40 Not Available [facility] ([facility]) [address] [place], [address], 01/30/2025 08:24:14 01/30/20 25 01/30/2025 TSH+F REE T4 TSH 2.340 uIU/m L 0.450- 4.500 Not Available [facility] ([facility]) [address] [place], [address], 01/30/2025 09:14:48 01/30/20 25 01/30/2025 TSH+F REE T4 T4,free(dire ct) 1.28 NG/dL 0.82-1 .77 Not Available [facility] ([facility]) [address] [place], [address], 01/30/2025 09:14:48 01/30/20 25 01/30/2025 PROST ATE-S PECIF IC AG prostate specific Ag 2.7 NG/mL 0.0-4. 0 Madeline ECLIA metho dolog y. Accor ding to the [employer]i can [employer] i[employer] n, Serum PSA shoul d decre ase and remai n at undet ectab le level s after radic al prost atect slava. The AUA defin es bioch emica l recur rence as an initi al PSA value 0.2 ng/mL or great er follo wed by a subse quent confi rmato ry PSA value 0.2 ng/mL or great er. Value s obtai mark with diffe rent assay metho ds or kits canno t be used inter jamison eably . Resul ts canno t be inter prete d as absol apache evide nce of the prese nce or absen ce of polo cardenas se. Not Available [facility] ([facility]) [address] [facility], [place], [address], 01/30/2025 09:14:49 01/20/20 25 01/07/2025 MRI, abdom en, w/o contr ast No observ ation record ed. [email or web address] [address], [address], 01/21/2025 08:25:15 Result Notes None recorded. Problems Name Problem SNOMED Code Status Onset Date Resolution Date Notes Provider Name and Address Organization Details Recorded Time Chronic antral gastritis 70967999 Active 2017 EGD 02/2022- avoid nsaid per GI Carmen Lowry MD Attn: Ghanshyam g,[address], [place], [address], [place] - [facility] 2 15:36:18 Neck pain 99786991 Active 2019 Alexandrea mcdonough [place] - [facility] 1 14:52:30 Pain of left shoulder joint [id number] 23697 Active 2020 Alexandrea mcdonough [place] - [facility] 1 14:52:30 Bilateral lung opacities on plain chest X-ray 924980532 Active 2021 with h/o hemoptysi s -CT chest 11/2021-ok Carmen Lowry MD Attn: Ghanshyam walsh,[address] [facility], [place], [address], [place] [facility] 2 14:31:41 Delayed gastric emptying 727333282 Active 2021 Carmen Lowry MD Attn: Ghanshyam walsh,[address] [place], [address], [place] [facility] 2 13:59:00 Low back pain 828202877 Active 2022 Carmen Lowry MD Attn: Ghanshyam walsh,[address] [place], [address], [place] [facility] 3 09:53:47 Diabetes mellitus 40007221 Active sees endo and podiatris t Carmen Lowry MD Attn: Ghanshyam walsh,[address] [place], [address], [place] [facility] 2 12:10:04 Essential hypertens ion 09018986 Active Carmen Lowry MD Attn: Ghanshyam walsh,[address] [place], [address], [place] [facility] 4 09:37:29 Hyperlipi demia 78920345 Active Carmen Lowry MD Attn: Ghanshyam jillian,[address] [place], [address], [place] [facility] 2 14:31:42 Transient cerebral ischemia 187862479 Active pt is on asprin/pl avix Carmen Lowry MD Attn: Ghanshyam jillian,[address] [place] [address], [address], [place] [facility] 2 14:31:42 Problem Notes None recorded. Procedures Surgical History Date Name Laterality Status Provider Name and Address Organization Details Recorded Time 02/19 /2025 Cholecystectomy completed CYN Roberts [place] - [facility] 5 14:17:21 03/28 esophagogastroduodenoscopy completed Francy Griffith [place] - [facility] 14:33:36 02/04 Colonoscopy completed Carmen Lowry MD Attn: Accounting ,[address] [facility], [place], [address] , [place] [facility] 8 13:36:34 02/04 EGD completed Maidson Mcdonnell RN [place] - [facility] 8 14:40:41 Knee Surgery completed Ernestina Griffith [place] [facility] 6 09:40:33 procedure on ankle completed Ernestina Griffith [place] [facility] 9 11:36:24 Eye Surgery completed Trisha Peck MA [place] [facility] 5 09:14:12 Imaging Results Imaging Date Name Status LastModified by Organiz ation Details LastModified Time 01/07/2025 [facility], [facility], w[facility] [address], [address], 01/21/2025 08:25:15 Procedure Notes None recorded. Medical Equipment None Reported. Allergies No known drug allergies Medications Name Sig Start Date Stop Date Status Note LastModified by Organization Details LastModified Time compound drug 05/08 completed Not Available Not Available Not Available cyclobenz aprine 10 mg tablet 10/11 completed Not Available Not Available Not Available amoxicill in 500 mg capsule TAKE 1 CAPSULE BY MOUTH EVERY 8 HOURS 05/08 completed Not Available Not Available Not Available Sure Comfort Insulin Syringe 0.5 mL 30 gauge x 04/09 completed Not Available Not Available Not Available insulin syringe U-100 with needle 1 mL 30 gauge x 04/09 use daily with Lantus insulin active Not Available Not Available No t Available atorvasta tin 40 mg tablet TAKE 1 TABLET BY MOUTH ONCE DAILY active does not take Not Available Not Available Not Available metformin 500 mg tablet TAKE ONE TABLET BY MOUTH TWO TIMES A DAY 07/08 completed did not tolerate Not Available Not Available Not Available naproxen 375 mg tablet 06/09 completed Not Available Not Available Not Available azithromy chaz 250 mg tablet TAKE 2 TABLETS BY MOUTH ON DAY 1, AND THEN TAKE 1 TABLET BY MOUTH ONCE A DAY ON DAY 2 THROUGH DAY 5 05/31 completed Not Available Not Available Not Available ibuprofen 800 mg tablet 05/08 completed Not Available Not Available Not Available tizanidin e 4 mg tablet TAKE 1 TABLET BY MOUTH TWICE DAILY 09/11 completed Not Available Not Available Not Available benzonata te 200 mg capsule Take 1 capsule 3 times a day by oral route as needed. 02/24 completed Not Available Not Available Not Available hydrocodo ne 5 mg-acetam inophen 325 mg tablet TK 1 T PO Q 6 H PRN P 03/28 completed not taking Not Available Not Available Not Available lisinopri l 20 mg tablet Take 1 tablet every day by oral route. 2015 active Not Available Not Available Not Avai lable Lantus U-100 Insulin 100 unit/mL subcutane ous solution INJECT 50 UNITS SUBCUTAN EOUSLY ONCE DAILY IN THE EVENING 03/28 completed not taking Not Available Not Available Not Available Sesar Low Dose Aspirin 81 mg tablet,de layed release Take 1 tablet every day by oral route. 08/04 completed Not Available Not Available Not Available acetamino phen 300 mg-codein e 30 mg tablet Take 1 tablet every 6 hours by oral route as needed for 1 day, for severe pain. 2024 active Not Available Not Available Not Avai lable clopidogr el 75 mg tablet TAKE 1 TABLET BY MOUTH ONCE DAILY active stopped at hospital 01/11/25 Not Available Not Available Not Available sulfameth oxazole 800 mg-trimet hoprim 160 mg tablet TAKE 1 TABLET BY MOUTH TWICE DAILY FOR 10 DAYS active Not Available Not Available No t Available tramadol 50 mg tablet TAKE 1 TABLET BY MOUTH EVERY 6 HOURS FOR UP TO 3 DAYS NEEDED FOR MODERATE TO SEVERE PAIN 02/24 completed Not Available Not Available Not Available triamcino lone acetonide 0.1 % topical cream APPLY A THIN LAYER TO THE AFFECTED AREA(S) BY TOPICAL ROUTE 2 TIMES PER DAY 06/14 /2024 completed PRN Not Available Not Available Not Available amoxicill in 500 mg tablet Take 1 tablet every 8 hours by oral route for 7 days. 08/29 completed Not Available Not Available Not Available simvastat in 40 mg tablet TAKE 1 TABLET BY MOUTH ONCE DAILY AT BEDTIME active Not Available Not Available No t Available glimepiri de 1 mg tablet TAKE 1 TABLET BY MOUTH ONCE DAILY BEFORE BREAKFAS T 02/24 completed Not Available Not Available Not Available amoxicill in 875 mg tablet TAKE 1 TABLET BY MOUTH EVERY 12 HOURS FOR 10 DAYS 02/24 completed from urgent care Not Available Not Available Not Available prednisol one acetate 1 % eye drops,sherif pension 07/08 completed Not Available Not Available Not Available Triple Antibioti c 3.5 mg-400 unit-5,00 0 unit/gram topical ointment APPLY TO THE AFFECTED AREA ONCE DAILY active Not Available Not Available No t Available OneTouch Ultra Test strips USE 1 NEW STRIP THREE TIMES DAILY TO CHECK BLOOD GLUCOSE active Not Available Not Available No t Available meclizine 25 mg tablet TAKE 1 TABLET BY MOUTH THREE TIMES DAILY NEEDED FOR DIZZINES S 09/11 completed Not Available Not Available Not Available cephalexi n 500 mg capsule Take 1 capsule 3 times a day by oral route for 5 days. 09/17 completed Not Available Not Available Not Available pantopraz ole 40 mg tablet,de layed release TAKE 1 TABLET BY MOUTH ONCE DAILY 08/29 completed Not Available Not Available Not Available tobramyci n 0.3 % eye drops 07/08 completed Not Available Not Available Not Available lisinopri l 10 mg tablet TAKE 1 TABLET BY MOUTH ONCE DAILY active Not Available Not Available No t Available glimepiri de 4 mg tablet TAKE 1 TABLET BY MOUTH ONCE DAILY IN THE MORNING active Not Available Not Available No t Available gabapenti n 300 mg capsule TAKE 1 CAPSULE BY MOUTH TWICE DAILY active Not Available Not Available No t Available omeprazol e 20 mg capsule,d elayed release TAKE 1 CAPSULE BY MOUTH ONCE DAILY 09/11 completed not taking Not Available Not Available Not Available aspirin 81 mg chewable tablet CHEW AND SWALLOW 1 TABLET BY MOUTH ONCE DAILY active Not Available Not Available No t Available diclofena c sodium 75 mg tablet,de layed release TAKE 1 TABLET BY MOUTH TWICE DAILY NEEDED 08/04 completed not taking Not Available Not Available Not Available lisinopri l 5 mg tablet Take 1 tablet by mouth once daily 05/31 completed Not Available Not Available Not Available ibuprofen 600 mg tablet TAKE 1 TABLET BY MOUTH EVERY 6 HOURS NEEDED FOR PAIN 02/24 completed Not Available Not Available Not Available methylpre dnisolone 4 mg tablets in a dose pack TAKE BY MOUTH DIRECTED ON INSIDE OF PACKAGE 02/24 completed Not Available Not Available Not Available albuterol sulfate HFA 90 mcg/actua tion aerosol inhaler Inhale 2 puffs 3 times a day by inhalati on route as needed. 09/11 completed Not Available Not Available Not Available ketoconaz ole 2 % topical cream APPLY DAILY FOR 30 DAYS APPLY TO BILATERA L FOOT RASH TWICE A DAY 05/31 completed Not Available Not Available Not Available fluticaso ne propionat e 50 mcg/actua tion nasal spray,sherif pension [place] 1 spray every day by intranas al route. 01/27 completed not using Not Available Not Available Not Available naproxen 500 mg tablet 12/05 completed Not Available Not Available Not Available amoxicill in 875 mg-potass ium clavulana te 125 mg tablet TAKE 1 TABLET BY MOUTH EVERY 12 HOURS FOR 10 DAYS 02/24 completed Not Available Not Available Not Available cyclobenz aprine 5 mg tablet 08/04 completed Not Available Not Available Not Available FeroSul 325 mg (65 mg iron) tablet TAKE 1 TABLET BY MOUTH ONCE DAILY FOR 90 DAYS active Not Available Not Available No t Available Lantus Solostar U-100 Insulin 100 unit/mL (3 mL) subcutane ous pen INJECT 48 UNITS SUBCUTAN EOUSLY IN THE MORNING active Not Available Not Available No t Available Accu-Chek FastClix Lancing Device 10/11 completed Not Available Not Available Not Available TRUEplus Insulin 0.5 mL 31 gauge x 5/16 syringe USE DIRECTED active Not Available Not Available No t Available guaifenes in ER 600 mg tablet, extended release 12 hr TAKE 1 TABLET BY MOUTH EVERY 12 HOURS NEEDED FOR COUGH active Not Available Not Available No t Available Jardiance 10 mg tablet Take 1 tablet by mouth once daily 06/22 completed Not Available Not Available Not Available Jardiance 25 mg tablet TAKE 1 TABLET BY MOUTH ONCE DAILY IN THE EVENING active Not Available Not Available No t Available Trulicity 1.5 mg/0.5 mL subcutane ous pen injector INJECT 1.5 MG SUBCUTAN EOUSLY ONCE A WEEK 05/08 completed Not Available Not Available Not Available Trulicity 0.75 mg/0.5 mL subcutane ous pen injector INJECT 0.5 ML (0.75 MG TOTAL) UNDER THE SKIN EVERY 7 DAYS 03/28 completed increase d to 1.5ml Not Available Not Available Not Available aspirin 80 mg tablet Take 1 tablet every day by oral route. 12/26 completed Not Available Not Available Not Available TRUEplus Pen Needle 32 gauge x /32 USE 1 PEN NEEDLE SUBCUTAN EOUSLY ONCE DAILY active Not Available Not Available No t Available Steglatro 5 mg tablet Take 1 tablet every day by oral route. 09/14 completed not taking Not Available Not Available Not Available OneTouch Ultra2 Meter USE DIRECTED active Not Available Not Available No t Available OneTouch Delica Plus Lancet 33 gauge USE DIRECTED active Not Available Not Available No t Available Fluzone Quad (PF) 60 mcg (15 mcg x 4)/0.5 mL IM syringe 09/14 completed Not Available Not Available Not Available Trulicity 3 mg/0.5 mL subcutane ous pen injector INJECT 3 MG SUBCUTAN EOUSLY ONCE A WEEK active Not Available Not Available No t Available Vitals Date Recorded Body height Body mass index (BMI) Body weight Heart rate Respiratory rate Body temperature Oxygen saturation Oxygen saturation in Arterial blood by Pulse oximetry Systolic blood pressure Diastolic blood pressure Provider Name and Address Organization Details Last Updated DateTime 4 177.8 cm 34.8 kg/m2 290506. 15 g 83 /min 16 /min 97.8 [degF] 95 % 95 % 148 mm[Hg] 96 mm[Hg] Karie Villareal [place] - [facility] 4 11:36:03 Date Recorded Body height Body mass index (BMI) Body weight Respiratory rate Body temperature Oxygen saturation Oxygen saturation in Arterial blood by Pulse oximetry Heart rate Systolic blood pressure Diastolic blood pressure Provider Name and Address Organization Details Last Updated DateTime 4 177.8 cm 34.7 kg/m2 932064. 35 g 16 /min 98.6 [degF] 95 % 95 % 58 /min 132 mm[Hg] 86 mm[Hg] CYN Ramirez [facility] 4 11:35:04 Date Recorded Body height Body mass index (BMI) Body weight Respiratory rate Body temperature Oxygen saturation Oxygen saturation in Arterial blood by Pulse oximetry Heart rate Systolic blood pressure Diastolic blood pressure Provider Name and Address Organization Details Last Updated DateTime 4 177.8 cm 34.7 kg/m2 932529. 35 g 16 /min 97.5 [degF] 96 % 96 % 66 /min 124 mm[Hg] 82 mm[Hg] Alexandrea Schwartz Mar [facility] 4 10:37:14 Date Recorded Body height Body mass index (BMI) Body weight Heart rate Respiratory rate Body temperature Oxygen saturation Oxygen saturation in Arterial blood by Pulse oximetry Systolic blood pressure Diastolic blood pressure Provider Name and Address Organization Details Last Updated DateTime 5 177.8 cm 35.3 kg/m2 507649. 72 g 85 /min 16 /min 97.8 [degF] 95 % 95 % 106 mm[Hg] 71 mm[Hg] Karie Villareal MA [facility] 5 11:37:50 Date Recorded Body height Body mass index (BMI) Body weight Oxygen saturation Oxygen saturation in Arterial blood by Pulse oximetry Heart rate Respiratory rate Body temperature Systolic blood pressure Diastolic blood pressure Provider Name and Address Organization Details Last Updated DateTime 5 177.8 cm 32.8 kg/m2 144443. 21 g 100 % 100 % 95 /min 20 /min 98.2 [degF] 92 mm[Hg] 67 mm[Hg] CYN Roberts [facility] 5 14:33:30 Social History Question Answer Notes LastModified by Organizat ion Details LastModified Time Tobacco Smoking Status Never Smoker Quit - 1977 Trisha Peck [facility] 11/22/2015 09:14:12 Do You Have An Advance Directive? No Information not available 06/21/2021 What Is Your Level Of Alcohol Consumption? None [email or web address] Information not available 11/22/2015 Are You Blind Or Do You Have Difficulty Seeing? No Reading Glasses Information not available 12/05/2021 What Is Your Level Of Caffeine Consumption? Moderate Hot Tea, Coffee, [email or web address] Information not available 05/08/2024 How Much Tobacco Do You Chew? None Information not available 08/14/2016 In The 14 Days Before Symptom Onset, Have You Had Close Contact With A Laboratory-confi rmed COVID-19 While That Case Was Ill? No Information not available 03/02/2020 In The 14 Days Before Symptom Onset, Have You Had Close Contact With A Person Who Is Under Investigation For COVID-19 While That Person Was Ill? No Information not available 03/02/2020 Have You Been To An Area Known To Be High Risk For COVID-19? No Information not available 03/02/2020 Are You Currently Employed? No [email or web address] Information not available 05/31/2023 Are You Deaf Or Do You Have Serious Difficulty Hearing? No Information not available 01/27/2021 What Type Of Diet Are You Following? REGULAR Information not available 08/14/2016 Which Illicit Or Recreational Drugs Have You Used? Denies Information not available 08/14/2016 Do You Or Have You Ever Used E-cigarettes Or Vape? Never Used Electronic Cigarettes Information not available 03/02/2020 Education 12 Information no t available 07/08/2017 What Is The Highest Grade Or Level Of School You Have Completed Or The Highest Degree You Have Received? [id number] Information not available 01/27/2021 What Is Your Occupation? Retired [email or web address] Information not available 05/31/2023 Are There Any Guns Present In Your Home? Yes Information not available 06/15/2019 Marital Status Informatio n not available 08/14/2016 What Was The Date Of Your Most Recent Tobacco Screening? 01/19/2025 Information not available 01/19/2025 What Is Your Relationship Status? Information not available 01/27/2021 Do You Use Your Seat Belt Or Car Seat Routinely? No Information not available 01/27/2021 Seat Belts Used Routinely Yes Information not available 06/15/2019 Smoke Alarm In Home Yes Information not available 03/02/2020 Do You Have Smoke And Carbon Monoxide Detectors In Your Home? Yes Information not available 01/27/2021 At What Age Did You Start Smoking Tobacco? 18 Pt Only Smoked 1 Pkg Information not available 06/21/2021 Do You Or Have You Ever Used Smokeless Tobacco? Never Used Smokeless Tobacco Information not available 03/02/2020 How Much Tobacco Do You Smoke? No Information not available 03/02/2020 General Stress Level Medium Information not available 06/15/2019 Do You Feel Stressed (tense, Restless, Nervous, Or Anxious, Or Unable To Sleep At Night)? [id number] With Pain Trouble Sleeping Information not available 08/29/2023 Do You Use Any Illicit Or Recreational Drugs? No Information not available 01/27/2021 Do You Use Sunscreen Routinely? No Information not available 06/15/2019 Has Tobacco Cessation Counseling Been Provided? Yes [email or web address] Information not available 05/31/2023 On What Date Was Tobacco Cessation Counseling Provided? 01/19/2025 Information not available 01/19/2025 Do You Or Have You Ever Used Any Other Forms Of Tobacco Or Nicotine? No [email or web address] Information not available 06/09/2021 Sex: Male Functional Status Question Answer Note LastModified by Organization D etails LastModified Time Are you able to care for yourself? Yes Information not available 01/27/2021 What is your exercise level? None active Information not available 08/29/2023 Mental Status None recorded. Family History Relationship Description Onset Age of this Age Resolved Age Notes LastModified by Organization Details LastModified Time Father Essential hypertension Not available 09:40:33 Notes:01/19/25 Medical History Condition Response Coronary Artery Disease N High Blood Pressure Y Atrial Fibrillation N Kidney or Bladder Problems N Thyroid Problems N GI Problems N Depression N COPD N Blood Clots N Skin Problems N Anemia N Heart Attack ([place]) N Anxiety Disorder N Diabetes Y Muscle, Joint, or Bone Problems Y Seizures/Epilepsy N Acid Reflux (GERD) Y Cancer N Stroke Y Asthma N Allergies N High Cholesterol Y Hepatitis N Liver Disease N Headaches N Heart Failure N Osteoporosis N Immunizations Vaccine Type Date Status Note Provider Nam e and Address Organization Details Recorded Time Influenza, split virus, quadrivalent, preservative 0 completed Not Available [facility] 09/10/2023 16:13:41 SARS-COV-2 (COVID-19) vaccine, UNSPECIFIED 1 completed Not Available [facility] 09/10/2023 16:13:41 Influenza, split virus, quadrivalent, preservative 9 completed Not Available [facility] 12/12/2019 02:38:13 Influenza, split virus, quadrivalent, preservative 1 completed Alexandrea mcdonough, [place] - [facility] 09/15/2021 15:30:02 Influenza, split virus, quadrivalent, preservative 6 completed Not Available [facility] 09/10/2023 16:13:41 Influenza, split virus, quadrivalent, preservative 2 completed Carmen Lowry MD Attn: [address] [place], [address], [facility] 11/05/2022 15:22:05 Influenza, split virus, quadrivalent, preservative 3 completed Carmen Lowry MD Attn: [address] [place], [address], [facility] 08/30/2023 15:34:14 Influenza, split virus, trivalent, preservative 4 completed Carmen Lowry MD Attn: [address] [place], [address], [facility] 09/11/2024 13:51:32 Tdap 5 completed Not Available [facility] 09/10/2023 16:13:41 Influenza, split virus, quadrivalent, preservative 5 completed Not Available [facility] 12/12/2019 02:45:27 pneumococcal polysaccharide PPV23 5 completed Not Available [facility] 12/12/2019 02:43:45 Past Encounters Encounter ID Performer Location Encounter Start Date Encounter Closed Date Diagnosis/Indication Diagnosis SNOMED-CT Code Diagnosis ICD10 Code Diagnosis Note [id number] MD Jerri Reyeshalto (Adult Med) [address] [place] [address] 11/22/2015 08:49:53 11/23/2015 14:06:55 Diabetes mellitus 10741410 E11.9 noncomplia nt with med-not taking for 2 yrs check labs Essential hypertension 68739337 I10 low salt diet and exercise start pt on Lisinopril Screening for malignant neoplasm of prostate 745037866 Z12.5 Administra tion of influenza vaccine 05079700 Z23 Administra tion of pneumococcal vaccine 68110102 Z23 [id number] [facility] [address] [place] [address] 12/07/2015 14:51:54 12/08/2015 16:44:03 Diabetes mellitus 43212775 E11.9 noncomplia nt with med-not taking for 2 yrs A1C-10.9 -started pt on Metformine and glimepride Essential hypertension 20553052 I10 low salt diet and exercise continue Lisinopril Hyperlipidemia 98204755 E78.2 continue statin Screening for malignant neoplasm of colon 167215556 Z12.11 [id number] MD Jerri Reyeshalto (Adult Med) [address] [place] [address] 03/09/2016 13:53:30 03/09/2016 17:00:32 Essential hypertension 84627156 I10 not well controlled due to noncomplia nt with med- pt is counselled low salt diet and exercise continue Lisinopril Hyperlipidemia 60990519 E78.2 noncomplia nt with med continue statin Diabetes mellitus 464487 09 E11.9 noncomplia nt with med-not taking for a month A1C-10.9 - pt to go back on Metformine and glimepride [id number] [facility] [address] [place] [address] 05/14/2016 14:52:24 05/14/2016 17:11:29 Diabetes mellitus 91959555 E11.9 noncomplia nt with med-not taking med as prescribed pt did not bring home blood sugars pt has been noncomplia nt with diet Essential hypertension 57808811 I10 low salt diet and exercise Increase Lisinopril 20 mg daily Hyperlipidemia 94852143 E78.2 continue statin [id number] [facility] [address] [place] [address] 08/14/2016 09:21:23 08/14/2016 15:45:07 Transient cerebral ischemia 231948038 G45.9 resolved pt to continue asa /Plavix and statin CT head -ok pt also has apt to see ENT in 10/10 for laryngeal fullness Diabetes mellitus 861874 09 E11.9 pt to continue Metformin/ Glimepride and Lantus per endo pt has apt to see registered appraiser today seen by eye doctor 2 months ago per pt pt is seeing endo Essential hypertension 44818694 I10 low salt diet and exercise continue Lisinopril daily [id number] [facility] [address] [place] [address] 10/11/2016 08:38:07 10/11/2016 10:23:06 Diabetes mellitus 80431108 E11.9 pt to continue metformine 1000 mg bid / glimepride and Lantus per endopt is seeing registered appraiser and eye doctor Traumatic corneal abrasion 686170081 S05.02XD pt is on steroid and antibiotic eye dropspt is seeing eye doctor [id number] [facility] [address] [place] [address] 07/08/2017 15:00:33 07/10/2017 09:36:58 Essential hypertension 48953551 I10 stable on Lisinopril Diabetes mellitus 675769 09 E11.9 pt stopped metformine due to GI upsetConti nue glimepride Increase Lantus 35 units Hyperlipidemia 74546641 E78.2 continue statin [id number] MD Jerri Reyeshalto (Adult Med) [address] [place] [address] 12/26/2018 08:25:42 12/29/2018 09:51:16 Diabetes mellitus 43339032 E11.9 noncomplia nt with med and f/upt did not tolerate metformin due to GI upsetpt to restart glimepirid ept does not have insurance for Lantus 35 units-disc ussed about PAP applicatio n for insulinpt to do labs today Essential hypertension 48911629 I10 noncomplia nt with medpt to restart Lisinopril Hyperlipidemia 50764110 E78.2 noncomplia nt with medcontinu e statin Pain of ri ght hip joint [id number] 60537 M25.551 pt does not have insurance for imaginghip exercisest dick tylenol prn for pain [id number] [facility] [address] [place] [address] 02/23/2019 09:38:39 02/24/2019 10:14:27 Essential hypertension 50594011 I10 Improvingp t to continue Lisinopril Diabetes mellitus 070611 09 E11.9 improvingp t did not tolerate metformin due to GI upsetpt to continue glimepirid ept does not have insuranceG etting Lantus through PAP -continue 40 units daily Hyperlipidemia 23280729 E78.2 continue statin [id number] [facility] [address] [place] [address] 06/15/2019 11:23:52 06/16/2019 09:37:46 Essential hypertension 05004917 I10 stablept to continue Lisinopril Hyperlipidemia 65885950 E78.2 continue statin Diabetes mellitus 012202 09 E11.9 improvingp t did not tolerate metformin due to GI upsetpt to continue glimepirid e / Lantus 40 units daily [id number] [facility] [address] [place] [address] 08/31/2019 14:48:42 09/01/2019 09:55:04 Upper respiratory infection 70442145 J06.9 keep good hydration/ supportive carept to return to clinic or go to ER if worsen Renewal of prescription 990258600 Z76.0 Administra tion of influenza vaccine 93101217 Z23 [id number] [facility] [address] [place] [address] 03/02/2020 08:16:08 03/03/2020 09:42:24 Essential hypertension 30518451 I10 stablept to continue Lisinopril Diabetes mellitus 826377 09 E11.9 improvingp t did not tolerate metformin due to GI upsetpt to continue glimepirid e / Lantus 40 units daily Hyperlipidemia 16974083 E78.2 continue statin [id number] [facility] [address] [place] [address] 05/16/2020 08:22:31 05/18/2020 12:22:12 Diabetes mellitus 25629481 E11.42 pt did not tolerate metformin due to GI upset pt to continue glimepirid e / Lantus 50 units daily .pt is on gabapentin pt wants to see registered appraiser to get diabetic shoes Essential hypertension 32696308 I10 stablept to continue Lisinopril Hyperlipidemia 63879031 E78.2 continue statin [id number] [facility] [address] [place] [address] 09/14/2020 08:45:14 09/15/2020 13:11:31 Essential hypertension 48808316 I10 stablept to continue Lisinopril Diabetes mellitus 346315 09 E11.42 pt did not tolerate metformin due to GI upset pt to continue glimepirid e / Lantus 50 units daily .pt is not taking SGLTi -will wait for lab .pt is on gabapentin pt wants to see registered appraiser to get diabetic shoes Hyperlipidemia 15485547 E78.2 continue statin Neck pain 28985144 M54.2 with hand pain with dropping things .and possible CTSpt to avoid heavy lifting .exercises check xray [id number] [facility] [address] [place] [address] 01/27/2021 14:08:55 01/28/2021 11:11:04 Hyperlipidemia 67767417 E78.2 continue statin Essential hypertension 77279344 I10 stablept to continue Lisinopril Diabetes mellitus 246883 09 E11.42 pt did not tolerate metformin due to GI upset pt to continue glimepirid e /jardiance / Lantus 50 units daily .pt is on gabapentin pt wants to see registered appraiser to get diabetic shoes [id number] [facility] [address] [place] [address] 06/09/2021 14:20:09 06/13/2021 10:59:52 Essential hypertension 47065069 I10 stablept to continue Lisinopril Diabetes mellitus 389008 09 E11.42 pt did not tolerate metformin due to GI upsetpt is noncomplia nt with jardiance- pt said he is going to take dailypt to continue glimepirid e / Lantus 50 units daily .pt is on gabapentin pt is seeing registered appraiser Hyperlipidemia 30309564 E78.2 continue statin Pain of le ft shoulder joint [id number] 6275773 M25.512 exercise /heat therapy/ avoid lifting heavy things -check xray [id number] MD Suzanne Reyes (Adult Med) [address] [place] [address] 06/21/2021 10:10:43 06/22/2021 06:14:37 Contact dermatitis 17610766 L25.9 with socks/ pt to try low cut socks for now and try to use soft material socks [id number] [facility] [address] [place] [address] 08/04/2021 13:59:19 08/07/2021 08:41:17 Transient cerebral ischemia 242370717 G45.9 -recurrent episodes - pt is on event monitor nowpt to continue asa /Plavix and statinCT head /MRI /dopplers and echo -okpt has apt with neuro ( ) in 2 wks Essential hypertension 69978492 I10 with low normal bp and some dizzinessp t to reduce Lisinopril 1/2 tab daily [id number] MD Suzanne Reyes (Adult Med) [address] [place] [address] 09/15/2021 14:27:31 09/18/2021 16:22:57 Essential hypertension 28608910 I10 -pt to continue Lisinopril 10mg daily Diabetes mellitus 140696 E11.42 pt did not tolerate metformin due to GI upsetpt is noncomplia nt with jardiance- pt said he is going to take dailypt to continue glimepirid e / Lantus 50 units daily .pt is on gabapentin -foot care discussed [facility] pt - pt to make apt with registered appraiser Hyperlipidemia 72995579 E78.2 continue statin Obesity 985062520 E66.9 Administra tion of influenza vaccine 14153722 Z23 Transient cerebral ischemia 114581519 G45.9 -recurrent episodes - pt is on event monitor nowpt to continue asa /Plavix and statinCT head /MRI /dopplers and echo -okpt is seeing neuro ( ) [id number] MD Jerri Reyeshalto (Adult Med) [address] [place] [address] 12/05/2021 08:44:22 12/07/2021 07:52:36 Pneumonia 148927184 J18.9 with hemoptysis which has resolved per pt- pt to discontinu e naproxen - pt is on aspirin and plavixpt is feeling better-con tinue amoxicilli n , wants to go back to work - pt to do covid testing and cxr Diabetes mellitus 377025 E11.42 pt did not tolerate metformin due to GI upsetpt is noncomplia nt with jardiance- pt said he is going to take dailypt to continue glimepirid e / Lantus 50 units daily .pt is on gabapentin -foot care discussed [facility] pt - pt to make apt with registered appraiser [id number] MD Suzanne Reyes (Adult Med) [address] [place] [address] 2022 14:25:25 03/30/2022 08:22:48 Essential hypertension 43312646 I10 -pt to continue Lisinopril 10mg daily Diabetes mellitus 247464 E11.42 pt did not tolerate metformin due to GI upsetpt is compliant with jardiance nowpt to continue glimepirid e- pt is off of lantus per endo now-pt also started on trulicity by his endo - last a1c -6.8 with endopt is on gabapentin -foot care discussed wt pt - pt to make apt with registered appraiser Hyperlipidemia 89184851 E78.2 continue statin Chronic an tral gastritis 94576367 K29.50 - pt sees GI /avoid nsaid -continue ppipt is on asp and plavix Transient cerebral ischemia 535751797 G45.9 -recurrent episodes - pt is on event monitor nowpt to continue asa /Plavix and statinCT head /MRI /dopplers and echo -okpt is seeing neuro ( ) [id number] MD Jerri Reyeshalto (Adult Med) [address] [place] [address] 08/02/2022 14:11:59 08/03/2022 10:38:18 Essential hypertension 40559488 I10 -pt to continue Lisinopril 10mg daily Diabetes mellitus 814242 09 E11.42 pt did not tolerate metformin due to GI upsetpt is compliant with jardiance nowpt to continue glimepirid e- pt is off of lantus per endo now-pt also started on trulicity by his endo - last a1c was 6.0 with endopt is on gabapentin -foot care discussed wt pt - pt to make apt with registered appraiser Hyperlipidemia 94081217 E78.2 continue statin Transient cerebral ischemia 413663649 G45.9 -recurrent episodespt to continue asa /Plavix and statinCT head /MRI /dopplers and echo -okpt is seeing neuro ( ) Obesity 149881471 E66.9 Infection of toe 7601691 06 L08.9 of R/big toe -pt has apt to see registered appraiser / pt is also on jardiance- seen by ER - given keflex - pt to continue 5 more days-f/u in a wk if pt couldn't get with foot doctor [id number] MD Suzanne Reyes (Adult Med) [address] [place] [address] 09/17/2022 11:33:21 09/18/2022 11:13:21 Pain of left shoulder joint [id number] M25.512 exercise /heat therapy/ avoid lifting heavy things -xray showed OA and cervical spine showed dddcheck mri for possible rotator cuff injury [id number] [facility] ([facility] [address] [place] [address] 11/05/2022 11:41:15 11/06/2022 09:48:13 Essential hypertension 98387879 I10 -pt to continue Lisinopril 10mg daily Hyperlipidemia 79845185 E78.2 continue statin Diabetes mellitus 721094 E11.42 pt did not tolerate metformin due to GI upsetpt is compliant with jardiance nowpt to continue glimepirid e- pt is off of lantus per endo now-pt also started on trulicity by his endo - last a1c was 6.0 with endopt is on gabapentin -foot care discussed wt pt - pt sees registered appraiser Transient cerebral ischemia 324432488 G45.9 -recurrent episodespt to continue asa /Plavix and statinCT head /MRI /dopplers and echo -okpt is seeing neuro ( ) Overweight 999457268 E66 .3 Administra tion of influenza vaccine 88971359 Z23 [id number] MD [facility] ([facility] [address] [place] [address] 03/11/2023 13:58:17 03/14/2023 16:40:34 Transient cerebral ischemia 898515636 G45.9 -recurrent episodes / pt denied low bs at present timept to continue asa /Plavix and statinCT head /MRI /dopplers and echo -okpt is seeing neuro and had EEG for possible seizure -seen by his neuro last wk Diabetes mellitus 647679 E11.42 pt did not tolerate metformin due to GI upsetpt is compliant with jardiance nowpt is off glimepirid e due to low bs- pt is off of lantus per endo now-pt also started on trulicity by his endo - last a1c was 7.8 with endopt is on gabapentin -foot care discussed wt pt - pt sees registered appraiser Overweight 972809715 E66 .3 Intermitte nt palpitations 530016061 R00.2 -pt to see cardio to r/o paroxysmal atrial fib as a cause for recurrent TIA [id number] MD Jerri Reyeshalto (Adult Med) [address] [place] [address] 05/31/2023 10:11:01 06/04/2023 16:07:25 Essential hypertension 09356717 I10 -pt to continue Lisinopril 10mg daily Hyperlipidemia 46661470 E78.2 continue statin Diabetes mellitus 337547 09 E11.42 pt did not tolerate metformin due to GI upsetpt is compliant with jardiance nowpt is off glimepirid e due to low bs- pt is off of lantus per endo now-pt also started on trulicity by his endo - last a1c was 7.8 with endopt is on gabapentin -foot care discussed wt pt - pt sees registered appraiser Transient cerebral ischemia 561004157 G45.9 -recurrent episodes / pt denied low bs at present timept to continue asa /Plavix and statinCT head /MRI /dopplers and echo -okpt is seeing neuro and had EEG for possible seizure -seen by his neuro last wk Low back pain 604155292 M54.50 due to musculoske letal pain-exerc ise /heat therapy Overweight 587038340 E66 .3 [id number] MD [facility] ([facility] [address] [place] [address] 08/29/2023 14:41:43 09/04/2023 12:32:28 Diabetes mellitus 61617373 E11.42 pt did not tolerate metformin due to GI upsetpt is compliant with jardiance nowpt is off glimepirid e due to low bs- pt is off of lantus per endo now-pt also started on trulicity by his endo - last a1c was 7.8 with endopt is on gabapentin -foot care discussed wt pt - pt sees registered appraiser Hyperlipidemia 19436271 E78.2 continue statin Transient cerebral ischemia 337728610 G45.9 -recurrent episodes / pt denied low bs at present timept to continue asa /Plavix and statinCT head /MRI /dopplers and echo -okpt is seeing neuro and had EEG for possible seizure -seen by his neuro last wk Administra tion of influenza vaccine 02907487 Z23 [id number] MD Jerri Reyeshalto (Adult Med) [address] [place] [address] 09/16/2023 13:58:18 09/17/2023 09:40:33 Low back pain 850785764 M54.50 of R/back pain due to musculoske letal pain following fall-exerc ise /heat therapypt had evaluation with CT lumbar spine -no acute finding- pt to go for PTpt has difficulty with walking and needs cane for ambulation to complete adl Vertigo 128233241 R42 pt is on meclizine [id number] MD Jerri Reyeshalto (Adult Med) [address] [place] [address] 10/22/2023 09:32:01 10/23/2023 16:25:06 Low back pain 830868393 M54.50 of R/back pain due to musculoske letal pain following fall-exerc ise /heat therapypt had evaluation with CT lumbar spine -no acute finding- pt to go for PTpt has difficulty with walking and needs cane for ambulation to complete adl Vertigo 585029720 R42 pt is on meclizine Cough 09095396 R05.9 -keep good hydrationp t to do cxr if cough continues [id number] MD [facility] ([facility] [address] [place] [address] 02/25/2024 11:13:36 02/27/2024 15:32:30 Essential hypertension 61316466 I10 -pt to restart Lisinopril 10mg daily Diabetes mellitus 994812 09 E11.42 pt did not tolerate metformin due to GI upsetpt is compliant with jardiance nowpt is off glimepirid e due to low bs- pt is off of lantus per endo now-pt also started on trulicity by his endo - last a1c was 7.8 with endopt is on gabapentin -foot care discussed wtih pt - pt sees registered appraiser Hyperlipidemia 10651961 E78.2 continue statin Transient cerebral ischemia 962502410 G45.9 -recurrent episodes / pt denied low bs at present timept to continue asa /Plavix and statinCT head /MRI /dopplers and echo -okpt is seeing neuro and had EEG for possible seizure Obesity 215838986 E66.9 Insomnia 576675995 G47.0 0 - pt declined to go for sleep study [id number] MD [facility] ([facility] [address] [place] [address] 05/08/2024 10:54:18 05/11/2024 10:59:05 Essential hypertension 72742287 I10 -improving on Lisinopril 10mg daily Hyperlipidemia 17174259 E78.2 continue statin Diabetes mellitus 453127 09 E11.42 pt did not tolerate metformin due to GI upsetpt is compliant with jardiance nowpt is off glimepirid e due to low bs- pt is off of lantus per endo now-pt also started on trulicity by his endo - last a1c was 7.8 with endopt is on gabapentin -foot care discussed wtih pt - pt sees registered appraiser Transient cerebral ischemia 882945403 G45.9 -recurrent episodes / pt denied low bs at present timept to continue asa /Plavix and statinCT head /MRI /dopplers and echo -okpt is seeing neuro and had EEG for possible seizure Obesity 068859318 E66.8 [id number] MD [facility] ([facility] [address] [place] [address] 09/11/2024 10:17:11 09/16/2024 11:20:16 Essential hypertension 26920960 I10 -improving on Lisinopril 10mg daily Hyperlipidemia 41056923 E78.2 continue statin Diabetes mellitus 174308 09 E11.42 pt did not tolerate metformin due to GI upsetpt is compliant with jardiance nowpt is off glimepirid e due to low bs- pt is off of lantus per endo now-pt also started on trulicity by his endo - last a1c was 7.8 with endopt is on gabapentin -foot care discussed wtih pt - pt sees registered appraiser Transient cerebral ischemia 761853665 G45.9 -recurrent episodes / pt denied low bs at present timept to continue asa /Plavix and statinCT head /MRI /dopplers and echo -okpt is seeing neuro and had EEG for possible seizure Administra tion of influenza vaccine 89063865 Z23 [id number] MD Jerri Reyeshalto (Adult Med) [address] [place] [address] 12/11/2024 11:29:15 12/18/2024 17:53:47 Essential hypertension 13321000 I10 -improving on Lisinopril 10mg daily Diabetes mellitus 603628 09 E11.42 pt did not tolerate metformin due to GI upsetpt is compliant with jardiance nowpt is off glimepirid e due to low bs- pt is off of lantus per endo now-pt also started on trulicity by his endo - last a1c was 7.8 with endopt is on gabapentin -foot care discussed wt pt - pt sees registered appraiser Hyperlipidemia 47431514 E78.2 continue statin Transient cerebral ischemia 500039325 G45.9 -recurrent episodes / pt denied low bs at present timept to continue asa /Plavix and statinCT head /MRI /doppler and echo -okpt is seeing neuro and had EEG for possible seizure [id number] Eugene Johnson MD [facility] (Adult Med) [address] [place] [address] 01/19/2025 14:09:50 02/09/2025 11:39:55 Liver enzymes level above reference range 502340894 R74.01 -Elevated liver enzymes previously noted-danyell ent agreeable to recheck of LFTs Body mass index 30+ - obesity 395681027 Z68.32 32.8 Benign pro static hyperplasia 855212905 N40.0 -patient reports experienci ng urinary symptoms of BPH-urolog ist referral placed-olivier ck PSA History of transient ischemic attack 553976656 Z86.73 -Patient reports his plavix was discontinu ed-Patient has not followed up with neurology- continue preventati ve measures including hypertensi on controlled , hyperlipid emia control, and diabetes control.-E R precaution s advised Abdominal pain 57523207 R10.9 -patient presentati on concerning for inflamed pancreas and poor wound healing with possible infection- patient's surgeon was notified of patient's continued pain. Patient has follow up scheduled for tomorrow.- patient agreeable to temporary pain management with Tylenol with codeine until he can follow up with his surgeon tomorrow-G I referral placed for follow-up- ER precaution s advised Long-term drug therapy 048930293 Z79.891 Hyperlipidemia 04864266 E78.5 -Statin on hold due to elevated LFTs. Recheck levels in 6 weeks.-Rec heck lipid panel in May-Trend LFTs-Patie nt educated on the importance of diet, exercise and medication in the management of this condition. Essential hypertension 75527681 I10 -decreased -BP today in clinic: 92/67 mmHg (Goal <130/80)-P atient reports increased dizziness. -Patient has lower BP today-Danyell ent agreeable to decreasing lisinopril 5mg daily-Cont inue current therapy: Lisinopril 5 mg daily-Tren d renal function-R ecommended DASH diet-Discu ssed importance of regular exercise and/or physical activity inthe control of blood pressure.- Discussed low sodium diet w/ <2 g daily, avoidance of caffeine, appropriat e sleep hygiene and quality with >6 hours of uninterrup dayna sleep.-Pat ient to call the clinic with BP <110/70mmH g or >140/90mmH g-Patient to monitor-F/ u in 1-2 months Obesity 885402157 E66.9 Health Concerns Section Related Observation LastModified by Organization Detai ls LastModified Time None Recorded Concern Status LastModified by Organization Details LastModified Time None Recorded Advance Directives Directive N: Payers Encounter Date Sequence Insurance Name Policy Number Policy Covered Member ID Member ID Guarantor Name 02/25/2024 2 *SELF PAY* Jose R Appiah 02/25/2024 1 [facility] ON OR AFTER 05/25/21 (MEDICAID REPLACEMENT - HMO) Juwan Appiah [id number] Juwan Appiah 05/08/2024 2 *SELF PAY* Jose R Appiah 05/08/2024 1 [facility] ON OR AFTER 05/25/21 (MEDICAID REPLACEMENT - HMO) Juwan Appiah [id number] Juwan Appiah 09/11/2024 2 *SELF PAY* Jose R Appiah 09/11/2024 1 [facility] ON OR AFTER 05/25/21 (MEDICAID REPLACEMENT - HMO) Juwan Appiah [id number] Juwan Appiah 12/11/2024 2 *SELF PAY* Jose R Appiah 12/11/2024 1 [facility] ON OR AFTER 05/25/21 (MEDICAID REPLACEMENT - HMO) Juwan Appiah [id number] Juwan Appiah 01/19/2025 2 *SELF PAY* Jose R Appiah 01/19/2025 1 [facility] ON OR AFTER 05/25/21 (MEDICAID REPLACEMENT - HMO) Juwan Appiah [id number] Juwan Appiah Notes Date Note Type Note Provider Name and Address Organization Details Recorded Time 02/25/20 24 text/htm l Diabetes F/UReported bypatient.Review finger sticks:fastin-200 Labs:last A1C result: 8.8-sees endo Context:checking feet regularly; taking aspirin daily; not missing doses of medications;not seeing eye doctor yearly(reminded) Associated Symptoms:no headaches; no blurred vision;numbness of feet(tingling of feet)Notes:pt started seeing endo nowHyperlipidemiaReported bypatient.Duration:chronic Current Therapy:currently taking: (simvastatin) Compliance:compliant Complications:no coronary artery disease Risk Factors:diabetes;hypertension ;smokingStrokeReported bypatient.Hand Dominance:right Location:right sided symptoms Onset/Timing:sudden onset; resolution of symptoms Context:no warning signs prior to onset; history of hypertension (and DM) Alleviating factors:aspirin; Plavix Associated Symptoms:no syncope;slurred speech(improved);imbalance(R/ side numbness of hands and gait problem -resolved now)Notes:pt had 3 episodes of TIA without residual weakness -pt had CTA/ MRI and echo which are unremarkable . pt was seen by neuro and started on aspirin and plavix lungs? -wake up with cramps in legs - back painfeet - bottom neuralgia pt is here for f/u Carmen Lowry MD Attn: Accounting,[address] [facility], [place], [address], [place] [facility] 02/27/2024 09:38:42 05/08/20 24 text/htm l Diabetes F/UReported bypatient.Review finger sticks:fastin-200 Labs:last A1C result: 9.4-sees endo Context:checking feet regularly; taking aspirin daily; not missing doses of medications;not seeing eye doctor yearly(reminded) Associated Symptoms:no headaches; no blurred vision;numbness of feet(tingling of feet)Notes:pt started seeing endo nowHyperlipidemiaReported bypatient.Duration:chronic Current Therapy:currently taking: (simvastatin) Compliance:compliant Complications:no coronary artery disease Risk Factors:diabetes;hypertension ;smokingHypertension F/UReported bypatient.Associated Symptoms:no dizziness; no chest pain; no shortness of breath; no palpitations; no edema Lifestyle:regular exercise; limiting/avoiding salt Medications:taking medications as directed; no side effects from medicationStrokeReported bypatient.Hand Dominance:right Location:right sided symptoms Onset/Timing:sudden onset; resolution of symptoms Context:no warning signs prior to onset; history of hypertension (and DM) Alleviating factors:aspirin; Plavix Associated Symptoms:no syncope;slurred speech(improved);imbalance(R/ side numbness of hands and gait problem -resolved now)Notes:pt had 3 episodes of TIA without residual weakness -pt had CTA/ MRI and echo which are unremarkable . pt was seen by neuro and started on aspirin and plavix Carmen Lowry MD Attn: Accounting,[address] [place] [address], [address], [place] - [facility] 05/08/2024 11:57:10 09/11/20 24 text/htm l Diabetes F/UReported bypatient.Review finger sticks:fastin-200 Labs:last A1C result: 8.0-sees endo Context:seeing eye doctor regularly; checking feet regularly; taking aspirin daily; not missing doses of medications Associated Symptoms:no headaches; no blurred vision;numbness of feet(tingling of feet)Notes:pt started seeing endo nowHyperlipidemiaReported bypatient.Duration:chronic Current Therapy:currently taking: (simvastatin) Compliance:compliant Complications:no coronary artery disease Risk Factors:diabetes;hypertension ;smokingHypertension F/UReported bypatient.Associated Symptoms:no dizziness; no chest pain; no shortness of breath; no palpitations; no edema Lifestyle:regular exercise; limiting/avoiding salt Medications:taking medications as directed; no side effects from medicationStrokeReported bypatient.Hand Dominance:right Location:right sided symptoms Onset/Timing:sudden onset; resolution of symptoms Context:no warning signs prior to onset; history of hypertension (and DM) Alleviating factors:aspirin; Plavix Associated Symptoms:no syncope;slurred speech(improved);imbalance(R/ side numbness of hands and gait problem -resolved now)Notes:pt had 3 episodes of TIA without residual weakness -pt had CTA/ MRI and echo which are unremarkable . pt was seen by neuro and started on aspirin and plavix Carmen Lowry MD Attn: Accounting,[address] [facility], [place], [address], [facility] 09/11/2024 13:52:20 12/11/19 text/htm l Diabetes F/UReported bypatient.Review finger sticks:fastin-200 Labs:last A1C result: 8.7-sees endo Context:seeing eye doctor regularly; checking feet regularly; taking aspirin daily; not missing doses of medications Associated Symptoms:no headaches; no blurred vision;numbness of feet(tingling of feet)Notes:pt started seeing endo nowHyperlipidemiaReported bypatient.Duration:chronic Current Therapy:currently taking: (simvastatin) Compliance:compliant Complications:no coronary artery disease Risk Factors:diabetes;hypertension ;smokingHypertension F/UReported bypatient.Associated Symptoms:no dizziness; no chest pain; no shortness of breath; no palpitations; no edema Lifestyle:regular exercise; limiting/avoiding salt Medications:taking medications as directed; no side effects from medicationStrokeReported bypatient.Hand Dominance:right Location:right sided symptoms Onset/Timing:sudden onset; resolution of symptoms Context:no warning signs prior to onset; history of hypertension (and DM) Alleviating factors:aspirin; Plavix Associated Symptoms:no syncope;slurred speech(improved);imbalance(R/ side numbness of hands and gait problem -resolved now)Notes:pt had 3 episodes of TIA without residual weakness -pt had CTA/ MRI and echo which are unremarkable . pt was seen by neuro and started on aspirin and plavix Carmen Lowry MD Attn: Accounting,[address] [facility], [place], [address], [facility] 12/11/2024 13:54:14 01/19/20 text/htm l Patient presents to the clinic for hospital follow-up. Patient was established with Dr. Borja for primary care. Patient's past medical history includes type 2 diabetes, hypertension, hyperlipidemia, TIA, GERD, cholecystectomy, and left knee surgery -Patient was admitted at [facility] 01/04/25-01/14/25. Patient was treated for acute gangrenous cholecystitis with open colectomy on 01/11/25. Patient was discharged on cipro for 10 days.-A1c 6.9% in hospital-MRI/MRCP completed negative for choledocholithiasis-Patient reports having abdominal pain in the evenings. He has been unable to sleep due to the pain. Patient reports he was discharged on ibuprofen and tylenol PRN for pain relief. LEELA ZHENG-BC Attn: Accounting,[address] [place], [address], [facility] 02/09/2025 06:12:53
--- OUTSIDE RECORDS SUMMARY | 2025-03-31 12:33 | XMS_ITS | Referral Summary ---
Author Organization [facility] Address [address] [place] [address] Care Team Providers Care Securities Sales Associate Name Role Phone Yuly Burgess NP Primary Care Provider Allergies No known active allergies Medications aspirin 81 mg chewable tabletIndicati ons:cerebral ischemia,Cereb ral Ischemia Take 1 tablet (81 mg total) by mouth daily 90 tablet 1 Active gabapentin (NEURONTIN) 300 mg capsule Take 1 capsule (300 mg total) by mouth 2 (two) times a day Active empagliflozin (JARDIANCE) 25 mg tabletIndicati ons:type 2 diabetes mellitus 1 tablet (25 mg total) daily Active simvastatin (ZOCOR) 40 mg tablet Take 1 tablet (40 mg total) by mouth nightly Active OneTouch Ultra Test strip USE 1 NEW STRIP TO CHECK GLUCOSE THREE TIMES DAILY 1 Active OneTouch Delica Plus Lancet 33 gauge misc USE 1 TO CHECK GLUCOSE THREE TIMES DAILY 1 Active lisinopriL (PRINIVIL,ZEST RIL) 5 mg tablet Take 1 tablet (5 mg total) by mouth daily 2 Active ketoconazole (NIZORAL) 2 % cream 3 Active omeprazole (PriLOSEC) 20 mg capsule Take 1 capsule (20 mg total) by mouth daily 3 Active clopidogreL (PLAVIX) 75 mg tablet Take 1 tablet (75 mg total) by mouth daily 3 Active cyclobenzaprin e (FLEXERIL) 5 mg tablet Take 1 tablet (5 mg total) by mouth 3 (three) times a day as needed for muscle spasms Active ibuprofen (ADVIL,MOTRIN) 600 mg tablet Take by mouth every 6 (six) hours as needed 3 Active traMADoL (ULTRAM) 50 mg tablet 3 Active meclizine (ANTIVERT) 25 mg tablet 3 Active glimepiride (AMARYL) 1 mg tabletIndicati ons:type 2 diabetes mellitus Take 1 tablet (1 mg total) by mouth daily before breakfast 90 tablet 1 3 Active dulaglutide (Trulicity) 1.5 mg/0.5 mL pen injector INJECT 1 SYRINGE SUBCUTANEOUSLY ONCE A WEEK 6 mL 3 Active al & mag hydroxide with simethicone-di phenhydramine- lidocaine (MAGIC MOUTHWASH) suspension 1-1-1 Swish and spit 15 mL every 6 (six) hours as needed (as needed for mouth pain.) 200 mL 4 Active Active Problems Problem Noted Date Diagnosed Date Chest pain 03/27/2023 Palpitations 03/27/2023 Lightheadedness 03/27/2023 Primary hypertension 02/26/2022 Assessment & Plan (08/31/2022 4:07 PM CDT): Controlled with medication - low salt diet - continue Lisinopril per PCP Assessment & Plan (05/29/2022 4:06 PM CDT): Controlled with medication - low salt diet - continue Lisinopril per PCP Assessment & Plan (02/26/2022 3:23 PM CDT): Controlled with medication - low salt diet - continue Lisinopril per PCP Type 2 diabetes mellitus wit h hyperglycemia, without long-term current use of insulin 07/25/2021 Assessment & Plan (09/10/2023 2:47 PM CDT): Diagnosed around 2016 Was on insulin from 2017- 2021 Control : deterioration in control after weight gain A1c 9.0% on 09/10/23 A1c 7.9% on 02/05/23. A1c 7.8% on 11/30/22 A1c 5.8% on 08/31/22 A1c 6.0% on 05/29/22 Kidney: normal GFR > 60 on 09/09/23 Plan: Patient to work on diet plan. Start Glimepiride 1 mg /day which can be discontinued if patient having low sugars Continue Trulicity 1.5 mg /week. Continue same dose jardiance Ophthalmology exam on regular basis. Assessment & Plan (05/02/2023 12:01 PM CDT): Diagnosed around 2017 Was on insulin from 2017- 2021 Control : above target A1c 7.9% on 02/05/23. A1c 7.8% on 11/30/22 A1c 5.8% on 08/31/22 A1c 6.0% on 05/29/22 Kidney: normal GFR > 60 on 02/05/23 Plan: Patient to work on diet plan. Continue Trulicity 1.5 mg /week. Continue same dose jardiance Ophthalmology exam on regular basis. Assessment & Plan (01/04/2023 2:09 PM PUBLIC HEALTH SANITARIAN TECHNICIAN): Diagnosed around 2016 Was on insulin from 2021 Control : above target since he was off diet and Glimepiride. A1c 7.8% on 11/30/22 A1c 5.8% on 08/31/22 A1c 6.0% on 05/29/22 A1c 6.7% on 02/26/22 A1c 8.5% on 12/05/21 Kidney: normal GFR 98 on 11/30/22 Plan: Patient to get back on diet plan. Continue Trulicity 1.5 mg /week. Continue same dose jardiance Ophthalmology exam on regular basis. Assessment & Plan (08/31/2022 4:07 PM CDT): Diagnosed around 2016 Was on insulin from 2017- 2021 Control : improved control with Trulicity A1c 5.8% on 08/31/22 A1c 6.0% on 05/29/22 A1c 6.7% on 02/26/22 A1c 8.5% on 12/05/21 Kidney: normal GFR > 60 on 12/05/21. Plan: Continue diet plan. Discontinue Glimepiride. Continue Trulicity 1.5 mg /week. Continue same dose jardiance Hypoglycemia symptoms and treatment reviewed with patient. Call if having low sugars. Ophthalmology exam on regular basis. Assessment & Plan (05/29/2022 4:05 PM CDT): Diagnosed around 2017 Was on insulin from 2017- 2021 Control : improved control with Trulicity A1c 6.0% on 05/29/22 A1c 6.7% on 02/26/22 A1c 8.5% on 12/05/21 Kidney: normal GFR > 60 on 12/05/21. Plan: Continue diet plan. Continue Trulicity 1.5 mg /week. Continue same dose jardiance Decrease Glimepiride to 2 mg /day. Hypoglycemia symptoms and treatment reviewed with patient. Call if having low sugars. Ophthalmology exam on regular basis. Assessment & Plan (02/26/2022 3:21 PM CDT): Diagnosed around 2016 On insulin since 2017 Control : improved control with Trulicity A1c 6.7% on 02/26/22 A1c 8.5% on 12/05/21 Kidney: normal GFR > 60 on 12/05/21. Plan: Continue diet plan. Increase Trulicity 1.5 mg /week. Patient informed about side effects, and asked to stop medication if having nausea with vomiting or abdominal pains. Continue same dose jardiance Decrease Glimepiride to 4 mg /day- can stop if having low sugars Monitor sugars 1 x per day Hypoglycemia symptoms and treatment reviewed with patient. Call if having low sugars. Ophthalmology exam on regular basis. Assessment & Plan (12/26/2021 3:08 PM PUBLIC HEALTH SANITARIAN TECHNICIAN): Diagnosed around 2017 On insulin since 2017 Control : not at target A1c 8.5% on 12/05/21 Kidney: normal GFR > 60 on 12/05/21. Plan: Refer patient to dietitian. Patient to work on weight loss with diet and exercise. Start patient on Trulicity 0.75 mg /week. Patient informed about side effects, and asked to stop medication if having nausea with vomiting or abdominal pains. Continue same dose of Lantus, jardiance and Glimepiride. Monitor sugars 2 x per day Hypoglycemia symptoms and treatment reviewed with patient. Call if having low sugars. Ophthalmology exam on regular basis. TIA (transient ischemic attack) 07/25/2021 Right shoulder strain, initial encounter 021 Lumbar strain, initial encounter 03/10/2021 Acute post-traumatic headache, not intractable 0 03/10/2021 Hypercholesterolemia 02/02/2021 Social History Tobacco Use Types Packs/Day Years Used Date Smoking Tobacco: Never Smokeless Tobacco: Never Tobacco Cessation:Counseling Given: Not Answered Alcohol Use Standard Drinks/Week Comments Never 0 (1 standard drink = 0.6 oz pur e alcohol) AUDIT-C Answer Date Recorded Q1: How often do you have a drink containing alc ohol? Never 07/25/2021 Average Number of Drinks Not on file 021 Q3: How often do you have si x or more drinks on one occasion? Never 07/25/2021 Personal Safety Answer Date Recorded Have you ever been in or are you currently in a harmful physical or emotional relationship or is someone making you feel afraid or unsafe? Denies 03/21/2024 Sex and Gender Information Value Date Recorded Sex Assigned at Not on file Legal Sex Male 6:45 PM PUBLIC HEALTH SANITARIAN TECHNICIAN Gender Identity Not on file Sexual Orientation Not on file Last Filed Vital Signs Vital Sign Reading Time Taken Comments Blood Pressure 124/90 03/21/2024 10:30 PM CDT Pulse 96 03/21/2024 10:30 PM CDT Temperature 36.6 C (97.9 F) 03/21/2024 5:38 PM CDT Respiratory Rate 17 03/21/2024 5:39 PM CDT Oxygen Saturation 92% 03/21/2024 10:30 PM CDT Inhaled Oxygen Concentration - - Weight 104.3 kg (230 lb) 03/21/2024 5:39 PM CDT Height 177.8 cm (5' 10 ) 03/21/2024 5:39 PM CDT Body Mass Index 33 03/21/2024 5:39 PM CDT Plan of Treatment Not on file Procedures Procedure Name Priority Date/Time Associated Diagnosis Comments EGFR STAT 03/21/2024 7:04 PM CDT POCT HEMOGLOBIN A1C Routine 09/10/2023 2 :18 PM CDT Type 2 diabetes mellitus with hyperglycemia, without long-term current use of insulin (HCC) ALBUMIN CREATININE RATIO, URINE Routine 01/04/2023 LIPID PANEL Routine 11/30/2022 DIABETIC EYE EXAM Routine 01/27/2022 COLONOSCOPY IMAGES 05/09/2016 from Last 3 Months or Most Recently Relevant to Health Maintenance Results * eGFR (03/21/2024 7:04 PM CDT) eGFR >90 >=60 mL/min/1. 73 m2 Comment: Interpretive Data Reference Interval Normal >/= 90 mL/min/1.73m2 Mildly decreased* 60 - 89 mL/min/1.73m2 Mildly to moderately decreased 45 - 59 mL/min/1.73m2 Moderately to severely decreased 30 - 44 mL/min/1.73m2 Severely decreased 15 - 29 mL/min/1.73m2 Kidney Failure < 15 mL/min/1.73m2 *Relative to young adult level Estimated glomerular filtration rate is determined by the 2020 CKD-EPI equation recommended by the National Kidney Foundation (A Unifying Approach to GFR Estimation: Recommendations of the NKF-ASK Task Force on Reassessing the Inclusion of Race in Diagnosing Kidney Disease, JASN 2020). The CKD-EPI equation should not be used for patients with unstable renal function and has not been validated in children and those over 70. Current interpretive data was last reviewed 2021. Blood 03/21/2024 7:04 PM CDT 03/21/2024 7:09 PM CDT us Ananya Wright MD LAB BLOOD ORDERABLES Final Result [facility] ([place] 1 [facility] Department [place] [address] * Albumin Creatinine Ratio, Urine (01/04/2023) SCRIBED Creatinine, Urine 200 - - - mg/dL EXTERNAL LAB SCRIBED Microalbumin 10 - - - mg/l EXTERNAL LAB SCRIBED Microalb/Creat Ratio <30 mg/g EXTERNAL LAB Urine 01/04/2023 Narrative EXTERNAL LAB - 01/04/2023 Per POCT done today in office Historical Provider LAB URINE ORDERABLES Dania l Result Performing Organization Address City/[facility]/ZIP Co de Phone Number EXTERNAL LAB * (ABNORMAL) Lipid panel (11/30/2022) SCRIBED Cholesterol, Total 165 100 - 199 EXTERNAL LAB SCRIBED HDL 60(A) 0 - 39 EXTERNAL LAB SCRIBED LDL 95 0 - 99 EXTERNAL LAB SCRIBED Triglycerides 51 0 - 149 EXTERNAL LAB Blood 11/30/2022 Historical Provider LAB BLOOD ORDERABLES Dania l Result Performing Organization Address [facility] Co de Phone Number EXTERNAL LAB * Diabetic Eye Exam (01/27/2022) Historical Provider HEALTH MAINTENANCE Final Result * COLONOSCOPY IMAGES (05/09/2016) Anatomical Region Laterality Modality Other Narrative 05/09/2016 Ordered by an unspecified provider. Historical Provider GI PROCEDURE ORDERABLES F inal Result from Last 3 Months or Most Recently Relevant to Health Maintenance Insurance [facility] Advance Directives For more information, please contact: [phone] * Full Code (Latest Code Status on File) Date Activated Date Inactivated Comments 07/27/2021 4:09 PM 07/28/2021 7:21 PM * Full Code Date Activated Date Inactivated Comments 07/25/2021 2:24 PM 07/26/2021 9:22 PM Care Teams Securities Sales Associate Relationship Specialty Start Date End Date Yuly Burgess NP [address] [address] [id number] PCP - General Nurse Practitioner 01/20/25
--- OUTSIDE RECORDS SUMMARY | 2025-03-31 12:33 | XMS_ITS | Clinical Summary ---
Author Organization [facility] Address [address] [place] [address] Care Team Providers Care Video Library Assistant Name Role Phone Yuly Burgess NP Primary [...] basis. Assessment & Plan (01/04/2023 2:09 PM ADDICTION SOCIAL WORKER): Diagnosed around 2016 Was on insulin from [...] basis. Assessment & Plan (12/26/2021 3:08 PM ADDICTION SOCIAL WORKER): Diagnosed around 2017 On insulin since 2017 [...] attack) 07/25/2021 Right shoulder strain, initial encounter Lumbar strain, initial encounter 03/10/2021 Acute post-traumatic headache, not intractable 0 03/10/2021 Hypercholesterolemia 02/02/2021 Surgical History Surgery Date Site/Laterality Comments ANTERIOR CRUCIATE LIGAMENT REPAIR Right FRACTURE SURGERY Left lt ankle fracture, surgery TONSILECTOMY, ADENOIDECTOMY, BILATERAL MYRINGOTOMY AND TUBES 4 y/o Medical History Medical History Date Comments Type 2 diabetes mellitus (HCC) Hypertension TIA (transient ischemic attack) Arthritis Stroke (HCC) TIA 07/25/2021 Family History Medical History Relation Name Comments Alcohol abuse Brother COPD Brother Heart attack Brother Hypertension Brother Cancer Father Hypertension Father Stroke Sister Relation Name Status Comments Brother Father Sister Social History Tobacco Use Types Packs/Day Years Used Date Smoking Tobacco: Never Smokeless Tobacco: Never Tobacco Cessation:Counseling Given: Not Answered Alcohol Use Standard Drinks/Week Comments Never 0 (1 standard drink = 0.6 oz pur e alcohol) AUDIT-C Answer Date Recorded Q1: How often do you have a drink containing alc ohol? Never 07/25/2021 Average Number of Drinks Not on file Q3: How often do you have si [...] on file Legal Sex Male 6:45 PM ADDICTION SOCIAL WORKER Gender Identity Not on file Sexual Orientation Not on file Obstetrics History Last Filed Vital Signs Vital Sign Reading [...] 03/21/2024 5:39 PM CDT Plan of Treatment Health Maintenance Due Date Last Done Comments Depression Screening 1961 Hepatitis C Screening 1961 Prostate Cancer Screening-PSA 1961 Hepatitis B Screening 1979 Regular Well Visit/Exam 18-64 1979 Zoster Vaccine (1 of 2) 2011 Pneumococcal vaccine <65 (3 of 3 - PCV20 or PCV21) 07/30/2021 07/30/2016, 07/30/2016, 11/22/2015 Albumin Creatinine Ratio, Urine 01/04/2024 Dilated Eye Exam 01/28/2024 01/27/2022 Lipid Panel 02/06/2024 02/05/2023, 0 04/2023, 12/05/2021, Additional history exists Foot Exam 09/10/2024 09/10/2023, 06/2023, 01/04/2023, Additional history exists DTaP/Tdap/Td Vaccine (2 - Td or Tdap) 11/25/2024 11/25/2014, 11/25/2014 eGFR 03/21/2025 03/21/2024, 04/2023, 02/20/2022, Additional history exists Hemoglobin A1C 07/08/2025 01/08/2025, 08/25, 11/30/2022, Additional history exists Colon Cancer Screening-Colonoscopy 05/09/20262015, 05/09/2016 Influenza Vaccine Completed 09/11/2024, , 11/05/2022, Additional history exists Procedures Procedure Name Priority Date/Time Associated Diagnosis [...] MD LAB BLOOD ORDERABLES Final Result [facility] 1 [facility] Department [place] [address] * Albumin Creatinine Ratio, Urine (01/04/2023) SCRIBED Creatinine, Urine 200 - - - mg/dL EXTERNAL LAB SCRIBED Microalbumin 10 - - - mg/l EXTERNAL LAB SCRIBED Microalb/Creat Ratio <30 mg/g EXTERNAL LAB Urine 01/04/2023 Narrative EXTERNAL LAB - 01/04/2023 Per POCT done today in office Historical Provider LAB URINE ORDERABLES Dania l Result EXTERNAL LAB * (ABNORMAL) Lipid panel (11/30/2022) SCRIBED Cholesterol, Total 165 100 - 199 EXTERNAL LAB SCRIBED HDL 60(A) 0 - 39 EXTERNAL LAB SCRIBED LDL 95 0 - 99 EXTERNAL LAB SCRIBED Triglycerides 51 0 - 149 EXTERNAL LAB Blood 11/30/2022 Historical Provider LAB BLOOD ORDERABLES Dania l Result Performing Organization Address City/[facility]/ZIP Co de Phone Number EXTERNAL LAB * Diabetic Eye Exam (01/27/2022) Historical Provider HEALTH MAINTENANCE Final Result * COLONOSCOPY IMAGES (05/09/2016) Anatomical Region Laterality Modality Other Narrative 05/09/2016 Ordered by an unspecified provider. Historical Provider GI PROCEDURE ORDERABLES F inal Result from Last 3 Months or Most Recently Relevant to Health Maintenance Insurance [facility] Advance Directives For more information, please contact: [phone] * Full Code (Latest Code Status on File) Date Activated Date Inactivated Comments 07/27/2021 4:09 PM 07/28/2021 7:21 PM * Full Code Date Activated Date Inactivated Comments 07/25/2021 2:24 PM 07/26/2021 9:22 PM Care Teams Video Library Assistant Relationship Specialty Start Date End Date Yuly Burgess NP [address] [place] [address] [address] [place] [address] PCP - General Nurse Practitioner 01/20/25
[2025-03-31] MEDS: TETANUS,DIPHTHERIA,AC PERTUSSIS ADULT (0.5 ML) BOOSTRIX IM (12:50)
== END 2025-03-31 14:30 | disposition home or self-care (01) ==
DX: S61.211A Laceration without foreign body of left index finger without damage to nail, initial encounter (principal); W29.3XXA Contact with powered garden and outdoor hand tools and machinery, initial encounter; S62.661A Nondisplaced fracture of distal phalanx of left index finger, initial encounter for closed fracture; Z23 Encounter for immunization; I10 Essential (primary) hypertension; E11.40 Type 2 diabetes mellitus with diabetic neuropathy, unspecified; Z79.84 Long term (current) use of oral hypoglycemic drugs; Z79.85 Long-term (current) use of injectable non-insulin antidiabetic drugs; E78.5 Hyperlipidemia, unspecified; Z86.73 Personal history of transient ischemic attack (TIA), and cerebral infarction without residual deficits; Z79.82 Long term (current) use of aspirin
CPT/HCPCS: 12002; 29130; 73140; 90471; 90715; 99214; G0463; J2003